=== PATIENT | female | born 1940 | race Caucasian/White ===

== ENCOUNTER 2018-05-05 06:38 | Emergency (ER) | payer OTHER, MEDICARE ==
--- OUTSIDE RECORDS SUMMARY | 2018-05-05 06:40 | XMS REPORT ---
:1940 [facility] [address] [place] [address] Dr. Hernandez [address] [place] [id number] Care Team Providers Name Role Phone Unavailable Unavailable Unavailable Problems This patient has no known problems. Allergies, Adverse Reactions, Alerts This patient has no known allergies or adverse reactions. Medications This patient has no known medications.
[2018-05-05 07:38] LABS: Absolute Lymphocytes (CBC) 1.5 K/uL (0.7-4.9); Absolute Monocytes 0.6 K/uL (0.1-1.3); Absolute Neutrophil 7.8 K/uL (1.8-8.0); Basophils % 1.4 % (0-1.3); Eosinophils % 0.9 % (0-4.4); Hematocrit 41.7 % (36.0-45.0); Lymphocytes % 14.8 % (15.3-44.8); MCH 32.3 pg (27.0-35.0); MCV 96.5 fL (80-100); MPV 9.8 fL (7.6-11.3); Monocytes % 6.3 % (3.3-12.3); RBC Red Blood Cell Count 4.32 M/uL (3.86-4.86)
[2018-05-05 07:58] LABS: Albumin 3.9 g/dL (3.4-5.0); Bilirubin Direct 0.2 mg/dL (0-0.2); Bilirubin Total 0.6 mg/dL (0.2-1.0); Potassium 4.2 mmol/L (3.5-5.1); Protein, Total 7.6 g/dL (6.4-8.2)
--- NOTE | 2018-05-05 08:43 | RAD REPORT ---
EXAM DESCRIPTION: CT - Abdomen Pelvis W Contrast - 05/05/2018 8:28 am CLINICAL HISTORY: Abdominal pain with nausea. COMPARISON: 2013 TECHNIQUE: Computed axial tomography of the abdomen pelvis was obtained. 100 cc Isovue-300 was admin istered intravenously. Oral contrast was not requested which limits evaluation of bowel. All CT scans are performed using dose optimization technique as appropriate and may include automated exposure control or mA/KV adjustment according to patient size. FINDINGS: The liver, spleen, pancreas, adrenal and left kidney appear unremarkable. Mild right renal cortical thinning may be secondary to prior inflammation There is no evidence of diverticulitis. The appendix is normal. A hysterectomy has been performed. A pain pump is in place. Tiny umbilical hernia IMPRESSION: No acute abnormality is displayed.
--- NOTE | 2018-05-05 09:13 | EDPHYS ---
Physician Documentation [facility] Name: Claudia Cha Age: 78 yrs Sex: Female : 1940 Arrival Date: 05/05/2018 Time: 06:42 Bed 14 Private MD: He Moreno C ED Physician Dao Cortez HPI: 05/05 08:13 This 78 yrs old Female presents to ER via Ambulatory with complaints of jr8 Constipation. 08:13 Onset: The symptoms/episode began/occurred gradually, 3 week(s) ago. The symptoms do jr8 not radiate. Associated signs and symptoms: Pertinent positives: nausea and vomiting. The symptoms are described as crampy. Modifying factors: The symptoms are alleviated by nothing, the symptoms are aggravated by nothing. Severity of pain: At its worst the pain was moderate in the emergency department the pain is unchanged. It is unknown whether or not the patient has had similar symptoms in the past. The patient has been recently seen by a physician:. Patient had colonoscopy one week ago. Stated that since then has only had one small bowel movement and feels bloated and now had been vomiting up her medications. Usually has some degree of constipation due to longstanding history of opioid use but never this bad and does not feel bloated or nauseated . Historical: - Allergies: 07:07 Latex, Natural Rubber; bb 07:07 metformin; bb 07:07 Tape; bb - Home Meds: 07:07 Aspirin Oral [Active]; Eliquis 5 mg oral tab 1 tab 2 times per day [Active]; bb atorvastatin 80 mg oral tab 1 tab once daily [Active]; enalapril maleate 10 mg Oral tab 1 tab 2 times per day [Active]; metoprolol tartrate 50 mg Oral tab 1 tab 2 times per day [Active]; amlodipine 5 mg tab 1 tab once daily [Active]; tizanidine 4 mg oral tab 1 tab every 8 hours [Active]; morphine 15 mg Oral TbER 1 tab every 8 hours [Active]; Prialt intrathecal intrathecal [Active]; - PMHx: 07:07 chronic back pain; Hypertension; Myocardial infarction; bb - PSHx: 07:07 back surgery; Hysterectomy; pain pump; neck surgery; bb - Immunization history:: Adult Immunizations up to date. - Social history:: Smoking status: Patient/guardian denies using tobacco, Patient/guardian denies using alcohol, street drugs. - Ebola Screening: : No symptoms or risks identified at this time. ROS: 08:13 Eyes: Negative for injury, pain, redness, and discharge, ENT: Negative for injury, jr8 pain, and discharge, Neck: Negative for injury, pain, and swelling, Cardiovascular: Negative for chest pain, palpitations, and edema, Respiratory: Negative for shortness of breath, cough, wheezing, and pleuritic chest pain, Back: Negative for injury and pain, MS/Extremity: Negative for injury and deformity, Skin: Negative for injury, rash, and discoloration, Neuro: Negative for headache, weakness, numbness, tingling, and seizure. 08:13 Abdomen/GI: Positive for abdominal pain, nausea and vomiting, abdominal cramps, abdominal distension, Negative for hematemesis, black/tarry stool, rectal pain, rectal bleeding, bowel incontinence, flatulence. Exam: 08:13 Eyes: Pupils equal round and reactive to light, extra-ocular motions intact. Lids and jr8 lashes normal. Conjunctiva and sclera are non-icteric and not injected. Cornea within normal limits. Periorbital areas with no swelling, redness, or edema. ENT: Nares patent. No nasal discharge, no septal abnormalities noted. Tympanic membranes are normal and external auditory canals are clear. Oropharynx with no redness, swelling, or masses, exudates, or evidence of obstruction, uvula midline. Mucous membranes moist. Neck: Trachea midline, no thyromegaly or masses palpated, and no cervical lymphadenopathy. Supple, full range of motion without nuchal rigidity, or vertebral point tenderness. No Meningismus. Cardiovascular: Regular rate and rhythm with a normal S1 and S2. No gallops, murmurs, or rubs. Normal PMI, no JVD. No pulse deficits. Respiratory: Lungs have equal breath sounds bilaterally, clear to auscultation and percussion. No rales, rhonchi or wheezes noted. No increased work of breathing, no retractions or nasal flaring. Abdomen/GI: Soft, non-tender, with normal bowel sounds. No distension or tympany. No guarding or rebound. No evidence of tenderness throughout. Back: No spinal tenderness. No costovertebral tenderness. Full range of motion. Skin: Warm, dry with normal turgor. Normal color with no rashes, no lesions, and no evidence of cellulitis. MS/ Extremity: Pulses equal, no cyanosis. Neurovascular intact. Full, normal range of motion. Neuro: Awake and alert, GCS 15, oriented to person, place, time, and situation. Cranial nerves II-XII grossly intact. Motor strength 5/5 in all extremities. Sensory grossly intact. Cerebellar exam normal. Normal gait. Vital Signs: 07:07 BP 128 / 60; Pulse 52; Resp 16 S; Temp 98.1(O); Pulse Ox 95% on R/A; Weight 88.45 kg bb (R); Height 5 ft. 7 in. (170.18 cm) (R); Pain 8/10; 07:10 BP 141 / 84; Pulse 58; Resp 16; Pulse Ox 97% ; bp 08:45 BP 133 / 65; Pulse 52; Resp 14; Pulse Ox 100% ; bp 07:07 Body Mass Index 30.54 (88.45 kg, 170.18 cm) bb MDM: 06:49 Patient medically screened. jr8 09:10 Differential diagnosis: bowel obstruction, diverticulitis, Irritable bowel syndrome, jr8 non-specific abd pain, colitis, constipation, stool impaction. Data reviewed: vital signs, nurses notes, lab test result(s), radiologic studies, CT scan, and as a result, I will discharge patient. Data interpreted: Pulse oximetry: on room air is 100 %. Interpretation: normal. Counseling: I had a detailed discussion with the patient and/or guardian regarding: the historical points, exam findings, and any diagnostic results supporting the discharge/admit diagnosis, lab results, radiology results, the need for outpatient follow up, a family practitioner, a leadership recruiter, to return to the emergency department if symptoms worsen or persist or if there are any questions or concerns that arise at home. Response to treatment: the patient's symptoms have markedly improved after treatment. ED course: Detailed discussion with patient and family about results. Will put on gas-ex and Miralax to see how she will do. Increase water intake and f/u within next couple of days. Patient and family good with this plan . 05/05 07:02 Order name: Basic Metabolic Panel; Complete Time: 08:10 jr8 05/05 07:02 Order name: CBC with Diff; Complete Time: 07:45 jr8 12/12 07:02 Order name: Creatinine for Radiology; Complete Time: 08:10 05/05 07:02 Order name: Hepatic Function; Complete Time: 08:10 05/05 07:02 Order name: Lipase; Complete Time: 08:05/05 07:38 Order name: Urine Dipstick--Ancillary (enter results) 05/05 07:02 Order name: IV Saline Lock; Complete Time: 07:32 05/05 07:02 Order name: Labs collected and sent; Complete Time: 07:05/05 07:02 Order name: Urine Dipstick-Ancillary (obtain specimen); Complete Time: :05/05 08:10 Order name: CT Abd/Pelvis - W/Contrast; Complete Time: 08:57 Administered Medications: No medications were administered Disposition: 10:01 Co-signature as Attending Physician, Dao Cortez MD I agree with the assessment and sami plan of care. Disposition: 05/05/18 09:12 Discharged to Home. Impression: Constipation. - Condition is Stable. - Discharge Instructions: Constipation, Adult. - Prescriptions for Miralax 17 gram/dose Oral - take 1 packet by ORAL route once daily dilute powder in 8 ounces of water or juice; 1 box. - Medication Reconciliation Form, Thank You Letter, Antibiotic Education, Prescription Opioid Use form. - Follow up: He Moreno MD; When: 2 - 3 days; Reason: Recheck today's complaints, Continuance of care, Re-evaluation by your physician. - Problem is new. - Symptoms have improved. Signatures: Dispatcher [employer] Dao Dey MD MD cha Ballard, Brenda, RN RN Joseph Sharma PA PA jr8 Hasrh Heredia, RN RN bp Corrections: (The following items were deleted from the chart) 09:27 09:12 05/05/2018 09:12 Discharged to Home. Impression: Constipation. Condition is bp Stable. Forms are Medication Reconciliation Form, Thank You Letter, Antibiotic Education, Prescription Opioid Use. Follow up: He Moreno; When: 2 - 3 days; Reason: Recheck today's complaints, Continuance of care, Re-evaluation by your physician. Problem is new. Symptoms have improved. jr8
--- NOTE | 2018-05-05 09:13 | ER ---
Nurse's Notes [facility] Name: Claudia Cha Age: 78 yrs Sex: Female : 1940 Arrival Date: 05/05/2018 Time: 06:42 Bed 14 Private MD: He Moreno C Diagnosis: Constipation Presentation: 05/05 07:02 Presenting complaint: Patient states: she is having a lot of abdominal pain and has not bb had a bowel movement in a week after having a colonoscopy pt is unable to swallow her pills states they just come back up, pt is on morphine PO for chronic back pain. Transition of care: patient was not received from another setting of care. Onset of symptoms was April 28, 2018. Risk Assessment: Do you want to hurt yourself or someone else? Patient reports no desire to harm self or others. Initial Sepsis Screen: Does the patient meet any 2 criteria? No. Patient's initial sepsis screen is negative. Does the patient have a suspected source of infection? No. Patient's initial sepsis screen is negative. Care prior to arrival: None. 07:02 Method Of Arrival: Ambulatory bb 07:02 Acuity: [place] 3 bb 07:08 Note pt has tried OTC medications Miralax, Dulcolax, and a stool softener with no bb effect. Triage Assessment: 07:00 General: Appears in no apparent distress. uncomfortable, Behavior is calm, cooperative, bp appropriate for age. Pain: Complains of pain in buttocks and abdomen. GI: Reports constipation. Historical: - Allergies: 07:07 Latex, Natural Rubber; bb 07:07 metformin; bb 07:07 Tape; bb - Home Meds: 07:07 Aspirin Oral [Active]; Eliquis 5 mg oral tab 1 tab 2 times per day [Active]; bb atorvastatin 80 mg oral tab 1 tab once daily [Active]; enalapril maleate 10 mg Oral tab 1 tab 2 times per day [Active]; metoprolol tartrate 50 mg Oral tab 1 tab 2 times per day [Active]; amlodipine 5 mg tab 1 tab once daily [Active]; tizanidine 4 mg oral tab 1 tab every 8 hours [Active]; morphine 15 mg Oral TbER 1 tab every 8 hours [Active]; Prialt intrathecal intrathecal [Active]; - PMHx: 07:07 chronic back pain; Hypertension; Myocardial infarction; bb - PSHx: 07:07 back surgery; Hysterectomy; pain pump; neck surgery; bb - Immunization history:: Adult Immunizations up to date. - Social history:: Smoking status: Patient/guardian denies using tobacco, Patient/guardian denies using alcohol, street drugs. - Ebola Screening: : No symptoms or risks identified at this time. Screenin:19 Abuse screen: Denies threats or abuse. Denies injuries from another. Nutritional bp screening: No deficits noted. Tuberculosis screening: No symptoms or risk factors identified. Fall Risk None identified. Assessment: 07:10 General: Appears in no apparent distress. uncomfortable, Behavior is cooperative, bp appropriate for age, anxious. Pain: Complains of pain in abdomen. Neuro: Level of Consciousness is awake, alert, obeys commands, Oriented to person, place, time, situation, Appropriate for age. Cardiovascular: No deficits noted. Respiratory: Airway is patent Respiratory effort is even, unlabored, Respiratory pattern is regular, symmetrical. GI: Bowel sounds present X 4 quads. Abd is soft X 4 quads. : No signs and/or symptoms were reported regarding the genitourinary system. EENT: No deficits noted. Derm: No deficits noted. Musculoskeletal: Circulation, motion, and sensation intact. Range of motion: intact in all extremities. 08:44 Reassessment: PT RETURNED FROM CT, ALL CURRENT ORDERS COMPLETED. RESULTS PENDING. bp 09:27 Reassessment: PT D/C HOME AMBULATORY WITH FAMILY, DX WITH CONSTIPATION. bp Vital Signs: 07:07 BP 128 / 60; Pulse 52; Resp 16 S; Temp 98.1(O); Pulse Ox 95% on R/A; Weight 88.45 kg bb (R); Height 5 ft. 7 in. (170.18 cm) (R); Pain 8/10; 07:10 BP 141 / 84; Pulse 58; Resp 16; Pulse Ox 97% ; bp 08:45 BP 133 / 65; Pulse 52; Resp 14; Pulse Ox 100% ; bp 07:07 Body Mass Index 30.54 (88.45 kg, 170.18 cm) ED Course: 06:42 Patient arrived in ED. al2 06:42 He Moreno MD is Private Physician. al2 06:49 [facility] jr8 06:49 Dao Cortez MD is Attending Physician. jr8 07:00 Harsh Heredia, RN is Primary Nurse. bp 07:03 Triage completed. bb 07:07 Arm band placed on Patient placed in an exam room, on a stretcher, on pulse oximetry. bb Family accompanied patient. 07:19 Patient has correct armband on for positive identification. Placed in gown. Bed in low bp position. Call light in reach. Side rails up X2. Adult w/ patient. 07:30 Inserted saline lock: 20 gauge in right forearm, using aseptic technique. Blood bp collected. 08:25 CT completed. Patient tolerated procedure well. Patient moved to CT via wheelchair. Patient moved back from CT. 08:30 CT Abd/Pelvis - W/Contrast In Process Unspecified. EDMS 09:12 He Moreno MD is Referral Physician. jr8 09:22 No provider procedures requiring assistance completed. IV discontinued, intact, bp bleeding controlled, No redness/swelling at site. Pressure dressing applied. Administered Medications: No medications were administered Outcome: 09:12 Discharge ordered by . jr8 09:26 Discharged to home ambulatory, with family. bp 09:26 Condition: stable 09:26 Discharge instructions given to patient, Instructed on discharge instructions, follow up and referral plans. medication usage, Demonstrated understanding of instructions, follow-up care, medications, Prescriptions given X 1. 09:27 Patient left the ED. bp Signatures: Dispatcher [employer] EDMI Hodan Jarvis Brenda, RN RN Joseph Sharma PA PA jr8 Harsh Heredia, RN RN Nati Ingram
[2018-05-05 09:42] VITALS: TEMP 98.1
[2018-05-05 09:43] VITALS: BP 133/65; O2SAT 100
[2018-05-05 10:20] LABS: Urine Blood NEGATIVE (NEG); Urine Glucose NEGATIVE (NEG); Urine Protein NEGATIVE (NEG); Urine Specific Gravity >1.030 (1.005-1.030); Urine pH 5.5 (5.0-7.0)
== END 2018-05-05 09:27 | disposition home or self-care (01) ==
LOC: ER 06:38
DX: K59.00 Constipation, unspecified (principal); I10 Essential (primary) hypertension; I25.2 Old myocardial infarction; Z79.01 Long term (current) use of anticoagulants; Z79.82 Long term (current) use of aspirin; Z88.8 Allergy status to other drugs, medicaments and biological substances; Z91.040 Latex allergy status; Z91.048 Other nonmedicinal substance allergy status
CPT/HCPCS: 36415; 74177; 80048; 80076; 81003; 83690; 85025; Q9967

== ENCOUNTER 2019-11-17 10:50 | Observation (INO) | payer OTHER, MEDICARE ==
--- NOTE | 2019-11-17 11:54 | RAD REPORT ---
EXAM DESCRIPTION: RAD - Chest Single View - 11/17/2019 11:47 am CLINICAL HISTORY: CHEST PAIN Chest pain. COMPARISON: Chest Pa And Lat (2 Views) dated 07/13/2017; CHEST SINGLE VIEW dated 03/02/2014; CHEST SIN GLE VIEW dated 02/09/2014; CHEST SINGLE VIEW dated 02/08/2014 FINDINGS: Portable technique limits examination quality. The lungs are grossly clear. The heart is normal in size. No displaced fractures. IMPRESSION: No acute intrathoracic process suspected.
[2019-11-17 12:06] LABS: Absolute Lymphocytes (CBC) 1.3 K/uL (0.7-4.9); Basophils % 0.8 % (0-1.3); Hematocrit 42.1 % (36.0-45.0); Lymphocytes % 15.7 % (15.3-44.8); RBC Red Blood Cell Count 4.44 M/uL (3.86-4.86)
[2019-11-17 12:10] LABS: Protime INR 1.23
--- OUTSIDE RECORDS SUMMARY | 2019-11-17 12:33 | XMS REPORT | Clinical Summary ---
:1940 Author Organization [facility] Address [address] [place] [address] Care Team Providers Name Role Phone Lakeshia Moreno MD Primary Care Provider Allergies Active Allergy Reactions Severity Noted Date Comments Adhesive Tape-Silicones Latex Rash Low 09/29/2016 Metformin Rash Low 09/25/2016 Medications Medication Sig Dispensed Refills Start End Date Status Date enalapril-hydrochl daily. 0 A ctive orothiazide (VASERETIC) 10-25 mg per tablet atorvastatin daily. 0 Active (LIPITOR) 80 MG tablet aspirin (ECOTRIN) Take 81 mg by 0 Active 81 MG enteric mouth. coated tablet ELIQUIS 5 mg TK 1 T PO BID 2 Act lisandro tablet 9 amLODIPine Take 5 mg by 0 Active (NORVASC) 5 mg mouth. tablet tiZANidine tizanidine 4 mg tablet 0 Active (ZANAFLEX) 4 MG 1 PO TID tablet nitroglycerin Place 1 patch 0 Ac tive (NITRODUR) 0.4 on the skin mg/hr daily. acetaminophen Take 500 mg by 0 A ctive (TYLENOL) 500 MG mouth every 6 tablet (six) hours as needed for mild pain. TRULANCE 3 mg TAKE 1 TABLET 30 tablet 0 Ac tive tablet BY MOUTH EVERY 9 DAY. CAN BE TAKEN WITH OR WITHOUT FOOD naldemedine Take 0.2 mg by 30 tablet 3 Act lisandro (SYMPROIC) 0.2 mg mouth daily. 0 tablet linaCLOtide Take 1 capsule 30 capsule 0 11/17/19 Di scontinued (LINZESS) 290 mcg (290 mcg total) 9 19 (Alternate capsule by mouth daily thera py) before breakfast. plecanatide Take 1 tablet 30 tablet 0 02/08/20 Disc ontinued (TRULANCE) 3 mg (3 mg total) by 02 10 (Reorder) tablet mouth daily. Can be taken with or without food. TRULANCE 3 mg TAKE 1 TABLET 30 tablet 0 03/25/20 Di scontinued tablet BY MOUTH EVERY 9 (Reor isiah) DAY. CAN BE TAKEN WITH OR WITHOUT FOOD TRULANCE 3 mg TAKE 1 TABLET 30 tablet 0 05/06/20 Di scontinued tablet BY MOUTH EVERY 9 (Reor isiah) DAY. CAN BE TAKEN WITH OR WITHOUT FOOD sodium,potassium,m Use as directed 354 mL 0 05/30 Discontinued ag sulfates 02 11 (SUPREP BOWEL PREP KIT) 17.5-3.13-1.6 gram recon soln Active Problems Not on file Encounters Date Type Specialty Care Team Description 07/11/2019 Office Visit Gastroenterology Karlos Irvin Drug-ind teto Sommer MD constipation (P rimary Dx) 06/22/2019 Telephone Gastroenterology Beth Arriaza MA 06/15/2019 Telephone GastroenterBeth Walker MA 05/30/2019 Office Visit Gastroenterology Randy Leal Drug-in bhumika Harvey MD constipation (P rimary Dx) 05/06/2019 Telephone GastroenterRandy Collier MD 05/06/2019 Refill Gastroenterology Randy Leal MD 04/08/2019 Telephone Gastroenterology Randy Leal MD 04/08/2019 Telephone Gastroenterology Randy Leal MD 03/25/2019 Refill Gastroenterology Randy Leal MD 03/15/2019 Telephone Gastroenterology Rabia Parker MA 03/08/2019 Telephone Gastroenterology Rabia Parker MA 03/07/2019 Hospital Encounter Radiology Randy Leal MD pain 03/02/2019 Telephone Gastroenterology [place] Genera lized abdominal RN pain (Primary D x) 02/07/2019 Telephone Gastroenterology Randy Leal MD 02/07/2019 Telephone Gastroenterology Randy Leal MD 01/05/2019 Hospital Encounter Radiology Randy Garvey MD 01/05/2019 Hospital Encounter Radiology Randy Garvey er's diseaseBrit MD unspecified ([place]) 12/22/2018 Transcribe Orders Access Randy Garvey r's diseaseBrit MD unspecified ([place]) (Primary Dx) 12/07/2018 Office Visit Ophthalmology Manjit Fuentes, 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 Last Filed Vital Signs Vital Sign Reading Time Taken Comments Blood Pressure 117/80 05/30/2019 2:26 PM [employer] Pulse 62 05/30/2019 2:26 PM [employer] Temperature - - Respiratory Rate - - Oxygen Saturation - - Inhaled Oxygen Concentration - - Weight 85.3 kg (188 lb) 07/11/2019 2:49 PM [employer] Height 170.2 cm (5' 7") 07/11/2019 2:49 PM [employer] Body Mass Index 29.44 07/11/2019 2:49 PM [employer] Plan of Treatment Health Maintenance Due Date Last Done Comments DIABETIC FOOT EXAM 1950 URINE MICROALBUMIN 1950 SHINGLES VACCINES (#1) 1992 65+ PNEUMOCOCCAL VACCINE (2 of 2 - 2007 12/06/2013 PPSV23) INFLUENZA VACCINE 12/24/2019 DIABETIC RETINAL EYE EXAM 12/07/2020 12/07/2018, 12/07/2018 , 12/07/2018, Additional history exists Procedures Procedure Name Priority Date/Time Associated Diagnosis Comme nts CT ABDOMEN PELVIS Routine 03/07/2019 4:11 Generalized abdomin al Results for this WO CONTRAST PM CDT pain procedure are i n the results section. POC CREATININE Routine 03/07/2019 2:58 Results f or this PM CDT procedure are i n the results section. ESTIMATED GFR Routine 03/07/2019 2:58 Results fo r this PM CDT procedure are i n the results section. NM BRAIN SPECT W I Routine 01/05/2019 1:47 Alzheimer's diseas e, Results for this 123 DATSCAN PM CDT unspecified (CODE) procedure are in the results section. OCT, RETINA - OU - Routine 12/07/2018 10:49 Central retinal ve in Results for this BOTH EYES AM CDT occlusion of left procedure are in eye, unspecified the results complication status section. after 11/16/[address] Abdomen Pelvis Wo Contrast (03/07/2019 4:11 PM CDT) Specimen Narrative Performed At EXAMINATION: CT ABDOMEN PELVIS WO CONT RAST HM [facility] CLINICAL HISTORY: R10.84 Generalized abdominal pain, Abd pain unspecified COMPARISON: Abdominal x-ray October 20. TECHNIQUE: CT of the abdomen and pelvis without intr avenous contrast. Absence of intravenous contrast decreases sensitivity for detection of focal lesions and vascular pathology. CT imaging was performed with iterative reconstruction techniques and/or automated exposure control to reduce rad iation dose. FINDINGS: LOWER THORAX: The lung bases are clear. Mild Coronary arterial calcifications ar e present. ABDOMEN: Liver: There is no hepatic mass or intrahepatic biliar y ductal dilatation. Gallbladder and Common Bile Duct: There is some increa sed density within the dependent aspect of the gallbladder, may represent sludge or small stones. Gallbladder otherwise has a norm al CT appearance. Pancreas: The pancreas is unremarkable. There is a duo denal diverticulum adjacent to the head of the pancreas Spleen: The spleen is not enlarged. 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 Adrenal Glands: The adrenal glands are u nremarkable. Kidneys: No renal mass or hydronephrosis . No renal or ureteral calculi. Vasculature: The abdominal aorta is nonaneurysmal. The re is scattered calcific atherosclerosis of the abdomina l aorta. Nodes: No enlarged mesenteric or retrope ritoneal lymphadenopathy. Bowel: No bowel obstruction or inflammatory changes of the large or small bowel. The appendix is normal. Ascites: No ascites or fluid collections . Bones and Soft Tissues : Spinal stimulation hardware i s present. There are degenerative and postsurgical changes within the s pine. Associated postsurgical changes are present in the left iliac bone. PELVIS: Pelvic Organs and Bladder: Status post hysterectomy. N o pelvic mass or lymphadenopathy. IMPRESSION: 1.No acute abnormality in the abdomen or pelvis to exp evon patient's pain is identified. 2.Increased density within the gallbladder consistent with stones or sludge. Gallbladder otherwise has a norm al CT appearance 3.Additional findings as above. [facility]-[id number] Dictated and approved by professor of radiology/fellow: Batool Portillo M.D. I, Julio Hanson MD, personally reviewed the images and resident's/fellow's findings and agree with the final report. Procedure Note [facility], Radiology Results Incoming - 03/07/2019 5:23 PM CDT EXAMINATION: CT ABDOMEN PELVIS WO CONTRAST CLINICAL HISTORY: R10.84 Generalized ab dominal pain, Abd pain unspecified COMPARISON: Abdominal x-ray October 20 9. TECHNIQUE: CT of the abdomen and pelvis without intravenous contrast. Absence of intravenous contrast decreases sensitivity for detection of focal lesions and vascular pathology. CT imaging was performed with iterative reconstruction techniques and/or automated exposure control to reduce radiation dose. FINDINGS: LOWER THORAX: The lung bases are clear. Mild Coronary arterial calcifications ar e present. ABDOMEN: Liver: There is no hepatic mass or intra hepatic biliary ductal dilatation. Gallbladder and Common Bile Duct: There is some increased density within the dependent aspect of the gallbladder, may represent sludge or small stones. Gallbladder otherwise has a normal CT appearance. Pancreas: The pancreas is unremarkable. There is a duodenal diverticulum adjacent to the head of the pancreas Spleen: The spleen is not enlarged. 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 Adrenal Glands: The adrenal glands are u nremarkable. Kidneys: No renal mass or hydronephrosis . No renal or ureteral calculi. Vasculature: The abdominal aorta is winter neurysmal. There is scattered calcific atherosclerosis of the abdominal aorta. Nodes: No enlarged mesenteric or retrope ritoneal lymphadenopathy. Bowel: No bowel obstruction or inflammat ory changes of the large or small bowel. The appendix is normal. Ascites: No ascites or fluid collections . Bones and Soft Tissues : Spinal stimulat ion hardware is present. There are degenerative and postsurgical changes within the spine. Associated postsurgical changes are present in the left iliac bone. PELVIS: Pelvic Organs and Bladder: Status post h ysterectomy. No pelvic mass or lymphadenopathy. IMPRESSION: 1.No acute abnormality in the abdomen or pelvis to explain patient's pain is identified. 2.Increased density within the gallbladd er consistent with stones or sludge. Gallbladder otherwise has a normal CT appearance 3.Additional findings as above. [facility]-[id number] Dictated and approved by radiology resid ent/fellow: Alonzo Portillo M.D. I, Julio Hanson MD, personally reviewed t he images and resident's/fellow's findings and agree with the final report. Performing Organization Address [facility]/Zipcode Phone Number [address] [address] Estimated GFR (03/07/2019 2:58 PM CDT) [facility] Estimated GFR 33 (A) mL/min/1.73 [facility] Comment: HOSPITAL Catergory Units Interpretation G1 >=90 Normal or high G2 60-89 Mildly decreased G3a 45-59 Mildly to moderately decreas ed G3b 30-44 Moderately to severely decre ased G4 15-29 Severely decreased G5 <15 Kidney failure The eGFR was calculated using the Chronic Kidney Disea se Epidemiology Collaboration (CKD-EPI) equation. Interpretation is based on recommendations of the National Kidney Foundation-Kidney Disease Outcomes Dani lity Initiative (NKF-KDOQI) published in 2014. Specimen Blood Performing Organization Address [facility] Phone Number [facility] DEPARTMENT OF PATHOLOGY AND [address] [place] [address] [phone] [address] POC creatinine (03/07/2019 2:58 PM CDT) [facility] POC creatinine 1.5 (H) 0.5 - 0.9 mg/dl [facility] Comment: HOSPITAL Meter ID: [id number] Oracle Engineer: Izabela Cavazos Specimen Blood Performing Organization Address [facility] Phone Number [facility] DEPARTMENT OF PATHOLOGY AND [address] [place], [place] [address] [address] [address] NM Brain Spect W I 123 Datscan (01/05/2019 1:47 PM CDT) Specimen Narrative Performed At This [email or web address]] has an attachment that is no t available. PROCEDURE: NM BRAIN SPECT W I 123 DATSCAN [facility] INDICATION: Alzheimer's disease. TECHNIQUE: The patient was pretreated wi th potassium iodide drops for thyroid protection and then injected with 4 mCi of I-123 DaTscan IV. Brain SPECT imaging was then performed. FINDINGS: Striatal uptake appears relatively normal, bilaterally. IMPRESSION: 1. Negative study. No evidence for a n underlying primary Parkinsonian syndrome. [facility]-[id number] Procedure Note Hm Interface, Radiology Results Incoming - 01/05/2019 3:50 PM CDT PROCEDURE: NM BRAIN SPECT W I 123 DATSCAN INDICATION: Alzheimer's disease. TECHNIQUE: The patient was pretreated wi th potassium iodide drops for thyroid protection and then injected with 4 mCi of I-123 DaTscan IV. Brain SPECT imaging was then performed. FINDINGS: Striatal uptake appears relat ively normal, bilaterally. IMPRESSION: 1. Negative study. No evidence for an underlying primary Parkinsonian syndrome. [facility]-[id number] Performing Organization Address City/State/Zipcode Phone Number [facility] [address] [place] [address] OCT, Retina - OU - Both Eyes (12/07/2018 10:49 AM CDT) Specimen Narrative Performed At This result has an attachment that is no t available. GANGLION CELL after 11/16/2018 Insurance Payer Benefit Plan / Subscriber ID Effective Dates Phone Addre ss Type Group MEDICARE MEDICARE PART A xxxxxxxxxxx 2007-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
--- OUTSIDE RECORDS SUMMARY | 2019-11-17 12:33 | XMS REPORT | Continuity of Care Document ---
:1940 Author Organization [facility] t Address [address] [place] [address] Care Team Providers Name Role Phone Lakeshia Moreno MD Primary Care Physician Nathan GILMAN, K.H. Attending Clinician Doctor Unassigned, Name Attending Clinician Unavailable Brandee GILMAN M. Attending Clinician Arslaan MONTALVO Attending Clinician Unavailable Mel GILMAN L. Attending Clinician Elena MONTALVO Attending Clinician Unavailable Jeana HOLLOWAY Attending Clinician Unavailable Brit Garvey MD Attending Clinician Ricardo Fuentes MD Attending Clinician Payers Payer Name Policy Policy Number Effective Expiration Source Type Date Date MEDICAREMEDICARE PART xxxxxxxxxxx 2007 Norman Cutler AND 00:00:00 [place] Axqrsftinhvb78/1/[place] [facility] [place] xxxxxxxxxxx 2017 [place] SUPPLEMENTxxxxxxxxxxx 00:00:00 Met russ 2017-[facility] [place] rcial Problems This patient has no known problems. Allergies, Adverse Reactions, Alerts Allergy Allergy Status Severity Reaction(s) Onset Inactive Treating Comm ents Source Name Type Date Date Clinician Latex Propensi Active Rash [place] ty to 09-29 Methodi adverse 00:00: st reaction 00 s to drug Metformi Propensi Active Rash [place] ty to 5-04 [facility] adverse 00:00: st reaction 00 s to drug Adhesive Propensi Active [place] T[place] ty to Methodi icones adverse st reaction s to drug Social History Social Habit Start Date Stop Date Quantity Comments Source Sex Assigned At Donna sanchezphoebe Hutton Smoking Status Start Date Stop Date Source Never smoker Ole leong Medications Ordered Filled Start Stop Current Ordering Indication Dosage Frequency Signature Comments Components Source Medication Medication Date Date Medication? Clinician (SIG) Name Name naldemedine Yes .2mg QD Take 0.2 [place] (SYMPROIC) 1-06 mg by Methodi 0.2 mg 00:00: mouth st tablet 00 daily. TRULANCE 3 2018-05 Yes TAKE 1 [place] mg tablet 2-13 TABLET BY Metho di 00:00: MOUTH st 00 EVERY DAY. CAN BE TAKEN WITH OR WITHOUT FOOD sodium,pota 2018-05- No Use as Donna reynolds ssium,mag 1-15 05-30 directed Metho di sulfates 00:00: 00:00 st (SUPREP 00 :00 BOWEL PREP KIT) 17.5-3.13-1 .6 gram recon soln TRULANCE 3 2018-05- No TAKE 1 [place] mg tablet 1- 12-13 TABLET BY Meth sharif 00:00: 00:[address] 00 :00 EVERY DAY. CAN BE TAKEN WITH OR WITHOUT FOOD TRULANCE 3 2018- No TAKE 1 [place] mg tablet 9-17 - TABLET BY Meth sharif 00:00: 00:[address] 00 :00 EVERY DAY. CAN BE TAKEN WITH OR WITHOUT FOOD enalapril-h Yes Q24H daily. [place] ydrochlorot 7-16 [facility] hiazide 08:42: st (VASERETIC) 32 10-25 mg per tablet atorvastati Yes Q24H daily. [place] (LIPITOR) 7-16 Method[facility] 80 MG 08:42: st tablet 32 aspirin Yes 81mg Take 81 mg [place] (ECOTRIN) 716 by mouth. Metho di 81 MG 08:42: st enteric 32 coated tablet amLODIPine Yes 5mg Take 5 mg [place] (NORVASC) 5 16 by mouth. Met hodi mg tablet 08:42: st 32 tiZANidine Yes tizanidine [place] (ZANAFLEX) 7-16 4 mg Methodi 4 MG tablet 08:42: tablet 1 st 32 PO TID nitroglycer Yes 1{patch QD Place 1 [place] in 7-16 } patch on Methodi (NITRODUR) 08:42: the skin st 0.4 mg/hr 32 daily. acetaminoph Yes 500mg Q6H Take 500 [place] en 7-16 mg by Methodi (TYLENOL) 08:42: mouth st 500 MG 32 every 6 tablet (six) hours as needed for mild pain. plecanatide 2019- No 3mg QD Take 1 Donna ston (TRULANCE) 11-16 09-16 tablet (3 Met hodi 3 mg tablet 00:00: 00:00 mg total) st 00 :00 by mouth daily. Can be taken with or without food. linaCLOtide 2019- No 290ug QD Take 1 [place] (LINZESS) 11-03 0625 capsule Method i 290 mcg 00:00: 00:00 ([address] capsule 00 :00 total) by mouth daily before breakfast. ELIQUIS 5 Yes TK 1 T PO Donna ston mg tablet 3-11 BID Methodi 00:00: st 00 Vital Signs Vital Name Observation Time Observation Value Comments Source Body height 2019-07-11 14:49:00 170.2 cm Ole Hutton Body weight 2019-07-11 14:49:00 85.276 kg Ole Hutton BMI 2019-07-11 14:49:00 29.44 kg/m2 Ole Hutton Systolic blood 2019-05-30 14:26:00 117 mm[Hg] [place] Shinto pressure Diastolic blood 2019-05-30 14:26:00 80 mm[Hg] [place] Shinto pressure Heart rate 2019-05-30 14:26:00 62 /min Ole Hutton Procedures Procedure Date / Time Performed Performing Clinician [facility] e [facility] ABDOMEN PELVIS WO 2019-03-07 16:11:55 Randy Leal CONTRAST ESTIMATED GFR 2019-03-07 14:58:00 Randy Leal POC CREATININE 2019-03-07 14:58:00 Randy Leal NM BRAIN SPECT W I 123 2019-01-05 13:47:49 System, Provider Not Ole Hutton DATSCAN In OCT, RETINA - OU - BOTH 2018-12-07 10:49:51 Manjit Fuentes [place] EYES Plan of Care Planned Activity Planned Date Details Comments Source Future Scheduled 2020-12-07 DIABETIC RETINAL EYE Donna ston Shinto Test 00:00:00 EXAM [code = DIABETIC RETINAL EYE EXAM] Future Scheduled 2019-12-24 INFLUENZA VACCINE [place] [facility] Test 00:00:00 [code = INFLUENZA VACCINE] Future Scheduled 2007 65+ PNEUMOCOCCAL [place] [facility]into Test 00:00:00 VACCINE (2 of 2 - PPSV23) [code = 65+ PNEUMOCOCCAL VACCINE (2 of 2 - PPSV23)] Future Scheduled 1992 SHINGLES VACCINES (#1) [place] [facility] Test 00:00:00 [code = SHINGLES VACCINES (#1)] Future Scheduled 1952 DIABETIC FOOT EXAM [place] [facility] Test 00:00:00 [code = DIABETIC FOOT EXAM] Future Scheduled 1950 URINE MICROALBUMIN [place] [facility] Test 00:00:00 [code = URINE MICROALBUMIN] Encounters Start End Encounter Admission Attending Care Care Encounter Source Date/Time Date/Time Type Type Clinicians Facility Department ID 2019-11-07 2019-11-07 Telephone FERNANDO Evans [id number] 00:00:00 00:00:00 [place] [id number] [place] [id number] [place] [id number] critical access hospital9 [facility] 2019-11-07 2019-11-07 Orders Doctor JEAN PAUL [id number] 00:00:00 00:00:00 Only Unassigned, ASHA [id number] [place] [facility] [id number] 2019-10-13 2019-10-13 Telemedici Nathan KSEARLE [id number] 08:07:24 14:22:16 ne Visit Larry [place] [id number] [place] [id number] [place] [id number] critical access hospital9 [facility] 2019-09-30 2019-09-30 Office Nathan [facility] [id number] 12:25:10 12:25:25 Visit Larry [place] [id number] [place] [id number] [place] [id number] critical access hospital9 [facility] 2019-09-30 2019-09-30 Orders Doctor JEAN PAUL [id number] 00:00:00 00:00:00 Only Unassigned, ASHA [id number] [place] [facility] [id number] Results Test Description Test Time Test Comments Results Result [facility] e Comments CT Abdomen 2019-02-22 Hm Interface, [place] Pelvis Wo [address] Contrast 17:20:37 - 03/07/2019 5:23 PM CDTEXAMINATION: CT ABDOMEN PELVIS WO CONTRASTCLINICAL HISTORY: R10.84 Generalized abdominal pain, Abd pain unspecifiedCOMPARISON : Abdominal x-ray October 20, 2018.TECHNIQUE: CT of the abdomen and pelvis without intravenous contrast. Absence of intravenous contrast decreases sensitivity for detection of focal lesions and vascular pathology.CT imaging was performed with iterative reconstruction techniques and/or automated exposure control to reduce radiation dose. FINDINGS:LOWER THORAX:The lung bases are clear.Mild Coronary arterial calcifications are present.ABDOMEN:Liver : There is no hepatic mass or intrahepatic biliary ductal dilatation.Gallbladde r and Common Bile Duct: There is some increased density within the dependent aspect of the gallbladder, may represent sludge or small stones. Gallbladder otherwise has a normal CT appearance.Pancreas: The pancreas is unremarkable. There is a duodenal diverticulum adjacent to the head of the pancreasSpleen: The spleen is not enlarged. 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 No renal or ureteral calculi.Vasculature: The abdominal aorta is nonaneurysmal. There is scattered calcific atherosclerosis of the abdominal aorta.Nodes: No enlarged mesenteric or retroperitoneal lymphadenopathy.Bowel : No bowel obstruction or inflammatory changes of the large or small bowel. The appendix is normal.Ascites: No ascites or fluid collections.Bones and Soft Tissues : Spinal stimulation hardware is present. There are degenerative and postsurgical changes within the spine. Associated postsurgical changes are present in the left iliac bone.PELVIS:Pelvic Organs and Bladder: Status post hysterectomy. No pelvic mass or lymphadenopathy.IMPRE SSION:1.No acute abnormality in the abdomen or pelvis to explain patient's pain is identified.2.Increase d density within the gallbladder consistent with stones or sludge. Gallbladder otherwise has a normal CT appearance3.Additiona l findings as above.[place]-[id number] ictated and approved by assistant professor of radiology/fellow: Alonzo Portillo M.D.I, Julio Hanson MD, personally reviewed the images and resident's/fellow's findings and agree with the final report. POC creatinine 2019-03-07 15:00:28 Test Item Value Reference Range Interpretation Comme nts POC creatinine (test code = 1.5 mg/dl 0.5-0.9 H Meter ID: [id number]: Izabela [id number]) [facility] Interpretation (test code = Abnormal 07825-8) Ole HuttonEstimated [id number] 15:00:28 Test Item Value Reference Range Interpretation Comments Estimated GFR (test 33 mL/min/1.73 m2 A [facility] Units code = 95906-4) Interpretati onG1 >=90 Genoveva l or highG2 60-89 Mildly decrease dG3a 45-59 Mil dly to moderately decr aisllX3w 30-44 Moderately to s everely decreasedG4 15-29 Severe ly decreasedG5 <15 Kidney javier lureThe eGFR was calcul ated using the Chron ic Kidney Disease Epidemiology Collaboration ( CKD-EPI) equation. Interpretation is based on recommendati ons of the National Ki dney Foundation-Kidn ey Disease Outcome s Quality Initiat lisandro (NKF-KDOQI) [facility]. Lab Interpretation Abnormal (test code = 51694-7) Ole Martinez Brain Spect W I 123 [id number] 15:47:34Hm Interface, Radiology Results 01/05/2019 3:50 PM CDTPROCEDURE: NM BRAIN SPECT W I 123DATSCANINDICATION: Alzheimer's disease. TECHNIQUE: The patient was pretreated with potassium iodidedrops for thyroid protection and then injected with 4 mCi of I-123 DaTscan IV. Brain SPECT imaging was then performed. FINDINGS: Striatal uptake appears relatively normal, bilaterally. IMPRESSION:1. Negative study. No evidence for an underlying primary Parkinsonian syndrome.[id number] MethodistOCT, Retina - OU - Both [id number] 02:53:19GANGLION CELLDoctors Hospital Of Springfieldrodolfo Loeraist
--- OUTSIDE RECORDS SUMMARY | 2019-11-17 12:34 | XMS REPORT | Summary of Care ---
:1940 Author Organization [facility] [employer] Address [address] [place] [id number] Care Team Providers Name Role Phone Kai Moreno Lakeshia Primary Care Provider Reason for Visit Reason Comments Notification event monitor Encounter Details Date Type Department Care Team Description 09/30/2019 Telephone [facility] Larry Evans Notification (event Cardiology- Miroslava Holcomb MD monitor) [address] [facility], [address] [address] [address] [address] [place] [id number] Allergies Active Allergy Reactions Severity Noted Date Comments Adhesive Rash Latex Rash 09/29/2016 Metformin Rash 09/25/2016 documented as of this encounter (statuses as of 09/30/2019) Medications Medication Sig Dispensed Refills Start Date End Date Status ZICONOTIDE ACETATE by Intrathecal 0 Active (PRIALT route daily. INTRATHECAL)Indicatio Indications: in ns: in pump pump tiZANidine 4 mg Take 4 mg by mouth 0 Active tabletIndications: every 6 (six) PAF (paroxysmal hours as needed. atrial fibrillation), Dyslipidemia, Essential hypertension, Coronary artery disease involving [place] coronary artery of [place] heart without angina pectoris, Sinus bradycardia aspirin 81 mg EC Take 81 mg by 0 Active tablet mouth daily. RESTASIS MULTIDOSE INSTILL 1 DROP 11 01/07/2018 Active 0.05 % Drop INTO OU BID morpHINE I.R. 15 mg TK 1 T PO TID PRN 0 04/26/2018 Active tablet ELIQUIS 5 mg tablet TAKE 1 TABLET BY 180 tablet 2 02/09/2019 Active MOUTH TWICE DAILY ATORVASTATIN 80 mg TAKE 1 TABLET BY 90 tablet 2 02/09/2019 Active tablet MOUTH AT BEDTIME enalapril 10 mg Take 0.5 tablets 0 09/29/2019 Active tabletIndications: by mouth 2 (two) PAF (paroxysmal times daily. atrial fibrillation), Dyslipidemia, Essential hypertension, Coronary artery disease involving [place] coronary artery of [place] heart without angina pectoris, Sinus bradycardia nitroglycerin 0.[address] 1 tablet 1 Bottle 2 09/29/2019 Active sublingual under the tongue tabletIndications: every 5 (five) Essential minutes as needed hypertension, PAF for Chest pain. (paroxysmal atrial fibrillation), Coronary artery disease involving [place] coronary artery of [place] heart without angina pectoris, Dyslipidemia, Sinus bradycardia documented as of this encounter (statuses as of 09/30/2019) Active Problems Problem Noted Date Change in bowel habits 04/22/2018 Overview: Added automatically from request for radha kinneyy [id number] Bowel habit changes 03/11/2018 Overview: Added automatically from request for radha hallie [id number] PAF (paroxysmal atrial fibrillation) 10/25/2016 Dyslipidemia 10/25/2016 Essential hypertension 10/25/2016 Obesity (BMI 30-39.9) 09/26/2016 NSTEMI (non-ST elevated myocardial infarction) 017 Sinus bradycardia 09/25/2016 documented as of this encounter (statuses as of 09/30/2019) Social History Tobacco Use Types Packs/Day Years Used Date Never Smoker Smokeless Tobacco: Never Used Alcohol Use Drinks/Week oz/Week Comments No Sex Assigned at Date Recorded Not on file Job Start Date Occupation Industry Not on file Not on file Not on file Travel History Travel Start Travel End No recent travel history available. documented as of this encounter Last Filed Vital Signs Not on filedocumented in this encounter Plan of Treatment Health Maintenance Due Date Last Done Comments DTaP,Tdap,and Td Vaccines (1 - Tdap) 1951 Zoster Recombinant Vaccine (SHINGRIX) (1 of 2) 1992 Medicare Wellness Visit 2007 Osteoporosis Screening 2007 PNEUMOCOCCAL VACCINES 65+ (1 of 2 - PCV13) 2007 INFLUENZA VACCINE (Season Ended) 2020 documented as of this encounter Results Not on filedocumented in this encounter Insurance Payer Benefit Plan / Subscriber ID Effective Phone Address T ype Group Dates MEDICARE MEDICARE PART xxxxxxxxxxx 2007-Pr [phone] [place] [employer] esent [phone] [place]YA ALONZO [id number] [facility] [id number] 2014-Pr [place] [place] [place] [facility] esent [id number] Supplement MEDICARE [place] SUPPLEMENT KATYA TAHPA [id number] documented as of this encounter
--- OUTSIDE RECORDS SUMMARY | 2019-11-17 12:34 | XMS REPORT | Summary of Care ---
:1940 Author Organization [facility] [employer] Address [address] [place] [address] Care Team Providers Name Role Phone Kai Moreno Primary Care Provider Reason for Referral (Routine) Status Reason Specialty Diagnoses / Referred By Referred To Procedures Contact Contact New Request Cardiology Diagnoses Essential hypertension PAF (paroxysmal atrial fibrillation) Coronary artery disease involving [place] ind[place] tribe coronary artery of [place] tribe heart without angina pectoris Dyslipidemia Sinus bradycardia Evans, Sendil Procedures ECHO ROUTINE W/DOPPLER COLOR Preferred Location: [facility] MD Aicha [address] [place] [address] (Routine) Status Reason Specialty Diagnoses / Referred By Referred To Procedures Contact Contact New Request Cardiology Diagnoses Essential hypertension PAF (paroxysmal atrial fibrillation) Coronary artery disease involving [place] ind[place] tribe coronary artery of [place] tribe heart without angina pectoris Dyslipidemia Sinus bradycardia Evans, Sendil Procedures CARDIO LOOP MONITOR MD Aicha [address] [place] [address] Reason for Visit Reason Comments Follow-up PAF Coronary Disease Encounter Details Date Type Department Care Team Description 09/29/2019 Telemedicine Visit [facility] Evans, Sendil Coronar y artery disease involving [place] tribe coronary artery of [place] tribe heart without angina pectoris (Primary Dx); Cardiology- MD Aicha Essential hypertension; [place] [address] PAF (paroxysmal atrial fibrillation); [address]; [address] [place], [place] [phone] Allergies Active Allergy Reactions Severity Noted Date Comments Adhesive Rash Latex Rash 09/29/2016 Metformin Rash 09/25/2016 documented as of this encounter (statuses as of 09/29/2019) Medications Medication Sig Dispensed Refills Start End Date Status Date ZICONOTIDE ACETATE by Intrathecal 0 Active (PRIALT route daily. INTRATHECAL)Indica Indications: in tions: in pump pump tiZANidine 4 mg Take 4 mg by 0 A ctive tabletIndications: mouth every 6 PAF (paroxysmal (six) hours as atrial needed. fibrillation), Dyslipidemia, Essential hypertension, Coronary artery disease involving [place] ind[place] tribe coronary artery of [place]ian tribe heart without angina pectoris, Sinus bradycardia aspirin 81 mg EC Take 81 mg by 0 Active tablet mouth daily. RESTASIS MULTIDOSE INSTILL 1 DROP 11 Active 0.05 % Drop INTO OU BID 8 morpHINE I.R. 15 TK 1 T PO TID 0 Active mg tablet PRN 8 ELIQUIS 5 mg TAKE 1 TABLET 180 tablet 2 Ac tive tablet BY MOUTH TWICE 9 DAILY ATORVASTATIN 80 mg TAKE 1 TABLET 90 tablet 2 Active tablet BY MOUTH AT 9 BEDTIME enalapril 10 mg Take 0.5 0 Acti ve tabletIndications: tablets by 0 PAF (paroxysmal mouth 2 (two) atrial times daily. fibrillation), Dyslipidemia, Essential hypertension, Coronary artery disease involving [place] ind[place] tribe coronary artery of [place]ian tribe heart without angina pectoris, Sinus bradycardia nitroglycerin 0.4 Place 1 tablet 1 Bottle 2 Active mg sublingual under the 0 tabletIndications: tongue every 5 Essential (five) minutes hypertension, PAF as needed for (paroxysmal atrial Chest pain. fibrillation), Coronary artery disease involving [place] ind[place] tribe coronary artery of [place] tribe heart without angina pectoris, Dyslipidemia, Sinus bradycardia nitroglycerin 0.4 Place 1 tablet 1 Bottle 2 0 Discontinued mg sublingual under the 7 20 (Reord er) tablet tongue every 5 (five) minutes as needed for Chest pain. metoprolol Take 50 mg by 0 09/29/19 Disco ntinued tartrate 50 mg mouth 2 (two) 20 tabletIndications: times daily. PAF (paroxysmal atrial fibrillation), Dyslipidemia, Essential hypertension, Coronary artery disease involving [place] tribe coronary artery of [place] tribe heart without angina pectoris, Sinus bradycardia enalapril 10 mg Take by mouth 0 09/29/19 Discontinued tabletIndications: 2 (two) times 20 (Dose PAF (paroxysmal daily. adju stment) atrial fibrillation), Dyslipidemia, Essential hypertension, Coronary artery disease involving [place] tribe coronary artery of [place] tribe heart without angina pectoris, Sinus bradycardia amLODIPine 5 mg Take 5 mg by 0 09/29/19 D iscontinued tabletIndications: mouth. 20 PAF (paroxysmal atrial fibrillation), Dyslipidemia, Essential hypertension, Coronary artery disease involving [place] indian tribe coronary artery of [place] indian tribe heart without angina pectoris, Sinus bradycardia enalapril 10 mg Take 1 tablet 0 09/29/19 Discontinued tabletIndications: by mouth every 0 20 (Dose PAF (paroxysmal morning. adju stment) atrial fibrillation), Dyslipidemia, Essential hypertension, Coronary artery disease involving nansem[place] indian tribe coronary artery of nansem[place] indian tribe heart without angina pectoris, Sinus bradycardia documented as of this encounter (statuses as of 09/29/2019) Active Problems Problem Noted Date Change in bowel habits 04/22/2018 Overview: Added automatically from request for radha sterling [id number] Bowel habit changes 03/11/2018 Overview: Added automatically from request for radha sterling [id number] PAF (paroxysmal atrial fibrillation) 10/25/2016 Dyslipidemia 10/25/2016 Essential hypertension 10/25/2016 Obesity (BMI 30-39.9) 09/26/2016 NSTEMI (non-ST elevated myocardial infarction) 017 Sinus bradycardia 09/25/2016 documented as of this encounter (statuses as of 09/29/2019) Social History Tobacco Use Types Packs/Day Years Used Date Never Smoker Smokeless Tobacco: Never Used Alcohol Use Drinks/Week oz/Week Comments No Sex Assigned at Date Recorded Not on file Job Start Date Occupation Industry Not on file Not on file Not on file Travel History Travel Start Travel End No recent travel history available. documented as of this encounter Last Filed Vital Signs Vital Sign Reading Time Taken Comments Blood Pressure 124/72 09/29/2019 9:52 AM CDT Pulse 65 09/29/2019 9:52 AM CDT Temperature - - Respiratory Rate - - Oxygen Saturation - - Inhaled Oxygen Concentration - - Weight - - Height - - Body Mass Index - - documented in this encounter Progress Notes Larry Evans MD - 09/29/2019 10:00 AM CDT [facility] Consult Note Patient: Claudia Cha Date of : 1940 Primary Care Physician: Dr Kai Moreno CHIEF COMPLAINT: Chief Complaint Patient presents with Follow-up PAF Coronary Disease History of Present Illness: Claudia Cha is a 79-year-old female patient for follow-up for underlying obstructive CAD. Patient is here by herself. Verbal consent obtained from Claudia Cha for telehealth services provided below. Communication with patient was conducted via Telephone. Unable to do video call. Location of Patient: Home Location of Provider: Clinic Since last OV, feeling well from cardiac stand point. No new cardiac complaints noted. MILLER exertion NYHA class II noted. No exertional chest pain. Currently on Eliquis and ASA. No bleeding manifestations noted. No PND or orthopnea. No pedal edema.No exertional palpitations or palpitations at rest. No syncopal attacks. No recurrent chest pain noted. IV pain pump: with clonidine/fentanly. September 2017: Visual changes and noted have reduced L sided eye vision changes. Feb 04 2018: Neck surgery decompression. Prior cardiac history Briefly she was admitted in [facility] for opiate withdrawal. She was noted to have elevated troponins and non-STEMI hence she was [facility] and management. Underwent coronary angiogram which showed severe circumflex disease which was stented. No significant family history and surgical history noted from cardiac stand point. Previous Cardiac Studies: Outside records reviewed: Ohthalmology notes were reviewed and patient was noted to have central retinal vein occlusion with a questionable component of arterial disease. Patient was sent for carotid Doppler which was reported to be within acceptable normal limits per reports. IMAGING - I personally reviewed, pertinent results as below: EC09/23/2018 SB with narrow QRS complex. No ST T changes. Echo 08/2017 Interpretation Summary The study was technically adequate. Compared to prior study, there is no significant change. Left ventricular systolic function is normal. Ejection Fraction = 60-65%. Diastolic function is normal for age. The left ventricular wall motion is normal. Insufficient Tricuspid regurgitation jet to estimate RVSP. NM Stress 09/2017 1. The patient's electrocardiogram is nonischemic. 2. The patient's clinical response is asymptomatic for angina. 3. Overall left ventricular systolic function is normal. The left ventricular ejection fraction is calculated to be 64 %. 4. SPECT imaging reveals shows normal uptake of radiopharmaceutical agents in rest of wall segments in both stress and rest images indicating no reversible ischemia. 5. Myocardial perfusion imaging is normal. Echo September 2016 The study was technically adequate. There is no comparison study available. Left ventricular systolic function is normal. Ejection Fraction = 60-65%. Diastolic function is normal for age. The left ventricular wall motion is normal. Insufficient Tricuspid regurgitation jet to estimate RVSP. Cath September 2016 LEFT CORONARY ARTERY: Left Main Artery: short mild LI LAD: large vessel mild LI, D1 medium size mild LI Circumflex: large vessel, proximal focal 80% eccentric hazy close to OM1 bifurcation (PCI done ), mid and distalmild LI, OM1-2 mediym size mild LI RIGHT CORONARY ARTERY: RCA: large dominant vessel, RPDA mild LI, RPLB1-2 small mild LI INTERVENTION IMPRESSION: Severe pLcx stenosis, cause of NSTEMI, PCi done with drug eluting stent. PLANS: Aspirin 81 mg daily for life. Discontinue plavix. 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 Aggressive medical rx for CAD. Discussed with patient in detail, all questions answered. -f/u with Dr Evans. F/u with me MERCADO. PAST MEDICAL HISTORY Past Medical History: Diagnosis Date Borderline diabetes Chronic pain Constipation Hypertension Past Surgical History: Procedure Laterality Date BACK SURGERY COLONOSCOPY N/A 04/21/2018 Surgeon: Jonny Salter MD; Location: [facility] SOCIAL HISTORY Social History Socioeconomic History Marital status: Spouse name: Not on file Number of children: Not on file Years of education: Not on file Highest education level: Not on file Occupational History Not on file Social Needs Financial resource strain: Not on file Food insecurity: Worry: Not on file Inability: Not on file Transportation needs: Medical: Not on file Non-medical: Not on file Tobacco Use Smoking status: Never Smoker Smokeless tobacco: Never Used Substance and Sexual Activity Alcohol use: No Drug use: No Sexual activity: Not on file Lifestyle Physical activity: Days per week: Not on file Minutes per session: Not on file Stress: Not on file Relationships Social connections: Talks on phone: Not on file Gets together: Not on file Attends jew service: Not on file Active member of club or organization: Not on file Attends meetings of clubs or organizations: Not on file Relationship status: Not on file Intimate partner violence: Fear of current or ex partner: Not on file Emotionally abused: Not on file Physically abused: Not on file Forced sexual activity: Not on file Other Topics Concern Not on file Social History Narrative Lives at home by yourself ALLERGIES Allergies Allergen Reactions Adhesive Rash Latex Rash Metformin Rash MEDICATIONS Patient's Medications START taking these medications No medications on file CONTINUE taking these medications which have NOT CHANGED ASPIRIN 81 MG EC TABLET Take 81 mg by mouth daily. ATORVASTATIN 80 MG TABLET TAKE 1 TABLET BY MOUTH AT BEDTIME ELIQUIS 5 MG TABLET TAKE 1 TABLET BY MOUTH TWICE DAILY MORPHINE I.R. 15 MG TABLET TK 1 T PO TID PRN RESTASIS MULTIDOSE 0.05 % DROP INSTILL 1 DROP INTO OU BID TIZANIDINE 4 MG TABLET Take 4 mg by mouth every 6 (six) hours as needed. ZICONOTIDE ACETATE (PRIALT INTRATHECAL) by Intrathecal route daily. Indications: in pump START taking Modified Medications as Prescribed Modified Medication Previous Medication ENALAPRIL 10 MG TABLET enalapril 10 mg tablet Take 0.5 tablets by mouth 2 (two) times daily. Take by mouth 2 (two) times daily. NITROGLYCERIN 0.4 MG SUBLINGUAL TABLET nitroglycerin 0.[address] 1 tablet under the tongue every 5 (five) minutes as needed for Chest pain. Place 1 tablet under the tongue every 5 (five) minutes as needed for Chest pain. STOP taking these medications AMLODIPINE 5 MG TABLET Take 5 mg by mouth. ENALAPRIL 10 MG TABLET Take 1 tablet by mouth every morning. METOPROLOL TARTRATE 50 MG TABLET Take 50 mg by mouth 2 (two) times daily. There are no exam notes on file for this visit. I have reviewed the nursing notes obtained by my nurse and concur as detailed above. REVIEW OF SYSTEMS: Comprehensive 10-system review was conducted and were negative except for what's noted in the HPI. The following systems were reviewed: Constitutional, cardiovascular, respiratory, gastrointestinal, genitourinary, musculoskeletal, neurologic, psychiatric, endocrinological, and hematological. PHYSICAL EXAMINATION: Vitals: 05/07/20 0952 BP: 124/72 Pulse: 65 TELEHEALTH EXAM Full exam couldn't be done since it TELE VISIT. Constitutional: Alert and in no distress Resp: Breathing comfortably Neuro: answers questions appropriately LABS - Reviewed pertinent labs as below: CBC BMP PT/INR WBC (10*3/L) Date Value 09/30/2016 7.73 NA (mmol/L) Date Value 09/30/2016 142 No results found for: PT PLT (10*3/L) Date Value 09/30/2016 175 K (mmol/L) Date Value 09/30/2016 4.7 INR (no units) Date Value 09/28/2016 1.1 HGB (g/dL) Date Value 09/30/2016 12.9 BUN (mg/dL) Date Value 09/30/2016 14 HCT (%) Date Value 09/30/2016 39.5 CREATININE (mg/dL) Date Value 09/30/2016 0.81 LIPID PROFILE GLUCOSE (mg/dL) Date Value 09/30/2016 104 CHOL (mg/dL) Date Value 09/27/2016 118 (L) TSH LDL CHOL (mg/dL) Date Value 09/27/2016 50 TSH (mIU/L) Date Value 09/29/2016 4.06 CARDIAC ENZYMES HDL (mg/dL) Date Value 09/27/2016 42 (L) CK (U/L) Date Value 09/26/2016 191 TRIG (mg/dL) Date Value 09/27/2016 130 LFTs No results found for: CKMB AST(SGOT) (U/L) Date Value 09/26/2016 43 (H) TROPONIN I (ng/mL) Date Value 09/27/2016 1.020 (H) ALT(SGPT) (U/L) Date Value 09/26/2016 29 No results found for: BNP Labs from PCP 09.23.2018 reviewed CBC normal CMP normal LDL 48 A1c 6.1 ASSESSMENT/PLAN 1. Coronary artery disease involving [place]sem[place] tribe coronary artery of [place]sem[place]ian tribe heart without angina pectorisenalapril 10 mg tablet nitroglycerin 0.4 mg sublingual tablet CARDIO LOOP MONITOR ECHO ROUTINE W/DOPPLER COLOR Preferred Location: [facility] DISCONTINUED: enalapril 10 mg tablet 2. Essential hypertension enalapril 10 mg tablet nitroglycerin 0.4 mg sublingual tablet CARDIO LOOP MONITOR ECHO ROUTINE W/DOPPLER COLOR Preferred Location: [facility] DISCONTINUED: enalapril 10 mg tablet 3. PAF (paroxysmal atrial fibrillation) enalapril 10 mg tablet nitroglycerin 0.4 mg sublingual tablet CARDIO LOOP MONITOR ECHO ROUTINE W/DOPPLER COLOR Preferred Location: [facility] DISCONTINUED: enalapril 10 mg tablet 4. Dyslipidemia enalapril 10 mg tablet nitroglycerin 0.4 mg sublingual tablet CARDIO LOOP MONITOR ECHO ROUTINE W/DOPPLER COLOR Preferred Location: [facility] DISCONTINUED: enalapril 10 mg tablet 5. Sinus bradycardia enalapril 10 mg tablet nitroglycerin 0.4 mg sublingual tablet CARDIO LOOP MONITOR ECHO ROUTINE W/DOPPLER COLOR Preferred Location: [facility] DISCONTINUED: enalapril 10 mg tablet In view of symptoms of MILLER NYHA Class II, recommended echo to assess for structural abnormalities interms of regional wall abnormalities, VHD, diastolic dysfunction and RV function. CAD: Stable. No cardia complaints noted. Continue ASA 81 mg daily for life. PAF: On Eliquis 5 mg BiD. Recommend event monitor for atleast 15 days if she cant do for 30 days to assess bradycardia/PAF burden. Sinus bradycardia: Event monitor as above. Reports that she was added Clonidine in the pain pump. Weaned off lopressor. HTN: Weaned off Norvasc 5 mg daily. Recommend Enalapril 5 mg BiD. BP log in 2 weeks. Home BP log recommended. Cross check his BP machine. Appropriate ways to check home BP discussed. Goals BP < 140/90 stressed. Explained if BP > 140/90, adviced to send us the log. Lifestyle modifications stressed. Dyslipidemia: On lipitor 80 mg daily. LDL from PCP 09/2018 at goal 48. Follow up in 6 months. If stable, then will go back to 12 months follow up. Orders Placed This Encounter Procedures ECHO ROUTINE W/DOPPLER COLOR Preferred Location: [facility] Requested Prescriptions Signed Prescriptions Disp Refills nitroglycerin 0.4 mg sublingual tablet 1 Bottle 2 Sig: Place 1 tablet under the tongue every 5 (five) minutes as needed for Chest pain. I spent at least 15 mintues total time with the patient over the phone for history taking, counseling and reviewing the results of the testing and risks and benefits of the treatment, treatment optionsand prevention with the patient. Remaining 10 minutes was spent on documentation, chart review, order entries. Recommended goal BP < 140/90 consistently, LDL << 70, HbA1c < 6.5. Patient's diease process and its evaluation and treatment were discussed. We discussed each of for cardio vascular-related problems and discussed long-term goals and expectations for the each problem.I reviewed each of the cardiac medications in detail. Reviewed the medication with patient in detail recommended to continue taking the current medications without further changes. Recommended, explained and stressed the importance of healthy eating habits and exercises and lifestyle modifications Follow up as planned is predicated on symptoms stability and/or acceptable test results. Patient is urged to call in sooner should problems arise or if there is no improvement in cardiac symptoms. ER warning signs and symptoms explained and patient verbalized understanding. My diagnostic impression and treatment plans were discussed at length with the patient. All side effects as well as drug-drug interactions and risks discussed at length. Ample opportunity was offered and encouraged to ask questions during this visit and patient verbzalised statisfcation in the answersgiven. We reviewed the [place] [employer] recommendations for reduction of overall cardio vascular risk. The importance of monitoring the blood pressure carefully both at home on regular basis along with other physicians appointment was stressed in detail. In addition we discussed target LDL levels for optimal risk reduction. It was advised that to daily physical activity be performed with 30 minutes of sustained exercise for both cardio vascular fitness and improvement for generalized medical health and well-being. Thank you for allowing us to participate in the care of Claudia Cha. If you have any questions or concerns please feel free to call our office at [phone]. I would be happy to be of further assistance for Claudia Cha wellbeing. Prateek Evans MD Business Control Specialist, Division of Cardiology [facility] documented in this encounter Plan of Treatment Name Type Priority Associated Diagnoses Order S chedu CARDIO LOOP HEART STATION Routine Essential hypert ension 1 Occurrences starting MONITOR PAF (paroxysmal atrial 09/28 until fibrillation) 09/29/2020 Coronary artery disease involving [place]sem[place] indian tribe coronary artery of [place]sem[place]ian tribe heart without angina pectoris Dyslipidemia Sinus bradycardia Health Maintenance Due Date Last Done Comments DTaP,Tdap,and Td Vaccines (1 - Tdap) 1953 Zoster Recombinant Vaccine (SHINGRIX) (1 of 2) 1992 Medicare Wellness Visit 2007 Osteoporosis Screening 2007 PNEUMOCOCCAL VACCINES 65+ (1 of 2 - PCV13) 2007 INFLUENZA VACCINE (Season Ended) 2020 documented as of this encounter Results Not on filedocumented in this encounter Visit Diagnoses Diagnosis Coronary artery disease involving [place]sem[place] ind[place] tribe coronary artery of nansem[place] indian tribe heart without angina pectoris - Primary Essential hypertension Unspecified essential hypertension PAF (paroxysmal atrial fibrillation) Atrial fibrillation Dyslipidemia Other and unspecified hyperlipidemia Sinus bradycardia Other specified cardiac dysrhythmias documented in this encounter Insurance Payer Benefit Plan / Subscriber ID Effective Phone Address T ype Group Dates MEDICARE MEDICARE PART xxxxxxxxxxx 2007-Pr [phone] [address] [id number] KATYA ALONZO [id number] [facility] [id number] 2014-Pr [address] [facility] esent [phone] Supplement MEDICARE [place] SUPPLEMENT KATYA THAPA [id number] documented as of this encounter
--- OUTSIDE RECORDS SUMMARY | 2019-11-17 12:35 | XMS REPORT | Summary of Care ---
:1940 Author Organization [facility] Address [address] [place] [address] Care Team Providers Name Role Phone Kai Moreno Primary Care Provider Reason for Visit Reason Comments NURSE VISIT 30 day event monitor home en rollment (Routine) Status Reason Specialty Diagnoses / Referred By Referred To Procedures Contact Contact New Request Cardiology Diagnoses Essential hypertension PAF (paroxysmal atrial fibrillation) Coronary artery disease involving [place] coronary artery of [place] heart without angina pectoris Dyslipidemia Sinus bradycardia Evans, Sendil Procedures CARDIO LOOP MONITOR MD Aicha [address] [place] [address] Encounter Details Date Type Department Care Team Description 09/30/2019 Office Visit [facility] Evans, Sendil PAF (paroxysm al atrial fibrillation) (Primary Dx); Cardiology- Miroslava Holcomb MD Essential hypertension; [facility] E. [facility] [address] Coronary artery disease involving [place] coronary artery of [place] heart without angina pectoris; [address], [address] Dyslipidemia; [place], [place] Sinus bradycard ia [phone] Allergies Active Allergy Reactions Severity [...] Dyslipidemia, Essential hypertension, Coronary artery disease involving [place] coronary artery of [place] heart without angina pectoris, Sinus bradycardia aspirin [...] Dyslipidemia, Essential hypertension, Coronary artery disease involving [place] coronary artery of [place] heart without angina pectoris, Sinus bradycardia nitroglycerin 0.[address] 1 tablet 1 Bottle 2 09/29/2019 Active sublingual under the tongue tabletIndications: every 5 (five) Essential minutes as needed hypertension, PAF for Chest pain. (paroxysmal atrial fibrillation), Coronary artery disease involving [place] coronary artery of [place] heart without angina pectoris, Dyslipidemia, Sinus bradycardia documented as of this encounter (statuses as of 09/30/2019) Active Problems Problem Noted Date Change in bowel habits 04/22/2018 Overview: Added automatically from request for radha hallie [id number] Bowel habit changes 03/11/2018 Overview: Added automatically from request for radha hallie [id number] PAF (paroxysmal atrial fibrillation) 10/25/2016 Dyslipidemia 10/25/2016 [...] Signs Not on filedocumented in this encounter Progress Notes Imelda Brooks RN - 09/30/2019 2:00 PM CDTPatient was enrolled through [employer] for 30 day event monitor to be mailed to home for self hook-up. Monitor to be worn for 30 days. LVM for patient to notify. documented in this encounter Plan of Treatment Health [...] filedocumented in this encounter Visit Diagnoses Diagnosis PAF (paroxysmal atrial fibrillation) - P rimary Atrial fibrillation Essential hypertension Unspecified essential hypertension Coronary artery disease involving [place] coronary artery of [place] heart without angina pectoris Dyslipidemia Other and unspecified hyperlipidemia Sinus bradycardia Other specified cardiac dysrhythmias documented in this encounter Insurance Payer Benefit Plan / Subscriber ID Effective Phone Address T ype Group Dates MEDICARE MEDICARE PART xxxxxxxxxxx 2007-Pr [phone] [address] [employer] esent [phone] KATYA ALONZO [id number] [facility] [id number] 2014-Pr [address] [facility] esent [address] Supplement MEDICARE [place] SUPPLEMENT KATYA THAPA [id number] documented as of this encounter
--- OUTSIDE RECORDS SUMMARY | 2019-11-17 12:35 | XMS REPORT | Summary of Care ---
:1940 Author Organization [facility] Address [address] [place] [address] Care Team Providers Name Role Phone Kai Moreno Primary Care Provider Reason for Visit Reason Comments NURSE VISIT 30 day event monitor home en rollment (Routine) Status Reason Specialty Diagnoses / Referred By Referred To Procedures Contact Contact New Request Cardiology Diagnoses Essential hypertension PAF (paroxysmal atrial fibrillation) Coronary artery disease involving [place] coronary artery of [place] heart without angina pectoris Dyslipidemia Sinus bradycardia Evans, Sendil Procedures CARDIO LOOP MONITOR MD Aicha [address] [place] [address] Encounter Details Date Type Department Care Team Description 09/30/2019 Office Visit [facility] Evans, Sendil PAF (paroxysm al atrial fibrillation) (Primary Dx); Cardiology- Miroslava Holcomb MD Essential hypertension; [facility] E. [facility] [address] Coronary artery disease involving [place] coronary artery of [place] heart without angina pectoris; Drive, [address] Dyslipidemia; [place], [place] Sinus bradycard ia [phone] Allergies [...] Dyslipidemia, Essential hypertension, Coronary artery disease involving [place] coronary artery of [place] heart without angina pectoris, Sinus bradycardia aspirin [...] Dyslipidemia, Essential hypertension, Coronary artery disease involving [place] coronary artery of [place] heart without angina pectoris, Sinus bradycardia nitroglycerin 0.[address] 1 tablet 1 Bottle 2 09/29/2019 Active sublingual under the tongue tabletIndications: every 5 (five) Essential minutes as needed hypertension, PAF for Chest pain. (paroxysmal atrial fibrillation), Coronary artery disease involving [place] coronary artery of [place] heart without angina pectoris, Dyslipidemia, Sinus bradycardia documented as of this encounter (statuses as of 09/30/2019) Active Problems Problem Noted Date Change in bowel habits 04/22/2018 Overview: Added automatically from request for radha hallie [id number] Bowel habit changes 03/11/2018 Overview: Added automatically from request for radha hallie [id number] PAF (paroxysmal atrial fibrillation) 10/25/2016 Dyslipidemia 10/25/2016 [...] 09/30/2019 2:00 PM CDTPatient was enrolled through [employer] for 30 day event monitor to be [...] Unspecified essential hypertension Coronary artery disease involving [place] coronary artery of [place] heart without angina pectoris Dyslipidemia Other and unspecified hyperlipidemia Sinus bradycardia Other specified cardiac dysrhythmias documented in this encounter Insurance Payer Benefit Plan / Subscriber ID Effective Phone Address T ype Group Dates MEDICARE MEDICARE PART xxxxxxxxxxx 2007-Pr [phone] [address] [employer] esent [phone] KATYA ALONZO [id number] [facility] [id number] 2014-Pr [address] [facility] esent [address] Supplement MEDICARE [place] SUPPLEMENT KATYA THAPA [id number] documented as of this encounter
--- OUTSIDE RECORDS SUMMARY | 2019-11-17 12:35 | XMS REPORT | Summary of Care ---
:1940 Author Organization [facility] Address [address] [place] [address] Care Team Providers Name Role Phone Josh Kai Lakeshia Primary Care Provider Encounter Details Date Type Department Care Team Description 09/30/2019 Orders Only [facility] Doctor Unassigned, No [address] [facility] [place] [address] [address] [place] [address] Allergies Active Allergy Reactions Severity Noted Date Comments Adhesive Rash Latex Rash 09/29/2016 Metformin Rash 09/25/2016 documented as of this encounter (statuses as of 10/04/2019) Medications Medication Sig Dispensed Refills Start Date End Date Status ZICONOTIDE ACETATE by Intrathecal 0 Active (PRIALT route daily. INTRATHECAL)Indicatio Indications: in ns: in pump pump tiZANidine 4 mg Take 4 mg by mouth 0 Active tabletIndications: every 6 (six) PAF (paroxysmal hours as needed. atrial fibrillation), Dyslipidemia, Essential hypertension, Coronary artery disease involving [place] coronary artery of [place] heart without angina pectoris, Sinus bradycardia aspirin [...] Dyslipidemia, Essential hypertension, Coronary artery disease involving [place] coronary artery of [place] heart without angina pectoris, Sinus bradycardia nitroglycerin 0.[address] 1 tablet 1 Bottle 2 09/29/2019 Active sublingual under the tongue tabletIndications: every 5 (five) Essential minutes as needed hypertension, PAF for Chest pain. (paroxysmal atrial fibrillation), Coronary artery disease involving [place] coronary artery of [place] heart without angina pectoris, Dyslipidemia, Sinus bradycardia documented as of this encounter (statuses as of 10/04/2019) Active Problems Problem Noted Date Change in bowel habits 04/22/2018 Overview: Added automatically from request for radha sterling [id number] Bowel habit changes 03/11/2018 Overview: Added automatically from request for radha sterling [id number] PAF (paroxysmal atrial fibrillation) 10/25/2016 Dyslipidemia 10/25/2016 Essential hypertension 10/25/2016 Obesity (BMI 30-39.9) 09/26/2016 NSTEMI (non-ST elevated myocardial infarction) 017 Sinus bradycardia 09/25/2016 documented as of this encounter (statuses as of 10/04/2019) Social History Tobacco Use Types Packs/Day Years [...] filedocumented in this encounter Plan of Treatment Date Type Specialty Care Team Description 04/06/2020 Office Visit Cardiology Larry Evans MD [address] [place] [phone] Health Maintenance Due Date Last Done Comments DTaP,Tdap,and Td Vaccines (1 - Tdap) 1951 Zoster Recombinant Vaccine (SHINGRIX) (1 of 2) 1992 Medicare Wellness Visit 2007 Osteoporosis Screening 2007 PNEUMOCOCCAL VACCINES 65+ (1 of 2 - PCV13) 2007 INFLUENZA VACCINE (Season Ended) 2020 documented as of this encounter Procedures Procedure Name Priority Date/Time Associated Diagnosis Comme nts INSURANCE CORRESPONDENCE Routine 09/30/2019 12:01 AM CDT documented in this encounter Results Not on filedocumented in this encounter Insurance Payer Benefit Plan / Subscriber ID Effective Phone Address T ype Group Dates MEDICARE MEDICARE PART xxxxxxxxxxx 2007-Pr [phone] [address] [employer] esent [phone] KATYA ALONZO [id number] [facility] [id number] 2014-Pr [address] [facility] esent [address] Supplement MEDICARE [place] SUPPLEMENT KATYA THAPA [id number] documented as of this encounter
--- OUTSIDE RECORDS SUMMARY | 2019-11-17 12:36 | XMS REPORT | Summary of Care ---
:[address] [facility] Address [address] [place] [address] Care Team Providers Name Role Phone Kai Moreno Primary Care Provider Reason for Visit Reason Comments Talk To Nurse Encounter Details Date Type Department Care Team Description 11/07/2019 Telephone [facility] Cardiology- Larry Evans MD Talk To Nurse [address] [address] [address] [place] [address] [place] [address] [phone] Allergies Active Allergy Reactions Severity Noted Date Comments Adhesive Rash Latex Rash 09/29/2016 Metformin Rash 09/25/2016 documented as of this encounter (statuses as of 11/14/2019) Medications Medication Sig Dispensed Refills Start Date End Date Status ZICONOTIDE ACETATE by Intrathecal 0 Active (PRIALT route daily. INTRATHECAL)Indicatio Indications: in ns: in pump pump tiZANidine 4 mg Take 4 mg by mouth 0 Active tabletIndications: every 6 (six) PAF (paroxysmal hours as needed. atrial fibrillation), Dyslipidemia, Essential hypertension, Coronary artery disease involving [place] coronary artery of [place] heart without angina pectoris, Sinus bradycardia aspirin [...] Dyslipidemia, Essential hypertension, Coronary artery disease involving [place] coronary artery of [place] heart without angina pectoris, Sinus bradycardia nitroglycerin 0.[address] 1 tablet 1 Bottle 2 09/29/2019 Active sublingual under the tongue tabletIndications: every 5 (five) Essential minutes as needed hypertension, PAF for Chest pain. (paroxysmal atrial fibrillation), Coronary artery disease involving [place] coronary artery of [place] heart without angina pectoris, Dyslipidemia, Sinus bradycardia documented as of this encounter (statuses as of 11/14/2019) Active Problems Problem Noted Date Change in bowel habits 04/22/2018 Overview: Added automatically from request for radha sterling [id number] Bowel habit changes 03/11/2018 Overview: Added automatically from request for radha stelring [id number] PAF (paroxysmal atrial fibrillation) 10/25/2016 Dyslipidemia 10/25/2016 Essential hypertension 10/25/2016 Obesity (BMI 30-39.9) 09/26/2016 NSTEMI (non-ST elevated myocardial infarction) 017 Sinus bradycardia 09/25/2016 documented as of this encounter (statuses as of 11/14/2019) Social History Tobacco Use Types Packs/Day Years [...] Treatment Date Type Specialty Care Team Description 12/14/2019 Laboratory Only Cardiology Pc, Adc Echo Room 1 - Health Maintenance Due Date Last Done Comments DTaP,Tdap,and Td Vaccines (1 - Tdap) 1953 Depression Screening 1954 Zoster Recombinant Vaccine (SHINGRIX) (1 of 2) [...] JAROCHO [employer] esent [phone] KATYA ALONZO [phone] [facility] [id number] 2014-Pr [address] JAROCHO [facility] esent [address] Supplement MEDICARE [place] SUPPLEMENT KATYA THAPA [id number] documented as of this encounter
--- OUTSIDE RECORDS SUMMARY | 2019-11-17 12:36 | XMS REPORT | Summary of Care ---
:1940 Author Organization [facility] Address [address] [place] [address] Care Team Providers Name Role Phone Josh Kai Lakeshia Primary Care Provider Encounter Details Date Type Department Care Team Description 11/07/2019 Orders Only [facility] Doctor Unassigned, No [address] [facility] [place] [address] [address] [place] [address] Allergies Active Allergy Reactions Severity Noted Date Comments Adhesive Rash Latex Rash 09/29/2016 Metformin Rash 09/25/2016 documented as of this encounter (statuses as of 11/16/2019) Medications Medication Sig Dispensed Refills Start Date End Date Status ZICONOTIDE ACETATE by Intrathecal 0 Active (PRIALT route daily. INTRATHECAL)Indicatio Indications: in ns: in pump pump tiZANidine 4 mg Take 4 mg by mouth 0 Active tabletIndications: every 6 (six) PAF (paroxysmal hours as needed. atrial fibrillation), Dyslipidemia, Essential hypertension, Coronary artery disease involving [place] coronary artery of [place] heart without angina pectoris, Sinus bradycardia aspirin [...] Dyslipidemia, Essential hypertension, Coronary artery disease involving [place] coronary artery of [place] heart without angina pectoris, Sinus bradycardia nitroglycerin 0.[address] 1 tablet 1 Bottle 2 09/29/2019 Active sublingual under the tongue tabletIndications: every 5 (five) Essential minutes as needed hypertension, PAF for Chest pain. (paroxysmal atrial fibrillation), Coronary artery disease involving [place] coronary artery of [place] heart without angina pectoris, Dyslipidemia, Sinus bradycardia documented as of this encounter (statuses as of 11/16/2019) Active Problems Problem Noted Date Change in bowel habits 04/22/2018 Overview: Added automatically from request for radha sterling [id number] Bowel habit changes 03/11/2018 Overview: Added automatically from request for radha sterling [id number] PAF (paroxysmal atrial fibrillation) 10/25/2016 Dyslipidemia 10/25/2016 Essential hypertension 10/25/2016 Obesity (BMI 30-39.9) 09/26/2016 NSTEMI (non-ST elevated myocardial infarction) 017 Sinus bradycardia 09/25/2016 documented as of this encounter (statuses as of 11/16/2019) Social History Tobacco Use Types Packs/Day Years [...] Name Priority Date/Time Associated Diagnosis Comme nts CARDIOLOGY EVENT MONITOR Routine 11/07/2019 12:01 AM CDT documented in this encounter Results Not on filedocumented in this encounter Insurance Payer Benefit Plan / Subscriber ID Effective Phone Address T ype Group Dates MEDICARE MEDICARE PART xxxxxxxxxxx 2007-Pr [phone] [address] [employer] esent [phone] KATYA ALONZO [id number] [id number] [id number] 2014-Pr [address] JAROCHO [facility] esent [address] Supplement MEDICARE [place] SUPPLEMENT KATYA TAHPA [id number] documented as of this encounter
--- OUTSIDE RECORDS SUMMARY | 2019-11-17 12:36 | XMS REPORT | Summary of Care ---
:1940 Author Organization [facility] Address [address] [place] [id number] Care Team Providers Name Role Phone Kai Moreno [place]ia Primary Care Provider Reason for Referral (Routine) Status Reason Specialty Diagnoses / Referred By Referred To Procedures Contact Contact New Request Cardiology Diagnoses Essential hypertension PAF (paroxysmal atrial fibrillation) Coronary artery disease involving grand ronde tribes coronary artery of grand ronde tribes heart without angina pectoris Dyslipidemia Sinus bradycardia Evans, Sendil Procedures ECHO ROUTINE W/DOPPLER COLOR Preferred Location: [facility] MD Aicha [facility] [address] [facility] [address] [place] [address] Reason for Visit Reason Comments Follow-up PAF, event moniotor concerns Encounter Details Date Type Department Care Team Description 10/13/[address] [facility] Evans, Sendil PAF (pa roxysmal atrial fibrillation) (Primary Dx); Cardiology- MD Aicha Essential hypertension; [facility] [address] Coronary artery disease involving grand ronde tribes coronary artery of grand ronde tribes heart without angina pectoris; [facility] [address] [place], [place] [id number] Allergies Active Allergy Reactions Severity Noted Date Comments Adhesive Rash Latex Rash 09/29/2016 Metformin Rash 09/25/2016 documented as of this encounter (statuses as of 10/14/2019) Medications Medication Sig Dispensed Refills Start Date End Date Status ZICONOTIDE ACETATE by Intrathecal 0 Active (PRIALT route daily. INTRATHECAL)Indicatio Indications: in ns: in pump pump tiZANidine 4 mg Take 4 mg by mouth 0 Active tabletIndications: every 6 (six) PAF (paroxysmal hours as needed. atrial fibrillation), Dyslipidemia, Essential hypertension, Coronary artery disease involving grand ronde tribes coronary artery of grand [place]onde tribes heart without angina pectoris, Sinus bradycardia aspirin [...] Dyslipidemia, Essential hypertension, Coronary artery disease involving grand [place]onde tribes coronary artery of grand [place] tribes heart without angina pectoris, Sinus bradycardia nitroglycerin 0.[address] 1 tablet 1 Bottle 2 09/29/2019 Active sublingual under the tongue tabletIndications: every 5 (five) Essential minutes as needed hypertension, PAF for Chest pain. (paroxysmal atrial fibrillation), Coronary artery disease involving grand ronde tribes coronary artery of grand ronde tribes heart without angina pectoris, Dyslipidemia, Sinus bradycardia documented as of this encounter (statuses as of 10/14/2019) Active Problems Problem Noted Date Change in bowel habits 04/22/2018 Overview: Added automatically from request for radha hallie [id number] Bowel habit changes 03/11/2018 Overview: Added automatically from request for radha hallie [id number] PAF (paroxysmal atrial fibrillation) 10/25/2016 Dyslipidemia 10/25/2016 Essential hypertension 10/25/2016 Obesity (BMI 30-39.9) 09/26/2016 NSTEMI (non-ST elevated myocardial infarction) 017 Sinus bradycardia 09/25/2016 documented as of this encounter (statuses as of 10/14/2019) Social History Tobacco Use Types Packs/Day Years [...] on filedocumented in this encounter Progress Notes Larry Evans MD - 10/13/2019 11:30 AM CDT [facility] Cardiology Consult Note Patient: Claudia Cha Date of : 1940 Primary Care Physician: Dr Kai Moreno CHIEF COMPLAINT: Chief Complaint Patient presents with Follow-up PAF, event moniotor concerns History of Present Illness: Claudia Cha is a 79-year-old female patient for follow-up for underlying obstructive CAD. Patient is here by herself. Verbal consent obtained from Claudia Cha for telehealth services provided below. Communication with patient was conducted via Telephone. Unable to do video call. Location of Patient: Home Location of Provider: Clinic Since last OV, feeling well from cardiac stand point. She was adviced to have event monitor to assessing the PAF burden. She had questions related to that, hence this tele visit was made. No new cardiac complaints noted. MILLER exertion NYHA class II stable. No exertional chest pain. Currently on Eliquis [...] cardiac history Briefly she was [facility] for [facility]iate withdrawal. She was noted to have elevated troponins and non-STEMI hence she was sent to the knee and Is for further evaluation and management. [...] plavix. 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 Aggressive medical rx for CAD. Discussed with patient in detail, all questions answered. -f/u with Dr Evans. F/u with me MERCADO. PAST MEDICAL HISTORY Past Medical History: Diagnosis Date Borderline diabetes Chronic pain Constipation Hypertension Past Surgical History: Procedure Laterality Date BACK SURGERY COLONOSCOPY N/A 04/21/2018 Surgeon: Jonny Salter MD; Location: [facility] SOCIAL HISTORY Social History Socioeconomic History Marital [...] file Gets together: Not on file Attends cheondoism service: Not on file Active member of [...] TAKE 1 TABLET BY MOUTH TWICE DAILY ENALAPRIL 10 MG TABLET Take 0.5 tablets by mouth 2 (two) times daily. MORPHINE I.R. 15 MG TABLET TK 1 T PO TID PRN NITROGLYCERIN 0.[address] 1 tablet under the tongue every 5 (five) minutes as needed for Chest pain. RESTASIS MULTIDOSE 0.05 % DROP INSTILL 1 DROP INTO OU BID TIZANIDINE 4 MG TABLET Take 4 mg by mouth every 6 (six) hours as needed. ZICONOTIDE ACETATE (PRIALT INTRATHECAL) by Intrathecal route daily. Indications: in pump START taking Modified Medications as Prescribed No medications on file STOP taking these medications No medications on file There are no exam notes on file for this visit. I have reviewed the nursing notes obtained by my nurse and concur as detailed above. REVIEW OF SYSTEMS: Comprehensive 10-system review was conducted and were negative except for what's noted in the HPI. The following systems were reviewed: Constitutional, cardiovascular, respiratory, gastrointestinal, genitourinary, musculoskeletal, neurologic, psychiatric, endocrinological, and hematological. PHYSICAL EXAMINATION: There were no vitals filed for this visit. TELEHEALTH EXAM Full exam couldn't be done [...] normal LDL 48 A1c 6.1 ASSESSMENT/PLAN 1. PAF (paroxysmal atrial fibrillation) ECHO ROUTINE W/DOPPLER COLOR Preferred Location: [facility] 2. Essential hypertension ECHO ROUTINE W/DOPPLER COLOR Preferred Location: [facility] 3. Coronary artery disease involving grand ronde tribes coronary artery of grand ronde tribes heart without angina pectorisECHO ROUTINE W/DOPPLER COLOR Preferred Location: [facility] 4. Dyslipidemia ECHO ROUTINE W/DOPPLER COLOR Preferred Location: [facility] 5. Sinus bradycardia ECHO ROUTINE W/DOPPLER COLOR Preferred Location: [facility] MILLER NYHA Class II: Multifactorial: age, deconditioning, diastolic dysfunction. Echo prior to next OV. In view of symptoms of MILLER NYHA Class II, recommended echo to assess for structural abnormalities interms of regional wall abnormalities, VHD, diastolic dysfunction and RV function. CAD: Stable. No cardia complaints noted. Continue ASA 81 mg daily for life. PAF: reviewed event monitor procedure in detail with her. Addressed her concerns with her strips causing redness. ? Latex allergy. She is receiving new strips from the company. Adviced to give a break if lot of redness noted for few days and then continue monitoring. On Eliquis 5 mg BiD. Recommend event monitor for atleast 15 days if she cant do for 30 days to assess bradycardia/PAF burden. Sinus bradycardia: Event monitor as above. Reports that she was added Clonidine in the pain pump. Weaned off lopressor. HTN: Weaned off Norvasc 5 mg daily. Recommend Enalapril 5 mg BiD. Home BP log recommended. Cross check his [...] Procedures ECHO ROUTINE W/DOPPLER COLOR Preferred Location: [facility] Requested Prescriptions No prescriptions requested or ordered in this encounter I spent at least 10 mintues total time with the patient over [...] statisfcation in the answersgiven. We reviewed the [place] [employer] recommendations for reduction of overall [...] feel free to call our office at [phone]. I would be happy to be of further assistance for Claudia Cha wellbeing. Prateek Evans MD Grant Officer, Division of Cardiology [facility] documented in this encounter Plan of Treatment [...] Unspecified essential hypertension Coronary artery disease involving grand ronde tribes coronary artery of grand ronde tribes heart without angina pectoris Dyslipidemia Other and unspecified hyperlipidemia Sinus bradycardia Other specified cardiac dysrhythmias documented in this encounter Insurance Payer Benefit Plan / Subscriber ID Effective Phone Address T ype Group Dates MEDICARE MEDICARE PART xxxxxxxxxxx 2007-Pr [phone] [address] [employer] [phone] KATYA ALONZO [phone] [facility] [id number] 2014-Pr [address] [facility] esent [phone] Supplement MEDICARE [place] SUPPLEMENT KATYA THAPA [id number] documented as of this encounter
[2019-11-17 12:38] LABS: ALT/SGPT 19 U/L (12-78); Albumin 4.1 g/dL (3.4-5.0); Alkaline Phosphatase 73 U/L (45-117); BUN Blood Urea Nitrogen 25 mg/dL (7-18); Bicarbonate 20 mmol/L (21-32); Bilirubin Direct 0.1 mg/dL (0-0.2); Bilirubin Total 0.4 mg/dL (0.2-1.0); Glucose Level 112 mg/dL (74-106); NT PRO-BNP 174 pg/mL (<450); Sodium Level 143 mmol/L (136-145); Troponin (Emerg Dept Use Only) < 0.02 ng/mL (0.0-0.045)
[2019-11-17 12:44] LABS: AST/SGOT 20 U/L (15-37); Potassium 4.6 mmol/L (3.5-5.1)
[2019-11-17] MEDS ORDERED: MORPHINE 2 MG/ML SYR ONE (13:08)
[2019-11-17] MEDS ORDERED: ONDANSETRON 4 MG/2 ML VIAL ONE (13:08)
--- NOTE | 2019-11-17 15:09 | EDPHYS ---
Physician Documentation [facility] Name: Claudia Cha Age: 79 yrs Sex: Female : 1940 Arrival Date: 11/17/2019 Time: 11:06 Bed 14 Private MD: ED Physician Juan Jose James HPI: 11/16 12:10 This 79 yrs old Female presents to ER via EMS with complaints of Chest Pain. mh7 12:10 The patient or guardian reports chest pain that is located primarily in the anterior mh7 chest wall, left. Onset: this morning. The pain radiates to the left shoulder. Associated signs and symptoms: Pertinent negatives: abdominal pain, cough, diaphoresis, dizziness, headache, lower extremity pain, lower extremity swelling, lightheadedness, nausea, near syncope, palpitations, recent travel, shortness of breath, syncope, vomiting. The chest pain is described as sharp. Duration: The patient or guardian reports multiple episodes, that are intermittent, that wax and wane, with no pattern. Modifying factors: The symptoms are alleviated by nothing. the symptoms are aggravated by nothing. Severity of pain: At its worst the pain was moderate this morning, in the emergency department the pain has improved moderately. Historical: - Allergies: 11:10 Latex, Natural Rubber; ph 11:10 metformin; ph 11:10 Tape; ph - PMHx: 11:10 chronic back pain; Hypertension; Myocardial infarction; ph - PSHx: 11:10 back surgery; Hysterectomy; pain pump; neck surgery; ph - Immunization history:: Adult Immunizations unknown. - Social history:: Smoking status: Patient denies any tobacco usage or history of. ROS: 12:10 Constitutional: Negative for fever, chills, and weight loss, Eyes: Negative for injury, mh7 pain, redness, and discharge, ENT: Negative for injury, pain, and discharge, Neck: Negative for injury, pain, and swelling, Respiratory: Negative for shortness of breath, cough, wheezing, and pleuritic chest pain, Abdomen/GI: Negative for abdominal pain, nausea, vomiting, diarrhea, and constipation, Back: Negative for injury and pain, : Negative for injury, bleeding, discharge, and swelling, MS/Extremity: Negative for injury and deformity, Skin: Negative for injury, rash, and discoloration, Neuro: Negative for headache, weakness, numbness, tingling, and seizure, Psych: Negative for depression, anxiety, suicide ideation, homicidal ideation, and hallucinations, Allergy/Immunology: Negative for hives, rash, and allergies, Endocrine: Negative for neck swelling, polydipsia, polyuria, polyphagia, and marked weight changes, Hematologic/Lymphatic: Negative for swollen nodes, abnormal bleeding, and unusual bruising. Exam: 12:10 Constitutional: This is a well developed, well nourished patient who is awake, alert, mh7 and in no acute distress. Head/Face: Normocephalic, atraumatic. Eyes: Pupils equal round and reactive to light, extra-ocular motions intact. Lids and lashes normal. Conjunctiva and sclera are non-icteric and not injected. Cornea within normal limits. Periorbital areas with no swelling, redness, or edema. ENT: Nares patent. No nasal discharge, no septal abnormalities noted. Tympanic membranes are normal and external auditory canals are clear. Oropharynx with no redness, swelling, or masses, exudates, or evidence of obstruction, uvula midline. Mucous membranes moist. Neck: Trachea midline, no thyromegaly or masses palpated, and no cervical lymphadenopathy. Supple, full range of motion without nuchal rigidity, or vertebral point tenderness. No Meningismus. Chest/axilla: Normal chest wall appearance and motion. Nontender with no deformity. No lesions are appreciated. Cardiovascular: Regular rate and rhythm with a normal S1 and S2. No gallops, murmurs, or rubs. Normal PMI, no JVD. No pulse deficits. Respiratory: Lungs have equal breath sounds bilaterally, clear to auscultation and percussion. No rales, rhonchi or wheezes noted. No increased work of breathing, no retractions or nasal flaring. Abdomen/GI: Soft, non-tender, with normal bowel sounds. No distension or tympany. No guarding or rebound. No evidence of tenderness throughout. Back: No spinal tenderness. No costovertebral tenderness. Full range of motion. Skin: Warm, dry with normal turgor. Normal color with no rashes, no lesions, and no evidence of cellulitis. MS/ Extremity: Pulses equal, no cyanosis. Neurovascular intact. Full, normal range of motion. Neuro: Awake and alert, GCS 15, oriented to person, place, time, and situation. Cranial nerves II-XII grossly intact. Motor strength 5/5 in all extremities. Sensory grossly intact. Cerebellar exam normal. Normal gait. Psych: Awake, alert, with orientation to person, place and time. Behavior, mood, and affect are within normal limits. 12:10 ECG was reviewed by the Attending Physician. Vital Signs: 11:06 BP 134 / 68; Pulse 69; Resp 18; Temp 98.7; Pulse Ox 98% on R/A; Weight 81.65 kg; Height ph 5 ft. 7 in. (170.18 cm); Pain 7/10; 13:14 BP 138 / 65; Pulse 59; Resp 18; Pulse Ox 96% on R/A; ph 14:24 BP 120 / 61; Pulse 55; Resp 18; Pulse Ox 98% on R/A; ph 15:30 BP 148 / 87; Pulse 62; Resp 16; Pulse Ox 99% on R/A; ph 16:30 BP 130 / 67; Pulse 62; Resp 18; Pulse Ox 98% on R/A; ph 17:30 BP 122 / 68; Pulse 52; Resp 16; Pulse Ox 97% on R/A; ph 18:30 BP 127 / 68; Pulse 54; Resp 16; Pulse Ox 97% on R/A; ph 19:42 Pulse 58; Resp 18; Pulse Ox 97% on R/A; mg2 11:06 Body Mass Index 28.19 (81.65 kg, 170.18 cm) ph MDM: 11:36 Patient medically screened. [facility] 15:04 Differential diagnosis: abnormal EKG, acute myocardial infarction, coronary artery mh7 disease chest wall pain, congestive heart failure costochondritis, pneumonia, stable angina, unstable angina. HEART Score: History: Moderately Suspicious (1), ECG: Normal (0), Age: > or = 65 years (2), Risk Factors: 1 or 2 risk factors (1), [Hypertension] Troponin: < or = 1 x Normal Limit (0), Total Score = 4. Data reviewed: vital signs, nurses notes, old medical records, lab test result(s), cardiac enzymes, CBC, electrolytes, urinalysis, EKG, radiologic studies, plain films. Data interpreted: netezza architect: rate is 55 beats/min, rhythm is sinus bradycardia, Interpretation: bradycardia, Pulse oximetry: on room air is 98 %. Interpretation: normal. Counseling: I had a detailed discussion with the patient and/or guardian regarding: the historical points, exam findings, and any diagnostic results supporting the discharge/admit diagnosis, lab results, radiology results, the need for further work-up and treatment in the hospital. Response to treatment: the patient's symptoms have markedly improved after treatment. Physician consultation: A Josh GILMAN regarding admission, to the telemetry unit. and will see patient in inpatient room. 11/16 11:13 Order name: Basic Metabolic Panel 11/16 11:13 Order name: CBC with Diff ph 11/16 11:13 Order name: LFT's ph 11/16 11:13 Order name: Magnesium ph 11/16 11:13 Order name: NT PRO-BNP; Complete Time: 13:11 11/16 11:13 Order name: PT-INR; Complete Time: 13:11 11/16 11:13 Order name: Troponin (emerg Dept Use Only); Complete Time: 13: 11/16 11:13 Order name: Basic Metabolic Panel; Complete Time: 13:11 [facility] 11/16 11:13 Order name: CBC with Automated Diff; Complete Time: 12:12 [facility] 11/16 11:13 Order name: Liver (Hepatic) Function; Complete Time: 13:11 [facility] 11/16 11:13 Order name: Magnesium; Complete Time: 13:11 [facility] 11/16 15:16 Order name: Basic Metabolic Panel [facility] 11/16 15:16 Order name: Basic Metabolic Panel [facility] 11/16 15:16 Order name: CBC with Automated Diff [facility] 11/16 11:13 Order name: XRAY Chest (1 view); Complete Time: 12:12 11/16 11:13 Order name: EKG; Complete Time: 11:13 11/16 11:13 Order name: Cardiac monitoring; Complete Time: 11: 11/16 11:13 Order name: EKG - Nurse/Tech; Complete Time: : 11/16 11:13 Order name: IV Saline Lock; Complete Time: 13:09 11/16 11:13 Order name: Labs collected and sent; Complete Time: 12:00 11/16 11:13 Order name: O2 Per Protocol; Complete Time: : 11/16 15:16 Order name: EKG Electrocardiogram [facility] 11/16 15:16 Order name: EKG Electrocardiogram [facility] 11/16 15:16 Order name: EKG Electrocardiogram [facility] 11/16 15:16 Order name: EKG Electrocardiogram [facility] 11/16 15:16 Order name: CBC with Automated Diff [facility] 11/16 15:16 Order name: Troponin I [facility] 11/16 15:16 Order name: Troponin I [facility] 11/16 15:16 Order name: Troponin I [facility] 11/16 11:13 Order name: O2 Sat Monitoring; Complete Time: 11:22 ph EC:10 Rate is 66 beats/min. Rhythm is regular. QRS [place] is Normal. NV interval is normal. QRS mh7 interval is normal. QT interval is normal. No Q waves. T waves are Normal. No ST changes noted. Clinical impression: Normal ECG. Administered Medications: 13:09 Drug: morphine 2 mg Route: IVP; Site: right hand; ph 15:18 Follow up: Response: No adverse reaction ph Disposition: 11/17/19 15:08 Hospitalization ordered by Kai Moreno for Observation. Preliminary diagnosis is Chest pain, unspecified. - Bed requested for Telemetry/MedSurg (observation). - Status is Observation. mg2 - Condition is Stable. - Problem is new. - Symptoms have improved. Signatures: Dispatcher [employer] [facility] Pina Rodarte RN RN Shelly Miller Michele, RN RN mg2 Juan Jose James MD MD 7 Corrections: (The following items were deleted from the chart) 17:35 15:08 Hospitalization Ordered by Kai Moreno MD for Observation. Preliminary diagnosis eb is Chest pain, unspecified. Bed requested for Telemetry/MedSurg (observation). Status is Observation. Condition is Stable. Problem is new. Symptoms have improved. mh7 20:09 17:35 11/17/2019 15:08 Hospitalization Ordered by Kai Moreno MD for Observation. mg2 Preliminary diagnosis is Chest pain, unspecified. Bed requested for Telemetry/MedSurg (observation). Status is Observation. Condition is Stable. Problem is new. Symptoms have improved. eb
--- NOTE | 2019-11-17 15:09 | ER ---
Nurse's Notes [facility] Name: Claudia Cha Age: 79 yrs Sex: Female : 1940 Arrival Date: 11/17/2019 Time: 11:06 Bed 14 Private MD: Diagnosis: Chest pain, unspecified Presentation: 11/16 11:06 Chief complaint: EMS states: L sided chest pain that began this morning, pt has hx of ph LA, pt self administered 324 ASA, and SL nitro x 4, 12 lead NSR, BP 130/84, rates pain 6/10 upon arrival. Coronavirus screen: Patient denies a cough. Patient denies shortness of breath or difficulty breathing. Patient denies measured and/or subjective temperature greater than 100.4F prior to today's visit. Patient denies travel on a cruise ship or to a country the [facility] currently lists as an affected area. Patient denies contact with known and/or suspected case of COVID-19. Ebola Screen: No symptoms or risks identified at this time. Initial Sepsis Screen: Does the patient meet any 2 criteria? No. Patient's initial sepsis screen is negative. Does the patient have a suspected source of infection? No. Patient's initial sepsis screen is negative. Risk Assessment: Do you want to hurt yourself or someone else? Patient reports no desire to harm self or others. Onset of symptoms was November 17, 2019. 11:06 Method Of Arrival: EMS: [facility] ph 11:06 Acuity: [place] 3 ph Historical: - Allergies: 11:10 Latex, Natural Rubber; ph 11:10 metformin; ph 11:10 Tape; ph - PMHx: 11:10 chronic back pain; Hypertension; Myocardial infarction; ph - PSHx: 11:10 back surgery; Hysterectomy; pain pump; neck surgery; ph - Immunization history:: Adult Immunizations unknown. - Social history:: Smoking status: Patient denies any tobacco usage or history of. Screenin:10 Abuse screen: Denies threats or abuse. Denies injuries from another. Nutritional ph screening: No deficits noted. Tuberculosis screening: No symptoms or risk factors identified. Fall Risk None identified. Assessment: 11:10 General: Appears in no apparent distress. uncomfortable, well groomed, Behavior is ph calm, cooperative, appropriate for age, Denies fever, feeling ill. Pain: Complains of pain in left breast Pain radiates to diaphragm and L subscapular area, pain worse w/ movement of L arm Pain began "this morning". Neuro: Level of Consciousness is awake, alert, obeys commands, Oriented to person, place, time, situation. Cardiovascular: Reports chest pain, fatigue, nausea, Capillary refill < 3 seconds in bilateral fingers Patient's skin is warm and dry. Rhythm is sinus rhythm. Respiratory: Airway is patent Respiratory effort is even, unlabored, Respiratory pattern is regular, symmetrical. GI:. Derm: Skin is intact, is healthy with good turgor, Skin is pink, warm \\T\\ dry. Musculoskeletal: Circulation, motion, and sensation intact. Range of motion: intact in all extremities. 12:30 Reassessment: Patient appears in no apparent distress at this time. Patient and/or ph family updated on plan of care and expected duration. Pain level reassessed. Patient is alert, oriented x 3, equal unlabored respirations, skin warm/dry/pink. 13:30 Reassessment: Patient appears in no apparent distress at this time. Patient and/or ph family updated on plan of care and expected duration. Pain level reassessed. Patient is alert, oriented x 3, equal unlabored respirations, skin warm/dry/pink. 14:21 Reassessment: Patient appears in no apparent distress at this time. Patient and/or ph family updated on plan of care and expected duration. Pain level reassessed. Patient is alert, oriented x 3, equal unlabored respirations, skin warm/dry/pink. PT resting comfortably, VSS. 15:30 Reassessment: Patient appears in no apparent distress at this time. Patient and/or ph family updated on plan of care and expected duration. Pain level reassessed. Patient is alert, oriented x 3, equal unlabored respirations, skin warm/dry/pink. 17:12 Reassessment: Patient appears in no apparent distress at this time. Patient and/or ph family updated on plan of care and expected duration. Pain level reassessed. Patient is alert, oriented x 3, equal unlabored respirations, skin warm/dry/pink. Pt resting quietly w/ lights off in room, awaiting room assignment, VSS. 18:03 Reassessment: Patient appears in no apparent distress at this time. Patient and/or ph family updated on plan of care and expected duration. Pain level reassessed. Patient is alert, oriented x 3, equal unlabored respirations, skin warm/dry/pink. Attempted to call report, receiving nurse unavailable. 18:40 Reassessment: Patient appears in no apparent distress at this time. Patient and/or ph family updated on plan of care and expected duration. Pain level reassessed. Patient is alert, oriented x 3, equal unlabored respirations, skin warm/dry/pink. Attempted to call report, was told that no nurse had been assigned to room. 19:43 Reassessment: Patient appears in no apparent distress at this time. repeat troponin mg2 sent to the lab. Vital Signs: 11:06 BP 134 / 68; Pulse 69; Resp 18; Temp 98.7; Pulse Ox 98% on R/A; Weight 81.65 kg; Height ph 5 ft. 7 in. (170.18 cm); Pain 7/10; 13:14 BP 138 / 65; Pulse 59; Resp 18; Pulse Ox 96% on R/A; ph 14:24 BP 120 / 61; Pulse 55; Resp 18; Pulse Ox 98% on R/A; ph 15:30 BP 148 / 87; Pulse 62; Resp 16; Pulse Ox 99% on R/A; ph 16:30 BP 130 / 67; Pulse 62; Resp 18; Pulse Ox 98% on R/A; ph 17:30 BP 122 / 68; Pulse 52; Resp 16; Pulse Ox 97% on R/A; ph 18:30 BP 127 / 68; Pulse 54; Resp 16; Pulse Ox 97% on R/A; ph 19:42 Pulse 58; Resp 18; Pulse Ox 97% on R/A; mg2 11:06 Body Mass Index 28.19 (81.65 kg, 170.18 cm) ph ED Course: 11:06 Patient arrived in ED. ph 11:09 Triage completed. ph 11:10 Arm band placed on Patient placed in an exam room, on a stretcher, on rn cardiac, ph on pulse oximetry. 11:18 Juan Jose James MD is Attending Physician. [facility] 11:22 Pina Rodarte, RN is Primary Nurse. ph 11:48 XRAY Chest (1 view) In Process Unspecified. EDMS 12:00 Basic Metabolic Panel Sent. 12:00 CBC with Diff Sent. 12:00 LFT's Sent. 12:00 Magnesium Sent. 12:00 NT PRO-BNP Sent. 12:00 PT-INR Sent. 12:00 Troponin (emerg Dept Use Only) Sent. 13:[address] Moreno called and message left to please call Dr. James for eb patient consultation. 14:21 Patient has correct armband on for positive identification. Placed in gown. Bed in low ph position. Call light in reach. Side rails up X2. classroom monitor on. Pulse ox on. NIBP on. Door closed. Noise minimized. Warm blanket given. 14:22 Patient maintains SpO2 saturation greater than 95% on room air. ph 15:08 Kai Moreno MD is Hospitalizing Provider. [facility] 17:14 No provider procedures requiring assistance completed. Patient admitted, IV remains in ph place. Administered Medications: 13:09 Drug: morphine 2 mg Route: IVP; Site: right hand; ph 15:18 Follow up: Response: No adverse reaction ph Outcome: 15:08 Decision to Hospitalize by Provider. [facility] 19:41 Admitted to Med/surg accompanied by tech, via stretcher, room 206, with chart, Report mg2 called to AMIE Newby 19:41 Condition: stable 19:41 Instructed on the need for admit, Demonstrated understanding of instructions. 20:09 Patient left the ED. mg2 Signatures: Dispatcher [employer] EDPina Wright RN RN Shelly Miller Michele, RN RN [facility] Irlanda Crisostomo RN RN ah Holmes, Maurice, MD MD [facility]
[2019-11-17] MEDS ORDERED: ACETAMINOPHEN 500 MG TAB PO PRN (15:12)
[2019-11-17] MEDS ORDERED: ONDANSETRON 4 MG/2 ML VIAL IV PRN (15:12)
[2019-11-17] MEDS ORDERED: NITROGLYCERIN 1 GM PKT TD SCH (18:00)
[2019-11-17 20:08] VITALS: BMI 28.2
[2019-11-17] MEDS: MORPHINE 4 MG/ML SYR IV PRN (21:20)
[2019-11-18] MEDS: MORPHINE 4 MG/ML SYR IV PRN (05:02)
[2019-11-18 06:09] LABS: Absolute Lymphocytes (CBC) 2.4 K/uL (0.7-4.9); Basophils % 2.8 % (0-1.3); Hematocrit 37.6 % (36.0-45.0); Lymphocytes % 32.5 % (15.3-44.8); RBC Red Blood Cell Count 3.94 M/uL (3.86-4.86)
[2019-11-18 06:18] LABS: Potassium 4.2 mmol/L (3.5-5.1)
[2019-11-18] MEDS ORDERED: ASPIRIN EC 81 MG TAB PO SCH (09:00)
--- NOTE | 2019-11-18 09:17 | CON ---
Date of Consultation: 11/18/2019 Reason For Consultation: Chest pain. History Of Present Illness: Ms. Cha is a 79-year-old woman who has had a history of CAD, hyperte nsion, status post stent, has a history of dyslipidemia and chronic pain. She has a pain pump. She came in with a rather atypical chest pain. Apparently, she has been using this body suit which helps her as far as her pain is concerned. Her last body suit was apparently much tighter than usual and she began having pain in the back that was severe, radiating to the arms, radiating to the anterior c hest that lasted hours. She denied any nausea, vomiting, diaphoresis, PND, orthopnea, pedal edema, p alpitation, or syncope. Her EKG was nonspecific. Chest x-ray was negative. Troponin was negative x 2. Her creatinine was 1.35. Past Medical History: As stated above. Allergies: METFORMIN. Review of Systems: Negative. Social History: Negative. Family History: Noncontributory. Medications: At home include Eliquis, Lipitor, Brilinta, Vasotec, metoprolol, as well as Flexeril. Physical Examination: General: Ms. Cha, when I saw her was in no acute distress. Vital Signs: Stable. She was afebrile she was in sinus rhythm. HEENT: Negative. Neck: Supple without any bruit, lymphadenopathy, JVD, or thyromegaly. Chest: Clear to auscultation and percussion. Cardiac: Exam revealed a regular rhythm and rate without any murmurs, gallops, or rubs. Abdomen: Benign. Extremities: Revealed no clubbing, cyanosis, or edema. Diagnostic Data: As stated earlier. Impression And Plan: 1.I think Ms. Cha's is pain is very atypical. I think this mostly musculoskeletal, may be relat ed to her body suit and her chronic pain with pain pump. She has already ruled out for an NE. She s ees Dr. Evans in [place] from a cardiology standpoint. Apparently, she is supposed to have a stres s test in November of this coming year. She has an echocardiogram pending and we will see what that show s, but if that is negative as far as I am concerned, she can go home and follow up with Dr. Evans in the near future. 2.Dyslipidemia. 3.Coronary artery disease, status post stent. 4.Hypertension that is well controlled. I will discuss the case further with Dr. Moreno after the ech ocardiogram is done and before her discharge. I am curious on why she is taking Eliquis. She was no t sure and I will check with Dr. Moreno in that regard. ZELDA/JANAK Voice ID: [id number] Report ID: [id number]
[2019-11-18 09:38] VITALS: O2SAT 98
[2019-11-18 11:54] VITALS: BP 127/59; TEMP 98.2
--- NOTE | 2019-11-18 18:16 | EKG ---
Test Date: 2019-11-17 Test Time: 11:18:25 Machine Accountant: FLO MEASUREMENT RESULTS: Intervals: Rate: 66 MS: 176 QRSD: 84 QT: 388 QTc: 406 [place]: P: 79 MS: 176 QRS: 87 T: 72 INTERPRETIVE STATEMENTS: Normal sinus rhythm Normal ECG Compared to ECG 03/02/2014 13:54:35 Sinus tachycardia no longer present Electronically Signed On 11-18-19 18:12:59 CDT by Hadley Flores
--- NOTE | 2019-11-19 19:54 | HP ---
Date of Admission: 11/17/2019 Chief Complaint: Chest pain. History Of Present Illness: This is a 79-year-old very pleasant female patient, who came into emerge ncy room with complaints of chest pain. Patient started to have chest pain around 9 o'clock or 9:30 in the morning soon after she woke up and pain has been continuous all throughout the day. By the ti me I saw her, it was around 8 p.m. in the evening time and she still had this pain that had started t his morning almost 12 hours ago or so. Even though patient says that the severity of the pain has im proved significantly, but the pain has been continuous. She came into emergency room with this nav rns about chest pain; and after she was evaluated in the ER, ER physician contacted me requesting adm ission to the hospital. She denies any rash. No fever. No cough or congestion. No expectoration. No hemoptysis. No fall. No injury. Upon further questioning, patient reports that pain does get w orse when she takes a deep breath or when she moves from side to side or tries to raise her left arm and the pain is in the left anterolateral and posterior chest wall area. No associated shortness of breath or diaphoresis or nausea. Allergies: METFORMIN CAUSING LACTIC ACIDOSIS AND AMBIEN CAUSING SLEEPWALKING TYPE OF PROBLEM. Medications: Eliquis 5 mg 2 times a day, aspirin 81 mg daily, atorvastatin 80 mg daily, chlorzoxazon e, enalapril 10 mg daily, Nitrostat p.r.n. Review of Systems: Cardiovascular: As mentioned above. Musculoskeletal: Chronic back pain. All other systems reviewed and negative. Past Medical History: Significant for type 2 diabetes mellitus, hypertension, mixed hyperlipidemia, coronary artery disease with history of non-STEMI in September 2016, paroxysmal atrial fibrillation, osteoa rthritis, hypomagnesemia, chronic kidney disease stage 3. Past Surgical History: Coronary artery stent placement in September 2016, hysterectomy, back surgery, cerv ical spine surgery, pain pump placement. Family History: Father of lymphoma. Brother had Parkinson disease. Social History: Negative for smoking and alcohol use. Physical Examination: Vital Signs: Blood pressure 134/68, pulse 69, respiratory rate 18, temperature 98.7, pulse ox 98%. Weight 81.65 kg, height 5 feet 7 inches. General: Awake, alert, oriented, not in distress. HEENT: Head atraumatic, normocephalic. Conjunctivae nonerythematous. Sclerae white. Mouth, no thr ush or edema noted. Ears/Nose, no mass, lesion, discharge noted. Neck: Supple. No JVD, lymph nodes, bruit, thyromegaly noted. Lungs: Bilateral good equal air entry. Clear to auscultation. No rhonchi. No rales. Heart: Normal heart sounds, no murmur or gallop. Abdomen: Soft, bowel sounds normal. No guarding, rigidity, tenderness, mass, hepatosplenomegaly, dis tention, or bruit noted. Extremities: No leg edema. No calf tenderness. Skin: No rash, ulcer, cellulitis. Lymphatics: No lymph node enlargement in neck, supraclavicular, infraclavicular region. Neuro: No focal neurological deficit. Chest: Unremarkable. External Genitalia: Deferred. Rectal: Deferred. Laboratory Data: White count 8.5, hemoglobin 14, platelets 252. Sodium 143, potassium 4.6, chloride 115, bicarb 20, BUN 25, creatinine 1.35, glucose 112. Liver function tests unremarkable. Troponin less than 0.02 x3. Chest x-ray, no acute cardiopulmonary changes. EKG, no acute ST-T changes. Impression: 1.Chest pain. 2.Coronary artery disease. 3.Hypertension. 4.Mixed hyperlipidemia. 5.Type 2 diabetes mellitus. 6.Chronic kidney disease, stage 3. 7.Osteoarthritis, multiple sites. 8.Paroxysmal atrial fibrillation. 9.Chronic anticoagulation therapy. Plan: Admit patient to hospital for further evaluation and management of this problem. Patient is a ppropriate for observation. We will keep her on telemetry. Consult historic preservationist. Continue home med ications as she takes at home using her home supply and I will see her tomorrow morning for followup. Details and plan of treatment discussed with her. Patient was made aware that her chest pain appea rs to be atypical in nature, likely musculoskeletal in origin, and she admits bodysuits to help with her back pain and recently started using a new pair of such bodysuits and reports that this was too t ight on her and that is the likely reason for this pain. DAVY/MODL Voice ID: [id number]
--- NOTE | 2019-11-20 09:25 | DS ---
Date of Discharge: 11/18/2019 Disposition: Discharged to go home. Physical Examination: HEENT: Unremarkable. Lungs: Clear to auscultation. Heart: Sounds normal. Abdomen: Soft. Bowel sounds normal. No guarding, rigidity, tenderness, or distention. Extremities: No leg edema. Breasts: In presence of patient's nurse, this morning, I did perform breast exam and breast exam shows bilateral symmetric and no evidence of any mass or tenderness. No nipple discharge. No asymmetry or any abnormality noted on the breast exam. Lymphatic System: No lymph node enlargement in neck, supraclavicular, infraclavicular, or axillary region. Discharge Medications And Instructions: 1. Continue all prior home medications. 2. Follow up at my office per scheduled appointment. Final Diagnoses: 1. Chest pain. 2. Coronary artery disease. 3. Hypertension. 4. Mixed hyperlipidemia. 5. Type 2 diabetes mellitus. 6. Paroxysmal atrial fibrillation. 7. Chronic anticoagulation therapy. 8. Osteoarthritis, multiple sites. 9. Chronic kidney disease, stage III. Hospital Course: This is a 79-year-old pleasant female patient, who was admitted to the hospital with complaints of chest pain. Please see dictated H and P for more information. Patient was admitted to the hospital after she came into emergency room with this chest pain and her chest pain was atypical in nature. Her NV was ruled out. Cardiology consultation was requested from Dr. Flores and no further cardiac intervention was suggested by him in view of atypical nature of this chest pain. Details were discussed with the patient. Her pain started after she started using a new pair of body suit that she normally wears to help with her back pain and I did advise her to try not to use such tight body suit and maybe she can consider to use a little larger size to avoid excessive amount of compression or get it stretched before using it. In any case, she was discharged to go home in stable condition with above-mentioned medications and instructions. DAVY/MODL Voice ID: [id number] Report ID: [id number] CHRISTOPHER
--- NOTE | 2019-11-21 08:39 | ECHO ---
HEIGHT: 5 ft 7 in WEIGHT: 180 lb 1.6 oz DATE OF STUDY: 11/18/[address]: Hadley Flores MD 2-DIMENSIONAL: YES M.MODE: YES DOPPLER: YES COLOR FLOW: YES TDS: NO PORTABLE: NO DEFINITY: NO BUBBLE STUDY: NO DIAGNOSIS: CHEST PAIN CARDIAC HISTORY: CATHERIZATION: NO SURGERY: NO PROSTHETIC VALVE: NO PACEMAKER: NO MEASUREMENTS (cm) DIASTOLIC (NORMALS) SYSTOLIC (NORMALS) IVSd 0.9 (0.6-1.2) LA Diam 3.2 (1.9-4.0) LVEF 54% LVIDd 3.7 (3.5-5.7) LVIDs 2.7 (2.0-3.5) %FS 27% LVPWd 1.0 (0.6-1.2) Ao Diam 2.8 (2.0-3.7) 2 DIMENSIONAL ASSESSMENT: RIGHT ATRIUM: NORMAL LEFT ATRIUM: NORMAL RIGHT VENTRICLE: NORMAL LEFT VENTRICLE: NORMAL TRICUSPID VALVE: NORMAL MITRAL VALVE: NORMAL PULMONIC VALVE: NORMAL AORTIC VALVE: NORMAL PERICARDIAL EFFUSION: NONE AORTIC ROOT: NORMAL LEFT VENTRICULAR WALL MOTION: NORMAL DOPPLER/COLOR FLOW: NORMAL COMMENTS: NORMAL 2D ECHOCARDIOGRAM WITH DOPPLER. NO WALL MOTION ABNORMALITY. NO EFFUSION. TECHNOLOGIST: Krupa BARCLAY
== END 2019-11-18 16:06 | disposition home or self-care (01) ==
LOC: ER 10:50 → ERHOLD 15:10 → 2ND 19:43
PROVIDERS: ADMIT Internal Medicine; ATTEND Internal Medicine
DX: R07.89 Other chest pain (principal); I25.10 Atherosclerotic heart disease of native coronary artery without angina pectoris; E78.2 Mixed hyperlipidemia; E11.22 Type 2 diabetes mellitus with diabetic chronic kidney disease; I12.9 Hypertensive chronic kidney disease with stage 1 through stage 4 chronic kidney disease, or unspecified chronic kidney disease; N18.3 Chronic kidney disease, stage 3 (moderate); M15.9 Polyosteoarthritis, unspecified; I48.0 Paroxysmal atrial fibrillation; Z79.01 Long term (current) use of anticoagulants; Z79.82 Long term (current) use of aspirin; Z79.899 Other long term (current) drug therapy; Z11.59 Encounter for screening for other viral diseases; Z95.5 Presence of coronary angioplasty implant and graft; Z88.8 Allergy status to other drugs, medicaments and biological substances; Z96.89 Presence of other specified functional implants
CPT/HCPCS: 93005; 93306; 85025 ×2; 80048 ×2; 36415 ×2; 83735; 85610; 80076; 84484 ×3; 83880; 71045; 96374; 99285; U0002; J2270; J2405; G0378 ×3

== ENCOUNTER 2020-10-19 03:27 | Emergency (ER) | payer OTHER, MEDICARE ==
--- OUTSIDE RECORDS SUMMARY | 2020-10-19 03:30 | XMS REPORT | Continuity of Care Document ---
:1940 Author Organization [facility] t Address [address] [place] [address] Care Team Providers Name Role Phone Lakeshia Moreno MD Primary Care Physician Nathan GILMAN, K.H. Attending Clinician Bernardo GILMAN, P. Attending Clinician Faisal Guidry DO Attending Clinician Doctor Unassigned, Name Attending Clinician Unavailable Payers Payer Name Policy Type Policy Effective Date Expiration Date Sour ce Number MEDICAREMEDICARE PART [id number] 2007 Norman Cutler AND 00:00:00 [facility] [id number] 2006 [place] [id number] 2017 [place] [id number] 00:00:00 Met [facility] This patient has no known problems. Allergies, Adverse Reactions, Alerts Allergy Allergy Status Severity Reaction(s) Onset Inactive Treating Comm ents Source Name Type Date Date Clinician Latex Propensi Active Rash 2016- [place] ty to 09-29 [facility] adverse 00:00: st reaction 00 s to drug Metformi Propensi Active Rash [place] ty to 09-25 [facility] adverse 00:00: st reaction 00 s to drug Adhesive Propensi Active [place] Tape[place] ty to [facility] icones adverse st reaction s to drug Social History Social Habit Start Date Stop Date Quantity Comments Source Tobacco use and 2019-07-11 2019-07-11 Never used Ole Mulligan ethodist exposure 00:00:00 00:00:00 Sex [birth year] At [birth year] Ole Mulligan ethodist 00:00:00 00:00:00 Smoking Status Start Date Stop Date Source Never smoker [facility] t Medications Ordered Filled Start Stop Current Ordering [...] enalapril-h Yes Q24H daily. [place] ydrochlorot 16 [facility] hiazide 08:42: st (VASERETIC) 32 10-25 mg per tablet atorvastati Yes Q24H daily. [place] n (LIPITOR) 16 [facility] 80 MG 08:42: st tablet 32 aspirin Yes 81mg Take 81 mg [place] (ECOTRIN) 16 by mouth. Metho di 81 MG 08:42: st enteric 32 coated tablet amLODIPine Yes 5mg Take 5 mg [place] (NORVASC) 5 12-07 by mouth. Met hodi mg tablet 08:42: st 32 tiZANidine Yes tizanidine [place] (ZANAFLEX) 716 4 mg [facility] 4 MG tablet 08:42: tablet 1 st 32 PO TID nitroglycer Yes 1{patch QD Place 1 [place] in 12-07 } patch on [facility] (NITRODUR) 08:42: the skin st 0.4 mg/hr 32 daily. acetaminoph Yes 500mg Q6H Take 500 [place] en 7-16 mg by [facility] (TYLENOL) 08:42: mouth st 500 MG 32 every 6 tablet (six) hours as needed for mild pain. ELIQUIS 5 Yes TK 1 T PO Donna ston mg tablet 3-11 BID [facility] 00:00: st 00 Immunizations Ordered Immunization Filled Immunization Date Status Commen ts Source Name Name PFIZER COVID-19 MRNA 2020-07-26 Completed [place] VACCINATION 00:00:00 [facility] PFIZER COVID-19 MRNA 2020-07-05 Completed [place] VACCINATION 00:00:00 [facility] Procedures This patient has no known procedures. Plan of Care Planned Activity Planned Date Details Comments Source Future Scheduled 2020-12-23 INFLUENZA VACCINE [place] [facility] Test 00:00:00 [code = INFLUENZA VACCINE] Future Scheduled 2020-12-07 DIABETES: RETINAL EYE [place] [facility] Test 00:00:00 EXAM [code = DIABETES: RETINAL EYE EXAM] Future Scheduled 1992 SHINGLES VACCINES (#1) [place] [facility] Test 00:00:00 [code = SHINGLES VACCINES (#1)] Future Scheduled 1960 Hepatitis C screening [place] [facility] Test 00:00:00 (procedure) [code = 464004776] Future Scheduled 1952 DIABETIC FOOT EXAM [place] [facility] Test 00:00:00 [code = DIABETIC FOOT EXAM] Future Scheduled 1952 URINE MICROALBUMIN [place] [facility] Test 00:00:00 [code = URINE MICROALBUMIN] Encounters Start End Encounter Admission Attending Care Care Encounter Source Date/Time Date/Time Type Type Clinicians Facility Department ID 2020-10-15 2020-10-15 Telephone Nathan [facility] [id number] 00:00:00 00:00:00 [place] [id number] [place] [id number] Professio [id number] [address] 2020-07-30 2020-07-30 Refill Nathan [facility] [id number] 00:00:00 00:00:00 [place] [id number] [place] [id number] Professio [id number] [address] 2020-07-27 2020-07-27 [facility] [id number] 00:00:00 00:00:00 [place] [id number] [place] [id number] Professio [id number] nal 059 [facility] 2020-07-26 2020-07-26 Outpatient RONRachna, [facility] [id number] [address] [place] 00:00:00 00:00:00 [place] [address] [place] 2020-07-05 2020-07-05 Outpatient [facility] [id number] 355 [place] 00:00:00 00:00:00 985 Method i 2020-06-16 2020-06-16 Patient Chao [facility] [id number] 00:00:00 00:00:00 Outreach [facility] [id number] [facility] [id number] PAVILLION [id number] [facility] 2020-04-18 2020-04-18 Refill Nathan [facility] [id number] 00:00:00 00:00:00 [place] [id number] [place] [id number] Professio [id number] [address] 2020-03-31 2020-03-31 Orders Doctor JEAN PAUL [id number] 00:00:00 00:00:00 Only Unassigned, ASHA [id number] Gwynn [facility] [id number] 2020-01-16 2020-01-16 Refill Nathan ALEARLE [id number] 00:00:00 00:00:00 [place] [id number] [place] [id number] Professio [id number] [address] 2019-10-13 2019-11-21 Telemedici Nathan [facility] [id number] 08:07:24 00:30:53 ne Visit [place] [id number] [place] [id number] Professio [id number] [address] 2019-11-20 2019-11-20 Telephone Nathan ALEARLE [id number] 00:00:00 00:00:00 [place] [id number] [place] [id number] [facility] [id number] [facility] 2019-10-13 2019-10-13 Orders Doctor JEAN PAUL [id number] 00:00:00 00:00:00 Only Unassigned, ASHA [id number] Gwynn [facility] [id number] Results This patient has no known results.
[2020-10-19 04:57] LABS: Absolute Lymphocytes (CBC) 1.6 K/uL (0.7-4.9); Basophils % 0.5 % (0-1.3); Hematocrit 41.1 % (36.0-45.0); Lymphocytes % 15.6 % (15.3-44.8); MPV 9.6 fL (7.6-11.3); RBC Red Blood Cell Count 4.29 M/uL (3.86-4.86)
[2020-10-19 05:04] LABS: Albumin 4.1 g/dL (3.4-5.0); Bilirubin Direct 0.1 mg/dL (0-0.2); Bilirubin Total 0.5 mg/dL (0.2-1.0); Potassium 4.1 mmol/L (3.5-5.1); Protein, Total 8.1 g/dL (6.4-8.2)
[2020-10-19] MEDS ORDERED: MORPHINE 2 MG/ML SYR ONE (06:07)
[2020-10-19] MEDS ORDERED: ONDANSETRON 4 MG/2 ML VIAL ONE (06:08)
[2020-10-19 07:51] LABS: Urine Blood Trace-lysed (Negative); Urine Glucose Negative (Negative); Urine Protein Negative (Negative); Urine Specific Gravity 1.015 (1.005-1.030); Urine pH 5.5 (5.0-7.0)
--- NOTE | 2020-10-19 09:35 | ER ---
Nurse's Notes [facility] Name: Claudia Cha Age: 80 yrs Sex: Female : 1940 Arrival Date: 10/19/2020 Time: 03:28 Bed 8 Private MD: Diagnosis: Abdominal and pelvic pain;Low back pain;Urinary tract infection, site not specified Presentation: 10/19 03:31 Chief complaint: EMS states: She is having pain in her stomach and back. She has a jb4 history of chronic pain but says this is different. Has been having diarrhea and constipation with cramping. Coronavirus screen: Client denies travel out of the [place] in the last 14 days. At this time, the client does not indicate any symptoms associated with coronavirus-19. Ebola Screen: No symptoms or risks identified at this time. Initial Sepsis Screen: Does the patient meet any 2 criteria? No. Patient's initial sepsis screen is negative. Does the patient have a suspected source of infection? No. Patient's initial sepsis screen is negative. Risk Assessment: Do you want to hurt yourself or someone else? Patient reports no desire to harm self or others. Onset of symptoms was October 19, 2020. Transition of care: patient was not received from another setting of care. 03:31 Method Of Arrival: EMS: [facility] jb4 03:31 Acuity: [place] 3 jb4 Historical: - Allergies: 03:34 Latex, Natural Rubber; jb4 03:34 metformin; jb4 03:34 Tape; jb4 - Home Meds: 04:42 chlorzoxazone 500 mg oral tab [Active]; Eliquis 5 mg Oral tab 1 tab 2 times per day jb4 [Active]; trazodone 25 mg Oral [Active]; morphine 15 mg Oral tab [Active]; atorvastatin 80 mg Oral tab 1 tab once daily [Active]; duloxetine 30 mg oral cpDR [Active]; amlodipine 5 mg tab 1 tab once daily [Active]; Aspirin Oral [Active]; - PMHx: 03:34 chronic back pain; Hypertension; Myocardial infarction; jb4 - PSHx: 03:34 back surgery; Hysterectomy; neck surgery; pain pump; jb4 - Immunization history:: Adult Immunizations. - Social history:: Smoking status: unknown. Screenin:45 Abuse screen: Denies threats or abuse. Nutritional screening: No deficits noted. jb4 Tuberculosis screening: No symptoms or risk factors identified. Fall Risk None identified. Assessment: 03:56 General: Appears in no apparent distress. uncomfortable, Behavior is calm, cooperative. jb4 Pain: Complains of pain in back and abdomen Pain does not radiate. Pain currently is 8 out of 10 on a pain scale. Neuro: Level of Consciousness is awake, alert, obeys commands, Oriented to person, place, time, situation. Cardiovascular: Patient's skin is warm and dry. Respiratory: Airway is patent Respiratory effort is even, unlabored, Respiratory pattern is regular, symmetrical. GI: Abdomen is flat, non-distended, Reports lower abdominal pain, upper abdominal pain, constipation, cramping, diarrhea. : No signs and/or symptoms were reported regarding the genitourinary system. EENT: No signs and/or symptoms were reported regarding the EENT system. Derm: Skin is intact, Skin is pink, warm \T\ dry. Musculoskeletal: Circulation, motion, and sensation intact. Range of motion: intact in all extremities. 04:10 Reassessment: Pt given a heating pack to help alleviate lower back pain per request. jb4 04:32 Reassessment: Patient appears in no apparent distress at this time. Patient and/or jb4 family updated on plan of care and expected duration. Pain level reassessed. Patient is alert, oriented x 3, equal unlabored respirations, skin warm/dry/pink. 05:30 Reassessment: Patient appears in no apparent distress at this time. Patient and/or jb4 family updated on plan of care and expected duration. Pain level reassessed. Patient is alert, oriented x 3, equal unlabored respirations, skin warm/dry/pink. 06:45 Reassessment: Patient appears in no apparent distress at this time. Patient and/or jb4 family updated on plan of care and expected duration. Pain level reassessed. Patient is alert, oriented x 3, equal unlabored respirations, skin warm/dry/pink. 07:00 Reassessment: RECD REPORT FROM ALEX HOLLOWAY. 80YO WF P/W CHRONIC PAIN AND BACK AND bp ABDOMINAL PAIN. CT RESULTS PENDING. 09:00 Reassessment: Patient appears in no apparent distress at this time. Patient and/or bp family updated on plan of care and expected duration. Pain level reassessed. RAD CONTACTED FOR CT RESULTS. 10:05 Reassessment: D/C ON HOLD FOR CATH URINE. bp 10:44 Reassessment: PT D/C HOME AMBULATORY, DX WITH UTI AND CONSTIPATION. bp Vital Signs: 03:31 BP 98 / 58; Pulse 59; Resp 18; Temp 97.8(TE); Pulse Ox 95% on R/A; Weight 81.65 kg (R); jb4 Height 5 ft. 7 in. (170.18 cm) (R); Pain 8/10; 04:30 BP 126 / 79; Pulse 66; Resp 16; Pulse Ox 97% on R/A; jb4 06:00 BP 120 / 59; Pulse 51; Resp 18; Pulse Ox 96% on R/A; jb4 06:45 BP 116 / 57; Pulse 54; Resp 18; Pulse Ox 94% on R/A; jb4 07:51 BP 132 / 86; Pulse 55; Resp 16; Temp 97.6(TE); Pulse Ox 95% on R/A; mh5 08:53 BP 117 / 65; Pulse 61; Resp 16; Temp 97.6(TE); Pulse Ox 97% on R/A; mh5 10:44 BP 121 / 60; Pulse 56; Resp 17; Temp 97.8; Pulse Ox 96% ; bp 03:31 Body Mass Index 28.19 (81.65 kg, 170.18 cm) jb4 ED Course: 03:28 Patient arrived in ED. jb4 03:33 Triage completed. jb4 03:34 Arm band placed on right wrist. jb4 03:45 Patient has correct armband on for positive identification. Bed in low position. Call jb4 light in reach. Side rails up X 1. Pulse ox on. NIBP on. 03:56 Lewis Nassar, RN is Primary Nurse. jb4 04:01 Juan Jose James MD is Attending Physician. 7 06:04 CT Abd/Pelvis - Without Contrast In Process Unspecified. EDMS 07:00 Primary Nurse role handed off by Lewis Nassar, RN bp 07:00 Harsh Heredia, AMIE is Primary Nurse. bp 07:50 Initial lab(s) drawn, by ED staff, sent to lab. Urine collected: clean catch specimen, 5 cloudy. 07:58 Basic Metabolic Panel Sent. bp 07:58 CBC with Diff Sent. bp 07:58 Hepatic Function Sent. bp 07:58 Lipase Sent. bp 08:24 Attending Physician role handed off by Juan Jose James MD [facility] 08:24 Kristian Villarreal MD is Attending Physician. kdr 10:12 Urine Microscopic Only Sent. mh5 10:12 Urine Culture Sent. mh5 10:12 Urine collected: straight cath specimen, cloudy. mh5 10:13 Warm blanket given. mh5 10:13 Straight cath inserted, using sterile technique, 16 Fr. mh5 10:44 No provider procedures requiring assistance completed. IV discontinued, intact, bp bleeding controlled, No redness/swelling at site. Pressure dressing applied. Administered Medications: 06:15 Drug: morphine 2 mg Route: IVP; Site: right forearm; jb4 06:47 Follow up: Response: No adverse reaction; Marked relief of symptoms; Pain is decreased; jb4 RASS: Alert and Calm (0) 06:36 Not Given (Patient Refused): Zofran (Ondansetron) 4 mg IVP once; over 2 minutes jb4 09:20 Drug: Rocephin - (cefTRIAXone) 1 grams Route: IVPB; Infused Over: 30 mins; Site: right bp antecubital; 10:04 Follow up: IV Status: Completed infusion; IV Intake: 50ml bp Intake: 10:04 IV: 50ml; Total: 50ml. bp Outcome: 09:34 Discharge ordered by . kdr 10:44 Discharged to home ambulatory. bp 10:44 Condition: stable 10:44 Discharge instructions given to patient, Instructed on discharge instructions, follow up and referral plans. medication usage, Demonstrated understanding of instructions, follow-up care, medications, Prescriptions given X 2. 10:54 Patient left the ED. bp Addendum: 10/22/2020 07:51 Addendum: Culture Results: Positive urine culture. No further action required. Bacteria s v sensitive to prescribed antibiotic. Signatures: Dispatcher [employer] EDMS Sydnee Aleman RN RN Kristian Villarreal MD MD [facility] Lewis Nassar RN RN jb4 Martinez, Maria 5 Harsh Heredia RN RN Juan Jose James MD MD 7
--- NOTE | 2020-10-19 09:35 | EDPHYS ---
Physician Documentation [facility] Name: Claudia Cha Age: 80 yrs Sex: Female : 1940 Arrival Date: 10/19/2020 Time: : Bed 8 Private MD: ED Physician Kristian Villarreal HPI: 10/19 07:00 This 80 yrs old Female presents to ER via EMS with complaints of Abdominal mh7 Pain. Back Pain. 07:01 The patient presents with abdominal pain that is diffuse. Onset: The symptoms/episode mh7 began/occurred 2 week(s) ago. The symptoms radiate to left back. Associated signs and symptoms: Pertinent positives: constipation, Pertinent negatives: nausea, vomiting, and diarrhea, nausea and vomiting, anorexia, blood in stools, chest pain, diarrhea, dysuria, fever, headache, hematuria, nausea, palpitations, shortness of breath, vaginal discharge, vomiting, vomiting blood. The symptoms are described as intermittent, vague, waxing/waning. Modifying factors: The symptoms are alleviated by nothing, the symptoms are aggravated by nothing. Severity of pain: At its worst the pain was moderate 7 day(s) ago, in the emergency department the pain is unchanged. Historical: - Allergies: 03:34 Latex, Natural Rubber; jb4 03:34 metformin; jb4 03:34 Tape; jb4 - Home Meds: 04:42 chlorzoxazone 500 mg oral tab [Active]; Eliquis 5 mg Oral tab 1 tab 2 times per day jb4 [Active]; trazodone 25 mg Oral [Active]; morphine 15 mg Oral tab [Active]; atorvastatin 80 mg Oral tab 1 tab once daily [Active]; duloxetine 30 mg oral cpDR [Active]; amlodipine 5 mg tab 1 tab once daily [Active]; Aspirin Oral [Active]; - PMHx: 03:34 chronic back pain; Hypertension; Myocardial infarction; jb4 - PSHx: 03:34 back surgery; Hysterectomy; neck surgery; pain pump; jb4 - Immunization history:: Adult Immunizations. - Social history:: Smoking status: unknown. ROS: 07:01 Constitutional: Negative for fever, chills, and weight loss, Eyes: Negative for injury, mh7 pain, redness, and discharge, ENT: Negative for injury, pain, and discharge, Neck: Negative for injury, pain, and swelling, Cardiovascular: Negative for chest pain, palpitations, and edema, Respiratory: Negative for shortness of breath, cough, wheezing, and pleuritic chest pain, : Negative for injury, bleeding, discharge, and swelling, MS/Extremity: Negative for injury and deformity, Skin: Negative for injury, rash, and discoloration, Neuro: Negative for headache, weakness, numbness, tingling, and seizure, Psych: Negative for depression, anxiety, suicide ideation, homicidal ideation, and hallucinations, Allergy/Immunology: Negative for hives, rash, and allergies, Endocrine: Negative for neck swelling, polydipsia, polyuria, polyphagia, and marked weight changes, Hematologic/Lymphatic: Negative for swollen nodes, abnormal bleeding, and unusual bruising. Exam: 07:01 Constitutional: This is a well developed, well nourished patient who is awake, alert, mh7 and in no acute distress. Head/Face: Normocephalic, atraumatic. Eyes: Pupils equal round and reactive to light, extra-ocular motions intact. Lids and lashes normal. Conjunctiva and sclera are non-icteric and not injected. Cornea within normal limits. Periorbital areas with no swelling, redness, or edema. Neck: Trachea midline, no thyromegaly or masses palpated, and no cervical lymphadenopathy. Supple, full range of motion without nuchal rigidity, or vertebral point tenderness. No Meningismus. Chest/axilla: Normal chest wall appearance and motion. Nontender with no deformity. No lesions are appreciated. Cardiovascular: Regular rate and rhythm with a normal S1 and S2. No gallops, murmurs, or rubs. Normal PMI, no JVD. No pulse deficits. Respiratory: Lungs have equal breath sounds bilaterally, clear to auscultation and percussion. No rales, rhonchi or wheezes noted. No increased work of breathing, no retractions or nasal flaring. 07:01 Skin: Warm, dry with normal turgor. Normal color with no rashes, no lesions, and no evidence of cellulitis. MS/ Extremity: Pulses equal, no cyanosis. Neurovascular intact. Full, normal range of motion. Neuro: Awake and alert, GCS 15, oriented to person, place, time, and situation. Cranial nerves II-XII grossly intact. Motor strength 5/5 in all extremities. Sensory grossly intact. Cerebellar exam normal. Normal gait. Psych: Awake, alert, with orientation to person, place and time. Behavior, mood, and affect are within normal limits. 07:01 Abdomen/GI: Inspection: abdomen appears normal, Bowel sounds: normal, in all quadrants, Palpation: mild abdominal tenderness, in all quadrants, mass, is not appreciated, rebound tenderness, is not appreciated, voluntary guarding, is not appreciated, involuntary guarding, is not appreciated, no appreciated organomegaly, Rectal exam: the exam is deferred, because of patient request, Indicators: McBurney's point is not tender, Narayan's sign is negative, Rovsing's sign is negative, Obturator sign is negative, Psoas sign is negative, Liver: no appreciated palpable abnormalities, Hernia: not appreciated. 07:01 Back: normal spinal alignment noted, CVA tenderness, that is mild, is noted on the left, vertebral tenderness, is not appreciated, muscle spasm, is not present. Vital Signs: 03:31 BP 98 / 58; Pulse 59; Resp 18; Temp 97.8(TE); Pulse Ox 95% on R/A; Weight 81.65 kg (R); jb4 Height 5 ft. 7 in. (170.18 cm) (R); Pain 8/10; 04:30 BP 126 / 79; Pulse 66; Resp 16; Pulse Ox 97% on R/A; jb4 06:00 BP 120 / 59; Pulse 51; Resp 18; Pulse Ox 96% on R/A; 4 06:45 BP 116 / 57; Pulse 54; Resp 18; Pulse Ox 94% on R/A; jb4 07:51 BP 132 / 86; Pulse 55; Resp 16; Temp 97.6(TE); Pulse Ox 95% on R/A; 5 08:53 BP 117 / 65; Pulse 61; Resp 16; Temp 97.6(TE); Pulse Ox 97% on R/A; 5 10:44 BP 121 / 60; Pulse 56; Resp 17; Temp 97.8; Pulse Ox 96% ; bp 03:31 Body Mass Index 28.19 (81.65 kg, 170.18 cm) [facility] MDM: 09:34 Patient medically screened. kdr 10:10 Data reviewed: vital signs, nurses notes, lab test result(s), radiologic studies. kdr Counseling: I had a detailed discussion with the patient and/or guardian regarding: the historical points, exam findings, and any diagnostic results supporting the discharge/admit diagnosis, lab results, radiology results, the need for outpatient follow up. 10/19 04:25 Order name: Basic Metabolic Panel [facility] 10/19 04:25 Order name: CBC with Diff [facility] 10/19 04:25 Order name: Hepatic Function [facility] 10/19 04:25 Order name: Lipase [facility] 10/19 04:26 Order name: Basic Metabolic Panel; Complete Time: 05:21 [facility] 10/19 04:26 Order name: CBC with Automated Diff; Complete Time: 05:21 [facility] 10/19 04:26 Order name: Liver (Hepatic) Function; Complete Time: 05:21 [facility] 10/19 04:26 Order name: Lipase; Complete Time: 05:21 [facility] 10/19 05:36 Order name: CT Abd/Pelvis - Without Contrast [facility] 10/19 07:51 Order name: Urine Dipstick-Ancillary; Complete Time: 09:09 [facility] 10/19 10:03 Order name: Urine Microscopic Only; Complete Time: 19:18 bp 10/19 10:10 Order name: Urine Dipstick-Ancillary; Complete Time: 10:35 [facility] 10/19 10:11 Order name: Urine Culture [facility] 10/19 04:25 Order name: IV Saline Lock; Complete Time: 04:47 [facility] 10/19 04:25 Order name: Labs collected and sent; Complete Time: 04:47 [facility] 10/19 05:21 Order name: Urine Dipstick-Ancillary (obtain specimen); Complete Time: 07:50 [facility] 10/19 05:36 Order name: EKG - Nurse/Tech; Complete Time: 06:09 [facility] 10/19 10:03 Order name: Urine Dipstick-Ancillary (obtain specimen); Complete Time: 10:12 bp Administered Medications: 06:15 Drug: morphine 2 mg Route: IVP; Site: right forearm; 4 06:47 Follow up: Response: No adverse reaction; Marked relief of symptoms; Pain is decreased; 4 RASS: Alert and Calm (0) 06:36 Not Given (Patient Refused): Zofran (Ondansetron) 4 mg IVP once; over 2 minutes jb4 09:20 Drug: Rocephin - (cefTRIAXone) 1 grams Route: IVPB; Infused Over: 30 mins; Site: right bp antecubital; 10:04 Follow up: IV Status: Completed infusion; IV Intake: 50ml bp Disposition: 10/19/20 09:34 Discharged to Home. Impression: Abdominal and pelvic pain, Low back pain, Urinary tract infection, site not specified. - Condition is Stable. - Discharge Instructions: Musculoskeletal Pain, Constipation, Adult, Mjoc-zf-Clcw, Urinary Tract Infection, Adult, Hoeq-aa-Vnxh, Abdominal Pain, Adult, Jtij-hp-Iebn, Back Pain, Adult, Preg-hj-Lmyh. - Prescriptions for Miralax 17 gram/dose Oral - take 1 packet by ORAL route once daily As needed dilute powder in 8 ounces of water or juice; 1 box. Bactrim DS 800- 160 mg Oral Tablet - take 1 tablet by ORAL route every 12 hours for 7 days; 14 tablet. - Medication Reconciliation Form, Thank You Letter form. - Follow up: Private Physician; When: 2 - 3 days; Reason: If symptoms return, Further diagnostic work-up, Recheck today's complaints, Continuance of care, Re-evaluation by your physician. - Problem is new. - Symptoms have improved. Signatures: Dispatcher [employer] EDMS Kristian Villarrael MD MD kdr Lewis Nassar RN RN jb4 Harsh Heredia RN RN bp Juan Jose James MD MD mh7 Corrections: (The following items were deleted from the chart) 07:02 07:00 The patient presents with abdominal pain [facility] 10:37 09:34 10/19/2020 09:34 Discharged to Home. Impression: Abdominal and pelvic pain; Low kdr back pain. Condition is Stable. Forms are Medication Reconciliation Form, Thank You Letter, Antibiotic Education, Prescription Opioid Use. Follow up: Private Physician; When: 2 - 3 days; Reason: If symptoms return, Further diagnostic work-up, Recheck today's complaints, Continuance of care, Re-evaluation by your physician. Problem is new. Symptoms have improved. kdr 10:54 10:37 10/19/2020 09:34 Discharged to Home. Impression: Abdominal and pelvic pain; Low bp back pain; Urinary tract infection, site not specified. Condition is Stable. Discharge Instructions: Musculoskeletal Pain, Constipation, Adult, Stad-zq-Maby, Abdominal Pain, Adult, Lrsw-ol-Falz, Back Pain, Adult, Qnqx-tr-Gges, Urinary Tract Infection, Adult, Kyop-du-Zfaf. Prescriptions for Miralax 17 gram/dose Oral - take 1 packet by ORAL route once daily As needed dilute powder in 8 ounces of water or juice; 1 box, Bactrim DS 800-160 mg Oral Tablet - take 1 tablet by ORAL route every 12 hours for 7 days; 14 tablet. and Forms are Medication Reconciliation Form, Thank You Letter. Follow up: Private Physician; When: 2 - 3 days; Reason: If symptoms return, Further diagnostic work-up, Recheck today's complaints, Continuance of care, Re-evaluation by your physician. Problem is new. Symptoms have improved. kdr
[2020-10-19] MEDS ORDERED: NA CHLORIDE 0.9% 50 ML ONE (09:45)
[2020-10-19] MEDS ORDERED: CEFTRIAXONE/SWI 1gm 1 GM/10 ML SYR ONE (09:45)
[2020-10-19 10:10] LABS: Urine Blood Trace-intact (Negative); Urine Glucose Negative (Negative); Urine Protein Negative (Negative)
[2020-10-19 10:36] LABS: Urine Bacteria >50 /HPF (<20)
[2020-10-19 11:10] VITALS: BP 121/60; TEMP 97.8; O2SAT 96
--- NOTE | 2020-10-19 19:04 | RAD REPORT ---
EXAM DESCRIPTION: CT ABDOMEN AND PELVIS WITHOUT CONTRAST CLINICAL HISTORY: Abd pain;Flank pain COMPARISON: None Available. TECHNIQUE: CT of the abdomen and pelvis without IV contrast. Evaluation of the solid organs and vasc ulature is suboptimal due to lack of IV contrast. This exam was performed according to our department al dose-optimization program, which includes automated exposure control, adjustment of the mA and/or kV according to patient size and/or use of iterative reconstruction technique. FINDINGS: Lung Bases: The visualized lung bases are clear. Bones: Multilevel degenerative endplate spondylosis and facet arthropathy. Dorsal generator. Postoper ative change at L3-L5. Osteoarthritic change of the hips. Abdomen: Liver: The liver has normal size and density. Gallbladder: Calcified gallstones. Spleen, Pancreas, and Adrenal Glands: Small calcified splenic artery aneurysm measuring 1 cm is sta ble. Pancreas and adrenal glands are unremarkable. Kidneys: The kidneys have normal size without evidence of hydronephrosis. No obstructing ureteral chantal culi. Vasculature: Aortoiliac atherosclerosis. IVC is unremarkable. Stomach: Small hiatal hernia. Other: No free intraperitoneal air. No free fluid or lymphadenopathy. Pelvis: Bladder: Urinary bladder is unremarkable. Bowel: No dilated loops of large or small bowel. Large amount of stool. Appendix: Normal appendix. Pelvis: Prior hysterectomy. IMPRESSION: 1. No acute inflammatory or obstructive process identified. 2. Cholelithiasis without CT evidence of acute cholecystitis. 3. Large amount of stool. Electronically signed by: David Johnson 10/19/2020 6:23 AM CDT Due to temporary technical issues with the PACS/Fluency reporting system, reports are being signed by the in house radiologists without review as a courtesy to insure prompt reporting. The interpreting radiologist is fully responsible for the content of the report.
--- NOTE | 2020-10-24 12:10 | EKG ---
Test Date: 2020-10-19 Test Time: 06:05:41 Helper Maintenance Cleaning: SHILPA MEASUREMENT RESULTS: Intervals: Rate: 51 OK: 174 QRSD: 90 QT: 454 QTc: 418 [place]: P: 43 OK: 174 QRS: 81 T: 58 INTERPRETIVE STATEMENTS: Sinus bradycardia Otherwise normal ECG Compared to ECG 11/17/2019 11:18:25 Sinus rhythm no longer present Electronically Signed On 10-24-20 11:55:47 CDT by Hadley Flores
== END 2020-10-19 10:54 | disposition home or self-care (01) ==
LOC: ER 03:27
DX: N39.0 Urinary tract infection, site not specified (principal); M54.5 Low back pain; I10 Essential (primary) hypertension; I25.2 Old myocardial infarction; Z79.01 Long term (current) use of anticoagulants; Z79.82 Long term (current) use of aspirin
CPT/HCPCS: 96365; 87088; 85025; 87086; 80048; 36415; 80076; 87077; 87186; 83690; 74176; 51702; 96375; 99284; J2270; J0696; 81003; 81015; 93005; J2405

== ENCOUNTER 2020-11-14 13:20 | Inpatient (IN) | payer OTHER, MEDICARE ==
--- OUTSIDE RECORDS SUMMARY | 2020-11-14 13:45 | XMS REPORT | Continuity of Care Document ---
:1940 Author Organization [facility] t Address [address] [place] [address] [address]. [address] [place] [address] Care Team Providers Name Role Phone Lakeshia Moreno MD Primary Care Physician Nathan GILMAN, K.H. Attending Clinician Silvia GILMAN, P. Attending Clinician Payers Payer Name Policy Type Policy Effective Date Expiration Date Sour ce Number MEDICAREMEDICARE PART [id number] 2007 nancy A AND 00:00:00 Bapt[facility] [id number] 2006 [place] [facility] [place] AARPAARP [id number] 2017 [place] [id number] 00:00:00 Met russ 2017-PresentComme rcial Problems This patient has no known problems. Allergies, Adverse Reactions, Alerts Allergy Allergy Status Severity Reaction(s) Onset Inactive Treating Comm ents Source Name Type Date Date Clinician Latex Propensi Active Rash 2016- [place] ty to 09-29 [facility] adverse 00:00: st [...] Tobacco use and 2019-07-11 2019-07-[address] [facility] ethodist exposure 00:00:00 00:00:00 Sex Ass[birth year] At [birth year] Ole Mulligan ethodist 00:00:00 00:00:00 Smoking Status Start Date Stop Date Source Never smoker [place] [facility] t Medications Ordered Filled Start Stop [...] Yes Q24H daily. [place] (LIPITOR) 716 [facility] 80 MG 08:42: st tablet 32 [...] TID nitroglycer Yes 1{patch QD Place 1 [place] in 12-07 } patch on [facility] (NITRODUR) [...] MRNA 2020-07-26 Completed [place] VACCINATION 00:00:00 [facility] PFIZER COVID-19 MRNA 2020-07-05 Completed [place] VACCINATION 00:00:00 [facility] Procedures This patient has no known procedures. Plan of Care Planned Activity Planned Date Details Comments Source Future Scheduled 2020-12-23 INFLUENZA VACCINE [place] [facility] 00:00:00 [code = INFLUENZA VACCINE] Future Scheduled 2020-12-07 DIABETES: RETINAL EYE [place] [facility] 00:00:00 EXAM [code = DIABETES: RETINAL EYE EXAM] Future Scheduled 1992 SHINGLES VACCINES (#1) [place] [facility] 00:00:00 [code = SHINGLES VACCINES (#1)] Future Scheduled 1960 Hepatitis C screening [place] [facility] 00:00:00 (procedure) [code = 795152716] Future Scheduled 1952 DIABETIC FOOT EXAM [place] [facility] 00:00:00 [code = DIABETIC FOOT EXAM] Future Scheduled 1952 URINE MICROALBUMIN [place] [facility] 00:00:00 [code = URINE MICROALBUMIN] Encounters Start End Encounter Admission Attending Care Care Encounter Source Date/Time Date/Time Type Type Clinicians Facility Department ID 2020-11-12 2020-11-12 Office [facility] [id number] 14:36:56 15:39:38 Visit [place] [id number] [place] [id number] [place] [id number] nal 059 [facility] 2020-07-26 2020-07-26 Outpatient [facility] [id number] [place] 00:00:00 00:00:00 [place] [address] 2020-07-05 2020-07-05 Outpatient [facility] [id number] [place] 00:00:00 00:00:[address] Results This patient has no known results.
[2020-11-14 15:23] LABS: Absolute Lymphocytes (CBC) 2.5 K/uL (0.7-4.9); Basophils % 2.1 % (0-1.3); Hematocrit 19.4 % (36.0-45.0); Lymphocytes % 28.1 % (15.3-44.8); MPV 9.1 fL (7.6-11.3); RBC Red Blood Cell Count 2.02 M/uL (3.86-4.86)
--- NOTE | 2020-11-14 15:26 | RAD REPORT ---
EXAM DESCRIPTION: Argelia Neal And Lat (2 Views)11/14/2020 3:16 pm CLINICAL HISTORY: Hypertension COMPARISON: 2019 FINDINGS: The lungs appear clear of acute infiltrate. The heart is normal size. Scoliosis involves the thoracolumbar spine IMPRESSION: No acute abnormalities displayed
--- NOTE | 2020-11-14 15:27 | RAD REPORT ---
EXAM DESCRIPTION: RAD - Foot Right 3 View - 11/14/2020 3:15 pm CLINICAL HISTORY: Right foot pain FINDINGS: No fracture or dislocation is seen. Bones are osteoporotic. Large plantar calcaneal spur Marked narrowing of the first MTP joint with subchondral sclerosis and osteophytes
--- NOTE | 2020-11-14 15:47 | RAD REPORT ---
EXAM DESCRIPTION: USExtrem Venous W Compress Bil11/14/2020 3:34 pm CLINICAL HISTORY: Leg swelling COMPARISON: 2013 FINDINGS: The common femoral, superficial femoral, popliteal and posterior tibial veins bilaterally are compressible and demonstrate augmentation. Doppler demonstrates good flow. IMPRESSION: No evidence of deep venous thrombosis involving either lower extremity.
[2020-11-14 15:48] LABS: Albumin 3.6 g/dL (3.4-5.0); Bilirubin Total 0.4 mg/dL (0.2-1.0); Magnesium 2.1 mg/dL (1.8-2.4); Potassium 4.1 mmol/L (3.5-5.1); Protein, Total 7.4 g/dL (6.4-8.2); Uric Acid 9.1 mg/dL (2.6-6.0)
[2020-11-14 16:27] VITALS: BMI 28.5
[2020-11-14] MEDS: PIPER/TAZO/NS 3.375gm 3.375 GM/100 ML BAG IVPB SCH (17:00)
[2020-11-14] MEDS ORDERED: SODIUM CHLORIDE 0.9% 10ML INJ IV PRN (17:44)
[2020-11-14] MEDS ORDERED: PANTOPRAZOLE 40 MG INJ IVP ONE (18:00)
[2020-11-14] MEDS ORDERED: MORPHINE 15 MG IR TAB PO PRN (21:33)
[2020-11-14] MEDS: NA CHLORIDE 0.9% 250 ML IV SCH (22:00)
[2020-11-15] MEDS: PIPER/TAZO/NS 3.375gm 3.375 GM/100 ML BAG IVPB SCH ×3 (00:53→16:01)
--- NOTE | 2020-11-15 02:27 | HP ---
Date of Admission: 11/14/2020 Chief Complaint: Leg problem. History Of Present Illness: This is a 80-year-old very pleasant female patient who came into office today with some leg problem. The patient reported that about 2 weeks ago as she was trying to get ou t of the bed, she lost her balance. She slowly ended up going down to the floor and during this proc ess, she actually twisted her right foot right ankle and ended up sitting down on the ground on top o f her foot. She was able to get up and she did not seek any attention until today. She decided to c ome to office as she has been having increasing problem with swelling of the right foot, right leg an d redness also involving right foot and right leg. She has some discomfort in the right leg. Denies any fever. No open wound. After she was evaluated, decision was made to admit her to the hospital. Allergies: TO METFORMIN CAUSING LACTIC ACIDOSIS AND AMBIEN CAUSING SLEEPWALKING PROBLEM. Medications: Amlodipine 5 mg daily, Eliquis 5 mg 2 times a day, aspirin 81 mg daily atorvastatin 80 mg daily, duloxetine 30 mg daily, Ferrocite 1 tablet by mouth daily, Olmesartan/hydrochlorothiazide 2 0/12.5 one tablet daily, Symproic 0.2 mg tablet, and trazodone 100 mg at bedtime. Review of Systems: Musculoskeletal: As mentioned above. Dermatology: As mentioned above. All other systems reviewed and negative. Social History: Negative for smoking and alcohol use. Family History: Father , had lymphoma. Brother had Parkinson disease. Past Surgical History: Coronary artery stent placement in 2017, hysterectomy, back surgery, cervical spine surgery, and pain pump placement. Past Medical History: Type 2 diabetes mellitus, hypertension, mixed hyperlipidemia, coronary artery disease, non-STEMI in September 2016, paroxysmal atrial fibrillation, chronic kidney disease, osteoarthriti s, hypomagnesemia. Physical Examination: Vital Signs: Today at office, blood pressure 115/68, pulse 91, respiratory rate 16, temperature 97.7 . Height 67 inches and weight 182 pounds. General: Awake, alert, oriented, not in distress. HEENT: Head atraumatic, normocephalic. Conjunctivae nonerythematous. Sclerae white. Mouth, no thr ush or edema noted. Ears/Nose, no mass, lesion, discharge noted. Neck: Supple. No JVD, lymph nodes, bruit, thyromegaly noted. Lungs: Bilateral good equal air entry. Clear to auscultation. No rhonchi. No rales. Heart: Normal heart sounds, no murmur or gallop. Abdomen: Soft, bowel sounds normal. No guarding, rigidity, tenderness, mass, hepatosplenomegaly, dis tention, or bruit noted. Extremities: Trace edema over left lower 1/4 leg, grade 3+ edema right leg involving all the way up to knee and right lower half of the leg and right foot has pink, warm skin. No open wound. Skin: No rash, ulcer, cellulitis. Lymphatics: No lymph node enlargement in neck, supraclavicular, infraclavicular region. Neuro: No focal neurological deficit. Chest: Unremarkable. External Genitalia: Deferred. Rectal: Deferred. Laboratory Data: White count 8.9, hemoglobin 6.4, platelets 343. Sodium 141, potassium 4.1, chlorid e 109, bicarb 25, BUN 29, creatinine 1.30, glucose 83. Liver function tests unremarkable. Lactic ac id 1.2. Procalcitonin less than 0.06. Right foot and ankle x-ray were negative for any acute fractu re. Venous Doppler of both lower extremity negative for any DVT. Chest x-ray is negative for any ac redding cardiopulmonary changes. Impression: 1.Cellulitis, right leg. 2.Anemia. 3.Type 2 diabetes mellitus. 4.Coronary artery disease. 5.Hypertension. 6.Mixed hyperlipidemia. 7.Hypomagnesemia. 8.Osteoarthritis, multiple sites. Plan: Admit the patient to hospital for further evaluation and management of this problem. Patient is appropriate for inpatient and is expected to spend 2 midnights in hospital. Home medications will be continued per order. We will go ahead and give her 3 units of packed red cell blood transfusion and we will repeat blood work after the blood transfusion is completed. Meanwhile for cellulitis, we will start empiric antibiotics, which will be Zosyn. Home medications will be continued per order. Details and plan of treatment discussed with her. I will see her tomorrow morning for followup. Th e patient had her first COVID injection on July 05, 2020 and second COVID injection was July 26, 2020. Her last colonoscopy was May 09, 2019, showing hemorrhoids. She will need further electi ve GI workup on outpatient basis. DAVY/JANAK Voice ID: [id number]
[2020-11-15] MEDS: NA CHLORIDE 0.9% 250 ML IV SCH ×2 (02:38→10:45)
[2020-11-15 02:50] LABS: Urine Appearance CLEAR (Clear); Urine Bilirubin NEGATIVE (Negative); Urine Blood NEGATIVE (Negative); Urine Color YELLOW (Yellow); Urine Glucose NEGATIVE (Negative); Urine Protein NEGATIVE (Negative); Urine Urobilinogen 0.2 mg/dL (0.2-1.0)
[2020-11-15 02:57] LABS: Urine Microscopic Reflex NO UMIC
[2020-11-15] MEDS: PANTOPRAZOLE 40 MG INJ IVP SCH (09:08)
[2020-11-15] MEDS ORDERED: TRAZODONE 50 MG TABLET PO SCH (21:00)
[2020-11-16] MEDS: PIPER/TAZO/NS 3.375gm 3.375 GM/100 ML BAG IVPB SCH ×2 (00:56→08:21)
[2020-11-16 07:52] LABS: Absolute Lymphocytes (CBC) 1.7 K/uL (0.7-4.9); Basophils % 3.8 % (0-1.3); Hematocrit 41.4 % (36.0-45.0); Lymphocytes % 31.8 % (15.3-44.8); MPV 9.8 fL (7.6-11.3); RBC Red Blood Cell Count 4.36 M/uL (3.86-4.86)
[2020-11-16 08:12] LABS: Potassium 3.8 mmol/L (3.5-5.1); Uric Acid 6.2 mg/dL (2.6-6.0)
[2020-11-16] MEDS: PANTOPRAZOLE 40 MG INJ IVP SCH (08:19)
[2020-11-16 09:20] LABS: Blood Morphology Comment NOT SEEN (NOT SEEN); Platelet Estimate ADEQ; White Blood Cell Scan OK (OK)
[2020-11-16 11:36] VITALS: O2SAT 97
[2020-11-16 14:03] VITALS: BP 130/58; TEMP 97.2
--- NOTE | 2020-11-16 15:31 | PN ---
Date of Progress Note: 11/15/2020 Subjective: The patient was seen for followup this morning. She denies any complaints. No chest pa in. No shortness of breath. No abdominal pain. Objective: Vital signs: Reviewed. HEENT: Unremarkable. Lungs: Clear to auscultation. Heart: Sounds normal. Abdomen: Soft. Bowel sounds normal. No guarding, rigidity, tenderness, or distention. Extremities: Leg edema is better. Redness from right lower extremity including lower leg and foot i s better compared to yesterday. Laboratory Data: Hemoglobin today after 3 units of PRBC blood transfusion 13.5. Impression: 1.Cellulitis, right leg. 2.Anemia. 3.Coronary artery disease. Plan: We will go ahead and continue current medications. I will see her tomorrow for followup. We will repeat blood work tomorrow morning and a possible discharge to go home tomorrow depending on her condition. DAVY/MODL Voice ID: [id number] Report ID: [id number]
--- NOTE | 2020-11-17 02:02 | DS ---
Date of Discharge: 11/16/2020 Disposition: Discharged to go home. Physical Examination: HEENT: Unremarkable. Lungs: Clear to auscultation. Heart: Sounds normal. Abdomen: Soft. Bowel sounds normal. No guarding, rigidity, tenderness, distention. Extremities: Leg edema is significantly better and area of redness from right lower leg and right fo ot is significantly better. It is approximately 90% better compared to how it was at the time of adm ission. Laboratory Data: Upon admission, white count 8.9, hemoglobin 6.4, platelets 343. Today, white count 5.3, hemoglobin 14, platelets 226. Chemistry today, sodium 143, potassium 3.8, chloride 111, bicarb 26, BUN 17, creatinine 0.97, glucose 87, magnesium 2. Stool occult blood negative. Hospital Course: This is a 80-year-old female patient admitted to the hospital with right leg cellul itis. Please see dictated H and P for more information. After the patient was evaluated in the ER, she was admitted to the hospital. Initial admission blood work shows severe anemia with hemoglobin 6 .4. She was started on antibiotic, Zosyn, and 3 units of PRBC blood transfusion was ordered. The meredith bates tolerated blood transfusion very well. Her stool for occult blood came back negative. Venous Doppler of leg was negative for DVT. Chest x-ray was negative for any acute changes. Right foot ank le x-ray was unremarkable. Today when I saw her, all the details were discussed with her regarding l ab results, scan. Her daughter was on the phone when I was visiting and details were discussed with her as well. I have recommended to the patient that she should have EGD and colonoscopy done to look for underlying cause of anemia as I am concerned about GI bleed as underlying reason for anemia prob stevan and she will follow up with Dr. Rivas for this and I will have office assist her with that arin ointment. I did inform her not to take her Eliquis until further instruction by me. This morning, phoebe kirkpatrick called and informed me that the patient decided to take her own medications without any order an d she took her aspirin, Eliquis, and her blood pressure medication. Once again, this was without any physician, although she decided to take her own medication even though nurse had given her instructi on yesterday not to do so. I told her and her daughter, both today that she should not take any Eliq uis at all until further instructions from me. After I left the room, I did communicate with Dr. Micha aguilar. Details were discussed with him and he will see the patient at his clinic and then plan endos copy workup, but he has given me his permission to continue aspirin as he does not recommend disconti nuation of aspirin prior to such procedure, which is EGD and colonoscopy. So, after discussed detail s with Dr. Rivas, I did call the patient and informed her that she should continue her aspirin 81 mg daily upon discharge, but not to take any Eliquis. Discharge Diagnoses: 1.Severe anemia. 2.Cellulitis, right leg. 3.Type 2 diabetes mellitus. 4.Coronary artery disease. 5.Hypertension. 6.Mixed hyperlipidemia. 7.Hypomagnesemia. 8.Osteoarthritis, multiple sites. Discharge Medications And Instructions: 1.Continue prior home medication except stop Eliquis. 2.Omeprazole 40 mg p.o. daily, 30 minutes before breakfast. 3.Augmentin 500 mg 2 times a day for 1 week. 4.Follow up at my office next week on Thursday, which is 11/21/2020 at 10 a.m. DAVY/MODL Voice ID: [id number] Report ID: [id number]
== END 2020-11-16 15:05 | disposition home or self-care (01) | DRG 603 ==
LOC: 4TH 13:20 → 2ND 13:48
PROVIDERS: ADMIT Internal Medicine; ATTEND Internal Medicine
PROC: 30233N1 Transfusion of Nonautologous Red Blood Cells into Peripheral Vein, Percutaneous Approach (ICD-10-PCS; principal; 2020-11-14)
DX: L03.115 Cellulitis of right lower limb (principal); D64.9 Anemia, unspecified; E11.9 Type 2 diabetes mellitus without complications; I25.10 Atherosclerotic heart disease of native coronary artery without angina pectoris; I10 Essential (primary) hypertension; E78.2 Mixed hyperlipidemia; E83.42 Hypomagnesemia; M19.90 Unspecified osteoarthritis, unspecified site; Z95.5 Presence of coronary angioplasty implant and graft
CPT/HCPCS: 36415; 36430; 71046; 80048; 80053; 81003; 82274; 82947; 83605; 83735; 84145; 84550; 85014; 85018; 85025; 86850; 86900; 86901; 87040; 93970; C9113; J2543; J7050; P9016

== ENCOUNTER 2021-02-18 11:30 | Inpatient (IN) | payer OTHER, MEDICARE ==
[2021-02-18 13:04] LABS: Urine Blood Negative (Negative); Urine Glucose Negative (Negative); Urine Protein Negative (Negative); Urine Specific Gravity >=1.030 (1.005-1.030); Urine pH 5.5 (5.0-7.0)
[2021-02-18 13:08] LABS: Protime INR 1.04
[2021-02-18 13:10] LABS: Absolute Lymphocytes (CBC) 1.6 K/uL (0.7-4.9); Basophils % 1.3 % (0-1.3); Hematocrit 44.3 % (36.0-45.0); Lymphocytes % 19.5 % (15.3-44.8); MPV 9.9 fL (7.6-11.3); RBC Red Blood Cell Count 4.61 M/uL (3.86-4.86)
--- NOTE | 2021-02-18 13:22 | RAD REPORT ---
EXAM DESCRIPTION: CT - Head Brain Wo Cont - 02/18/2021 1:12 pm CLINICAL HISTORY: MENTAL STATUS CHANGE Headache, drowsiness COMPARISON: HEAD BRAIN W O CONTRAST dated 03/06/2014; HEAD BRAIN W O CONTRAST dated 03/02/2014 TECHNIQUE: All CT scans are performed using dose optimization technique as appropriate and may inclu de automated exposure control or mA/KV adjustment according to patient size. FINDINGS: No intracranial hemorrhage, hydrocephalus or extra-axial fluid collection.Moderate general ized brain atrophy is present with mild periventricular and deep white matter chronic microvascular i schemic changes.No areas of brain edema or evidence of midline shift. The paranasal sinuses and mastoids are clear. The calvarium is intact. IMPRESSION: No acute intracranial abnormality.
[2021-02-18 13:28] LABS: Urine RBC NONE SEEN /HPF (NONE SEEN)
[2021-02-18 13:29] LABS: ALT/SGPT 24 U/L (12-78); AST/SGOT 15 U/L (15-37); Albumin 4.1 g/dL (3.4-5.0); Alkaline Phosphatase 92 U/L (45-117); BUN Blood Urea Nitrogen 22 mg/dL (7-18); Bicarbonate 28 mmol/L (21-32); Bilirubin Direct 0.2 mg/dL (0-0.2); Bilirubin Total 0.5 mg/dL (0.2-1.0); Glucose Level 123 mg/dL (74-106); Magnesium 2.1 mg/dL (1.8-2.4); NT PRO-BNP 491 pg/mL (<450); Potassium 3.6 mmol/L (3.5-5.1); Sodium Level 145 mmol/L (136-145); Troponin (Emerg Dept Use Only) < 0.02 ng/mL (0.0-0.045)
[2021-02-18 13:29] LABS: Calcium Oxalate Crystals- Ur FEW (NONE SEEN); Urine Bacteria <20 /HPF (<20)
--- NOTE | 2021-02-18 14:09 | RAD REPORT ---
EXAM DESCRIPTION: RAD - Chest Single View - 02/18/2021 1:55 pm CLINICAL HISTORY: AMS Chest pain. COMPARISON: Chest Pa And Lat (2 Views) dated 11/14/2020; Chest Single View dated 11/17/2019; Chest Pa And Lat (2 Views) dated 07/13/2017; CHEST SINGLE VIEW dated 03/02/2014 FINDINGS: Portable technique limits examination quality. The lungs are grossly clear. The heart is normal in size. No displaced fractures. IMPRESSION: No acute intrathoracic process suspected.
[2021-02-18] MEDS ORDERED: NA CHLORIDE 0.9% 500 ML ONE (14:19)
--- NOTE | 2021-02-18 15:07 | EDPHYS ---
Physician Documentation [facility] Name: Claudia Cha Age: 80 yrs Sex: Female : 1940 Arrival Date: 02/18/2021 Time: 11:34 Bed 4 Private MD: ED Physician Dao Cortez HPI: 02/18 12:20 This 80 yrs old Female presents to ER via EMS with complaints of Altered cp Mental Status. 12:20 The patient presents with decreased mental status, hallucinations. cp 12:20 Onset: The symptoms/episode began/occurred 2-3 days ago. Possible causes: unknown. cp 12:20 Associated signs and symptoms: Pertinent positives: dizziness, home health nurse cp reported systolic pressure in the 80's today, Pertinent negatives: abdominal pain, chest pain, weakness. Patient's baseline: Neuro: alert and fully oriented, Motor: no deficits, Ambulation: walks with assist only, uses walker, Speech: normal. Historical: - Allergies: 11:42 Latex, Natural Rubber; tw5 11:42 metformin; tw5 11:42 Tape; tw5 - Home Meds: 11:42 metoprolol succinate 25 mg oral CSpX 1 cap once daily [Active]; morphine 15 mg Oral tab tw5 1 tab for pain [Active]; omeprazole 40 mg Oral cpDR 1 cap once daily [Active]; duloxetine 30 mg oral CDRS 1 cap once daily [Active]; - PMHx: 11:42 chronic back pain; Hypertension; Myocardial infarction; tw5 - PSHx: 11:42 back surgery; pain pump; tw5 - Immunization history:: Client reports receiving the 2nd dose of the Covid vaccine, Flu vaccine is not up to date. - Social history:: Smoking status: Patient denies any tobacco usage or history of. ROS: 12:25 Constitutional: Negative for body aches, chills, fever, poor PO intake. cp 12:25 Cardiovascular: Negative for chest pain, edema. cp 12:25 Eyes: Negative for injury, pain, redness, and discharge. cp 12:25 ENT: Negative for ear pain, sore throat, difficulty swallowing, difficulty handling secretions. 12:25 Respiratory: Negative for cough, shortness of breath, wheezing. 12:25 Abdomen/GI: Negative for abdominal pain, nausea, vomiting, and diarrhea, black/tarry stool, rectal bleeding. 12:25 Back: Positive for pain at rest, pain with movement. 12:25 : Negative for urinary symptoms. 12:25 Skin: Negative for rash. 12:25 Neuro: Positive for altered mental status, dizziness, Negative for syncope, weakness. 12:25 Psych: Positive for visual hallucinations. 12:25 All other systems are negative. Exam: 12:25 ECG was reviewed by the Attending Physician. cp 12:30 Constitutional: The patient appears in no acute distress, alert, awake, cp non-diaphoretic, non-toxic, well developed, well nourished. 12:30 Head/Face: Normocephalic, atraumatic. cp 12:30 Eyes: Periorbital structures: appear normal, Pupils: equal, round, and reactive to light and accomodation, Extraocular movements: intact throughout, Conjunctiva: normal, no exudate, no injection, Sclera: no appreciated abnormality, Lids and lashes: appear normal, bilaterally. 12:30 ENT: External ear(s): are unremarkable, Ear canal(s): are normal, clear, TM's: dullness, bilaterally, Nose: is normal, Mouth: Lips: moist, Oral mucosa: pink and intact, moist, Posterior pharynx: Airway: no evidence of obstruction, patent. 12:30 Neck: ROM/movement: is normal, is supple, without pain, no range of motions limitations, no meningismus, no nuchal rigidity. 12:30 Chest/axilla: Inspection: normal, Palpation: is normal, no crepitus, no tenderness. 12:30 Cardiovascular: Rate: normal, Rhythm: regular, Edema: is not appreciated, JVD: is not appreciated. 12:30 Respiratory: the patient does not display signs of respiratory distress, Respirations: normal, no use of accessory muscles, no retractions, labored breathing, is not present, Breath sounds: are clear throughout, no decreased breath sounds, no stridor, no wheezing. 12:30 Abdomen/GI: Inspection: abdomen appears normal, Bowel sounds: active, all quadrants, Palpation: abdomen is soft and non-tender, in all quadrants. 12:30 Back: pain, that is mild. 12:30 Skin: cellulitis, is not appreciated, no rash present. 12:30 Neuro: Orientation: to person, place, situation, Mentation: able to follow commands, slow to respond, Motor: moves all fours, strength is normal, Sensation: is normal. Vital Signs: 11:35 BP 110 / 52; Pulse 60; Resp 14; Temp 97.6; Pulse Ox 95% on R/A; Weight 79.38 kg; Height tw5 5 ft. 7 in. (170.18 cm); Pain 7/10; 11:42 BP 102 / 51; Pulse 64; Resp 20; Pulse Ox 97% on R/A; Pain 7/10; tw5 14:05 BP 117 / 78; Pulse 50; Resp 18; Pulse Ox 96% on R/A; tw5 15:37 BP 143 / 67; Pulse 51; Resp 18; Pulse Ox 100% ; Pain 7/10; tw5 16:02 BP 143 / 67; Pulse 50; Resp 19 S; Pulse Ox 96% on R/A; jd3 18:27 BP 149 / 71; Pulse 54; Resp 17 S; Pulse Ox 95% on R/A; jd3 11:35 Body Mass Index 27.41 (79.38 kg, 170.18 cm) tw5 11:35 "My back hurts most of the time." tw5 MDM: 12:13 Patient medically screened. 15:00 Physician consultation: A Josh GILMAN was called at 15:00, was contacted at 15:00, regarding admission, to the telemetry unit. patient's condition, would like consultation with Dr. Pappas. 15:00 Data reviewed: vital signs, nurses notes, lab test result(s), radiologic studies, CT cp scan, plain films, and as a result, I will admit patient. 15:00 Test interpretation: by ED physician or midlevel provider: ECG, plain radiologic cp studies. Counseling: I had a detailed discussion with the patient and/or guardian regarding: the historical points, exam findings, and any diagnostic results supporting the discharge/admit diagnosis, lab results, radiology results. 02/18 12:25 Order name: Basic Metabolic Panel cp 02/18 12:25 Order name: CBC with Diff cp 02/18 12:25 Order name: LFT's cp 02/18 12:25 Order name: Magnesium; Complete Time: 13:45 cp 02/18 12:25 Order name: NT PRO-BNP; Complete Time: 13:45 cp 02/18 13:45 Interpretation: Abnormal: NT PRO-BNP 491. 02/18 12:25 Order name: PT-INR; Complete Time: 13:18 02/18 12:25 Order name: Troponin (emerg Dept Use Only); Complete Time: 13:45 02/18 14:25 Interpretation: Reviewed. 02/18 12:25 Order name: Lactate; Complete Time: 13:45 02/18 12:25 Order name: Procalcitonin; Complete Time: 13:45 02/18 12:25 Order name: Blood Culture Adult (2) 02/18 12:25 Order name: Urine Microscopic Only; Complete Time: 13:45 02/18 13:45 Interpretation: Normal except: SQEPI 5-10. 02/18 12:25 Order name: Basic Metabolic Panel; Complete Time: 13:45 EDMS 02/18 13:45 Interpretation: Normal except: CL 110; GLUC 123; BUN 22; GFR 41. 02/18 12:25 Order name: CBC with Automated Diff; Complete Time: 13:18 EDMS 02/18 13:18 Interpretation: Reviewed. 02/18 12:25 Order name: Liver (Hepatic) Function; Complete Time: 13:45 EDMS 02/18 14:24 Interpretation: Normal except: GLOB 3.9. 02/18 12:25 Order name: XRAY Chest (1 view); Complete Time: 14:24 02/18 14:24 Interpretation: Report review. 02/18 12:25 Order name: EKG; Complete Time: 12:26 02/18 12:25 Order name: Cardiac monitoring; Complete Time: 12:33 02/18 12:25 Order name: EKG - Nurse/Tech; Complete Time: 12:33 02/18 12:25 Order name: IV Saline Lock; Complete Time: 13:07 02/18 12:25 Order name: Labs collected and sent; Complete Time: 13:07 02/18 12:27 Order name: CT Head Brain wo Cont; Complete Time: 13:45 02/18 12:52 Order name: Glucose, Ancillary Testing; Complete Time: 13:18 EDMS 02/18 13:05 Order name: Urine Dipstick-Ancillary; Complete Time: 13:18 EDMS 02/18 13:18 Interpretation: Normal except: UKET Trace. cp 02/18 15:08 Order name: COVID-19 : Document "Date of Symptom Onset" if Symptomatic. 02/18 15:23 Order name: CONS Physician Consult EDIL 02/18 15:23 Order name: Regular EDIL 02/18 15:23 Order name: EKG Electrocardiogram EDIL 02/18 17:29 Order name: SARS-COV-2 RT PCR EDIL 02/18 12:25 Order name: O2 Per Protocol; Complete Time: 12:33 cp 02/18 12:25 Order name: O2 Sat Monitoring; Complete Time: 12:33 cp 02/18 12:25 Order name: Cath; Complete Time: 13:06 cp 02/18 12:25 Order name: Urine Dipstick-Ancillary (obtain specimen); Complete Time: 13:06 02/18 12:33 Order name: Accucheck Blood Glucose; Complete Time: 13:06 cp EC:25 Rate is 57 beats/min. Rhythm is regular. AR interval is normal. QRS interval is normal. cp QT interval is normal. T waves are Inverted in lead aVR. Interpreted by me. Reviewed by me. Administered Medications: 14:04 Drug: NS 0.9% 250 ml Route: IV; Rate: 125 ml/hr; Site: left antecubital; tw5 16:00 Follow up: Response: No adverse reaction; IV Status: Completed infusion jd3 14:05 Drug: NS 0.9% 250 ml Route: IV; Rate: bolus; Site: left antecubital; tw5 15:00 Follow up: Response: No adverse reaction; IV Status: Completed infusion jd3 Disposition: 02/19 06:01 Co-signature as Attending Physician, Dao Cortez MD I agree with the assessment and sami plan of care. Disposition Summary: 02/18/21 15:06 Hospitalization Ordered Hospitalization Status: Inpatient Admission cp Provider: He Moreno cp Location: Telemetry/MedSurg (Inpatient) cp Condition: Stable cp Problem: new cp Symptoms: are unchanged cp Bed/Room Type: Standard cp Room Assignment: 203(02/18/21 20:02) simin Diagnosis - Altered mental status, unspecified cp Forms: - Medication Reconciliation Form cp - SBAR form cp Signatures: Dispatcher [facility] Ophelia Lynch RN RN mw Anderson, Corey, MD MD cha Page, Corey, PA PA cp Edouard Monika tw5 Julien Vasquez RN jd3 Corrections: (The following items were deleted from the chart) 02/18 13:19 13:19 This 80 yrs old Female presents to ER via EMS with complaints of cp Altered Mental Status. cp 20:02 15:06 cp mw 02/19 11:32 02/18 12:20 The patient presents with decreased mental status, cp cp
--- NOTE | 2021-02-18 15:07 | ER ---
Nurse's Notes [facility] Name: Claudia Cha Age: 80 yrs Sex: Female : 1940 Arrival Date: 02/18/2021 Time: 11:34 Bed 4 Private MD: Diagnosis: Altered mental status, unspecified Presentation: 02/18 11:35 Chief complaint: Patient states: "Dizzy and been having hallucinations with the little tw5 bit of morphine I have been taking." EMS reported that the facility reported AMS. Coronavirus screen: Vaccine status: Patient reports receiving the 2nd dose of the covid vaccine. Date July 2020 Client denies travel out of the [place] in the last 14 days. At this time, the client does not indicate any symptoms associated with coronavirus-19. Ebola Screen: Patient negative for fever greater than or equal to 101.5 degrees Fahrenheit, and additional compatible Ebola Virus Disease symptoms. Initial Sepsis Screen: Does the patient meet any 2 criteria? No. Patient's initial sepsis screen is negative. Does the patient have a suspected source of infection? No. Patient's initial sepsis screen is negative. Risk Assessment: Do you want to hurt yourself or someone else? Patient reports no desire to harm self or others. Onset of symptoms is unknown. 11:35 Method Of Arrival: EMS: [facility] tw5 11:35 Acuity: EASTON 4 tw5 11:35 Note Daughter, Brenda who is on the phone states that the last episode of tw5 hallucinations started maybe a couple of days ago. 11:42 Acuity: EASTON 3 iw Triage Assessment: 11:42 General: Appears in no apparent distress. Behavior is calm, cooperative. Pain: tw5 Complains of pain in back Pain began years ago. Neuro: Level of Consciousness is awake, alert, obeys commands, Oriented to person, place, situation. Cardiovascular: Reports None. Historical: - Allergies: 11:42 Latex, Natural Rubber; tw 11:42 metformin; tw 11:42 Tape; tw5 - Home Meds: 11:42 metoprolol succinate 25 mg oral CSpX 1 cap once daily [Active]; morphine 15 mg Oral tab tw5 1 tab for pain [Active]; omeprazole 40 mg Oral cpDR 1 cap once daily [Active]; duloxetine 30 mg oral CDRS 1 cap once daily [Active]; - PMHx: 11:42 chronic back pain; Hypertension; Myocardial infarction; tw5 - PSHx: 11:42 back surgery; pain pump; tw5 - Immunization history:: Client reports receiving the 2nd dose of the Covid vaccine, Flu vaccine is not up to date. - Social history:: Smoking status: Patient denies any tobacco usage or history of. Screenin:50 Abuse screen: Denies threats or abuse. Nutritional screening: No deficits noted. tw5 Tuberculosis screening: No symptoms or risk factors identified. Fall Risk Fall in past 12 months (25 points). Mental Status- Overestimates/Forgets Limitations (15 pts.). Assessment: 11:50 General: Appears in no apparent distress. General: Brenda the daughter states " A nurse tw5 come by weekly to check on her stats and she had a low bp, I think it was 80/50, and her blood sugar was high, that paired with the recent confusion her doctor wanted her to come in.". General: [phone]- Brenda's number. Pain: Complains of pain in back. Neuro: Level of Consciousness is awake, alert, obeys commands, Oriented to person, place, time, situation. Cardiovascular:. 14:05 Reassessment: Patient appears in no apparent distress at this time. Neuro: Level of tw5 Consciousness is awake, alert, obeys commands, Oriented to person, place, time, situation. 15:21 General: Appears Behavior is. tw5 15:37 Neuro: Level of Consciousness is awake, alert, obeys commands, confused, Oriented to tw5 person, place. 16:01 Reassessment: Patient appears in no apparent distress at this time. Patient and/or jd3 family updated on plan of care and expected duration. Pain level reassessed. spoke with pt and family on the phone regarding plan of care. pt's family reported understanding and denied questions at this time. awaiting admission. 18:25 Reassessment: Patient appears in no apparent distress at this time. Patient and/or jd3 family updated on plan of care and expected duration. Pain level reassessed. awaiting admission. dinner tray provider to pt and pt assisted with sitting up to eat. Vital Signs: 11:35 BP 110 / 52; Pulse 60; Resp 14; Temp 97.6; Pulse Ox 95% on R/A; Weight 79.38 kg; Height tw5 5 ft. 7 in. (170.18 cm); Pain 7/10; 11:42 BP 102 / 51; Pulse 64; Resp 20; Pulse Ox 97% on R/A; Pain 7/10; tw5 14:05 BP 117 / 78; Pulse 50; Resp 18; Pulse Ox 96% on R/A; tw5 15:37 BP 143 / 67; Pulse 51; Resp 18; Pulse Ox 100% ; Pain 7/10; tw5 16:02 BP 143 / 67; Pulse 50; Resp 19 S; Pulse Ox 96% on R/A; jd3 18:27 BP 149 / 71; Pulse 54; Resp 17 S; Pulse Ox 95% on R/A; jd3 11:35 Body Mass Index 27.41 (79.38 kg, 170.18 cm) tw5 11:35 "My back hurts most of the time." tw5 ED Course: 11:34 Patient arrived in ED. iw 11:35 Monika Nunn is Primary Nurse. tw5 11:41 Triage completed. tw5 11:42 Arm band placed on left wrist. Patient placed in an exam room, on a stretcher, on pulse tw5 oximetry. 11:50 Patient has correct armband on for positive identification. Placed in gown. Bed in low tw5 position. Side rails up X2. Pulse ox on. NIBP on. Door closed. Noise minimized. Close to nurses station. 12:12 Dao Zee PA is PHCP. cp 12:12 Dao Cortez MD is Attending Physician. cp 13:00 Inserted saline lock: 20 gauge in left antecubital area, using aseptic technique. Blood kg collected. 13:06 Liver (Hepatic) Function Sent. kg 13:06 CBC with Automated Diff Sent. kg 13:06 Basic Metabolic Panel Sent. kg 13:06 Urine Microscopic Only Sent. kg 13:06 Blood Culture Adult (2) Sent. kg 13:06 Procalcitonin Sent. kg 13:06 Lactate Sent. kg 13:06 Basic Metabolic Panel Sent. kg 13:07 CBC with Diff Sent. kg 13:07 LFT's Sent. kg 13:07 XRAY Chest (1 view) Sent. kg 13:07 Magnesium Sent. kg 13:07 NT PRO-BNP Sent. kg 13:07 PT-INR Sent. kg 13:07 Troponin (emerg Dept Use Only) Sent. kg 13:12 CT Head Brain wo Cont In Process Unspecified. EDMS 13:55 XRAY Chest (1 view) In Process Unspecified. EDMS 15:06 He Moreno MD is Hospitalizing Provider. cp 15:37 Door closed. Noise minimized. Warm blanket given. arm board on placed on left elbow. tw5 18:27 No provider procedures requiring assistance completed. Patient admitted, IV remains in jd3 place. Administered Medications: 14:04 Drug: NS 0.9% 250 ml Route: IV; Rate: 125 ml/hr; Site: left antecubital; tw5 16:00 Follow up: Response: No adverse reaction; IV Status: Completed infusion jd3 14:05 Drug: NS 0.9% 250 ml Route: IV; Rate: bolus; Site: left antecubital; tw5 15:00 Follow up: Response: No adverse reaction; IV Status: Completed infusion jd3 Outcome: 15:06 Decision to Hospitalize by Provider. cp 20:10 Admitted to Med/surg accompanied by nurse. cw2 20:10 Condition: good 20:49 Patient left the ED. ea Signatures: Dispatcher [employer] EDSaira Blake, RN RN Dao Rivera PA PA cp Antunez, Elena, RN RN Julien Pineda RN RN jDorene Kaplan RN RN kg Williams, Christopher, RN RN Monika Donnelly tw5
[2021-02-19 02:03] VITALS: BMI 27.3
[2021-02-19 05:57] LABS: Absolute Lymphocytes (CBC) 1.7 K/uL (0.7-4.9); Basophils % 0.8 % (0-1.3); Lymphocytes % 21.5 % (15.3-44.8); MPV 9.7 fL (7.6-11.3); RBC Red Blood Cell Count 4.08 M/uL (3.86-4.86)
[2021-02-19 06:12] LABS: Potassium 3.9 mmol/L (3.5-5.1)
--- NOTE | 2021-02-19 06:40 | HP ---
Date of Admission: 02/18/2021 Chief Complaint: Confusion and low blood pressure. History Of Present Illness: This is a 80-year-old female patient, living at [facility], was sent to emergency room after home health nurse saw her, noted that she was havi ng some altered mental status as well as her blood pressure was low with systolic blood pressure repo rted in range of 80 to 90. After the patient arrived in emergency room, she was evaluated. I was co ntacted requesting admission to hospital. When I arrived in emergency room, the patient was lying in bed like her normal usual self and she denies any fever, chills, nausea, vomiting, or any diarrhea p roblem. No bleeding problems. No chest pain. No shortness of breath. Allergies: METFORMIN CAUSED LACTIC ACIDOSIS, ZOLPIDEM CAUSED SLEEP WALKING TYPE OF SIDE EFFECT. Medications: Aspirin 81 mg daily, diclofenac 1% topical gel, Senokot-S 2 tablets by mouth 2 times a day, duloxetine 30 mg daily with breakfast, metoprolol succinate 25 mg daily, morphine 15 mg daily as needed prescribed by her pain management physician, Daniel p.r.n., omeprazole 40 mg p.o. daily, r osuvastatin 10 mg p.o. daily at bedtime, and trazodone 100 mg daily at bedtime. Review of Systems: DOCUMENTATION WRITER: As mentioned above. Cardiovascular: As mentioned above. Musculoskeletal: Chronic back pain. All other systems reviewed and negative. Past Medical History: Significant for type 2 diabetes mellitus which is diet controlled now and not on any medications, hypertension, mixed hyperlipidemia, coronary artery disease, prior history of non -STEMI in September 2016, paroxysmal atrial fibrillation, chronic kidney disease, osteoarthritis, hypomagne semia. Past Surgical History: Significant for coronary artery stent placement in 2017, hysterectomy, back s urgery, cervical spine surgery, and pain pump placement. Family History: Father , had lymphoma. Mother , details unknown. Brother , had Ariana on disease. Social History: Negative for smoking, alcohol use. Physical Examination: Vital Signs: When she first came into emergency room; temperature 98.6, pulse 51, respiratory rate 2 0, blood pressure 110/49. Height 5 feet 7 inches, weight 175 pounds. Oxygen saturation 96%. General: Awake, alert, oriented, not in distress. HEENT: Head atraumatic, normocephalic. Conjunctivae nonerythematous. Sclerae white. Mouth, no thr ush or edema noted. Ears/Nose, no mass, lesion, discharge noted. Neck: Supple. No JVD, lymph nodes, bruit, thyromegaly noted. Lungs: Bilateral good equal air entry. Clear to auscultation. No rhonchi. No rales. Heart: Normal heart sounds, no murmur or gallop. Abdomen: Soft, bowel sounds normal. No guarding, rigidity, tenderness, mass, hepatosplenomegaly, dis tention, or bruit noted. Extremities: No leg edema. No calf tenderness. Skin: No rash, ulcer, cellulitis. Lymphatics: No lymph node enlargement in neck, supraclavicular, infraclavicular region. Neuro: No focal neurological deficit. Chest: Unremarkable. External Genitalia: Deferred. Rectal: Deferred. Laboratory Data: White count 8.2, hemoglobin 14.3, platelets 214. Sodium 145, potassium 3.6, chlori de 110, bicarb 28, BUN 22, creatinine 1.27, glucose 123. Liver function tests unremarkable. Troponi n less than 0.02. Procalcitonin less than 0.05. Lactic acid 1.5. Urinalysis negative. COVID-[address] negative. Chest x-ray, no acute cardiopulmonary changes. CAT scan of the head, no acute intracra nial changes. Impression: 1.Hypotension. 2.Altered mental status. 3.Type 2 diabetes mellitus. 4.Mixed hyperlipidemia. 5.Coronary artery disease. 6.Paroxysmal atrial fibrillation. 7.Osteoarthritis, multiple sites. 8.Chronic kidney disease, stage 3A. 9.Type 2 diabetes mellitus. 10.Hypertension. 11.Insomnia. Plan: Admit the patient to hospital for further evaluation and management of this problem. The brook[place] ent is appropriate for observation and we will go ahead and monitor her overnight. I will see her to bbo morning. At this point, there are no signs of any stroke, no focal neurological deficit, no e vidence of any infection and I have gone over her medications. She has some of her medications with her at bedside and I still see a bottle of olmesartan/hydrochlorothiazide and this medication was dis continued during time of last office visit on 01/23/2021 because her blood pressure at office was low and on that particular day, her blood pressure at office was 88/55. Repeat office blood pressure wa s 98/60. I have instructed her to make sure not to take that medication, which was discontinued. I will visit with her in the morning. Depending on her condition, we will decide about possible discha rge. Neurology consultation was requested from Dr. Pappas. DAVY/JANAK Voice ID: [id number]
[2021-02-19] MEDS ORDERED: MORPHINE 15 MG IR TAB PO PRN (07:02)
[2021-02-19] MEDS ORDERED: Omeprazole [Prilosec] 40 MG Capsule.Dr PO SCH (09:00)
[2021-02-19] MEDS: METOPROLOL XL 25 MG TAB PO SCH (09:00)
[2021-02-19] MEDS: ASPIRIN EC 81 MG TAB PO SCH (10:26)
[2021-02-19] MEDS: PANTOPRAZOLE 40MG TABLET PO SCH (10:26)
[2021-02-19] MEDS: DULOXETINE 30 MG CAP PO SCH (10:27)
[2021-02-19] MEDS: ROSUVASTATIN 10 MG TAB PO SCH (20:55)
[2021-02-19] MEDS: TRAZODONE 50 MG TABLET PO SCH (20:55)
--- NOTE | 2021-02-19 21:37 | PN ---
Date of Progress Note: 02/19/2021 Subjective: The patient was seen this morning for followup. She was lying in bed, not in distress. No new complaints or problems reported by her. Objective: Vital Signs: Reviewed. HEENT: Unremarkable. Lungs: Clear to auscultation. Heart: Sounds normal. Abdomen: Soft. Bowel sounds normal. No guarding, rigidity, tenderness, distention. Extremities: No leg edema. Laboratory Data: Her white count was 8, hemoglobin 12.9, platelets 183. Sodium 142, potassium 3.9, chloride 109, bicarb 28, BUN 19, creatinine 1.03, glucose 108. Impression: 1.Altered mental status. 2.Hallucination. 3.Hypotension. 4.Coronary artery disease. Plan: We will continue current medications. Neurology consultation is pending. Depending on Neurol jonh's recommendation, we will decide further plan of treatment. Meanwhile, we will continue her curr ent medications per order and I will see her tomorrow for followup. DAVY/MODL Voice ID: [id number] Report ID: [id number]
--- NOTE | 2021-02-19 22:52 | CON ---
Reason For Consultation: Consultation called by Dr. Moreno because of altered mental status. History Of Present Illness: Ms. Cha is a 80-year-old patient who has hypertension, reported myoc ardial infarction, and chronic back pain, status post pain pump that was initially implanted and danielito ged by Dr. Dove, now managed by another rail car painter/sandblaster from out of town. I spoke wit h the patient and her daughter who was on the phone. Her problems that led to admission apparently b haim after she had received significant pain medication which has been actually chronic including mor phine and the pain pump, but became more dizzy and hallucinated and had problems being oriented to co nversation and place. She at [facility] had a head CT scan, which showed no acute ischemic hemorrhagic change. The study did show moderate generalized brain atrophy from small vessel ischemic disease. Chest x-ray showed no acute cardiopulmonary processes. Blood work included a normal compl ete blood count with differential, basic metabolic panel consistent with perhaps mild dehydration, el evated glucose, elevated BUN, chloride slightly elevated, but creatinine was normal at 1.27, after hy dration 1.03. Liver function studies were normal. Procalcitonin was negative. Lactic acid was nega tive. Urinalysis negative. At the time of my evaluation, the patient was alert, oriented to month, not to the exact date, to the year. She knows the hospital. She followed all my instructions approp riately and completely and had no evidence of altered mental status and she was fully alert. She was nondrowsy and non-somnolent. Past Medical History: As indicated. Past Surgical History: Pain pump implanted in the lower back. Allergies: LATEX, NATURAL RUBBER, METFORMIN, AND TAPE. Social History: No alcohol, tobacco, or IV drug use. Review of Systems: No recent fevers, chills, nausea, vomiting, myalgias, arthralgias. She did have poor oral intake. Current Medications: Aspirin 81 mg daily, Duloxetine 30 mg daily, Toprol 25 mg daily, morphine 15 mg daily as needed, Protonix 40 mg daily, Crestor 10 mg at bedtime, and trazodone 50 mg at bedtime. Physical Examination: Vital Signs: Blood pressure 140/60, pulse 62, respiratory rate 18, temperature 97.7, oxygen saturati on 96% on room air. Weight 175 pounds, height 5 feet 7 inches, BMI 27. HEENT: Ms. Cha is normocephalic, atraumatic. Sclerae anicteric. Oropharynx is pink and moist. Neck: Supple. Chest: Clear. Heart: Regular. Extremities: Show no significant clubbing, cyanosis, or edema. Although the patient did feel that s he had swelling in the legs, none really appreciated. Neurologic: She has no expressive or receptive aphasias, although somewhat slow in some answers. Cr anial nerves reveal no deficits on 2 through 12. Motor exam intact in upper and lower extremities. No focal weakness found. Sensory exam intact in upper and lower extremities. No focal loss of sensa tion. Coordination intact in the upper and lower extremities. Reflexes symmetric. In terms of her gait, she was seen by the physical therapist and ambulated 300 feet with good tolerance and just requ iring minimum assistance. Recommended patient be discharged to appropriate level of care and that e may improve her gait to modified independence with about 3 to 5 weeks of therapy 2 to 3 times weekl y. Assessment: Ms. Cha is a 80-year-old patient with possible confusion related to medications incl uding morphine. 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 She has no evidence of ARCHEOLOGY PROFESSOR infection or systemic infection or urinary tract infection. No evidence of pneumonia. No evidence of a cellulitis. No evidence of a stroke or seizure. Plan: 1.Continue with an attempt to decrease the use of narcotic medications. Use medications such as sparkle romodulators, perhaps gabapentin, Lyrica, Cymbalta. 2.She may benefit some from aggressive physical, occupational, and speech therapy and she appears to be doing well enough to do this on an outpatient basis. 3.She may follow up with her rail car painter/sandblaster as appropriately and follow up with Dr. Moreno . AMISH/JANAK Voice ID: [id number] Report ID: [id number]
[2021-02-20] MEDS: PANTOPRAZOLE 40MG TABLET PO SCH (05:57)
[2021-02-20] MEDS ORDERED: PANTOPRAZOLE 40MG TABLET PO SCH (06:30)
[2021-02-20] MEDS: ASPIRIN EC 81 MG TAB PO SCH (09:23)
[2021-02-20] MEDS: METOPROLOL XL 25 MG TAB PO SCH (09:23)
[2021-02-20] MEDS: DULOXETINE 30 MG CAP PO SCH (09:23)
--- NOTE | 2021-02-20 19:42 | PN ---
Date of Progress Note: 02/20/2021 Subjective: The patient was seen this morning for followup. She was lying in bed, not in distress. No new complaints reported by her. She slept well overnight. Yesterday, she did walk approximately 300 feet with Physical Therapy. Objective: Vital Signs: Reviewed. HEENT: Unremarkable. Lungs: Clear to auscultation. Heart: Sounds normal. Abdomen: Soft. Bowel sounds normal. No guarding, rigidity, tenderness, or distention. Extremities: No leg edema. Impression: 1.Altered mental status. 2.Sinus bradycardia. 3.Coronary artery disease. 4.Hypertension. Plan: The patient's heart rate dropped down today as low as 42 and she is on metoprolol. We will castro ve to discontinue that and we will consider a different antihypertensive medication for her. Physica l Therapy to help ambulate the patient and we will monitor her overnight. Depending on her condition , we will decide if we can safely discharge her to go back to home tomorrow or not. We have disconti nued her morphine. Neurology consultation is appreciated. DAVY/MODL Voice ID: [id number] Report ID: [id number]
[2021-02-20] MEDS: ROSUVASTATIN 10 MG TAB PO SCH (19:47)
[2021-02-20] MEDS: TRAZODONE 50 MG TABLET PO SCH (19:47)
[2021-02-21] MEDS: PANTOPRAZOLE 40MG TABLET PO SCH (05:50)
[2021-02-21 07:25] LABS: Folic Acid, (Folate) > 20.0 ng/mL (3.1-17.5); HDL Cholesterol 54 mg/dL (40-60); LDL Cholesterol, Calculated 43 (<130)
[2021-02-21] MEDS: ASPIRIN EC 81 MG TAB PO SCH (09:02)
[2021-02-21] MEDS: DULOXETINE 30 MG CAP PO SCH (09:02)
[2021-02-21 09:16] VITALS: O2SAT 93
[2021-02-21 10:28] VITALS: BP 163/72; TEMP 97.8
--- NOTE | 2021-02-22 06:06 | DS ---
Date of Discharge: 02/21/2021 Disposition: Discharged to go home. Physical Examination: HEENT: Unremarkable. Lungs: Clear to auscultation. Heart: Heart sounds normal. Abdomen: Soft. Bowel sounds normal. No guarding, rigidity, tenderness, distention. Extremities: No leg edema. Laboratory Data: Labs done during this hospitalization upon admission, white count 8.2, hemoglobin 14.3, platelets 214. Repeat white count on 02/19, was 8, hemoglobin 12.9, platelets 182. Initial chemistry; sodium 145, potassium 3.6, chloride 110, bicarb 28, BUN 22, creatinine 1.27, glucose 123. Liver function tests unremarkable. Lactic acid 1.5. Troponin less than 0.02. Procalcitonin less than 0.05. Repeat chemistry; sodium 142, potassium 3.9, chloride 109, bicarb 28, BUN 19, creatinine 1.03, glucose 108. Hospital Course: A 80-year-old female patient who lives at [facility] and was brought into the emergency room with low blood pressure and confusion. Please see dictated H and P for more information. The patient was evaluated in the ER she was admitted to the hospital. Her CAT scan of the brain was negative for any acute intracranial changes. Chest x-ray was negative for any acute cardiopulmonary changes. Overall, her condition improved over this hospitalization. Neurology consultation was obtained from Dr. Pappas. She has chronic back pain and has pain pump in place and she also takes morphine 15 mg 1 tablet daily as needed for her chronic back pain as prescribed by her pain management physician Dr. Soria. We believe that the use of morphine could be very well contributing or causing this current problem of confusion and low blood pressure, so we discontinued morphine completely. Physical therapy was consulted. She started ambulating well and overall her confusion and low blood pressure problem has resolved. Today, when I saw her, was probably the most clear that I have seen her in a long time and her son was present with her at bedside. The patient takes care of her own medications and I have advised the patient's son to assist her where medication that has been discontinued gets put away in a separate place where she does not accidentally ends up taking it. The patient was advised to continue to follow up with Dr. Soria on outpatient basis for her chronic back pain management. She was taking metoprolol 25 mg daily and she had significant bradycardia with heart rate around 42 per minute as noted during this hospitalization, so we have decided to discontinue her metoprolol as well. I did communicate with the patient's son this morning that I did try to reach out to her acetylene burner almost about 2 weeks ago, left a message, but I have not heard anything back from him and reason was to discuss with him about what he would like to do for her anticoagulation therapy as in the past she was taking Eliquis for atrial fibrillation. Lately, there has not been any evidence of atrial fibrillation and we have not seen any signs of atrial fibrillation during this hospitalization either and she remains on aspirin. The patient's son or his daughter will try to communicate with acetylene burner office regarding this. Final Diagnoses: 1. Hypotension. 2. Altered mental status, likely due to morphine use. 3. Sinus bradycardia. 4. Type 2 diabetes mellitus. 5. Mixed hyperlipidemia. 6. Coronary artery disease. 7. Paroxysmal atrial fibrillation. 8. Osteoarthritis, multiple sites. 9. Chronic kidney disease, stage IIIA. 10. Insomnia. Discharge Medications And Instructions: 1. Continue all prior home medications that is aspirin, omeprazole, rosuvastatin and duloxetine. 2. Stop morphine, stop metoprolol, and stop olmesartan. 3. Follow up with her pain management physician for the back pain for alternative medication in place of morphine. 4. Follow up at my office next week on Thursday on 02/27/2021 at 11 a.m. 5. Check your blood pressure 3 times a day and bring your blood pressure machine and readings to my office at the time of followup visit. DAVY/JANAK Voice ID: [id number] Report ID: [id number] CHRISTOPHER
== END 2021-02-21 09:31 | disposition home health service (06) | DRG 315 ==
LOC: ER 11:30 → ERHOLD 15:20 → 2ND 20:16
PROVIDERS: ADMIT Internal Medicine; ATTEND Internal Medicine
DX: I95.9 Hypotension, unspecified (principal); R44.3 Hallucinations, unspecified; R41.82 Altered mental status, unspecified; E78.2 Mixed hyperlipidemia; I25.10 Atherosclerotic heart disease of native coronary artery without angina pectoris; T40.2X5A Adverse effect of other opioids, initial encounter; I48.0 Paroxysmal atrial fibrillation; M19.90 Unspecified osteoarthritis, unspecified site; G47.00 Insomnia, unspecified; I12.9 Hypertensive chronic kidney disease with stage 1 through stage 4 chronic kidney disease, or unspecified chronic kidney disease; E11.22 Type 2 diabetes mellitus with diabetic chronic kidney disease; N18.31 Chronic kidney disease, stage 3a; R00.1 Bradycardia, unspecified; M54.9 Dorsalgia, unspecified; Z20.822 Contact with and (suspected) exposure to COVID-19
CPT/HCPCS: 36415; 70450; 71045; 80048; 80061; 80076; 81003; 81015; 82607; 82746; 82947; 83605; 83735; 83880; 84145; 84443; 84484; 85025; 85610; 87040; 96365; 96366; 97116; 97161; 97530; 99285; J7040; U0003

== ENCOUNTER 2021-07-29 22:33 | Emergency (ER) | payer OTHER, MEDICARE ==
--- OUTSIDE RECORDS SUMMARY | 2021-07-29 22:37 | XMS REPORT | Continuity of Care Document ---
:1940 Author Organization [facility] t Address [address] [place] [address] Care Team Providers Name Role Phone Lakeshia Moreno Primary Care Physician Doctor Unassigned, Name Attending Clinician Unavailable Miguel Angel GILMAN, K.H. Attending Clinician MIGUEL ANGEL K.H. Attending Clinician Unavailable SILVIA Attending Clinician Unavailable Payers Payer Name Policy Type Policy Number Effective Date Expiration Date S ource Problems Condition Condition Condition Status Onset Resolution Last Treating Co mments Source Name Details Category Date Date Treatment Clinician Date Change in Change in Disease Active 2017-05 Overview: Univers bowel bowel -29 Formattin ity of habits habits 00:00: g of this [place] note Medical might be Branch different from the original. Added automatic ally from request for surgery [id number] Bowel Bowel Disease Active 2017-05 Overview: Univer s habit habit 0-18 Formattin ity of changes changes 00:00: g of this [place] note Medical might be Branch different from the original. Added automatic ally from request for surgery [id number] PAF PAF Disease Active Univers (paroxysma (paroxysma 10-25 it y of l atrial l atrial 00:00: [place] fibrillati fibrillati 00 Me dical on) on) Branch Dyslipidem Dyslipidem Disease Active U nivers ia ia 6-03 ity of 00:00: [place] 00 Medical Branch Essential Essential Disease Active Uni vers hypertensi hypertensi 6-03 it y of on on 00:00: [place] [facility] Obesity Obesity Disease Active Univers (BMI (BMI 5-05 ity of 30-39.9) 30-39.9) 00:00: [place] 00 Medical Branch NSTEMI NSTEMI Disease Active Univers (non-ST (non-ST 5-05 ity of elevated elevated 00:00: [place] myocardial myocardial 00 Me dical infarction infarction Br anch ) ) Sinus Sinus Disease Active Univers bradycardi bradycardi -04 it y of a a 00:00: 00 Medical Branch Allergies, Adverse Reactions, Alerts Allergy Allergy Status Severity Reaction(s) Onset Inactive Treating Comm ents Source Name Type Date Date Clinician Latex Propensi Active Rash Univers ty to 508 ity of adverse 00:00: [place] reaction 00 Medical s Branch LATEX DRUG Active Rash Univers INGREDI 508 ity of 00:00: [place] 00 Medical Branch Metformi Propensi Active Rash Univer s n ty to 504 ity of adverse 00:00: [place] reaction 00 Medical s Branch METFORMI DRUG Active Rash Univers N INGREDI 04 ity of 00:00: [place] 00 Medical Branch Adhesive Propensi Active Rash Univer s ty to ity of adverse [place] reaction Medical s Branch ADHESIVE Drug Active Rash Univers Class ity of [place] [facility] [place] Social History Social Habit Start Date Stop Date Quantity Comments Source Exposure to Not sure [facility] SARS-CoV-2 [place] [facility] (event) [place] Alcohol intake 2020-11-12 2020-11-12 Current University of 00:00:00 00:00:00 non-drinker of [facility] alcohol [place] (finding) Tobacco use and 2016-09-25 2016-09-25 Never used Universit y of exposure 00:00:00 00:00:00 [facility] Sex Assigned At [birth year] Universit y of 00:00:00 00:00:00 [facility] Smoking Status Start Date Stop Date Source Never smoker [facility] Medications Ordered Filled Start Stop Current Ordering Indication Dosage Frequency Signature Comments Components Source Medication Medication Date Date Medication? Clinician (SIG) Name Name apixaban Yes 1358 5mg Take 1 Univers (ELIQUIS) 5 8-05 tablet by ity of mg tablet 00:00: mouth 2 00 (two) Medical times Branch daily. Indication s: atrial fibrillati on apixaban 2021-0 Yes 1358 5mg Take 1 Univers (ELIQUIS) 5 8-05 tablet by ity of mg tablet 00:00: mouth 2 [place] 00 (two) Medical times Branch daily. Indication s: atrial fibrillati on apixaban 2020-0 Yes 1358 5mg Take 1 Univers (ELIQUIS) 5 8-05 tablet by ity of mg tablet 00:00: mouth 2 [place] 00 (two) Medical times Branch daily. Indication s: atrial fibrillati on apixaban 2020-0 Yes 1358 5mg Take 1 Univers (ELIQUIS) 5 8-05 tablet by ity of mg tablet 00:00: mouth 2 [place] 00 (two) Medical times Branch daily. Indication s: atrial fibrillati on amLODIPine 2020-0 Yes 5mg Take 5 mg Un alfredo 5 mg tablet 6-21 by mouth ity of 15:46: daily. [address] amLODIPine 2020-0 Yes 5mg Take 5 mg Un alfredo 5 mg tablet 6-21 by mouth ity of 15:46: daily. [address] amLODIPine 2020-0 Yes 5mg Take 5 mg Un alfredo 5 mg tablet 6-21 by mouth ity of 15:46: daily. [address] amLODIPine 2020-0 Yes 5mg Take 5 mg Un alfredo 5 mg tablet 6-21 by mouth ity of 15:46: daily. [address] Branch ZICONOTIDE 2020-0 Yes by Univers ACETATE 6-21 Intratheca ity of (PRIALT 15:18: l route [place] INTRATHECAL 12 daily. Medica l ) Indication Branch s: in pump tiZANidine 2020-0 Yes [id number] 4mg Take 4 mg Univers 4 mg tablet 6-21 by mouth ity of 15:18: every 6 [place] 12 (six) Medical hours as Branch needed. ZICONOTIDE 2020-0 Yes by Univers ACETATE 6-21 Intratheca ity of (PRIALT 15:18: l route [place] INTRATHECAL 12 daily. Medica l ) Indication Branch s: in pump tiZANidine 2020-0 Yes [id number] 4mg Take 4 mg Univers 4 mg tablet 6-21 by mouth ity of 15:18: every 6 [place] 12 (six) Medical hours as Branch needed. ZICONOTIDE 2020-0 Yes by Univers ACETATE 6-21 Intratheca ity of (PRIALT 15:18: l route [place] INTRATHECAL 12 daily. Medica l ) Indication Branch s: in pump tiZANidine Yes [id number] 4mg Take 4 mg Univers 4 mg tablet 6-21 by mouth ity of 15:18: every 6 [place] 12 (six) Medical hours as Branch needed. ZICONOTIDE 0 Yes by Univers ACETATE 6-21 Intratheca ity of (PRIALT 15:18: l route [place] INTRATHECAL 12 daily. Medica l ) Indication Branch s: in pump tiZANidine Yes [id number] 4mg Take 4 mg Univers 4 mg tablet 6-21 by mouth ity of 15:18: every 6 [place] 12 (six) Medical hours as Branch needed. aspirin 81 Yes 81mg Take 81 mg U nivers mg EC 6-21 by mouth ity of tablet 14:55: daily. [address] Branch aspirin 81 Yes 81mg Take 81 mg U nivers mg EC 6-21 by mouth ity of tablet 14:55: daily. [address] Branch aspirin 81 0 Yes 81mg Take 81 mg U nivers mg EC 6-21 by mouth ity of tablet 14:55: daily. [address] Branch aspirin 81 0 Yes 81mg Take 81 mg U nivers mg EC 6-21 by mouth ity of tablet 14:55: daily. [place] [address] Medical Branch olmesartan- Yes 1{tbl} Take 1 Un alfredo hydrochloro 6-19 tablet by ity of thiazide 00:00: mouth [place] 20-12.5 mg 00 daily. Medical per tablet Branch olmesartan- Yes 1{tbl} Take 1 Un alfredo hydrochloro 6-19 tablet by ity of thiazide 00:00: mouth [place] 20-12.5 mg 00 daily. Medical per tablet Branch olmesartan- 0 Yes 1{tbl} Take 1 Un alfredo hydrochloro 6-19 tablet by ity of thiazide 00:00: mouth [place] 20-12.5 mg 00 daily. Medical per tablet Branch olmesartan- Yes 1{tbl} Take 1 Un alfredo hydrochloro 6-19 tablet by ity of thiazide 00:00: mouth [place] 20-12.5 mg 00 daily. Medical per tablet Branch atorvastati 2020-0 Yes 80mg Take 1 Univ ers n 80 mg 3-05 tablet by ity of tablet 00:00: mouth at [place] [address] bedtime. Medical Branch atorvastati 2020-0 Yes 80mg Take 1 Univ ers n 80 mg 3-05 tablet by ity of tablet 00:00: mouth at [place] [address] bedtime. Medical Branch atorvastati 2020-0 Yes 80mg Take 1 Univ ers n 80 mg 3-05 tablet by ity of tablet 00:00: mouth at [place] [address] bedtime. Medical Branch atorvastati 2020-0 Yes 80mg Take 1 Univ ers n 80 mg 3-05 tablet by ity of tablet 00:00: mouth at [place] [address] bedtime. Medical Branch nitroglycer 2020-[id number] 1 Univers in 0.4 mg 5-07 tablet ity of sublingual 00:00: under the [place] tablet 00 tongue Medical every 5 Branch (five) minutes as needed for Chest pain. nitroglycer 2020-[id number] 1 Univers in 0.4 mg 5-07 tablet ity of sublingual 00:00: under the [place] tablet 00 tongue Medical every 5 Branch (five) minutes as needed for Chest pain. nitroglycer 2020-[id number] 1 Univers in 0.4 mg 5-07 tablet ity of sublingual 00:00: under the [place] tablet 00 tongue Medical every 5 Branch (five) minutes as needed for Chest pain. nitroglycer 2020-[id number] 1 Univers in 0.4 mg 5-07 tablet ity of sublingual 00:00: [place] the [place] tablet 00 tongue Medical every 5 Branch (five) minutes as needed for Chest pain. morpHINE 2018- Yes TK 1 T PO Univ ers I.R. 15 mg 2-03 TID PRN ity of tablet 00:00: [place] 00 Medical Branch morpHINE 2018- Yes TK 1 T PO Univ ers I.R. 15 mg 2-03 TID PRN ity of tablet 00:00: [place] 00 Medical Branch morpHINE 2018- Yes TK 1 T PO Univ ers I.R. 15 mg 2-03 TID PRN ity of tablet 00:00: [place] 00 Medical Branch morpHINE 2018- Yes TK 1 T PO Univ ers I.R. 15 mg 2-03 TID PRN ity of tablet 00:00: [place] 00 Medical Branch RESTASIS Yes INSTILL 1 Univ ers MULTIDOSE 8-16 DROP INTO ity o f 0.05 % Drop 00:00: O[place] BID [place] RESTASIS Yes INSTILL 1 Univ ers MULTIDOSE 8-16 DROP INTO ity o f 0.05 % Drop 00:00: [place] BID [place] RESTASIS Yes INSTILL 1 Univ ers MULTIDOSE 8-16 DROP INTO ity o f 0.05 % Drop 00:00: [place] BID [place] RESTASIS Yes INSTILL 1 Univ ers MULTIDOSE 8-16 DROP INTO ity o f 0.05 % Drop 00:00: [place] BID [place] Procedures Procedure Date / Time Performed Performing Clinician [facility] e EXTERNAL PROVIDER - 2021-04-03 06:01:00 Doctor Unassigned, No Un [facility] CARDIOLOGY Name Medical Branch Encounters Start End Encounter Admission Attending Care Care Encounter Source Date/Time Date/Time Type Type Clinicians Facility Department ID 2021-04-03 2021-04-03 Orders Doctor JEAN PAUL [id number] Univers 00:00:00 00:00:00 Only Unassigned, ASHA [id number] ity of [place] [facility] [id number] Neil as [id number] [address] 2021-03-08 2021-03-08 [facility] [id number] Univers 10:01:31 23:59:00 Encounter Sendil [place] [id number] ity of [place] [id number] [place] Profess[place] [phone] [facility] [facility] 2021-03-08 2021-03-08 Outpatient R MIGUEL ANGEL [facility] [id number] Univers 16:30:00 16:30:00 SENDIL [id number] ity of [facility] 2021-03-08 2021-03-08 [id number] Univers 16:30:00 16:30:00 SENDIL ity [facility] 2021-03-07 2021-03-[address] [facility] [id number] Univers 08:00:00 23:59:00 Encounter Sendil [place] [id number] ity of [place] [id number] [phone] Wy dical nal 846 [facility] 2021-03-07 2021-03-07 [facility] [id number] Univers 08:00:00 08:00:00 SENDIL [id number] ity [facility] 2021-03-07 2021-03-07 [facility] [id number] Univers 08:00:00 08:00:[facility] 2021-03-07 2021-03-[address] [facility] [id number] Univers 00:00:00 00:00:00 Sendil A[place] [id number] ity of [place] [id number] [phone] Wy dical nal 059 [facility] 2020-11-23 2020-11-23 [facility] [id number] Univers 10:00:00 10:00:00 [facility]ENDIL [id number] [facility] 2020-11-21 2020-11-21 [facility] [id number] Univers 16:00:00 16:00:00 SENDIL ity [facility] 2020-11-21 2020-11-21 [facility] [id number] Univers 14:00:00 14:00:00 [facility]ENDIL [id number] [facility] 2020-11-12 2020-11-[address] [facility] [id number] 14:36:56 15:39:38 Visit Sendil Aicha [place] [id number] [place] [id number] Professio [phone] nal 059 [facility] 2020-11-12 2020-11-12 Outpatient MICHELLE, [facility] [id number] Univers 14:30:00 14:30:00 [facility]ENDIL [id number] [facility] 2020-11-12 2020-11-12 Outpatient R MIGUEL ANGEL [facility] [id number] Univers 14:30:00 14:30:00 SENDIL [facility] 2020-07-26 2020-07-26 Outpatient SILVIA, [facility] [id number] [place] 00:00:00 00:00:00 CHRISTOPHER [address] 2020-07-05 2020-07-05 Outpatient [facility] [id number] [place] 00:00:00 00:00:[address] 2020-04-06 2020-04-06 Outpatient R MIGUEL ANGEL [facility] [id number] Univers 09:00:00 09:00:00 SENDIL [id number] [facility] 2019-12-14 2019-12-14 Outpatient R [facility] [id number] Univers 08:00:00 08:00:00 [id number] [facility] 2019-10-13 2019-10-13 Outpatient R MIGUEL ANGEL [facility] [id number] Univers 11:30:00 11:30:00 SENDIL [id number] [facility] 2019-10-13 2019-10-13 Outpatient R MIGUEL ANGEL [facility] [id number] Univers 11:30:00 11:30:00 SENDIL [facility] 2019-09-30 2019-09-30 Outpatient R MIGUEL ANGEL [facility] [id number] Univers 14:00:00 14:00:00 SENDIL [facility] 2019-09-30 2019-09-30 [facility] [id number] Univers 14:00:00 14:00:00 SENDIL [facility] 2019-09-29 2019-09-29 Outpatient R MIGUEL ANGEL [facility] [id number] Univers 10:00:00 10:00:00 SENDIL [facility] Results This patient has no known results.
[2021-07-29] MEDS ORDERED: ONDANSETRON 4 MG/2 ML VIAL ONE (22:57)
[2021-07-29] MEDS ORDERED: FENTANYL CITR 100 MCG/2 ML ONE (23:07)
[2021-07-29] MEDS ORDERED: NA CHLORIDE 0.9% 1,000 ML ONE (23:11)
[2021-07-30] MEDS ORDERED: METOCLOPRAMIDE 10 MG/2mL INJ ONE (00:10)
[2021-07-30] MEDS ORDERED: ONDANSETRON 4 MG/2 ML VIAL ONE (00:11)
[2021-07-30] MEDS ORDERED: NA CHLORIDE 0.9% 50 ML ONE (00:12)
[2021-07-30 00:13] LABS: Hematocrit 43.2 % (36.0-45.0); Lymphocytes % 5.5 % (15.3-44.8); MPV 9.3 fL (7.6-11.3)
[2021-07-30 00:29] LABS: Protime INR 1.06
[2021-07-30 00:35] LABS: Potassium 3.3 mmol/L (3.5-5.1)
[2021-07-30 01:17] LABS: Blood Morphology Comment NOT SEEN (NOT SEEN); Platelet Estimate ADEQ
[2021-07-30] MEDS ORDERED: FENTANYL CITR 100 MCG/2 ML ONE (01:59)
--- NOTE | 2021-07-30 06:29 | ER ---
Nurse's Notes [facility] Name: Claudia Cha Age: 81 yrs Sex: Female : 1940 Arrival Date: 07/29/2021 Time: 22:40 Bed 4 Private MD: Diagnosis: Flank pain: Status post thecal pump replacement Presentation: 07/29 22:40 Chief complaint: EMS states: pt had surgery to receive a pain pump yesterday. pt unable 5 to say why she has a pain pump. now complaining of pain in her R shoulder. vomiting for ems. 12.5mg of promethazine and 0.8mg of nitro given for chest pain pt had earlier. Coronavirus screen: Vaccine status: Patient reports receiving the 2nd dose of the covid vaccine. Ebola Screen: No symptoms or risks identified at this time. Initial Sepsis Screen: Does the patient meet any 2 criteria? No. Patient's initial sepsis screen is negative. Does the patient have a suspected source of infection? No. Patient's initial sepsis screen is negative. Risk Assessment: Do you want to hurt yourself or someone else? Patient reports no desire to harm self or others. Onset of symptoms was July 29, 2021. 22:40 Method Of Arrival: EMS: [facility] 22:40 Acuity: EASTON 3 sm5 Historical: - Allergies: 22:41 Latex, Natural Rubber; sm5 22:41 metformin; sm5 22:41 Tape; sm5 - Home Meds: 22:41 duloxetine 30 mg Oral CDRS 1 cap once daily [Active]; sm5 - PMHx: 22:41 chronic back pain; Hypertension; Myocardial infarction; sm5 - PSHx: 22:41 back surgery; pain pump; sm5 - Immunization history:: Client reports receiving the 2nd dose of the Covid vaccine, Flu vaccine is up to date. - Social history:: Smoking status: Patient denies any tobacco usage or history of. Screenin:07 Abuse screen: Denies threats or abuse. Nutritional screening: No deficits noted. sf1 Tuberculosis screening: No symptoms or risk factors identified. Fall Risk None identified. Assessment: 23:04 General: Appears uncomfortable, Behavior is crying. General: Patient has an abdominal sf1 incision that is intact. No s/s of infection. Incision is approximated well. . Pain: Complains of pain in left lower quadrant. GI: Reports nausea, vomiting. 07/30 06:39 Reassessment: ERP said to give patient crackers per patients request. al4 06:40 Reassessment: transfer initiated to [facility] [place] [facility] [place] spoke to jordan Sinclair in the ED. 06:45 Reassessment: administrative approval received for Dr Jennifer Moralez in the ED. Report bb given to Vianney Sinclair in the ED. 07:56 Reassessment: Pt in bed while in supine position and resting. Appears to be very drowsy ic1 and unable to maintain eye opening. Remains on cont card monitoring. VSS. Airway maintained, breathing unlabored, chest rise/fall symmetrical. Pt denies needs at this time. Vital Signs: 07/29 22:40 BP 193 / 80; Pulse 72; Resp 17; Temp 98.8(O); Pulse Ox 93% on R/A; Pain 10/10; sm5 07/30 02:02 BP 193 / 70; Pulse 85; Resp 24; Pulse Ox 89% on 3 lpm NC; sf1 02:44 BP 181 / 79; Pulse 72; Resp 24; Pulse Ox 93% ; sf1 04:35 BP 183 / 72; Pulse 79; Resp 17; Pulse Ox 97% on 4 lpm NC; sf1 06:40 BP 191 / 91; Pulse 93; Resp 20; Pulse Ox 97% on 4 lpm NC; sf1 07:38 BP 178 / 93; Pulse 88; Resp 16; Pulse Ox 96% ; ic1 08:36 BP 158 / 86; Pulse 84; Resp 16; Pulse Ox 96% on 2 lpm NC; ic1 ED Course: 07/29 22:40 Patient arrived in ED. al4 22:41 Triage completed. sm5 22:42 Arm band placed on left wrist. sm5 22:46 Kristian Villarreal MD is Attending Physician. kdr 23:04 Maintain EMS IV. Dressing intact. Site clean \T\ dry. sf1 23:07 Comfort Narvaez RN is Primary Nurse. sf1 07/30 01:59 Inserted saline lock: 20 gauge in right antecubital area, using aseptic technique. bb 02:48 Abdomen In Process Unspecified. EDMS Administered Medications: 07/29 23:40 Drug: Zofran (Ondansetron) 4 mg Route: IVP; Site: right hand; sf1 23:41 Drug: NS 0.9% 1000 ml Route: IV; Rate: 1 bolus; Site: right hand; sf1 23:41 Drug: fentaNYL (PF) 50 mcg Route: IVP; Site: right hand; sf1 07/30 00:17 Drug: Reglan (metoCLOPramide) 20 mg Route: IVP; Site: right hand; sf1 00:18 Drug: Zofran (Ondansetron) 4 mg Route: IVP; Site: right hand; sf1 02:01 Drug: fentaNYL (PF) 50 mcg Route: IVP; Site: right hand; sf1 08:11 Not Given (pt unable to stay awake. ): fentaNYL (PF) 50 mcg IVP once; RASS on ADMIN: ic1 Combtv4, Very Agttd3, Agttd2, Rstlss1, AlertClm0, Drwsy-1, Lt Sdtn-2, Mod Sdtn-3, Dp Sdtn-4, UnArsble-5 Outcome: 06:28 ER care complete, transfer ordered by . kdr 08:35 Transferred by ground EMS Transfer form completed. X-rays sent w/ patient. Note: 1 [facility] 08:35 Condition: stable 08:35 Instructed on the need for transfer. 08:47 [facility] Signatures: Dispatcher [employer] EDMS Kristian Villarreal MD MD kdr Ballard, Brenda, RN RN bb Ledbetter, Alexis al4 Mazur, Sarah, RN RN 5 Tsering Beramn RN RN ic1 Comfort Narvaez RN RN sf1
--- NOTE | 2021-07-30 06:29 | EDPHYS ---
Physician Documentation [facility] Name: Claudia Cha Age: 81 yrs Sex: Female : 1940 Arrival Date: 07/29/2021 Time: 22:40 Bed 4 Private MD: ED Physician Kristian Villarreal HPI: 07/29 23:56 This 81 yrs old Female presents to ER via EMS with complaints of Nausea vomiting and kdr back pain. 23:56 Patient had a thecal pain pump replaced earlier today. Her daughter who is here with kdr her states that she had been doing fine after discharge until a few hours prior to arrival here. Patient started to have some nausea and became restless. Her pain increased. She then started to have nausea and vomiting.. Historical: - Allergies: 22:41 Latex, Natural Rubber; sm5 22:41 metformin; sm5 22:41 Tape; sm5 - Home Meds: 22:41 duloxetine 30 mg Oral CDRS 1 cap once daily [Active]; sm5 - PMHx: 22:41 chronic back pain; Hypertension; Myocardial infarction; sm5 - PSHx: 22:41 back surgery; pain pump; sm5 - Immunization history:: Client reports receiving the 2nd dose of the Covid vaccine, Flu vaccine is up to date. - Social history:: Smoking status: Patient denies any tobacco usage or history of. ROS: 07/30 00:32 Constitutional: Negative for fever, chills, and weight loss, Eyes: Negative for injury, kdr pain, redness, and discharge, Neck: Negative for injury, pain, and swelling. Abdomen/GI: Positive for abdominal pain, nausea and vomiting. Back: Positive for pain at rest, pain with movement, radiated pain, Pain to her low back that radiates around to her lower thorax. She told her daughter she felt like all of her ribs were broken in her lower chest. Exam: 00:32 Constitutional: This is a well developed, well nourished patient who is awake, alert, kdr and in moderate to severe distress. Head/Face: Normocephalic, atraumatic. Eyes: Pupils equal round and reactive to light, extra-ocular motions intact. Lids and lashes normal. Conjunctiva and sclera are non-icteric and not injected. Cornea within normal limits. Periorbital areas with no swelling, redness, or edema. Neck: Trachea midline, no thyromegaly or masses palpated, and no cervical lymphadenopathy. Supple, full range of motion without nuchal rigidity, or vertebral point tenderness. No Meningismus. 00:32 Abdomen/GI: Inspection: obese scar(s), There is an incision to the left lateral lower abdomen. Is vertical in nature was a small amount of dried blood. It otherwise appears to be intact without any dehiscence or purulent drainage, Bowel sounds: active, all quadrants, diminished, in all quadrants, Palpation: moderate abdominal tenderness, in all quadrants. Vital Signs: 07/29 22:40 BP 193 / 80; Pulse 72; Resp 17; Temp 98.8(O); Pulse Ox 93% on R/A; Pain 10/10; sm5 07/30 02:02 BP 193 / 70; Pulse 85; Resp 24; Pulse Ox 89% on 3 lpm NC; sf1 02:44 BP 181 / 79; Pulse 72; Resp 24; Pulse Ox 93% ; sf1 04:35 BP 183 / 72; Pulse 79; Resp 17; Pulse Ox 97% on 4 lpm NC; sf1 06:40 BP 191 / 91; Pulse 93; Resp 20; Pulse Ox 97% on 4 lpm NC; sf1 07:38 BP 178 / 93; Pulse 88; Resp 16; Pulse Ox 96% ; ic1 08:36 BP 158 / 86; Pulse 84; Resp 16; Pulse Ox 96% on 2 lpm NC; ic1 MDM: 04:10 Data reviewed: vital signs, nurses notes, lab test result(s), radiologic studies. kdr Counseling: I had a detailed discussion with the patient and/or guardian regarding: the historical points, exam findings, and any diagnostic results supporting the discharge/admit diagnosis, lab results, radiology results. ED course: Despite interventions, the patient continues to have significant left flank pain and nausea. Awaiting return call from Dr. Soria. 06:28 Patient medically screened. kdr 07/29 23:05 Order name: CBC with Diff; Complete Time: 02:01 kdr 07/29 23:05 Order name: Chem 7; Complete Time: 02:01 kdr 07/29 23:05 Order name: PT-INR; Complete Time: 02: kdr 07/30 00:14 Order name: Manual Differential; Complete Time: 02:01 EDMS 07/30 02:28 Order name: Abdomen ; Complete Time: 21:24 EDMS 07/30 07:16 Order name: COVID-19 SARS RT PCR (Document "Date of Onset" if Symptomatic); Complete al4 Time: 21:24 Administered Medications: 07/29 23:40 Drug: Zofran (Ondansetron) 4 mg Route: IVP; Site: right hand; sf1 23:41 Drug: NS 0.9% 1000 ml Route: IV; Rate: 1 bolus; Site: right hand; sf1 23:41 Drug: fentaNYL (PF) 50 mcg Route: IVP; Site: right hand; sf1 07/30 00:17 Drug: Reglan (metoCLOPramide) 20 mg Route: IVP; Site: right hand; sf1 00:18 Drug: Zofran (Ondansetron) 4 mg Route: IVP; Site: right hand; sf1 02:01 Drug: fentaNYL (PF) 50 mcg Route: IVP; Site: right hand; sf1 08:11 Not Given (pt unable to stay awake. ): fentaNYL (PF) 50 mcg IVP once; RASS on ADMIN: ic1 Combtv4, Very Agttd3, Agttd2, Rstlss1, AlertClm0, Drwsy-1, Lt Sdtn-2, Mod Sdtn-3, Dp Sdtn-4, UnArsble-5 Disposition Summary: 07/30/21 06:28 Transfer Ordered Transfer Location: Other Acute Care Facility kdr Reason: Higher level of care kdr Condition: Fair kdr Problem: new kdr Symptoms: have improved kdr Accepting Physician: Dr. Soria/[facility](07/30/21 08:47) ic1 Diagnosis - Flank pain: Status post thecal pump replacement kdr Discharge Instructions: - Discharge Summary Sheet bb Forms: - Medication Reconciliation Form bb - SBAR form bb Signatures: Dispatcher [employer] Kristian Wilson MD MD kdr Mazur, Sarah RN RN sm5 Tsering Berman RN RN ic1 Comfort Narvaez RN RN sf1 Corrections: (The following items were deleted from the chart) 02:28 07/29 23:06 Abdomen Pelvis W Con+CT.RAD.BRZ ordered. EDNM EDMS 07/30 08:47 06:28 Dr. Soria/[facility] ic1
[2021-07-30 09:01] VITALS: TEMP 98.8
[2021-07-30 09:05] VITALS: O2SAT 96
[2021-07-30 09:07] VITALS: BP 158/86
--- NOTE | 2021-07-30 11:09 | RAD REPORT ---
CLINICAL HISTORY: ABD PAIN COMPARISON: 05/16/2020. TECHNIQUE: CT ABDOMEN PELVIS WITHOUT IV CONTRAST on 07/29/2021 11:05 PM [employer] This exam was performed according to our departmental dose-optimization program, which includes autom ated exposure control, adjustment of the mA and/or kV according to patient size and/or use of iterati ve reconstruction technique. FINDINGS: Lower lungs are clear. Abdomen: The liver is normal in appearance. There is no biliary dilatation. There is a small hiatal h ernia. There are tiny layering gallstones in the gallbladder. The pancreas and spleen are normal in a ppearance. The adrenal glands and kidneys are unremarkable. Abdominal aorta is normal in course and caliber without aneurysm. There is no free air. There is no r etroperitoneal adenopathy. Pelvis: There is large amount of stool throughout the colon. Urinary bladder is unremarkable. There i s no free fluid. Hysterectomy was performed. Appendix is normal. Skeleton: There are no acute osseous findings. No suspicious bony lesions. There are postoperative ch anges of the lower lumbar spine. IMPRESSION: Constipation. Electronically signed by: Nino Beckham MD 07/30/2021 3:20 AM [employer] Due to temporary technical issues with the PACS/Fluency reporting system, reports are being signed by the in house radiologists without review as a courtesy to insure prompt reporting. The interpreting radiologist is fully responsible for the content of the report.
== END 2021-07-30 08:47 ==
LOC: ER 22:33
DX: R10.9 Unspecified abdominal pain (principal); Z98.890 Other specified postprocedural states; R11.2 Nausea with vomiting, unspecified; Z97.8 Presence of other specified devices; I10 Essential (primary) hypertension; Z88.8 Allergy status to other drugs, medicaments and biological substances; Z91.040 Latex allergy status; Z91.048 Other nonmedicinal substance allergy status; Z20.822 Contact with and (suspected) exposure to COVID-19
CPT/HCPCS: 85025; 80048; 36415; 85610; 74176; U0003; J2765; J3010 ×2; J7030; J2405 ×2; 96374; 96375; 99285

== ENCOUNTER 2022-10-08 03:13 | Emergency (ER) | payer OTHER, MEDICARE ==
--- OUTSIDE RECORDS SUMMARY | 2022-10-08 03:17 | XMS REPORT | Continuity of Care Document ---
:1940 Author Organization [facility] t Address [address] [facility] [address] [place] [address] Care Team Providers Name Role Phone Josh GILMAN, Kai Asher Primary Care Physician Serjio Foreman Attending Clinician Miguel Angel GILMAN, Sendil K.H. Attending Clinician Doctor Unassigned, Nelagoney Attending Clinician Unavailable Smitha Buckner Attending Clinician Unavailable LARRY MICHELLE K.HNash Attending Clinician Unavailable Diego GILMAN, Bronwyn Attending Clinician ALLYSON VEGA Attending Clinician Unavailable Bk Guidry DO Attending Clinician Smitha Buckner Admitting Clinician Unavailable Payers Payer Name Policy Type Policy Number Effective Date Expiration Date S ource Problems Condition Condition Condition Status Onset Resolution Last Treating Co mments Source Name Details Category Date Date Treatment Clinician Date Change in Change in Disease Active 2017-05 Overview: Univers bowel bowel 1-29 Formattin ity of habits habits 00:00: g of this [place] 00 note Medical might be Branch different from the original. Added automatic ally from request for surgery [id number] Bowel Bowel Disease Active 2017-05 Overview: [facility] s habit habit 0-18 Formattin ity of changes changes 00:00: g of this 00 note Medical might be Branch different from the original. Added automatic ally from request for surgery [id number] PAF PAF Disease Active Univers (paroxysma (paroxysma 10-25 it y of l atrial l atrial 00:00: [place] fibrillati fibrillati 00 Me dical on) on) Branch Dyslipidem Dyslipidem Disease Active U nivers ia ia 6- ity of 00:00: [place] 00 Medical Branch Essential Essential Disease Active Uni vers hypertensi hypertensi 10-25 it y of on on 00:00: [place] [facility] Obesity Obesity Disease Active Univers (BMI (BMI 5-05 ity of 30-39.9) 30-39.9) 00:00: [place] [facility] Sinus Sinus Disease Active Univers bradycardi bradycardi 5-04 it y of a a 00:00: [place] [facility] No known No known Disease Metho di active active st problems problems Hospit a l Amnesia Amnesia Problem Active 2022-09-20 Me moria (finding) (finding) 13:24:45 l Active Garcia Problem 09/20/2022 [facility] [place] 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 13:24:45 l (finding) (finding) Herm rosana Active Problem 09/20/2022 [facility] [place] Dizziness Dizziness Problem Active 2022-09-20 Memoria (finding) (finding) 13:24:45 l Active [place] Problem 09/20/2022 [facility] [place] Hyperlipid Hyperlipi Problem Active 2022-09-20 Memoria emia demia 13:24:45 l (disorder) (disorder) He rmann Active Problem 09/20/2022 [facility] [place] 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 l 13:24:45 l (disorder) infarction He rmann (disorder) Active Problem 09/20/2022 [facility] [place] Impaired Impaired Problem Active 2022-09-20 Memoria cognition cognition 13:24:45 l (finding) (finding) Herm rosana Active Problem 09/20/2022 [facility] Neurology [place] Allergies, Adverse Reactions, Alerts Allergy Allergy Status Severity Reaction(s) Onset Inactive Treating Comm ents Source Name Type Date Date Clinician No Known DA Active U [facility] Allergie 3-08 [place] 00:00: [address] Latex Propensi Active Rash Univers ty to 09-29 ity of adverse 00:00: [place] reaction 00 Medical s Branch LATEX DRUG Active Rash Univers INGREDI 09-29 ity of 00:00: [place] [facility] Latex Propensi Active Rash Methodi ty to 09-29 st adverse 00:00: Hospita reaction 00 l s to drug Metformi Propensi Active Rash Univer s n ty to 09-25 ity of adverse 00:00: [place] reaction Medical s Branch METFORMI DRUG Active Rash Univers N INGREDI 09-25 ity of 00:00: [place] 00 Medical Branch Metformi Propensi Active Rash Method i n ty to 09-25 st adverse 00:00: Hospita reaction 00 l s to drug Adhesive Propensi Active Rash Univer s ty to ity of adverse [place] reaction Medical s Branch ADHESIVE Drug Active Rash Univers Class ity of [facility] Tape Tape Active Memoria l Garcia metFORMI metFORMI Active Memori a N N l [place] Adhesive Propensi Active Method i [place] ty to st icones adverse Hospita reaction l s to drug Social History Social Habit Start Date Stop Date Quantity Comments Source Exposure to Not sure Central of SARS-CoV-2 (event) [facility] Sexual orientation Method ist [facility] Gender identity [facility] Alcohol intake 2020-11-12 2020-11-12 Current University of 00:00:00 00:00:00 non-drinker of [facility] alcohol Musella (finding) History of Social 2019-01-11 2019-01-[address] function 00:00:00 00:00:00 Hospital Tobacco use and 2016-09-25 2016-09-25 Never used Universit y of exposure 00:00:00 00:00:00 [facility] Sex Ass[birth year] [facility] 00:00:00 00:00:00 Hospital Smoking Status Start Date Stop Date Source Tobacco smoking status [facility] Medications Ordered Filled Start Stop Current Ordering Indication Dosage Frequency Signature Comments Components Source Medication Medication Date Date Medication? Clinician (SIG) Name Name celecoxib Yes TAKE 1 Memori a 200 mg oral 2-15 CAPSULE BY l capsule 14:58: MOUTH [place] 00 DAILY WITH FOOD DULoxetine Yes TAKE 1 Memor ia 30 mg oral 2-15 CAPSULE BY l delayed 14:58: MOUTH [place] release 00 DAILY WITH capsule BREAKFAST trazodone Yes TAKE 1 Memori a 100 mg oral 2-15 TABLET BY l tablet 14:58: MOUTH [place] 00 DAILY AT BEDTIME rosuvastati Yes TAKE 1 Fabian marcela n 10 mg 2-15 TABLET BY l oral tablet 14:58: MOUTH Caryn nn 00 DAILY AT BEDTIME aspirin 81 Yes 81 mg = 1 Me moria mg oral 2-15 cap, PO, l capsule 14:58: Daily, 0 Lloyd n 00 Refill(s) apixaban Yes 1358 5mg Take 1 Univers (ELIQUIS) 5 8-05 tablet by ity of mg tablet 00:00: mouth 2 (two) Medical times Branch daily. Indication s: atrial fibrillati on apixaban Yes 1358 5mg Take 1 Univers (ELIQUIS) 5 8-05 tablet by ity of mg tablet 00:00: mouth 2 (two) Medical times Branch daily. Indication s: atrial fibrillati on apixaban Yes 1358 5mg Take 1 Univers (ELIQUIS) 5 8-05 tablet by ity of mg tablet 00:00: mouth 2 (two) Medical times Branch daily. Indication s: atrial fibrillati on apixaban Yes 1358 5mg Take 1 Univers (ELIQUIS) 5 8-05 tablet by ity of mg tablet 00:00: mouth 2 (two) Medical times Branch daily. Indication s: atrial fibrillati on apixaban Yes 1358 5mg Take 1 Univers (ELIQUIS) 5 8-05 tablet by ity of mg tablet 00:00: mouth 2 00 (two) Medical times Branch daily. Indication s: atrial fibrillati on apixaban Yes 1358 5mg Take 1 Univers (ELIQUIS) 5 8-05 tablet by ity of mg tablet 00:00: mouth 2 (two) Medical times Branch daily. Indication s: atrial fibrillati on apixaban 2020-0 Yes 1358 5mg Take 1 Univers (ELIQUIS) 5 8-05 tablet by ity of mg tablet 00:00: mouth 2 [place] 00 (two) Medical times Branch daily. Indication s: atrial fibrillati on apixaban 2020-0 Yes 1358 5mg Take 1 Univers (ELIQUIS) 5 8-05 tablet by ity of mg tablet 00:00: mouth 2 [place] 00 (two) Medical times Branch daily. Indication s: atrial fibrillati on amLODIPine 2020-0 Yes 5mg Take 5 mg Un alfredo 5 mg tablet 6-21 by mouth ity of 15:46: daily. [address] amLODIPine 2020-0 Yes 5mg Take 5 mg Un alfredo 5 mg tablet 6-21 by mouth ity of 15:46: daily. [address] amLODIPine 2020-0 Yes 5mg Take 5 mg Un alfredo 5 mg tablet 6-21 by mouth ity of 15:46: daily. [address] amLODIPine 2020-0 Yes 5mg Take 5 mg Un alfredo 5 mg tablet 6-21 by mouth ity of 15:46: daily. [address] amLODIPine 2020-0 Yes 5mg Take 5 mg Un alfredo 5 mg tablet 6-21 by mouth ity of 15:46: daily. [address] amLODIPine 2020-0 Yes 5mg Take 5 mg Un alfredo 5 mg tablet 6-21 by mouth ity of 15:46: daily. [address] amLODIPine 2020-0 Yes 5mg Take 5 mg Un alfredo 5 mg tablet 6-21 by mouth ity of 15:46: daily. [address] amLODIPine 2020-0 Yes 5mg Take 5 mg Un alfredo 5 mg tablet 6-21 by mouth ity of 15:46: daily. [address] ZICONOTIDE 2020-0 Yes by Univers ACETATE 6-21 Intratheca ity of (PRIALT 15:18: l route [place] INTRATHECAL 12 daily. Medica l ) Indication Branch s: in pump tiZANidine 2020-0 Yes [id number] 4mg Take 4 mg Univers 4 mg tablet 6-21 by mouth ity of 15:18: every 6 [place] 12 (six) Medical hours as Branch needed. ZICONOTIDE 2020-0 Yes by Univers ACETATE 6-21 Intratheca ity of (PRIALT 15:18: l route [place] INTRATHECAL 12 daily. Medica l ) Indication Branch s: in pump tiZANidine 2020-0 Yes [id number] 4mg Take 4 mg Univers 4 mg tablet 6-21 by mouth ity of 15:18: every 6 [place] 12 (six) Medical hours as Branch needed. ZICONOTIDE 2020-0 Yes by Univers ACETATE 6-21 Intratheca ity of (PRIALT 15:18: l route [place] INTRATHECAL 12 daily. Medica l ) Indication Branch s: in pump tiZANidine 2020-0 Yes [id number] 4mg Take 4 mg Univers 4 mg tablet 6-21 by mouth ity of 15:18: every 6 [place] 12 (six) Medical hours as Branch needed. ZICONOTIDE 2020-0 Yes by Univers ACETATE 6-21 Intratheca ity of (PRIALT 15:18: l route [place] INTRATHECAL 12 daily. Medica l ) Indication Branch s: in pump tiZANidine 2020-0 Yes [id number] 4mg Take 4 mg Univers 4 mg tablet 6-21 by mouth ity of 15:18: every 6 [place] 12 (six) Medical hours as Branch needed. ZICONOTIDE 2020-0 Yes by Univers ACETATE 6-21 Intratheca ity of (PRIALT 15:18: l route [place] INTRATHECAL 12 daily. Medica l ) Indication Branch s: in pump tiZANidine 2020-0 Yes [id number] 4mg Take 4 mg Univers 4 mg tablet 6-21 by mouth ity of 15:18: every 6 [place] 12 (six) Medical hours as Branch needed. ZICONOTIDE 2020-0 Yes by Univers ACETATE 6-21 Intratheca ity of (PRIALT 15:18: l route [place] INTRATHECAL 12 daily. Medica l ) Indication Branch s: in pump tiZANidine 1-0 Yes [id number] 4mg Take 4 mg Univers 4 mg tablet 6-21 by mouth ity of 15:18: every 6 [place] 12 (six) Medical hours as Branch needed. ZICONOTIDE 1-0 Yes by Univers ACETATE 6-21 Intratheca ity of (PRIALT 15:18: l route [place] INTRATHECAL 12 daily. Medica l ) Indication Branch s: in pump tiZANidine 1-0 Yes [id number] 4mg Take 4 mg Univers 4 mg tablet 6-21 by mouth ity of 15:18: every 6 [place] 12 (six) Medical hours as Branch needed. ZICONOTIDE 2020-0 Yes by Univers ACETATE 6-21 Intratheca ity of (PRIALT 15:18: l route [place] INTRATHECAL 12 daily. Medica l ) Indication Branch s: in pump tiZANidine 2020-0 Yes [id number] 4mg Take 4 mg Univers 4 mg tablet 6-21 by mouth ity of 15:18: every 6 [place] 12 (six) Medical hours as Branch needed. ZICONOTIDE 2020-0 Yes by Univers ACETATE 6-21 Intratheca ity of (PRIALT 15:18: l route [place] INTRATHECAL 12 daily. Medica l ) Indication Branch s: in pump tiZANidine 2020-0 Yes [id number] 4mg Take 4 mg Univers 4 mg tablet 6-21 by mouth ity of 15:18: every 6 [place] 12 (six) Medical hours as Branch needed. aspirin 81 2020-0 Yes 81mg Take 81 mg U nivers mg EC 6-21 by mouth ity of tablet 14:55: daily. [address] aspirin 81 2020-0 Yes 81mg Take 81 mg U nivers mg EC 6-21 by mouth ity of tablet 14:55: daily. [address] Branch aspirin 81 2020-0 Yes 81mg Take 81 mg U nivers mg EC 6-21 by mouth ity of tablet 14:55: daily. [address] aspirin 81 2020-0 Yes 81mg Take 81 mg U nivers mg EC 6-21 by mouth ity of tablet 14:55: daily. [address] aspirin 81 2020-0 Yes 81mg Take 81 mg U nivers mg EC 6-21 by mouth ity of tablet 14:55: daily. [address] Branch aspirin 81 202-0 Yes 81mg Take 81 mg U nivers mg EC 6-21 by mouth ity of tablet 14:55: daily. [address] Branch aspirin 81 2020-0 Yes 81mg Take 81 mg U nivers mg EC 6-21 by mouth ity of tablet 14:55: daily. [address] aspirin 81 2020-0 Yes 81mg Take 81 mg U nivers mg EC 6-21 by mouth ity of tablet 14:55: daily. [place] 39 Medical Branch aspirin 81 0 Yes 81mg Take 81 mg U nivers mg EC 6-21 by mouth ity of tablet 14:55: daily. [place] [address] Medical Branch olmesartan- Yes 1{tbl} Take 1 [...] 00 daily. Medical per tablet Branch atorvastati 0 Yes 80mg Take 1 Univ ers n 80 mg 3-05 tablet by ity of tablet 00:00: mouth at [place] 00 bedtime. Medical Branch atorvastati 0 Yes 80mg Take 1 Univ ers n 80 mg 3-05 tablet by ity of tablet 00:00: mouth at [place] [address] bedtime. Medical Branch atorvastati 2020-0 Yes 80mg Take 1 Univ ers n 80 mg 3-05 tablet by ity of tablet 00:00: mouth at [place] [address] bedtime. Medical Branch atorvastati 2020-0 Yes 80mg Take 1 Univ ers n 80 mg 3-05 tablet by ity of tablet 00:00: mouth at [place] [address] bedtime. Medical Branch atorvastati 2020-0 Yes 80mg Take 1 Univ ers n 80 mg 3-05 tablet by ity of tablet 00:00: mouth at [place] [address] bedtime. Medical Branch atorvastati 2020-0 Yes 80mg Take 1 Univ ers n 80 mg 3-05 tablet by ity of tablet 00:00: mouth at [place] [address] bedtime. Medical Branch atorvastati 2020-0 Yes 80mg Take 1 Univ ers n 80 mg 3-05 tablet by ity of tablet 00:00: mouth at [place] [address] bedtime. Medical Branch atorvastati 2020-0 Yes 80mg Take 1 Univ ers n 80 mg 3-05 tablet by ity of tablet 00:00: mouth at [place] [address] bedtime. Medical Branch enalapril 2019-0 2020- No [id number] Take by Univers 10 mg 09-28 mouth 2 ity of tablet 09:47: 00:00 (two) [place] 55 :00 times Medical daily. Branch amLODIPine 2019-0 2020- No [id number] 5mg Take 5 mg Univers 5 mg tablet 09-28 by mouth. it y of 09:47: 00:00 [place] 14 :00 Medical Branch metoprolol 2020-0 2020- No [id number] 50mg Take 50 mg Univers tartrate 50 09-28- by mouth 2 i ty of mg tablet 09:46: 00:00 (two) [place] 59 :00 times Medical daily. Branch nitroglycer 2020-[id number] 1 Univers in 0.4 mg 5-07 tablet ity of sublingual 00:00: under the [place] tablet 00 tongue Medical every 5 Branch (five) minutes as needed for Chest pain. nitroglycer 2020-[id number] 1 Univers in 0.4 mg 5-07 tablet ity of sublingual 00:00: under the [place] tablet 00 tongue Medical every 5 Branch (five) minutes as needed for Chest pain. nitroglycer 2020-[id number] 1 Univers in 0.4 mg 5-07 tablet ity of sublingual 00:00: under the [place] tablet 00 tongue Medical every 5 Branch (five) minutes as needed for Chest pain. nitroglycer 2020-[id number] 1 Univers in 0.4 mg 5-07 tablet ity of sublingual 00:00: under the [place] tablet 00 tongue Medical every 5 Branch (five) minutes as needed for Chest pain. nitroglycer 2020-[id number] 1 Univers in 0.4 mg 5-07 tablet ity of sublingual 00:00: under the [place] tablet 00 tongue Medical every 5 Branch (five) minutes as needed for Chest pain. nitroglycer 2020-[id number] 1 Univers in 0.4 mg 5-07 tablet ity of sublingual 00:00: under the [place] tablet 00 tongue Medical every 5 Branch (five) minutes as needed for Chest pain. nitroglycer 2020-[id number] 1 Univers in 0.4 mg 5-07 tablet ity of sublingual 00:00: under the [place] tablet 00 tongue Medical every 5 Branch (five) minutes as needed for Chest pain. nitroglycer 2020-[id number] 1 Univers in 0.4 mg 5-07 tablet ity of sublingual 00:00: under the [place] tablet 00 tongue Medical every 5 Branch (five) minutes as needed for Chest pain. naldemedine 2020-0 Yes .2mg QD Take 0.2 Me thodi (SYMPROIC) 1-[address] 0.2 mg 00:00: mouth Hospita tablet 00 daily. l naldemedine 2020-0 Yes .2mg QD Take 0.2 Me thodi (SYMPROIC) 1-[address] 0.2 mg 00:00: mouth [facility]osp[facility] tablet 00 daily. l TRULANCE 2018-05 Yes TAKE 1 Metho di mg tablet 2-[address] 00:00: MOUTH Hospita 00 EVERY DAY. l CAN BE TAKEN WITH OR WITHOUT FOOD TRULANCE 2018-05 Yes TAKE 1 Metho di mg tablet 2-[address] 00:00: MOUTH [facility]ospita 00 EVERY DAY. l CAN BE TAKEN WITH OR WITHOUT FOOD enalapril-h 2019-0 Yes Q24H daily. Meth sharif ydrochlorot 7-16 st hiazide 08:42: Hospita (VASERETIC) 32 l 10-25 mg per tablet atorvastati 2019-0 Yes Q24H daily. Meth sharif n (LIPITOR) 7-16 st 80 MG 08:42: Hospita tablet 32 l aspirin 2019-0 Yes 81mg Take 81 mg Meth sharif (ECOTRIN) 7-[address] 81 MG 08:42: Hospita enteric 32 l coated tablet amLODIPine 2019-0 Yes 5mg Take 5 mg Me thodi (NORVASC) [address] mg tablet 08:42: Hospita 32 l tiZANidine 2019-0 Yes tizanidine M ethodi (ZANAFLEX) 7-[address] 4 MG tablet 08:42: tablet 1 Ho spita 32 PO TID l nitroglycer 2019-0 Yes 1{patch QD Place 1 Methodi in 12-07 } patch on st (NITRODUR) 08:42: the skin Hos sara 0.4 mg/hr 32 daily. l acetaminoph 2019-0 Yes 500mg Q6H Take 500 M ethodi en 7-[address] (TYLENOL) 08:42: mouth Hospita 500 MG 32 every 6 l tablet (six) hours as needed for mild pain. enalapril-h 2019-0 Yes Q24H daily. Meth sharif ydrochlorot - st hiazide 08:42: Hospita (VASERETIC) 32 l 10-25 mg per tablet atorvastati 2019-0 Yes Q24H daily. Meth sharif n (LIPITOR) 7-16 st 80 MG 08:42: Hospita tablet 32 l aspirin 2019-0 Yes 81mg Take 81 mg Meth sharif (ECOTRIN) 7-[address] 81 MG 08:42: Hospita enteric 32 l coated tablet amLODIPine 2019-0 Yes 5mg Take 5 mg Me thodi (NORVASC) 5 7-[address] mg tablet 08:42: Hospita 32 l tiZANidine 2019-0 Yes tizanidine M ethodi (ZANAFLEX) 7-[address] 4 MG tablet 08:42: tablet 1 Ho spita 32 PO TID l nitroglycer Yes 1{patch QD Place 1 Methodi in 7-16 } patch on st (NITRODUR) 08:42: the skin Hos sara 0.4 mg/hr 32 daily. l acetaminoph Yes 500mg Q6H Take 500 M ethodi en 7-[address] (TYLENOL) 08:42: mouth Hospita 500 MG 32 every 6 l tablet (six) hours as needed for mild pain. ELIQUIS 5 Yes TK 1 T PO Met hodi mg tablet 3-[address] 00:00: Hospita 00 l ELIQUIS 5 Yes TK 1 T PO Met hodi mg tablet 3-[address] 00:00: Hospita 00 l morpHINE 2017-05 Yes TK 1 T PO Univ ers I.R. 15 mg 2-03 TID PRN ity of tablet 00:00: [place] [facility] morpHINE 2017-05 Yes TK 1 T PO Univ ers I.R. 15 mg 2-03 TID PRN ity of tablet 00:00: [place] [facility] morpHINE 2017-05 Yes TK 1 T PO Univ ers I.R. 15 mg 2-03 TID PRN ity of tablet 00:00: [place] [facility] morpHINE 2017-05 Yes TK 1 T PO Univ ers I.R. 15 mg 2-03 TID PRN ity of tablet 00:00: [place] [facility] morpHINE 2017-05 Yes TK 1 T PO Univ ers I.R. 15 mg 2-03 TID PRN ity of tablet 00:00: [place] [facility] morpHINE 2017-05 Yes TK 1 T PO Univ ers I.R. 15 mg 2-03 TID PRN ity of tablet 00:00: [place] [facility] morpHINE 2017-05 Yes TK 1 T PO Univ ers I.R. 15 mg 2-03 TID PRN ity of tablet 00:00: [place] [facility] morpHINE 2017-05 Yes TK 1 T PO Univ ers I.R. 15 mg 2-03 TID PRN ity of tablet 00:00: [place] [address] Medical Branch RESTASIS Yes INSTILL 1 Univ ers MULTIDOSE 8-16 DROP INTO ity o f 0.05 % Drop 00:00: [place] RESTASIS 2018-0 Yes INSTILL 1 Univ ers MULTIDOSE 8-16 DROP INTO ity o f 0.05 % Drop 00:00: [place] RESTASIS 2018-0 Yes INSTILL 1 Univ ers MULTIDOSE 8-16 DROP INTO ity o f 0.05 % Drop 00:00: [place] B[place] RESTASIS 2018-0 Yes INSTILL 1 Univ ers MULTIDOSE 8-16 DROP INTO ity o f 0.05 % Drop 00:00: [place] B[place] RESTASIS 2018-0 Yes INSTILL 1 Univ ers MULTIDOSE 8-16 DROP INTO ity o f 0.05 % Drop 00:00: [place] B[place] RESTASIS 2018-0 Yes INSTILL 1 Univ ers MULTIDOSE 8-16 DROP INTO ity o f 0.05 % Drop 00:00: [place] RESTASIS 2018-0 Yes INSTILL 1 Univ ers MULTIDOSE 8-16 DROP INTO ity o f 0.05 % Drop 00:00: [place] RESTASIS 2018-0 Yes INSTILL 1 Univ ers MULTIDOSE 8-16 DROP INTO ity o f 0.05 % Drop 00:00: [place] atorvastati 2019- No 80mg Take 1 Uni vers n (LIPITOR) 10-0215 tablet by it y of 80 mg 00:00: 00:00 mouth at [place] tablet 00 :00 bedtime Medical for 90 Branch days. apixaban 5 2017- No 5mg Take 1 Univ ers mg tablet 10-02- tablet by ity of 00:00: 00:00 mouth 2 [place] 00 :00 (two) Medical times Branch daily. ticagrelor 2018- No 90mg Take 1 Univ ers 90 mg 09-17 05-11 tablet by ity of tablet 00:00: 00:00 mouth 2 [place] 00 :00 (two) Medical times Branch daily. apixaban 5 2018- No 5mg Take 1 Univ ers mg tablet 09-17 05-11 tablet by ity of 00:00: 00:00 mouth 2 [place] 00 :00 (two) Medical times Branch daily. nitroglycer 2020- No .4mg Place 1 Un alfredo in 0.4 mg 10-24 tablet ity of sublingual 00:00: 00:00 under the [place] tablet 00 :00 tongue Medical every 5 Branch (five) minutes as needed for Chest pain. Immunizations Ordered Immunization Filled Immunization Date Status Commen ts Source Name Name IOANA COVID-19 MRNA 2020-07-26 Completed Meth odist VACCINATION 00:00:00 [facility] PFIZER COVID-19 MRNA 2020-07-26 Completed Meth odist VACCINATION 00:00:00 [facility] PFIZER COVID-19 MRNA 2020-07-05 Completed Meth odist VACCINATION 00:00:00 [facility] PFIZER COVID-19 MRNA 2020-07-05 Completed Meth odist VACCINATION 00:00:00 Hospital Vital Signs Vital Name Observation Time Observation Value Comments Source Systolic blood 2017-10-02 19:30:00 126 mm[Hg] Univer sity of pressure [facility] Diastolic blood 2017-10-02 19:30:00 66 mm[Hg] Unive rsity [facility] Heart rate 2017-10-02 19:30:00 62 /min [facility] Respiratory rate 2017-10-02 19:30:00 16 /min [facility] Body height 2017-10-02 19:30:00 170.2 cm [facility] Body weight 2017-10-02 19:30:00 94.121 kg [facility] BMI 2017-10-02 19:30:00 32.50 kg/m2 [facility] Oxygen saturation in 2017-10-02 19:30:00 93 /min [facility] Arterial blood by [facility] Pulse oximetry Branch Systolic (mm Hg) 2022-09-17 16:51:00 Fabian kennedy Garcia Diastolic (mm Hg) 2022-09-17 16:51:00 [facility] oriroslyn Zelaya Heart Rate 2022-09-17 16:51:00 [facility] Height 2022-09-17 16:51:00 5 [ft_i] [facility] Weight 2022-09-17 16:51:00 [facility] BMI Calculated 2022-09-17 16:51:00 Owen Espinoza Systolic (mm Hg) 2022-07-09 14:55:00 Fabian rial [place] Diastolic (mm Hg) 2022-07-09 14:55:00 Mem joni Zelaya Heart Rate 2022-07-09 14:55:00 [facility] Garcia Height 2022-07-09 14:55:00 5 [ft_i] [facility] [place] Weight 2022-07-09 14:55:00 [facility] Calculated 2022-07-09 14:55:00 Owen Espinoza Procedures Procedure Date / Time Performed Performing Clinician Sourc e EXTERNAL PROVIDER - 2021-08-13 05:01:00 Doctor Unassigned, No Un iversity [facility] REFERRAL Name Medical Branch [id number] 2021-07-31 00:00:00 TYRAM [facility] [id number] 2021-07-31 00:00:00 TYRAM [facility] [id number] 2021-07-30 00:00:00 [email or web address] [facility] EXTERNAL PROVIDER - 2021-04-03 06:01:00 Doctor Unassigned, No Un iversity of [facility] [place] CARDIOLOGY Name Medical Branch Stent placement [facility] Cholecystectomy<sup>1< [facility] /sup> Plan of Care Planned Activity Planned Date Details Comments Source Future Scheduled 2022-08-27 SHINGLES VACCINES (1 [facility] Test 03:18:50 of 2) [code = SHINGLES VACCINES (1 of 2)] Future Scheduled 2022-08-27 65+ [facility] VACCINE (2 - PCV) [code = 65+ PNEUMOCOCCAL VACCINE (2 - PCV)] Future Scheduled 2022-08-27 COVID-19 VACCINE (3 - [facility] Test 03:18:50 Booster for Pfizer series) [code = COVID-19 VACCINE (3 - Booster for Pfizer series)] Future Scheduled 2022-08-27 INFLUENZA VACCINE Method [facility] Test 03:18:50 [code = INFLUENZA VACCINE] Future Scheduled 2022-05-07 SHINGLES VACCINES (1 [facility] Test 03:11:57 of 2) [code = SHINGLES VACCINES (1 of 2)] Future Scheduled 2022-05-07 65+ [facility] 03:11:57 VACCINE (2 - PCV) [code = 65+ PNEUMOCOCCAL VACCINE (2 - PCV)] Future Scheduled 2022-05-07 COVID-19 VACCINE (3 - [facility] 03:11:57 Booster for Pfizer series) [code = COVID-19 VACCINE (3 - Booster for Pfizer series)] Future Scheduled 2022-05-07 INFLUENZA VACCINE Method ist Hospital Test 03:11:57 [code = INFLUENZA VACCINE] Encounters Start End Encounter Admission Attending Care Care Encounter Source Date/Time Date/Time Type Type Clinicians Facility Department ID 2022-12-30 2022-12-30 Outpatient MHIE MHIE [id number] [facility]oria 11:45:00 11:45:00 03 [place] 2022-09-17 2022-09-18 Outpatient MHIE MNA [id number] [facility]oria 16:45:00 04:59:59 Neurology 02 korey Guymon Garcia 2022-09-17 2022-09-17 Outpatient ALLEN ForemanMASCHBRUCE MISCHER [id number] 11:45:00 23:59:59 Serjio 02 Randy 2022-09-17 2022-09-17 Outpatient MHIE MHIE [id number] [facility]oria 11:45:00 11:45:00 02 korey Garcia 2022-07-09 2022-07-10 Outpatient MHIE MNA [id number] [facility]oria 15:30:00 05:59:59 Neurology 01 korey Roldan Zelaya 2022-07-09 2022-07-09 Outpatient SKYLER Foreman MISCHER [id number] 09:30:00 23:59:59 Serjio 01 Randy 2022-07-09 2022-07-09 Outpatient MHIE MHIE [id number] Memoria 09:30:00 09:30:00 01 korey Zelaya 2021-08-13 2021-08-13 [facility] [id number] Univers 00:00:00 00:00:00 Larry FINLEY 350.1.13.10 [facility] 4.2.7.2.686 Truong RAMOS [phone] Ca dic[address] 2021-08-13 2021-08-13 [facility] [id number] [id number] Univers 00:00:00 00:00:00 Larry FINLEY 350.1.13.10 ity of [facility] [place] [phone] Ca dical NAL 9 [facility] 2021-08-13 2021-08-13 Orders Doctor JEAN PAUL 1.2.840.114 [id number] Univers 00:00:00 00:00:00 Only Unassigned, ASHA 350.1.13.10 ity of [facility] 4.2.7.2.686 Neil as [phone] [address] 2021-07-30 2021-08-02 Inpatient EM Dudley, [facility] [id number] [facility] 16:04:00 15:38:[address] [address] [place] [address] 2021-07-30 2021-07-30 [facility] [id number] Univers 00:00:00 00:00:00 Sendambar FINLEY 350.1.13.10 ity of [place] [phone] [facility] NAL 9 [facility] 2021-04-03 2021-04-03 Orders Doctor JEAN PAUL 1.2.840.114 [id number] Univers 00:00:00 00:00:00 Only Unassigned, ASHA 350.1.13.10 ity of [facility] 4.2.7.2.686 Neil as [phone] [address] 2021-03-08 2021-03-08 [facility] 1.2.840.114 [id number] Univers 10:01:31 23:59:00 Encounter Larry Finley 350.1.13.10 [place]y of [place] [phone] [place] [id number] [facility] 2021-03-08 2021-03-08 Outpatient R [facility] [id number] Univers 16:30:00 16:30:00 SENDIL ity of [facility] 2021-03-07 2021-03-07 [facility] 1.2.840.114 [id number] Univers 08:00:00 23:59:00 Encounter Sendambar Finley 350.1.13.10 [place] [phone] Ca dical nal 846 [facility] 2021-03-07 2021-03-07 [facility] [id number] Univers 08:00:00 08:00:00 SENDIL ity of [facility] 2021-03-07 2021-03-07 [facility] [id number] Univers 00:00:00 00:00:00 Sendil Aicha Finley 350.1.13.10 [place] [phone] [facility] 059 [facility] 2021-02-26 2021-02-26 Swink [facility] [id number] Univers 00:00:00 00:00:00 Sendambar Finley 350.1.13.10 [place] [phone] [address] 2020-12-31 2020-12-31 [facility] [id number] Univers 00:00:00 00:00:00 Sendambar Finley 350.1.13.10 [place] [phone] [address] 2020-12-27 2020-12-27 [facility] 1.2.840.114 [id number] Univers 00:00:00 00:00:00 Sendil Aicha Finley 350.1.13.10 [place] [phone] [address] 2020-11-21 2020-11-21 Outpatient [facility] [id number] Univers 16:00:00 16:00:00 SENDIL ity [facility] 2020-11-12 2020-11-12 Office [facility] 1.2.840.114 [id number] Univers 14:36:56 15:39:38 Visit Sendil Aicha Finley 350.1.13.10 [place] of [place] [phone] [address] 2020-11-12 2020-11-12 [facility] 1.2.840.114 [id number] 14:36:56 15:39:38 Visit Sendil Aicha Finley 350.1.13.10 [place] 4.2.7.2.686 Professio [phone] [address] 2020-11-12 2020-11-12 Outpatient R MIGUEL ANGEL [facility] [id number] [facility] 14:30:00 14:30:00 SENDIL ity [facility] 2020-11-12 2020-11-12 Orders Doctor JEAN PAUL 1.2.840.114 [id number] Univers 00:00:00 00:00:00 Only Unassigned, ASHA 350.1.13.10 ity of [facility] 4.2.7.2.686 Neil as [phone] [address] 2020-11-02 2020-11-[address] [facility] 1.2.840.114 [id number] Univers 00:00:00 00:00:00 Bronwyn Finley 350.1.13.10 [place] [phone] Ca dic[address] 2020-10-19 2020-10-19 Orders Doctor JEAN PAUL 1.2.840.114 [id number] Univers 00:00:00 00:00:00 Only Unassigned, ASHA 350.1.13.10 ity of [facility] 4.2.7.2.686 Neil as [phone] [address] 2020-10-15 2020-10-15 Telephone [facility] 1.2.584.906 [id number] [facility] 00:00:00 00:00:00 Sendil Aicha Finley 350.1.13.10 [place] of [place] [phone] Ca dical nal 059 [facility] 2020-07-30 2020-07-30 Refill Miguel Angel [facility] 1.2.840.114 [id number] Univers 00:00:00 00:00:00 Sendil Aicha Finley 350.1.13.10 [place] of [place] [phone] Ca dical nal 059 [facility] 2020-07-27 2020-07-27 Refill [facility] 1.2.840.114 [id number] Univers 00:00:00 00:00:00 Sendil Aicha Finley 350.1.13.10 [place] of [place] [phone] Ca dicms nal 059 [facility] 2020-07-26 2020-07-26 Outpatient SILVIA, [facility] [id number] [place] 00:00:00 00:00:00 ALLYSON 134 Me thodi 2020-07-05 2020-07-05 Outpatient [facility] [id number] [place] 00:00:00 00:00:[address] 2020-06-16 2020-06-16 [facility] 1.2.840.114 [id number] Univers 00:00:00 00:00:00 Outreach Bk PRIMARY 350.1.13.10 i ty of [facility] [place] [phone] Ca dical [address] [place] 2020-04-18 2020-04-18 Refill [facility] 1.2.840.114 [id number] Univers 00:00:00 00:00:00 Larry Finley 350.1.13.10 [place] of [place] [phone] Ca dical [address] 2020-03-31 2020-03-31 Orders Doctor JEAN PAUL 1.2.840.114 [id number] Univers 00:00:00 00:00:00 Only Unassigned, ASHA 350.1.13.[address] [place] [facility] 4.2.7.2.686 Neil as [phone] [facility] 009 [place] 2020-01-16 2020-01-16 Refill [facility] 1.2.840.114 [id number] Univers 00:00:00 00:00:00 Larry Finley 350.1.13.10 [place] [phone] [address] 2019-10-13 2019-11-21 [facility] 1.2.840.114 [id number] [facility] 08:07:24 00:30:53 ne Visit Larry Finley 350.1.13.10 it[place] [phone] [address] 2019-09-30 2019-11-20 Office [facility] 1.2.840.114 [id number] [facility] 12:25:10 19:23:11 Visit Larry Finley 350.1.13.10 it[place] [phone] [address] 2019-11-20 2019-11-20 [facility] [id number] [facility] 00:00:00 00:00:00 Larry Finley 350.1.13.10 [place] [phone] [address] 2019-11-07 2019-11-07 [facility] [id number] [facility] 00:00:00 00:00:00 Larry Finley 350.1.13.10 [place] [phone] Ca dicms nal [address] [place] [address] 2019-11-07 2019-11-07 Orders Doctor JEA NPAUL 1.2.840.114 [id number] Univers 00:00:00 00:00:00 Only Unassigned, ASHA 350.1.13.10 ity of [facility] 4.2.7.2.686 Neil as [phone] [address] 2019-10-13 2019-10-13 Out[facility] [id number] Univers 11:30:00 11:30:00 SENDIL ity of [facility] 2019-10-13 2019-10-13 Orders Doctor JEAN PAUL 1.2.840.114 [id number] Univers 00:00:00 00:00:00 Only Unassigned, ASHA 350.1.13.10 ity of [facility] 4.2.7.2.686 Neil as [phone] [address] 2019-09-30 2019-09-30 Outpatient [facility] [id number] Univers 14:00:00 14:00:00 SENDIL ity of [facility] 2019-09-30 2019-09-30 Orders Doctor JEAN PAUL 1.2.840.114 [id number] Univers 00:00:00 00:00:00 Only Unassigned, ASHA 350.1.13.10 ity of [facility] 4.2.7.2.686 Neil as [phone] [address] 2019-09-30 2019-09-30 Telephone [facility] 1.2.913.879 [id number] Univers 00:00:00 00:00:00 Sendambar Finley 350.1.13.10 [place] [phone] [address] 2019-09-29 2019-09-29 Telemedici [facility] 1.2.840.114 [id number] Univers 07:50:34 15:46:34 ne Visit Larry Finley 350.1.13.10 it[place] of [place] [phone] [place] 228799 [facility] 2019-09-29 2019-09-29 Outpatient [facility] [id number] Univers 10:00:00 10:00:00 SENDIL pablo [facility] 2019-02-06 2019-02-06 Refill Michelle, [facility] 1.2.840.114 [id number] Univers 00:00:00 00:00:00 Sendambar Finley 350.1.13.10 [place] [phone] [address] 2019-02-04 2019-02-04 Orders Doctor JEAN PAUL 1.2.840.114 [id number] Univers 00:00:00 00:00:00 Only Unassigned, ASHA 350.1.13.[address] [place] [facility] 4.2.7.2.686 Neil as [phone] [address] 2017-10-02 2017-10-02 Outpatient R MIGUEL ANGEL [facility] [id number] Univers 14:30:00 [facility]:05:57 [facility] 2017-10-02 2017-10-02 [facility] 1.2.840.114 [id number] Univers 14:30:00 15:05:57 Visit Larry FINLEY 350.1.13.10 ity of [place] [phone] [address] Results Test Description Test Time Test Comments Results Result Comments Source GLUCOSE BEDSIDE TESTING 2021-08-02 11:57:00 Test Item Value Reference Range Interpretation Comme nts GLUCOSE BEDSIDE TESTING (test code = GLUBED) 116 MG/DL 60-99 H BASIC METABOLIC [id number] 08:08:00 Test Item Value Reference Range Interpretation Comments SODIUM (test code = 141 MMOL/L 137-145 N NA) POTASSIUM (test code = 3.4 MMOL/L 3.5-5.1 L K) CHLORIDE (test code = 110 MMOL/L 98-107 H CL) CARBON DIOXIDE (test 27 MMOL/L 22-30 N code = CO2) ANION GAP (test code = 7 MMOL/L 14-24 L GAP) GLUCOSE (test code = 96 MG/DL 74-106 N GLU) BLOOD UREA NITROGEN 21 MG/DL 7-17 H (test code = BUN) GLOMERULAR FILTRATION 60 Report ing units: RATE (test code = GFR) ml/mi n/1.73 m2 (Modified MDRD Formula)Referen ce Range: > or = 6 0 ml/min/1.73 m2 CREATININE (test code 0.90 MG/DL 0.52-1.04 N = CREAT) CALCIUM (test code = 8.6 MG/DL 8.4-10.2 N CA) GLUCOSE BEDSIDE [id number] 21:25:00 Test Item Value Reference Range Interpretation Comments GLUCOSE BEDSIDE TESTING (test code = 93 MG/DL 60-99 N GLUBED) GLUCOSE BEDSIDE [id number] 15:59:00 Test Item Value Reference Range Interpretation Comments GLUCOSE BEDSIDE TESTING (test code 103 MG/DL 60-99 H = GLUBED) - CT HEAD/BRAIN W/O [id number] 13:53:00 [facility] 1940 Sex: F Patient Name: CLAUDIA CHA Unit No: [id number] EXAMS: CPT CODE: [id number] CT HEAD/BRAIN W/O CONT 15156 CLINICAL HISTORY: Dizziness, sepsis. CT brain, unenhanced. Reformatted sagittal and coronal images. COMPARISON: None. Automated exposure control, iterative reconstruction technique, and/or adjustment of mA and/or kV according to patient's size was utilized for optimum radiation dose reduction. An unenhanced study of the brain was performed. Symmetric cortical pattern found with moderate atrophy. Some hypodensity in the white matter suggests chronic microvascular ischemia changes.. No hemorrhage, mass effect, or findings of CVA can be seen. No evidence of ventricular shift. The posterior fossa structures a ppear to be intact. Mild cerebellar atrophy. A small hyperdensity is seen at the edge of the temporal bone 11 mm in length by 5.6 mm thick. This is seen on only one image likely artifact. Difficult to confirm on the reformatted coronal images is a focal lesion. Follow-up CT or MRI may be helpful in several months for reassessment. Bone window settings do not show any evidence of skull fracture. Visualized sinuses appear to be clear. IMPRESSION: No acute appearing intracranial abnormality. Senescent changes. Questionable significance to a hyperdense structure at the left temporal bone near the CP angle. Location: U19 at 1353 Reported and signed by: TREMAYNE MAK MD CC: Rocye Ordonez MD; Smitha Buckner MD Technologist: Lidia Goodson (RT) CTDI: DLP: Trnscrpt: 08/01/2021 (1353) [id number] [facility] NAME: CLAUDIA CHA PHYS: [place] [address] : 1940 AGE: 81 SEX: F LOC: Z.425 A PHONE #: [phone] EXAM DATE: 08/01/2021 STATUS: ADM IN FAX #: [phone] RAD #: D/C DT PAGE 1 Signed Report Patient Name: CLAUDIA CHA Unit No: [id number] EXAMS: CPT CODE: [id number] CT HEAD/BRAIN W/O CONT 54870 (Continued) Orig Print D/T: S: 08/01/2021 (1357) [facility] NAME: CLAUDIA CHA PHYS: RACHNA - Royce Ordonez [place], [place] [address]PNQ: 1940 AGE: 81 SEX: F LOC: Z.425 A PHONE #: [phone] EXAM DATE: 08/01/2021 STATUS: ADM IN FAX #: [phone] RAD #: D/C DT PAGE 2 Signed ReportGLUCOSE BEDSIDE [id number] 10:17:00 Test Item Value Reference Range Interpretation Comments GLUCOSE BEDSIDE TESTING (test code = 94 MG/DL 60-99 N GLUBED) GLUCOSE BEDSIDE [id number] 07:18:00 Test Item Value Reference Range Interpretation Comments GLUCOSE BEDSIDE TESTING (test code = 92 MG/DL 60-99 N GLUBED) BASIC METABOLIC [id number] 07:00:00 Test Item Value Reference Range Interpretation Comments SODIUM (test code = 140 MMOL/L 137-145 N NA) POTASSIUM (test code = 3.5 MMOL/L 3.5-5.1 N K) CHLORIDE (test code = 109 MMOL/L 98-107 H CL) CARBON DIOXIDE (test 27 MMOL/L 22-30 N code = CO2) ANION GAP (test code = 8 MMOL/L 14-24 L GAP) GLUCOSE (test code = 111 MG/DL 74-106 H GLU) BLOOD UREA NITROGEN 27 MG/DL 7-17 H (test code = BUN) GLOMERULAR FILTRATION 48 Report ing units: RATE (test code = GFR) ml/mi n/1.73 m2 (Modified MDRD Formula)Referen ce Range: > or = 6 0 ml/min/1.73 m2 CREATININE (test code 1.10 MG/DL 0.52-1.04 H = CREAT) CALCIUM (test code = 8.8 MG/DL 8.4-10.2 N CA) VANCOMYCIN [id number] 06:46:00 Test Item Value Reference Range Interpretation Comments VANCOMYCIN TROUGH (test code = 13.6 UG/ML 10.0-20.0 N VANCT) CBC W/AUTO [id number] 06:09:00 Test Item Value Reference Range Interpretation Comments WHITE BLOOD CELL (test code = 12.2 K/MM3 3.8-9.8 H WBC) RED BLOOD CELL (test code = 3.69 M/MM3 3.58-4.97 RBC) HEMOGLOBIN (test code = HGB) 11.4 G/DL 11.2-14.9 N HEMATOCRIT (test code = HCT) 36.2 % 33.2-43.5 MEAN CELL VOLUME (test code = 98 fL 80.7-99.1 N MCV) MEAN CELL HGB (test code = MCH) 30.9 pg 27.0-34.1 N MEAN CELL HGB CONCETRATION 31.5 % 32.2-35.7 L (test code = MCHC) RED CELL DISTRIBUTION WIDTH 13.8 % 12.1-15.2 N (test code = RDW) PLATELET COUNT (test code = 115 K/MM3 129-368 L PLT) MEAN PLATELET VOLUME (test code 11.4 fl 7.4-10.4 H = MPV) NEUTROPHIL % (test code = NT%) 68.2 % 43-75 N IMMATURE GRANULOCYTE % (test 0.3 % 0.0-2.0 N code = IG%) LYMPHOCYTE % (test code = LY%) 19.3 % 14-44 N MONOCYTE % (test code = MO%) 10.7 % 4-13 N EOSINOPHIL % (test code = EO%) 0.8 % 0-6 N BASOPHIL % (test code = BA%) 0.7 % 0-2 N NUCLEATED RBC % (test code = 0.0 % 0-1.0 N NRBC%) NEUTROPHIL # (test code = NT#) 8.27 K/mm3 2.0-7.6 H IMMATURE GRANULOCYTE # (test 0.04 x10 3/uL 0-0.03 H code = IG#) LYMPHOCYTE # (test code = LY#) 2.35 K/mm3 1.0-3.8 N MONOCYTE # (test code = MO#) 1.30 K/mm3 0.1-0.8 H EOSINOPHIL # (test code = EO#) 0.10 K/mm3 0.0-0.2 N BASOPHIL # (test code = BA#) 0.09 K/mm3 0.0-0.2 N NUCLEATED RBC # (test code = 0.00 K/mm3 0.0-0.1 N NRBC#) GLUCOSE BEDSIDE [id number] 18:49:00 Test Item Value Reference Range Interpretation Comments GLUCOSE BEDSIDE TESTING 161 MG/DL 60-99 H Noti fied Nurse~ (test code = GLUBED) GLUCOSE BEDSIDE [id number] 16:06:00 Test Item Value Reference Range Interpretation Comments GLUCOSE BEDSIDE TESTING (test code 129 MG/DL 60-99 H = GLUBED) POC VENOUS BLOOD [id number] 14:23:00 Test Item Value Reference Range Interpretation Comments POC VENOUS BLOOD GAS PH (test 7.412 7.35-7.45 N code = POCPHV) POC VENOUS BLOOD GAS PCO2 40.2 mmHg 35.0-45.0 N (test code = KXKDGG4E) POC VENOUS BLOOD GAS PO2 36.2 mmHG 0-40 N (test code = SOQKN1E) POC HCO3 VENOUS (test code = 25.6 MMOL/L 20-26 N FRCKJR6P) POC BASE EXCESS VENOUS (test 0.9 MMOL/L -3.0-3.0 N code = POCBEV) POC O2 SATURATION VENOUS 70.0 % 72-77 L (test code = KAEV7NT) POC SAMPLE SOURCE (test code Venous Descript Specimen = POCSAMPLE) POC VENOUS BLOOD [id number] 14:20:00 Test Item Value Reference Range Interpretation Comments POC VENOUS BLOOD GAS PH (test 7.410 7.35-7.45 N code = POCPHV) POC VENOUS BLOOD GAS PCO2 39.4 mmHg 35.0-45.0 N (test code = TOPSGK4P) POC VENOUS BLOOD GAS PO2 37.1 mmHG 0-40 N (test code = NTNBL5R) POC HCO3 VENOUS (test code = 25.0 MMOL/L 20-26 N IJYKYK6P) POC BASE EXCESS VENOUS (test 0.3 MMOL/L -3.0-3.0 N code = POCBEV) POC O2 SATURATION VENOUS 71.4 % 72-77 L (test code = VLKV7EZ) POC SAMPLE SOURCE (test code Venous Descript Specimen = POCSAMPLE) POC VENOUS BLOOD [id number] 14:16:00 Test Item Value Reference Range Interpretation Comments POC VENOUS BLOOD GAS PH (test 7.414 7.35-7.45 N code = POCPHV) POC VENOUS BLOOD GAS PCO2 39.1 mmHg 35.0-45.0 N (test code = TKCZVA6O) POC VENOUS BLOOD GAS PO2 34.2 mmHG 0-40 N (test code = NVFPS2W) POC HCO3 VENOUS (test code = 25.1 MMOL/L 20-26 N SVEVDW1S) POC BASE EXCESS VENOUS (test 0.5 MMOL/L -3.0-3.0 N code = POCBEV) POC O2 SATURATION VENOUS 66.8 % 72-77 L (test code = OQJS1NR) POC SAMPLE SOURCE (test code Venous Descript Specimen = POCSAMPLE) POC VENOUS BLOOD [id number] 14:09:00 Test Item Value Reference Range Interpretation Comments POC VENOUS BLOOD GAS PH (test 7.407 7.35-7.45 N code = POCPHV) POC VENOUS BLOOD GAS PCO2 41.3 mmHg 35.0-45.0 N (test code = YQAHSF6Q) POC VENOUS BLOOD GAS PO2 38.0 mmHG 0-40 N (test code = KVFEC9I) POC HCO3 VENOUS (test code = 26.0 MMOL/L 20-26 N YSTBUD4Z) POC BASE EXCESS VENOUS (test 1.1 MMOL/L -3.0-3.0 N code = POCBEV) POC O2 SATURATION VENOUS 72.4 % 72-77 N (test code = DWCE3PL) POC SAMPLE SOURCE (test code Venous Descript Specimen = POCSAMPLE) POC ARTERIAL BLOOD [id number] 14:03:00 Test Item Value Reference Range Interpretation Comments POC ARTERIAL BLOOD GAS PH 7.422 7.35-7.45 N (test code = POCPHA) POC ARTERIAL BLOOD GAS PCO2 35.9 mmHg 35.0-45.0 N (test code = CFWOQN9H) POC ARTERIAL BLOOD GAS PO2 76.5 75.0-100.0 N (test code = PGIGF1J) POC HCO3 ARTERIAL (test 23.4 MMOL/L 20.0-26.0 N code = LQTPOZ5W) POC BASE EXCESS (test code -0.7 MMOL/L -3.0-3.0 N = POCBEA) POC O2 SATURATION (test 95.5 % 92.0-98.5 N code = POCO2S) POC SAMPLE SOURCE (test Arterial Descript Specimen code = POCSAMPLE) COVID 19 Asymptomatic IH [id number] 13:05:00 Test Item Value Reference Range Interpretation Comments COVID 19 NEGATIVE Negative "Negative resul ts from Asymptomatic IH AG patients with symptom (test code = onset beyondfiv e days, COVNONPUIAG) should be treat ed as presumptive, andconfirmation with a molecular assay , if necessary forpa tient management may be performed. Nega tive results do notr ule out COVID-19 and sh ould not be used as the sole basisfor treatm ent or patient managem ent decisions, includinginfect ion control decisio ns. Negative result s should beconsidered in the context of a meredith zimmerman recent exposure s,history, and the presenc e of clinical signs and symptomsconsist ent with COVID-19.This t est detects both vi able andnon-viable S ARS-CoV and SARS CoV-2. Test performance dep endson the amount of virus (antigen) in the sample." Comments to Phleb: PLS RUN TEST STAT. THANKSGLUCOSE BEDSIDE [id number] 11:28:00 Test Item Value Reference Range Interpretation Comments GLUCOSE BEDSIDE TESTING (test code 131 MG/DL 60-99 H = GLUBED) GLYCOSYLATED HEMOGLOBIN [id number] 11:17:00 Test Item Value Reference Range Interpretation Comments GLYCOSYLATED 6.3 % 4.8-5.9 H Any condition t hat HEMOGLOBIN (HA1C) shortens e rythocyte (test code = survival or dec reasesmean GLYHGB) erythrocyte age (e.g., recovery from a cute blood loss,hemolytic anemia) will falsely lo wer HGBA1c resultsregardle ss of the method used. HG BA1c results from meredith lara HbSS, HbCC, and HbSc must be interpreted with cautiongiven th e pathological pr ocesses, including anemia,increase d red cell turnover, trans fusion requirements, thatadversely i mpact HGBA1c as a mar ker of long-term glycemiccontrol . Alternative for ms of testing such as fructosaminesho uld be considered for these patients. MEAN BLOOD GLUCOSE 134 MG/DL 70-110 H (test code = MBG) BASIC METABOLIC [id number] 09:52:00 Test Item Value Reference Range Interpretation Comments SODIUM (test code = 144 MMOL/L 137-145 N NA) POTASSIUM (test code = 3.8 MMOL/L 3.5-5.1 N K) CHLORIDE (test code = 113 MMOL/L 98-107 H CL) CARBON DIOXIDE (test 23 MMOL/L 22-30 N code = CO2) ANION GAP (test code = 12 MMOL/L 14-24 L GAP) GLUCOSE (test code = 131 MG/DL 74-106 H GLU) BLOOD UREA NITROGEN 21 MG/DL 7-17 H (test code = BUN) GLOMERULAR FILTRATION 60 Report ing units: RATE (test code = GFR) ml/mi n/1.73 m2 (Modified MDRD Formula)Referen ce Range: > or = 6 0 ml/min/1.73 m2 CREATININE (test code 0.90 MG/DL 0.52-1.04 N = CREAT) CALCIUM (test code = 9.2 MG/DL 8.4-10.2 N CA) LIPID PROFILE (CORONARY RISK)2021-07-31 09:52:00 Test Item Value Reference Range Interpretation Comments TRIGLYCERIDES (test 126 MG/DL 150-199 L TRIGLYCE RIDES code = TRIG) REFERENCE RANGE:Normal: < 150 mg/dLBorderline High: 150-199 mg/dLHi gh: 200-499 mg/dLVe ry High: >=500 mg/ dL CHOLESTEROL (test code 130 MG/DL <200 = CHOL) HDL CHOLESTEROL (test 62 MG/DL 40-59 H code = HDL) LIPOPROTEIN LDL (test 38 MG/DL 0-99 N OPTIM AL.........<100 code = LDL) mg/dLNEAR OPTIMAL/ABOVE OPTIMAL........ .100-12 9 mg/dL BORDERL INE HIGH.........13 0-159 mg/dL HIGH.........16 0-189 mg/dL VERY HIGH.........>/ = 190 mg/dL CBC W/AUTO [id number] 09:39:00 Test Item Value Reference Range Interpretation Comments WHITE BLOOD CELL (test code = 23.7 K/MM3 3.8-9.8 H WBC) RED BLOOD CELL (test code = 4.45 M/MM3 3.58-4.97 N RBC) HEMOGLOBIN (test code = HGB) 14.0 G/DL 11.2-14.9 N HEMATOCRIT (test code = HCT) 42.7 % 33.2-43.5 N MEAN CELL VOLUME (test code = 96 fL 80.7-99.1 N MCV) MEAN CELL HGB (test code = MCH) 31.5 pg 27.0-34.1 N MEAN CELL HGB CONCETRATION 32.8 % 32.2-35.7 N (test code = MCHC) RED CELL DISTRIBUTION WIDTH 13.9 % 12.1-15.2 N (test code = RDW) PLATELET COUNT (test code = 161 K/MM3 129-368 N PLT) MEAN PLATELET VOLUME (test code 11.6 fl 7.4-10.4 H = MPV) NEUTROPHIL % (test code = NT%) 83.0 % 43-75 H IMMATURE GRANULOCYTE % (test 0.7 % 0.0-2.0 N code = IG%) LYMPHOCYTE % (test code = LY%) 6.2 % 14-44 L MONOCYTE % (test code = MO%) 9.7 % 4-13 N EOSINOPHIL % (test code = EO%) 0.0 % 0-6 N BASOPHIL % (test code = BA%) 0.4 % 0-2 N NUCLEATED RBC % (test code = 0.0 % 0-1.0 N NRBC%) NEUTROPHIL # (test code = NT#) 19.68 K/mm3 2.0-7.6 H IMMATURE GRANULOCYTE # (test 0.17 x10 3/uL 0-0.03 H code = IG#) LYMPHOCYTE # (test code = LY#) 1.46 K/mm3 1.0-3.8 N MONOCYTE # (test code = MO#) 2.29 K/mm3 0.1-0.8 H EOSINOPHIL # (test code = EO#) 0.00 K/mm3 0.0-0.2 N BASOPHIL # (test code = BA#) 0.09 K/mm3 0.0-0.2 N NUCLEATED RBC # (test code = 0.00 K/mm3 0.0-0.1 N NRBC#) - [facility] [id number] 09:30:00 [facility] 1940 Sex: F Patient Name: CLAUDIA CHA Unit No: [id number] EXAMS: CPT CODE: [id number] XR CHEST 1V 12500 EXAMINATION: - XRCHEST 1V. LOCATION: B2. HISTORY: hypoxia. COMPARISON: Radiograph dated 07/30/2021. TECHNIQUE: Single AP view of the chest was obtained. FINDINGS: Left PICC is unchanged in position. The heart is normal in size. There is mild coarsening of interstitial markings. There is no focal consolidation or pleural effusion. No acute osseous abnormality is identified. IMPRESSION: Mild nonspecific coarsening of interstitial markings. at 0930 Reported and signed by: Mile Stevens MD CC: Smitha Buckner MD; Brian Jean MD Technologist: Tennille Maria (RT)(R) Transcrpt Date/Tm/Trnsp: 07/31/2021 (929) t.SDR.PR7 Orig Print D/T: S: 07/31/2021 (0933) [facility] NAME: CLAUDIA CHA [address] [place] PHYS: [id number] - [place] [address] : 1940 AGE: 81 SEX: F LOC: Z.425 A PHONE #: [phone] EXAM DATE: 07/31/2021 STATUS: ADM IN FAX #: [phone] RADIOLOGY NO: PAGE 1 Signed ReportGLUCOSE BEDSIDE [id number] 07:47:00 Test Item Value Reference Range Interpretation Comments GLUCOSE BEDSIDE TESTING 132 MG/DL 60-99 H Noti fied Nurse~ (test code = GLUBED) GLUCOSE BEDSIDE [id number] 07:22:00 Test Item Value Reference Range Interpretation Comments GLUCOSE BEDSIDE TESTING (test code 125 MG/DL 60-99 H = GLUBED) GLUCOSE BEDSIDE [id number] 00:20:00 Test Item Value Reference Range Interpretation Comments GLUCOSE BEDSIDE TESTING (test code 128 MG/DL 60-99 H = GLUBED) [id number] 23:43:00 Test Item Value Reference Range Interpretation Comments TROPONIN-I (test 18.400 NG/ML 0.012-0.033 HH CALLED TO Adi Chi& code = TROPI) READBACK ON AT 2343 BY Hugo Carrillo [id number] 19:26:00 Test Item Value Reference Range Interpretation Comments TROPONIN-I (test 18.600 NG/ML 0.012-0.033 HH CALLED TO Raven Segura& code = TROPI) READBACK ON AT 1926 BY Hugo Carrillo UA RFLX MICR CULT IF [id number] 18:10:00 Test Item Value Reference Range Interpretation Comments UA COLOR (test code = YELLOW YELLOW COLU) UA APPEARANCE (test code CLEAR CLEAR = APPU) UA GLUCOSE DIPSTICK (test 50 MG/DL NORMAL A code = DGLUU) UA BILIRUBIN DIPSTICK NEGATIVE MG/DL NEGATIVE (test code = BILU) UA KETONE DIPSTICK (test 5 MG/DL NEGATIVE code = KETU) UA SPECIFIC GRAVITY (test 1.020 1.003-1.030 N code = SGU) UA BLOOD DIPSTICK (test 25 Ryder/mm3 NEGATIVE A code = SHAKIRA) UA PH DIPSTICK (test code 5.0 5.0-9.0 N = JOSELITO) UA PROTEIN DIPSTICK (test 30 MG/DL NEGATIVE A code = PROU) UA UROBILINIOGEN DIPSTICK NORMAL MG/DL NORMAL (test code = URO) UA NITRITE DIPSTICK (test NEGATIVE NEGATIVE code = MARANDA) UA LEUKOCYTE ESTERASE NEGATIVE /mm3 NEGATIVE DIPSTICK (test code = LEUU) UA CULTURE NEEDED? (test NO, WBC>10 & EPI>25 Culture Chk code = UACULT) Criteria Indication for culture: RiskForSepsis-no oth srcUA [id number] 18:10:00 Test Item Value Reference Range Interpretation Comments UA RBC (test code = RBCU) 3-5 RBC/HPF 0-3 A UA WBC (test code = XWBCU) 0-3 WBC/HPF 0-5 UA EPITHELIAL CELLS (test code = FEW EPI/HPF FEW EPIU) UA BACTERIA (test code = XBACU) FEW NONE Indication for culture: RiskForSepsis-no oth [id number] 16:28:00 Test Item Value Reference Range Interpretation Comments TROPONIN-I (test 15.400 NG/ML 0.012-0.033 HH CALLED TO A Reyna WATTS & code = TROPI) READBACK ON AT 1600 BY Jane Crews LIPOPROTEIN LDL [id number] 16:28:00 Test Item Value Reference Range Interpretation Comments LIPOPROTEIN LDL DIRECT 40 mg/dL 100-129 L ===== (test code = LDLDIR) ======= ==Refe rence Interval: mg/dL mmol/L--------- ------ ------ ------ --Optimal <100 <2.6Near/above optimal 100-129 2.6-3.3Borderli ne High 130-159 3.4-4.1High 160 -189 4.1-4.9Very Hig h >=190 >=4.9==== ===== This LDL result is a direct measurement.=== ====== BASIC METABOLIC [id number] 16:28:00 Test Item Value Reference Range Interpretation Comments SODIUM (test code = 142 MMOL/L 137-145 N NA) POTASSIUM (test code = 4.0 MMOL/L 3.5-5.1 N K) CHLORIDE (test code = 109 MMOL/L 98-107 H CL) CARBON DIOXIDE (test 22 MMOL/L 22-30 N code = CO2) GLUCOSE (test code = 205 MG/DL 74-106 H GLU) BLOOD UREA NITROGEN 19 MG/DL 7-17 H (test code = BUN) GLOMERULAR FILTRATION 48 Report ing units: RATE (test code = GFR) ml/mi n/1.73 m2 (Modified MDRD Formula)Referen ce Range: > or = 6 0 ml/min/1.73 m2 CREATININE (test code 1.10 MG/DL 0.52-1.04 H = CREAT) CALCIUM (test code = 9.8 MG/DL 8.4-10.2 N CA) HEPATIC FUNCTION [id number] 16:28:00 Test Item Value Reference Range Interpretation Comments TOTAL PROTEIN 8.1 G/DL 6.3-8.2 N [facility] Clinical Diagnostic (test code = has made us david re of PROT) newinformation regarding the potential i nterference ofEltrombopag ( a bone marrow stimulan t used to treatthrombocyt onmenia and aplastic anemia ) with specific assays on the [employer] [place] 5600 of which Total Protein is one of thoseassays per formed in our lab.Interfe rence testing perform ed at Ortho determined that Eltrombopag does interfere with Vitros Total Protein asfollowsEltrom bopag Interference fo r Vitros Product Total Protein:======= Eltrombopag Max Observed A vg. BiasConcentrati on Concentration Concentration== ==== 2.5 mg/dl 6.0 g/dl +0.41 +0.34 3.5 mg/dl 6.0 g /dl +0.50 +0.45 5 mg/dl 6 .0 g/dl +0.73 +0.65 2.5 mg/dl 8.0 g/dl +0.44 +0.4 1 3.5 mg/dl 8.0 g/dl +0.55 +0.52 5 mg/dl 8.0 g/dl +0.86 +0.77 ALBUMIN (test 4.6 G/DL 3.5-5.0 N code = ALB) BILIRUBIN TOTAL 0.7 MG/DL 0.2-1.3 N Eltrombopag Interference (test code = for Vitros Prod uct TBil, BILT) BuBc: Assa y Eltrombopag Cecilia lyte/ Max Observed Avg. B ias Concentration C oncentration Concentration== ====TBil 7mg/dl TBil/ 1. 2mg/dl +0.23mg.dl +0.2 0mg/dlBuBc 3.5mg/dl Bu/0.8 mg/dl +0.25mg/dl +0.2 4mg/dlBuBc 7 mg/dl Bu/14.2mg /dl +0.38mg/dl +0.2 5mg/dlBuBc 5mg/dl Bc/0mg/d l +0.25mg/dl +0.15mg/dlBuBc 3.5mg/dl Bc/2.8mg/dl +0. 25mg/dl +0.23mg/dl BILIRUBIN DIRECT 0.0 MG/DL 0.0-0.3 N Eltrombopag Interference (test code = for Vitros Prod uct TBil, BILD) BuBc: Assa y Eltrombopag Cecilia lyte/ Max Observed Avg. B ias Concentration C oncentration Concentration== ====TBil 7mg/dl TBil/ 1. 2mg/dl +0.23mg.dl +0.2 0mg/dlBuBc 3.5mg/dl Bu/0.8 mg/dl +0.25mg/dl +0.2 4mg/dlBuBc 7 mg/dl Bu/14.2mg /dl +0.38mg/dl +0.2 5mg/dlBuBc 5mg/dl Bc/0mg/d l +0.25mg/dl +0.15mg/dlBuBc 3.5mg/dl Bc/2.8mg/dl +0. 25mg/dl +0.23mg/dl SGOT/AST (test 87 UNITS/L 14-36 H code = AST) SGPT/ALT (test 17 UNITS/L 0-34 N code = ALT) ALKALINE 66 UNITS/L 38-126 N PHOSPHATASE (test code = ALKP) [id number] 16:28:00 Test Item Value Reference Range Interpretation Comments LIPASE (test code = LIP) 88 UNITS/L 23-300 N CBC W/AUTO [id number] 16:26:00 Test Item Value Reference Range Interpretation Comments WHITE BLOOD CELL (test code = 25.7 K/MM3 3.8-9.8 H WBC) RED BLOOD CELL (test code = 4.67 M/MM3 3.58-4.97 N RBC) HEMOGLOBIN (test code = HGB) 14.7 G/DL 11.2-14.9 N HEMATOCRIT (test code = HCT) 44.8 % 33.2-43.5 H MEAN CELL VOLUME (test code = 96 fL 80.7-99.1 N MCV) MEAN CELL HGB (test code = MCH) 31.5 pg 27.0-34.1 N MEAN CELL HGB CONCETRATION 32.8 % 32.2-35.7 N (test code = MCHC) RED CELL DISTRIBUTION WIDTH 13.6 % 12.1-15.2 N (test code = RDW) PLATELET COUNT (test code = 179 K/MM3 129-368 N PLT) MEAN PLATELET VOLUME (test code 10.8 fl 7.4-10.4 H = MPV) NEUTROPHIL % (test code = NT%) 89.6 % 43-75 H IMMATURE GRANULOCYTE % (test 0.7 % 0.0-2.0 N code = IG%) LYMPHOCYTE % (test code = LY%) 3.3 % 14-44 L MONOCYTE % (test code = MO%) 6.2 % 4-13 N EOSINOPHIL % (test code = EO%) 0.0 % 0-6 N BASOPHIL % (test code = BA%) 0.2 % 0-2 N NUCLEATED RBC % (test code = 0.0 % 0-1.0 N NRBC%) NEUTROPHIL # (test code = NT#) 23.01 K/mm3 2.0-7.6 H IMMATURE GRANULOCYTE # (test 0.18 x10 3/uL 0-0.03 H code = IG#) LYMPHOCYTE # (test code = LY#) 0.85 K/mm3 1.0-3.8 L MONOCYTE # (test code = MO#) 1.58 K/mm3 0.1-0.8 H EOSINOPHIL # (test code = EO#) 0.00 K/mm3 0.0-0.2 N BASOPHIL # (test code = BA#) 0.05 K/mm3 0.0-0.2 N NUCLEATED RBC # (test code = 0.00 K/mm3 0.0-0.1 N NRBC#) RECOLLECTION NEEDED ON 07/30/21 AT 1533 BY KENISHATTREASON: CLOTTEDNOTIFIED PATIENT CARE STAFF: KATHIE.RLACTIC [id number] 15:49:00 Test Item Value Reference Range Interpretation Comments LACTIC ACID (test code = LACT) 2.0 MMOL/L 0.7-2.1 N - XR CHEST [id number] 15:40:00 [facility] 1940 Sex: F Patient Name: CLAUDIA CHA Unit No: [id number] EXAMS: CPT CODE: [id number] XR CHEST 1V 11145 Location: H59 EXAM: XR CHEST 1 VIEW INDICATION: CODE SEPSIS COMPARISON: None FINDINGS: Single view of the chest. Left PICC tip overlies the expected location of the superior SVC. No appreciable pneumothorax. There are low lung volumes. There are mild bilateral perihilar opacities. Otherwise, no focal consolidation. Thebilateral costophrenic sulci are sharp. Heart size is within normal limits for technique. Atherosclerotic calcifications overlie the aortic knob. No acute osseous findings are present. IMPRESSION: 1. Suboptimal positioning and low lung volumes limits evaluation. 2. Mild bilateral perihilar opacities,favored to represent a combination of vascular crowding and atelectatic change, given low lung volumes. at 1540 Reported and signedby: Phil Faulkner MD CC: Jeffry Zamarripa MD Technologist: RT Raudel(R) Transcrpt Date/Tm/Trnsp: 07/30/2021 (1540) t.[id number].GS29 Orig Print D/T: S: 07/30/2021 (2103) [facility] NAME: CLAUDIA CHA [address] [place] [address] PHYS: [place] [address] : 1940 AGE: 81 SEX: F LOC: [facility] PHONE #: [phone] EXAM DATE: 07/30/2021 STATUS: REG ER FAX #: [phone] RADIOLOGY NO: PAGE 1 Signed Report Notes Date/Time Note Provider Source 2021-08-02 15:52:00-00:00 [id number] [place] [address] PATIENT NAME: CLAUDIA CHA ADMIT DATE: 07/30/21 ACCOUNT NO: [id number] ROOM NO: Z.425 AGE: 81 REPORT TYPE: PROGRESS NOTE SEX: F ADMITTING PHYSICIAN:Smitha Buckner MD ATTENDING PHYSICIAN:Smitha Buckner MD DATE: SUBJECTIVE: The patient admitted with dizziness, chest pain, and elevated enzymes. Cardiac catheterization shows that the coronaries were patent. She continued to improve, had a lot of dizziness and vertigo, but this is a chronic problem that has been exacerbated in this admiss ion a little bit. Doing very well. No headache or dizziness: No seizure. Jomar rointestinal is negative for nausea, vomiting, or diarrhea. ASSESSMENT: Elevated enzymes, non-ST elevation m yocardial infarction, patent coronaries, dizziness chronic, recurrent possibl y labyrinthine disorder. PLAN AND MANAGEMENT: Continue medical therapy fo r the time being of risk factors. Antivert as needed. The patient has bee n advised to follow up with her cardiology on discharge. Dictated By: Cesar Alexander Jr, MD WT: PN:KY/LEANN/RAFFY Conf#: [id number]/DID#: [id number] Authenticated by Cesar Alexander MD On 08/05/2021 01 :31:15 PM Electronically Signed by Cesar Alexander Jr, MD o n 08/05/21 at 0131 PATIENT NAME: CLAUDIA CHA 577 2021-08-02 13:59:00-00:00 [facility] ([facility]) Hospitalist Discharge Summary REPORT#:[id number] REPORT STATUS: Signed DATE:08/02/21 TIME: 135 PATIENT: CLAUDIA CHA UNIT #: [id number] ROOM/BED: [address] : [birth year] AGE: 81 SEX: F ATTEND: Al Buckner MD ADM AUTHOR: Royce Ordonez MD R1 * ALL edits or amendments must be made on the [employer]/computer document * Royce Ordonez 08/02/21 1359: General Information Discharge date: 08/02/21 Admission diagnosis: Leukocytosis Discharge diagnosis: Leukocytosis Hospital course: 81 y/o F with hx of MA s/p P CI (8 years ago), borderline T2DM, chronic back pain with hx of multiple back surgeries on intratheca l pump presents as a transfer from an outside facility for sepsis and elevated troponins. Patient had the intrathecal pump changed 1 day prior to admissio n at an outside surgical facility. Patient was discharged home on the lauryn e day but later that night developed abdominal pain, n/v, and confusion. e was taken to the ER and was found to have elevated WBC count and lactic acid . Patient also have elevated Troponin with T-wave inversions in the anterolat eral leads. Pt's troponins increased to 15. Cardiology was consulted for po ssible NSTEMI and workup included cath. Broad spectru m abx were started, ID was consulted, and later abx discontinued due to leukocytosis not being thoug ht to be due to infection. Pt was medically clear for discharge by cardiology and infectious disease with outpatient cardiology follow up. Consultants: cardiology, infectious disease Pt. condition on discharge: fair, improved, stab le Med Rec Med Rec Discharge meds: Continue taking these medications: OMEPRAZOLE ER (PriLOSEC) 40 MG CAP.DR [address] MILLIGRAM ORAL DAILY. DULoxetine [address] (CYMBALTA) 30 MG CAP.DR 30 MILLIGRAM ORAL DAILY. CELECOXIB (CeleBREX) 200 MG CAP 200 MILLIGRAM ORAL DAILY. traZODone (DESYREL) 50 MG TAB 50 MILLIGRAM ORAL BEDTIME. ROSUVASTATIN (CRESTOR) 10 MG TAB 10 MILLIGRAM ORAL BEDTIME. MELATONIN (MELATONIN) 3 MG TAB 3 MILLIGRAM ORAL BEDTIME. Objective VS/I O Last Documented: Result Date Time Pulse Ox 95 08/02 1118 B/P 124/74 08/02 1118 B/P Mean 90.8 08/02 1118 O2 Delivery Room air 08/02 1118 Temp 98.8 08/02 1118 Pulse 63 08/02 1118 Resp 18 08/02 1118 O2 Flow Rate 2 08/01 0756 24 hour I O ending at 0700: 08/02 0700 08/01 1900 Intake Total Output Total 650 Balance -650 Number Voids 2 Output, Urine 650 Head/Eyes: atraumatic, normocephalic Neck: no JVD, no masses or swelling Cardiovascular: normal heart sounds, regular rat e rhythm Respiratory: clear to auscultation, symmetric ex pansion, no distress Abdomen: tenderness, Left mid abdomen in cision with TTP at site of intrathecal pump . No drainage or erythema noted. Dressing d ry and intact. Extremities: moves all, no edema Neuro/MACHINE SHOP HELPER: alert, oriented X 3, normal speech Skin: dry, intact, normal color Psychiatry: unable to evaluate Results Findings/Data: Laboratory Tests: 08/02 08/02 08/01 08/01 1155 0703 2124 1557 Chemistry Sodium (137 - 145 MMOL/L) 141 Potassium (3.5 - 5.1 MMOL/L) 3.4 L Chloride (98 - 107 MMOL/L) 110 H Carbon Dioxide (22 - 30 MMOL/L) 27 Anion Gap (14 - 24 MMOL/L) 7 L BUN (7 - 17 MG/DL) 21 H Creatinine (0.52 - 1.04 MG/DL) 0.90 Glomerular Filtr Rate 60 Glucose (74 - 106 MG/DL) 96 POC Glucose (60 - 99 MG/DL) 116 H 93 103 H Calcium (8.4 - 10.2 MG/DL) 8.6 Discharge Instructions PCP PCP follow-up: PCP: No Primary or Family Physician Discharge to: Home/Self Care Additional Discharge Routines: PCP Follow-Up, Co nsultant Follow-Up Diet: Diabetic, Cardiac Discharge management: greater than 30 mins, face to face encounter Time spent: Time spent with patient (minutes): 35 Follow-up Appointments PCP follow-up: PCP: No Primary or Family Physician PCP follow up timeframe: In 1-2 weeks Consulting provider 1: Provider 1: Cesar Alexander Jr, MD Specialty: Internal Medicine Consult follow up timeframe: In 3-4 weeks Quality: Discharge Current Medications Current medication review: I attest that the foregoing medication list in t he medical record is true, accurate, and complete to the best of my knowled ge. Attestations Attestation needed: teaching physician Ayaan Gonzalez 08/07/21 1644: Attestations Teaching Physician Attestation F/U visit w/ resident: I saw the patient with the r esident and team. Agree with the resident's findings and plan. adviced pt to follow up with pcp in one week at 1414 Electronically Signed by Ayaan Gonzalez MD on at 1645 RPT #:[id number] END OF REPORT 2021-08-01 20:40:00-00:00 [facility] ([facility]) Cardiology Progress Note REPORT#:[id number] REPORT STATUS: Signed DATE:08/01/21 TIME: 2039 PATIENT: CLAUDIA CHA UNIT #: [id number] ROOM/BED: [address] : 42 AGE: 81 SEX: F ATTEND: Al Buckner MD ADM AUTHOR: Cesar Alexander Jr, MD * ALL edits or amendments must be made on the [employer] document * Subjective Chief complaint: chest pain sovb Comments: DISCUSSED AT LENT H IS OF VERTIGO had been wor ked up in past extensively over years acc to son Objective General VS/I O: 24 hour I O ending at 0700: 08/01 0700 07/31 1900 Intake Total 900.00 Output Total Balance 900.00 Intake, IV 750.00 Intake, Oral 150 Vital Signs: Date Time Temp Pulse Resp B/P B/P Pulse O2 O2 F low FiO2 Mean Ox Delivery Rate 08/01 1953 98.1 58 18 94/57 69.1 94 08/01 1548 97.9 58 21 112/72 85.1 100 Room air 08/01 1022 97.9 73 20 122/68 85.8 95 Room air 08/01 0756 Nasal 2 cannula 08/01 0652 97.9 73 21 104/67 79.4 96 Room air 08/01 0316 97.2 93 18 106/68 80.4 97 07/31 2323 98.2 84 18 103/64 77.2 94 PATIENT WEIGHT: Weight (lb): Weight (oz): Weight (kg): 81.818 Physical Exam General appearance: no acute distress Head/Eyes: normocephalic ENT: normal nose Neck: normal thyroid Cardiovascular: CV assessment: regular rate and rhythm Respiratory: no distress Abdomen: no distention Genitourinary: no flank pain Upper extremity: UE assessment: no clubbing Results Findings/Data: Laboratory Tests 08/01 08/01 08/01 08/01 1557 1014 0648 0502 Chemistry Sodium (137 - 145 MMOL/L) 140 Potassium (3.5 - 5.1 MMOL/L) 3.5 Chloride (98 - 107 MMOL/L) 109 H Carbon Dioxide (22 - 30 MMOL/L) 27 Anion Gap (14 - 24 MMOL/L) 8 L BUN (7 - 17 MG/DL) 27 H Creatinine (0.52 - 1.04 MG/DL) 1.10 H Glomerular Filtr Rate 48 Glucose (74 - 106 MG/DL) 111 H POC Glucose (60 - 99 MG/DL) 103 H 94 92 Calcium (8.4 - 10.2 MG/DL) 8.8 Laboratory Tests 08/01 0538 Hematology WBC (3.8 - 9.8 K/MM3) 12.2 H RBC (3.58 - 4.97 M/MM3) 3.69 Hgb (11.2 - 14.9 G/DL) 11.4 Hct (33.2 - 43.5 %) 36.2 MCV (80.7 - 99.1 fL) 98 MCH (27.0 - 34.1 pg) 30.9 MCHC (32.2 - 35.7 %) 31.5 L RDW (12.1 - 15.2 %) 13.8 Plt Count (129 - 368 K/MM3) 115 L MPV (7.4 - 10.4 fl) 11.4 H Neut % (Auto) (43 - 75 %) 68.2 Lymph % (Auto) (14 - 44 %) 19.3 [place] % (Auto) (4 - 13 %) 10.7 Eos % (Auto) (0 - 6 %) 0.8 Baso % (Auto) (0 - 2 %) 0.7 Neut # (Auto) (2.0 - 7.6 K/mm3) 8.27 H Lymph # (Auto) (1.0 - 3.8 K/mm3) 2.35 [place] # (Auto) (0.1 - 0.8 K/mm3) 1.30 H Eos # (Auto) (0.0 - 0.2 K/mm3) 0.10 Baso # (Auto) (0.0 - 0.2 K/mm3) 0.09 Immature Gran % (0.0 - 2.0 %) 0.3 Nucleated RBC % (0 - 1.0 %) 0.0 Nucleated RBCs # (Man) (0.0 - 0.1 K/mm3) 0.00 Laboratory Tests 08/01 0538 Toxicology Vancomycin Trough (10.0 - 20.0 UG/ML) 13.6 Diagnosis, Assessment Plan Free Text DxA P Notes Free Text DxA P Notes: echo ?? shunt right and left heart cath left main short/ lad open / cx has stent open/ rca open high lateral infarct on LV angio ef 55% PA pressure 51 some pulmonary hypertension no shunt hx of recurrent dizziness vertigo work up plan no angioseal bed rest 6 hours ok to dc in am from cardiac standpoint resume dap. at 2041 RPT #:[id number] END OF REPORT 2021-08-01 12:07:00-00:00 [id number] [place] [address] PATIENT NAME: CLAUDIA CHA ADMIT DATE: 07/30/21 ACCOUNT NO: [id number] ROOM NO: [facility] AGE: 81 REPORT TYPE: CONSULTATION REPORT SEX: F ADMITTING PHYSICIAN:Smitha Buckner MD ATTENDING PHYSICIAN:Smitha Buckner MD CONSULTATION DATE: 08/01/2021 CONSULTING PHYSICIAN: Susana Thacker MD INPATIENT INFECTIOUS DISEASE CONSULTATION CHIEF COMPLAINT: This is a 81-year-old woman wit h leukocytosis. HISTORY OF PRESENT ILLNESS: A 81-year-old woman with a past medical history significant for diabetes ángel litus type 2 and back pain, who recently had a pain pump exchange. She was seen at an [facility] for generalized feelings of unwellness, found to have constipation on CT sca nning and leukocytosis. She presented to the hospital and underwent cardiac catheterization. White blood cell count has almost normalized overnight. CURRENT MEDICATIONS: 1. Cefepime, day #3. 2. Vancomycin, day #3. OBJECTIVE: VITAL SIGNS: Temperature 36.6, T-max 36.8, respi rations 21, heart rate 73, blood pressure 104/67. ALLERGIES: NO KNOWN DRUG ALLERGIES. PAST MEDICAL HISTORY: 1. Hyperlipidemia. 2. Coronary artery disease. 3. Back pain. 4. Diabetes mellitus type 2. PAST SURGICAL HISTORY: Back surgery. SOCIAL HISTORY: Lifelong nonsmoker. FAMILY HISTORY: Reviewed and noncontributory. REVIEW OF SYSTEMS: CONSTITUTIONAL: No recent fevers or chills. EYES: No blurry or double vision. HEENT: No sore throat, dysphagia, or odynophagia . No ear discharge, earache, or URI. PATIENT NAME: CLAUDIA CHA 577 CARDIOVASCULAR: No chest pain, pressure, or palp itations. RESPIRATORY: No cough or sputum production. GASTROINTESTINAL: No nausea, vomiting, or diarrh ea. GENITOURINARY: No dysuria, polyuria, or burning urination. MUSCULOSKELETAL: Back pain. INTEGUMENTARY: No rashes or itching. NEUROLOGIC: No numbness or tingling. PSYCHIATRIC: No sleeplessness or symptoms of dep ression. ENDOCRINE: Hyperlipidemia and diabetes mellitus. HEMATOLOGIC AND LYMPHATIC: No history of underly ing malignancy. ALLERGIC AND IMMUNOLOGIC: No history of seasonal allergies. PHYSICAL EXAMINATION: GENERAL: This is a well-nourished woman sitting up in bed, in no acute distress. HEAD: Normocephalic and atraumatic with no signi ficant alopecia noted. EYES: Sclerae are anicteric. MOUTH, NOSE, AND THROAT: Mucous membranes are pi nk and moist. NECK: Supple. Trachea midline. CHEST: Atraumatic. ABDOMEN: Nontender. GENITOURINARY: There is no Anderson catheter in chata ce. EXTREMITIES: Peripheral IVs. LABORATORY STUDIES: White blood cell count 12.2, hemoglobin 11, and platelets 115. BUN 27, creatinine 1.1, glucose 111. Blood cultures are negative. IMPRESSION: 1. Leukocytosis. 2. Diabetes mellitus type 2. PLAN: I suspect the leukocytosis was a leukemoid reaction from a variety of different sources including the recent surgery, anesthesia, and the cardiac event. No evidence of an underlying infection. W e will discontinue antibiotics. Dictated By: Susana Thacker MD WT: CON:KY/RK/RAFFY Conf#: [id number]/DID#: [id number] Authenticated by Susana Thacker MD On 08/09/2021 0 9:32:58 AM Electronically Signed by Susana Thacker MD on at 0932 PATIENT NAME: CLAUDIA CHA 577 2021-08-01 09:29:00-00:00 [facility] Hospitalist Progress Note REPORT#:[id number] REPORT STATUS: Signed DATE:08/01/21 TIME: 928 PATIENT: CLAUDIA CHA UNIT #: [id number] ROOM/BED: [address] : 42 AGE: 81 SEX: F ATTEND: Al Buckner MD ADM AUTHOR: Royce Ordonez MD R1 * ALL edits or amendments must be made on the [employer]/computer document * Royce Ordonez 08/01/21 0929: Subjective Chief complaint: NSTEMI, sepsis - from OSH Comments: Overnight, no acute events. She reports having s imilar chronic back pain,. dizziness, and chronic blurry eye vision . This morning, denies any headache or chest pain. Review of Systems Constitutional: Denies: chills, fever. Respiratory: Denies: non productive cough, productive cough ( sputum), SOB. Cardiovascular: Denies: chest pain, edema. Neuro: Reports: dizziness. All systems rev neg: except as marked Objective General VS/I O: Vital Signs: Date Time Temp Pulse Resp B/P B/P Pulse O2 O2 F low FiO2 Mean Ox Delivery Rate 08/01 0756 Nasal 2 cannula 08/01 0652 97.9 73 21 104/67 79.4 96 Room air 08/01 0316 97.2 93 18 106/68 80.4 97 07/31 2323 98.2 84 18 103/64 77.2 94 07/31 1848 97.7 85 18 123/77 92.1 91 07/31 1607 98.4 83 19 129/82 97.9 94 Room air 07/31 1117 99.0 86 19 114/75 88.4 87 Room air 24 hour I O ending at 0700: 08/01 0700 07/31 1900 Intake Total 900.00 Output Total Balance 900.00 Intake, IV 750.00 Intake, Oral 150 PATIENT WEIGHT: Weight (lb): Weight (oz): Weight (kg): 81.818 Physical Exam General appearance: alert, awake Head/Eyes: atraumatic, normocephalic Neck: no JVD, no masses or swelling Cardiovascular: normal heart sounds, regular rat e rhythm Respiratory: clear to auscultation, symmetric ex pansion, no distress Abdomen: tenderness, Left mid abdomen in cision with TTP at site of intrathecal pump . No drainage or erythema noted. Dressing d ry and intact. 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 3, normal speech Skin: dry, intact, normal color Psychiatry: unable to evaluate Results Findings/Data: Laboratory Tests 07/31 07/31 07/31 07/31 07/31 1421 1415 1413 1403 1400 Blood Gas O2 Saturation (92.0 - 98.5 %) 95.5 ABG pH (7.35 - 7.45) 7.422 ABG pCO2 (35.0 - 45.0 mmHg) 35.9 ABG pO2 (75.0 - 100.0) 76.5 ABG HCO3 (20.0 - 26.0 MMOL/L) 23.4 ABG Base Excess (-3.0 - 3.0 -0.7 MMOL/L) VBG pH (7.35 - 7.45) 7.412 7.410 7.414 7.407 VBG pCO2 (35.0 - 45.0 mmHg) 40.2 39.4 39.1 41.3 VBG pO2 (0 - 40 mmHG) 36.2 37.1 34.2 38.0 VBG HCO3 (20 - 26 MMOL/L) 25.6 25.0 25.1 26.0 VBG O2 Saturation (72 - 77 %) 70.0 L 71.4 L 66. 8 L 72.4 VBG Base Excess (-3.0 - 3.0 0.9 0.3 0.5 1.1 MMOL/L) Instrument (Specimen Descript) Venous Venous Ve nous Venous Arterial Laboratory Tests 08/01 08/01 07/31 07/31 07/31 0648 0538 1846 1605 1126 Chemistry Sodium (137 - 145 MMOL/L) 140 Potassium (3.5 - 5.1 MMOL/L) 3.5 Chloride (98 - 107 MMOL/L) 109 H Carbon Dioxide (22 - 30 MMOL/L) 27 Anion Gap (14 - 24 MMOL/L) 8 L BUN (7 - 17 MG/DL) 27 H Creatinine (0.52 - 1.04 MG/DL) 1.10 H Glomerular Filtr Rate 48 Glucose (74 - 106 MG/DL) 111 H POC Glucose (60 - 99 MG/DL) 92 161 H 129 H 131 H Calcium (8.4 - 10.2 MG/DL) 8.8 Laboratory Tests 08/01 0538 Hematology WBC (3.8 - 9.8 K/MM3) 12.2 H RBC (3.58 - 4.97 M/MM3) 3.69 Hgb (11.2 - 14.9 G/DL) 11.4 Hct (33.2 - 43.5 %) 36.2 MCV (80.7 - 99.1 fL) 98 MCH (27.0 - 34.1 pg) 30.9 MCHC (32.2 - 35.7 %) 31.5 L RDW (12.1 - 15.2 %) 13.8 Plt Count (129 - 368 K/MM3) 115 L MPV (7.4 - 10.4 fl) 11.4 H Neut % (Auto) (43 - 75 %) 68.2 Lymph % (Auto) (14 - 44 %) 19.3 [place] % (Auto) (4 - 13 %) 10.7 Eos % (Auto) (0 - 6 %) 0.8 Baso % (Auto) (0 - 2 %) 0.7 Neut # (Auto) (2.0 - 7.6 K/mm3) 8.27 H Lymph # (Auto) (1.0 - 3.8 K/mm3) 2.35 [place] # (Auto) (0.1 - 0.8 K/mm3) 1.30 H Eos # (Auto) (0.0 - 0.2 K/mm3) 0.10 Baso # (Auto) (0.0 - 0.2 K/mm3) 0.09 Immature Gran % (0.0 - 2.0 %) 0.3 Nucleated RBC % (0 - 1.0 %) 0.0 Nucleated RBCs # (Man) (0.0 - 0.1 K/mm3) 0.00 Laboratory Tests 07/31 1225 Serology SARS-CoV-2 Ag (Rapid) (Negative) NEGATIVE Laboratory Tests 08/01 0538 Toxicology Vancomycin Trough (10.0 - 20.0 UG/ML) 13.6 Diagnosis, Assessment Plan Free Text DxA P Notes Free text DxA P notes: 81 y/o F with HTN, DM, CAD s/p PCI (8 years ago) , chronic back pain w/hx of multiple spinal surgeries on intrathecal pump (s/p intrathecal pump replacement on 07/29/2021) who presents to the ER wi th sepsis and NSTEMI cardiology workup #Sepsis: severe - w/ organ dysfunction, ALISSA, lyssa vated trops, lactic acidosis, change in MS. Suspected source- unknown at the moment, likely intrathecal pump site infection. -Admit to telemetry for aggressive IV hydration -continue empiric IV abx -ID consulted and following -BC: NGTD #ACS, NSTEMI: Elevated troponins, ECG with T-wav e inversions in the inferiolateral leads, no STEMI. Could partly be due to underlying sepsis, however, given hx of CAD and trending troponins, NSTEMI is likely. -cont aspirin and coreg -cont home rosuvastatin -Admit to telemetry. -d/c therapeutic Lovenox -start plavix 75mg daily -carotid U/S: 1-19% stenosis R internal carotid and L internal carotid -cards consulted and cleared for discharge #ALISSA, likely 2/2 underlying sepsis. No Baseline sCr unknown. -Trend sCr -Avoid nephrotoxic agents. -Strict I/Os. #Elevated BP, no known hx of HTN. Not on any ant ihypertensives at the moment. -change Coreg to 3.125 mg BID -PRN antihypertensives. -Consider starting ACEIs/ARBs once kidney functi on is stable. #Hx of T2DM/Prediabetes: Diet controlled. Last A 1C unknown. -Check A1C. -SSI and regular accuchecks #Insomnia -cont home meds trazadone 50mg qPM -melatonin 3mg qPM Diet: cardiac DVT PPX: Lovenox Quality: Gen Med Crit Care VTE Prophylaxis VTE prophylaxis initiated: yes (mechanical comp device) Current Medications Current medication review: I attest that the foregoing medication list in t he medical record is true, accurate, and complete to the best of my knowled ge. Advanced Care Plan 65 or Older Discussion included: code status Smitha Buckner 08/01/21 1403: Attestations Teaching Physician Attestation F/U visit w/ resident: I saw the patient with the resident and . . . agree with the resident's findings and plan. agree with the resident's findings and plan EXCE PT: ==c/o dizziness. will check for orthostatic VS. CTH ==ALISSA- continue to monitor at 0948 Electronically Signed by Smitha Buckner MD on at 1937 RPT #:[id number] END OF REPORT 2021-07-31 16:00:00-00:00 [id number] [place] [address] PATIENT NAME: CLAUDIA CHA ADMIT DATE: 07/30/21 ACCOUNT NO: [id number] ROOM NO: [facility] AGE: 81 REPORT TYPE: eCAROTID ULTRASOUND SEX: F ADMITTING PHYSICIAN:Smitha Buckner MD ATTENDING PHYSICIAN:Smitha Buckner MD *[facility]* [address] [place], [place] [id number] Carotid Duplex Study Patient: Claudia Cha Study Date: 07/31/2021 BP: 129 / 87 Location: [facility] URN: [id number] : 1940 Age: 81 Height: 67 in / 170.2 cm Gender: F Weight: 179 .6 lb / 81.6 kg BMI/BSA: 28.2 kg/m 2 / 1.98 m 2 *Ordering Physician: * Cesar Alexander MD *Interpreting Physician: * Cesar Alexander MD *Rda: * Tia Kimbrough RDCS, T Indications: Carotid bruit. Study data: Carotid duplex study. Bilateral eval uation with grayscale 2D imaging, color Doppler imaging, and spectral Doppler analysis. Location: Bedside. Patient status: Inpatient. Meredith bates room number: 425. Procedure: A vascular evaluation was perfor med. Images were obtained using a [employer] vascular ultrasound machine. Image quality was adequate. Study status: Routine. Findings Carotid/vertebral arteries: Right common carotid: The vessel has minimal chata que. Right internal carotid: The vessel has minimal p laque. Proximal vessel lesion: There is a 1-19%stenosis. Right external carotid: The vessel has plaque. L esion: There is a 20-39%stenosis. PATIENT NAME: CLAUDIA CHA 577 Right vertebral: The arterial flow direction is antegrade. Left vertebral: The arterial flow direction is a ntegrade. Left common carotid: The vessel has minimal plaq ue. Left internal carotid: The vessel has minimal pl aque. Proximal vessel lesion: There is a 1-19%stenosis. Left external carotid: The vessel has minimal pl aque. Arterial flow: Location PSV* EDV* PSV Stenosis Location PSV* ED V* PSV Stenosis ratio ratio R CCA, prox 54 15 ----- -------- L CCA, 50 14 -- --- -------- prox R CCA, 45 14 ----- -------- L CCA, 49 16 ----- - ------- distal distal R ICA, prox 50 19 0.91 1-19% L ICA, 34 11 0.68 1 -19% prox R ICA, 54 21 0.99 -------- L ICA, 69 30 1.38 --- ----- distal distal R ECA 50 5 ----- 20-39% L ECA 69 8 ----- ------- - R vertebral 33 11 ----- -------- L 32 10 ----- - ------- vertebra l *Velocities are expressed in cm/sec, Diameters are expressed in cm Conclusions 1. Study suggests 1-19% stenosis involving the r ight internal carotid artery and left internal carotid artery. 2. Antegrade flow noted in the right vertebral a rtery and left vertebral artery. Prepared and electronically signed by Cesar Alexander MD 07/31/2021 16:00 Electronically Signed by Cesar Alexander Jr, MD o n 07/31/21 at 1600 PATIENT NAME: CLAUDIA CHA 577 2021-07-31 15:59:00-00:00 [id number] [place] [address] PATIENT NAME: CLAUDIA CHA ADMIT DATE: 07/30/21 ACCOUNT NO: [id number] ROOM NO: [facility] AGE: 81 REPORT TYPE: ECHOCARDIOGRAM SEX: F ADMITTING PHYSICIAN:Smitha Buckner MD ATTENDING PHYSICIAN:Smitha Buckner MD *[facility]* [address] [place] [address] Transthoracic Echocardiogram Patient: Claudia Cha Study Date: 07/31/2021 BP: 129 / 87 Location: [facility] URN: [id number] : 1940 Age: 81 Height: 67 in / 170.2 cm Gender: F Weight: 179 .6 lb / 81.6 kg BMI/BSA: 28.2 kg/m 2 / 1.98 m 2 *Ordering Physician: * Brian Jean R3 *Interpreting Physician: * Cesar Alexander MD *Rda: * Tia Kimbrough RD, Sarkis Indications: Nstemi. Study data: Transthoracic echocardiogram. Proced ure: Transthoracic echocardiography was performed. Images were obta ined using a [employer] cardiac ultrasound machine. Image quality was suboptimal . M-mode, complete 2D, complete spectral Doppler, and color Doppler. Lo cation: Bedside. Patient status: Inpatient. Patient room number: 425. Study status: Routine. Findings Left ventricle: The cavity size is normal. Wall thickness is mildly increased. The estimated ejection fraction is 45 % Regional wall motion abnormalities: moderate hypokinesis of anterosep jarad myocardium Pulmonary venous flow is not recorded. Doppler p arameters are consistent with restrictive physiology, indicative of decre ased left ventricular PATIENT NAME: CLAUDIA CHA 577 diastolic compliance and/or increased left atria l pressure. Right ventricle: The cavity size is normal. Syst olic function is normal. Systolic pressure is moderately increase d. The estimated peak pressure is 57 mm Hg (moderate pulmonary hyperte nsion). Left atrium: The atrium is mildly dilated. Right atrium: The atrium is normal in size. Atrial septum: There is a possible interatrial s joseph. Doppler shows a enud-yc-ayguz shunt. Aortic valve: The valve is trileaflet. The leafl ets are mildly thickened and mildly calcified. There is no sign ificant regurgitation. Mitral valve: The leaflets are mildly thickened. There is mild to moderate regurgitation. Tricuspid valve: The leaflets are normal thickne ss. There is mild-moderate regurgitation. Pulmonic valve: The leaflets are normal thicknes s. There is mild regurgitation. Pericardium: There is no pericardial effusion. N o evidence of pleural fluid accumulation. Measurements Left ventricle Value Ref ZULY, LAX 4.8 cm 3.8 - 5.2 ESD, LAX 4.2 cm 2.2 - 3.5 ESD/bsa, LAX 2.1 cm/m 2 1.3 - 2.1 FS, LAX 12 % 27 - 45 ESD/bsa major ax, 2.7 cm/m 2 -------- A4C ZULY/bsa minor ax, 2.7 cm/m 2 -------- A4C ZULY major ax, A2C 6.1 cm -------- ESD major ax, A2C 5.6 cm -------- ZULY/bsa major ax, 3.1 cm/m 2 -------- A2C ESD/bsa major ax, 2.8 cm/m 2 -------- A2C PW, ED 1.2 cm 0.6 - 0.9 PW, ES 1.6 cm -------- IVS/PW, ED 1.06 -------- EF 27 % 54 - 74 LVOT Value Ref Diam, S 1.83 cm -------- Area 2.6 cm 2 -------- Peak tabitha, S 0.78 m/sec -------- Mean tabitha, S 0.62 m/sec -------- VTI, S 17.2 cm -------- Peak grad, S 2 mm Hg -------- Mean grad, S 2 mm Hg -------- PATIENT NAME: CLAUDIA CHA 577 SV 45 ml -------- Qs 4.06 L/min -------- Qs/bsa 2 L/(min-m 2) -------- SV/bsa 23 ml/m 2 -------- Ventricular septum Value Ref IVS, ED 1.3 cm 0.6 - 0.9 IVS, ES 1.4 cm -------- Right ventricle Value Ref ZULY, LAX 2.2 cm -------- Pressure, S 52 mm Hg -------- Aortic valve Value Ref Leaflet sep, MM 1.62 cm -------- Peak v, S 1.11 m/sec -------- Mean v, S 0.81 m/sec -------- VTI, S 25.1 cm -------- Mean grad, S 2.8 mm Hg -------- Peak grad, S 4.9 mm Hg -------- LVOT/AV, VTI ratio 0.69 -------- BARBARA, VTI 2.37 cm 2 -------- LVOT/AV, Vpeak 0.71 -------- ratio BARBARA, Vmax 1.90 cm 2 -------- Mitral valve Value Ref Peak E 0.73 m/sec -------- Peak A 0.38 m/sec -------- Mean v, D 0.67 m/sec -------- VTI leaflet coapt 20.0 cm -------- Decel time 141 ms -------- PHT 62 ms -------- Mean grad, D 2.0 mm Hg -------- Peak grad, D 4.5 mm Hg -------- Peak E/A ratio 1.91 -------- MVA, PHT 3.6 cm 2 -------- MR peak v 4.77 m/sec -------- Pulmonic valve Value Ref WI peak v 2.04 m/sec -------- WI peak grad 17 mm Hg -------- WI v, ED 0.9 m/sec -------- WI decel time 1415 ms -------- WI PHT 410 ms -------- Tricuspid valve Value Ref TR peak v 3.31 m/sec <=2.8 Peak RV-RA grad, S 44 mm Hg -------- Aortic root Value Ref Root diam, ED MM 2.89 cm -------- PATIENT NAME: CLAUDIA CHA 577 Pulmonary artery Value Ref Pressure, S 48.9 mm Hg -------- Systemic veins Value Ref Estimated CVP 8 mm Hg -------- Conclusions Summary: 1. Left ventricle: The cavity size is normal. Wa ll thickness is mildly increased. The estimated ejection fraction is 4 5% Doppler parameters are consistent with restrictive physiology, ind icative of decreased left ventricular diastolic compliance and/or in creased left atrial pressure. 2. Regional wall motion abnormality: moderate hy pokinesis of anteroseptal myocardium 3. Right ventricle: Systolic pressure is moderat agusto increased. The estimated peak pressure is 57 mm Hg (moderate p ulmonary hypertension). 4. Left atrium: The atrium is mildly dilated. 5. Atrial septum: There is a possible interatria l shunt. Doppler shows a xacn-xl-hzrda shunt. 6. Mitral valve: There is mild to moderate regur gitation. 7. Tricuspid valve: There is mild-moderate regur gitation. Prepared and electronically signed by Cesar Alexander MD 07/31/2021 15:59 Electronically Signed by Cesar Alexander Jr, MD o n 07/31/21 at 1559 PATIENT NAME: CLAUDIA CHA 577 2021-07-31 14:28:00-00:00 [facility] Cardiology Progress Note REPORT#:[id number] REPORT STATUS: Signed DATE:07/31/21 TIME: 1428 PATIENT: CLAUDIA CHA UNIT #: [id number] ROOM/BED: [address] : 42 AGE: 81 SEX: F ATTEND: Al Buckner MD ADM AUTHOR: Cesar Alexander Jr, MD * ALL edits or amendments must be made on the [employer]/computer document * Subjective Chief complaint: chest pain sovb Objective General VS/I O: 24 hour I O ending at 0700: 07/31 0700 07/30 1900 Intake Total Output Total Balance Patient 81.818 kg Weight Weight Stated/Reported Measurement Method Vital Signs: Date Time Temp Pulse Resp B/P B/P Pulse O2 O2 F low FiO2 Mean Ox Delivery Rate 07/31 1117 99.0 86 19 114/75 88.4 87 Room air 07/31 0724 98.8 86 17 145/89 107.6 88 Room air 07/31 0310 98.6 97 18 129/87 101.1 93 07/30 2314 98.1 96 20 171/108 129.1 91 07/30 1439 98.6 107 18 182/117 138 99 Room air PATIENT WEIGHT: Weight (lb): Weight (oz): Weight (kg): 81.818 Physical Exam General appearance: alert, no acute distress Head/Eyes: normocephalic ENT: normal nose Neck: normal thyroid Cardiovascular: CV assessment: regular rate and rhythm Respiratory: no distress Abdomen: no distention Results Findings/Data: Laboratory Tests 07/31 07/31 07/31 07/31 07/31 1421 1415 1413 1403 1400 Blood Gas O2 Saturation (92.0 - 98.5 %) 95.5 ABG pH (7.35 - 7.45) 7.422 ABG pCO2 (35.0 - 45.0 mmHg) 35.9 ABG pO2 (75.0 - 100.0) 76.5 ABG HCO3 (20.0 - 26.0 MMOL/L) 23.4 ABG Base Excess (-3.0 - 3.0 MMOL/L) -0.7 VBG pH (7.35 - 7.45) 7.412 7.410 7.414 7.407 VBG pCO2 (35.0 - 45.0 mmHg) 40.2 39.4 39.1 41. 3 VBG pO2 (0 - 40 mmHG) 36.2 37.1 34.2 38.0 VBG HCO3 (20 - 26 MMOL/L) 25.6 25.0 25.1 26.0 VBG O2 Saturation (72 - 77 %) 70.0 L 71.4 L 66. 8 L 72.4 VBG Base Excess (-3.0 - 3.0 MMOL/L) 0.9 0.3 0.5 1.1 Instrument (Specimen Descript) Venous Venous Ve nous Venous Arterial Laboratory Tests 07/31 07/31 07/31 07/31 07/31 1126 0827 0827 0747 0720 Chemistry Sodium (137 - 145 MMOL/L) 144 Potassium (3.5 - 5.1 MMOL/L) 3.8 Chloride (98 - 107 MMOL/L) 113 H Carbon Dioxide (22 - 30 MMOL/L) 23 Anion Gap (14 - 24 MMOL/L) 12 L BUN (7 - 17 MG/DL) 21 H Creatinine (0.52 - 1.04 MG/DL) 0.90 Glomerular Filtr Rate 60 Glucose (74 - 106 MG/DL) 131 H POC Glucose (60 - 99 MG/DL) 131 H 132 H 125 H Mean Blood Glucose (70 - 110 MG/DL) 134 H Hemoglobin A1c (4.8 - 5.9 %) 6.3 H Calcium (8.4 - 10.2 MG/DL) 9.2 Triglycerides (150 - 199 MG/DL) 126 L Cholesterol (<200 MG/DL) 130 LDL Cholesterol Measurd (0 - 99 MG/DL) 38 HDL Cholesterol (40 - 59 MG/DL) 62 H 07/31 07/30 07/30 07/30 0018 2157 1741 1520 Chemistry POC Glucose (60 - 99 MG/DL) 128 H Lactic Acid (0.7 - 2.1 MMOL/L) 2.0 Troponin I (0.012 - 0.033 NG/ML) 18.400 *H 18.6 00 *H 07/30 1520 Chemistry Sodium (137 - 145 MMOL/L) 142 Potassium (3.5 - 5.1 MMOL/L) 4.0 Chloride (98 - 107 MMOL/L) 109 H Carbon Dioxide (22 - 30 MMOL/L) 22 BUN (7 - 17 MG/DL) 19 H Creatinine (0.52 - 1.04 MG/DL) 1.10 H Glomerular Filtr Rate 48 Glucose (74 - 106 MG/DL) 205 H Calcium (8.4 - 10.2 MG/DL) 9.8 Total Bilirubin (0.2 - 1.3 MG/DL) 0.7 Direct Bilirubin (0.0 - 0.3 MG/DL) 0.0 AST (14 - 36 UNITS/L) 87 H ALT (0 - 34 UNITS/L) 17 Total Alk Phosphatase (38 - 126 UNITS/L) 66 Troponin I (0.012 - 0.033 NG/ML) 15.400 *H Total Protein (6.3 - 8.2 G/DL) 8.1 Albumin (3.5 - 5.0 G/DL) 4.6 LDL Cholesterol (100 - 129 mg/dL) 40 L Lipase (23 - 300 UNITS/L) 88 Laboratory Tests 07/31 07/30 0827 1620 Hematology WBC (3.8 - 9.8 K/MM3) 23.7 H 25.7 H RBC (3.58 - 4.97 M/MM3) 4.45 4.67 Hgb (11.2 - 14.9 G/DL) 14.0 14.7 Hct (33.2 - 43.5 %) 42.7 44.8 H MCV (80.7 - 99.1 fL) 96 96 MCH (27.0 - 34.1 pg) 31.5 31.5 MCHC (32.2 - 35.7 %) 32.8 32.8 RDW (12.1 - 15.2 %) 13.9 13.6 Plt Count (129 - 368 K/MM3) 161 179 MPV (7.4 - 10.4 fl) 11.6 H 10.8 H Neut % (Auto) (43 - 75 %) 83.0 H 89.6 H Lymph % (Auto) (14 - 44 %) 6.2 L 3.3 L [place] % (Auto) (4 - 13 %) 9.7 6.2 Eos % (Auto) (0 - 6 %) 0.0 0.0 Baso % (Auto) (0 - 2 %) 0.4 0.2 Neut # (Auto) (2.0 - 7.6 K/mm3) 19.68 H 23.01 H Lymph # (Auto) (1.0 - 3.8 K/mm3) 1.46 0.85 L [place] # (Auto) (0.1 - 0.8 K/mm3) 2.29 H 1.58 H Eos # (Auto) (0.0 - 0.2 K/mm3) 0.00 0.00 Baso # (Auto) (0.0 - 0.2 K/mm3) 0.09 0.05 Immature Gran % (0.0 - 2.0 %) 0.7 0.7 Nucleated RBC % (0 - 1.0 %) 0.0 0.0 Nucleated RBCs # (Man) (0.0 - 0.1 K/mm3) 0.00 0 .00 Laboratory Tests 07/31 1225 Serology SARS-CoV-2 Ag (Rapid) (Negative) NEGATIVE Laboratory Tests 07/30 1735 Urines Urine Color (YELLOW) YELLOW Urine Appearance (CLEAR) CLEAR Urine pH (5.0 - 9.0) 5.0 Ur Specific Kirvin (1.003 - 1.030) 1.020 Urine Protein (NEGATIVE MG/DL) 30 H Urine Glucose (UA) (NORMAL MG/DL) 50 H Urine Ketones (NEGATIVE MG/DL) 5 Urine Blood (NEGATIVE Ryder/mm3) 25 H Urine Nitrite (NEGATIVE) NEGATIVE Urine Bilirubin (NEGATIVE MG/DL) NEGATIVE Urine Urobilinogen (NORMAL MG/DL) NORMAL Ur Leukocyte Esterase (NEGATIVE /mm3) NEGATIVE Urine RBC (0 - 3 RBC/HPF) 3-5 H Urine WBC (0 - 5 WBC/HPF) 0-3 Ur Epithelial Cells (FEW EPI/HPF) FEW Urine Bacteria (NONE) FEW Urine Culture Screen (Culture Chk Criteria) NO, WBC>10 EPI>25 Laboratory Tests 07/30 07/30 07/30 2157 1741 1520 Chemistry Troponin I (0.012 - 0.033 NG/ML) 18.400 *H 18.6 00 *H 15.400 *H Diagnosis, Assessment Plan Free Text DxA P Notes Free Text DxA P Notes: echo ?? shunt right and left heart cath left main short/ lad open / cx has stent open/ rca open high lateral infarct on LV angio ef 55% PA pressure 51 some pulmonary hypertension no shunt plan no angioseal bed rest 6 hours ok to dc in am from cardiac standpoint resume dap. at 1431 [facility] #:[id number] END OF REPORT 2021-07-31 14:25:00-00:00 [id number] [place] [address] PATIENT NAME: CLAUDIA CHA ADMIT DATE: 07/30/21 ACCOUNT NO: [id number] ROOM NO: [facility] AGE: 81 REPORT TYPE: OPERATIVE REPORT SEX: F ADMITTING PHYSICIAN:Smitha Buckner MD ATTENDING PHYSICIAN:Smitha Buckner MD OPERATION DATE: CLINICAL SUMMARY: The patien t admitted with a non-Q-wave myocardial infarction. PREOPERATIVE DIAGNOSIS: POSTOPERATIVE DIAGNOSIS: PROCEDURE: SURGEON: Cesar Alexander Jr., MD RECEPTION CLERK: ANESTHESIA: Consists of Versed 1 mg total in 2 s eparate boluses and local anesthesia. ESTIMATED BLOOD LOSS: 5 mL. CLOSURE DEVICE ATTEMPTED: Angio-Seal. DESCRIPTION OF PROCEDURE: Under aseptic conditio ns with the help of fluoroscopy, we inserted a 6 -[place] sheath in the right femoral artery and then a 7-[place] venous sheath in the right femoral ve in. We cannulated the left coronary system. Multiple views of this artery a re obtained with hand injection. The right coronary catheter w as used to cannulate the RCA. Multiple views of this artery were obtained with hand inj ection. LV angiogram was done with pigtail catheter using power injector in RA O and SANDRA projections. Later on, a Hinckley-Vicky catheter was used for cardiac output after we positioned in the PA position. We got wedge pressures and pullback pressures accordingly and saturations. FINDINGS: Include the following. 1. The cardiac output ranged from 4.1 to 5.0 ran ge. The preliminary saturations showed a PA saturation of 66 against an RA pressure saturation of 72. The average cardiac output was 4.47. 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 2. LV angiogram shows a high lateral infarct. CORONARY ANATOMY: Shows the following. The left main was very short. The left anterior descending artery, no significa nt disease. In circumflex, the site of a previous stent, we could see a hint of the jaleesa nt was patent. The right PATIENT NAME: CLAUDIA CHA 577 coronary artery as a dominant vessel was also pa tent without any significant disease. PA pressure was about 50 mm. CONCLUSION: 1. No significant coronary obstruction, patent c oronary stent, most likely in the circumflex position, high lateral infarct by LV angio, ejection fraction about 55% on average, looking much better in SANDRA , looking lower in the HARKINS position. 2. Pulmonary hypertension with a PA pressure of about 50 to 51. No clear cut shunt was detected on her saturations. Dictated By: Cesar Alexander Jr, MD WT: OP:KY/LEANN/RAFFY Conf#: [id number]/DID#: [id number] Authenticated by Cesar Alexander MD On 08/05/2021 01 :31:13 PM Electronically Signed by Cesar Alexander Jr, MD o n 08/05/21 at 0131 PATIENT NAME: CLAUDIA CHA 577 2021-07-31 14:21:00-00:00 [id number] [place] [address] PATIENT NAME: CLAUDIA CHA ADMIT DATE: 07/30/21 ACCOUNT NO: [id number] ROOM NO: [facility] AGE: 81 REPORT TYPE: PROGRESS NOTE SEX: F ADMITTING PHYSICIAN:Smitha Buckner MD ATTENDING PHYSICIAN:Smitha Buckner MD DATE: 07/31/2021 SUBJECTIVE: I attempted to see Ms. Cha today in consultation. 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 I will try again later. Dictated By: Susana Thacker MD WT: PN:KY/RK/RAFFY Conf#: [id number]/DID#: [id number] Authenticated by Susana Thacker MD On 08/09/2021 0 9:32:56 AM Electronically Signed by Susana Thacker MD on at 0932 PATIENT NAME: CLAUDIA CHA 577 2021-07-31 10:18:00-00:00 [facility] ([facility]) Hospitalist Progress Note REPORT#:[id number] REPORT STATUS: Signed DATE:07/31/21 TIME: 1018 PATIENT: CLAUDIA CHA UNIT #: [id number] ROOM/BED: [address] : 42 AGE: 81 SEX: F ATTEND: Al Buckner MD ADM AUTHOR: Royce Ordonez MD R1 * ALL edits or amendments must be made on the [employer]/computer document * Royce Ordonez 07/31/21 1018: Subjective Chief complaint: sepsis Comments: Overnight, no acute events. This morning, she reports feeling dizzy and a little SOB. Denies any fevers, chil ls, cough, back pain, and nausea/vomiting. Otherwise , no new complaints. Review of Systems Constitutional: Denies: chills, fever. Respiratory: Denies: non productive cough, productive cough ( sputum), SOB. Cardiovascular: Denies: chest pain, edema. GI: Denies: abdominal pain, nausea, vomiting. Musculoskeletal: Other musculoskeletal: Reports: lumbar pain. Neuro: Reports: dizziness. All systems rev neg: except as marked Objective General VS/I O: Vital Signs: Date Time Temp Pulse Resp B/P B/P Pulse O2 O2 F low FiO2 Mean Ox Delivery Rate 08/01 723 98.8 86 17 145/89 107.6 88 Room air 07/31 0310 98.6 97 18 129/87 101.1 93 07/30 2314 98.1 96 20 171/108 129.1 91 07/30 1439 98.6 107 18 182/117 138 99 Room air 24 hour I O ending at 0700: 07/31 0707/30 1900 Intake Total Output Total Balance Patient 81.818 kg Weight Weight Stated/Reported Measurement Method PATIENT WEIGHT: Weight (lb): Weight (oz): Weight (kg): 81.818 Physical Exam General appearance: alert, awake Head/Eyes: atraumatic, normocephalic Neck: no JVD, no masses or swelling Cardiovascular: tachycardic, normal heart sounds Respiratory: clear to auscultation, symmetric ex pansion, no distress Abdomen: tenderness, Left mid abdomen in cision with TTP at site of intrathecal pump . No drainage or erythema noted. Dressing d ry and intact. 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 3, normal speech Skin: dry, intact, normal color Results Findings/Data: Laboratory Tests 07/31 07/31 07/31 07/31 07/30 0827 0747 0720 0014 2823 Chemistry Sodium (137 - 145 MMOL/L) 144 Potassium (3.5 - 5.1 MMOL/L) 3.8 Chloride (98 - 107 MMOL/L) 113 H Carbon Dioxide (22 - 30 MMOL/L) 23 Anion Gap (14 - 24 MMOL/L) 12 L BUN (7 - 17 MG/DL) 21 H Creatinine (0.52 - 1.04 MG/DL) 0.90 Glomerular Filtr Rate 60 Glucose (74 - 106 MG/DL) 131 H POC Glucose (60 - 99 MG/DL) 132 H 125 H 128 H Calcium (8.4 - 10.2 MG/DL) 9.2 Troponin I (0.012 - 0.033 NG/ML) 18.400 *H Triglycerides (150 - 199 MG/DL) 126 L Cholesterol (<200 MG/DL) 130 LDL Cholesterol Measurd (0 - 99 MG/DL) 38 HDL Cholesterol (40 - 59 MG/DL) 62 H 08 07/30 07/30 1741 1520 1520 Chemistry Sodium (137 - 145 MMOL/L) 142 Potassium (3.5 - 5.1 MMOL/L) 4.0 Chloride (98 - 107 MMOL/L) 109 H Carbon Dioxide (22 - 30 MMOL/L) 22 BUN (7 - 17 MG/DL) 19 H Creatinine (0.52 - 1.04 MG/DL) 1.10 H Glomerular Filtr Rate 48 Glucose (74 - 106 MG/DL) 205 H Lactic Acid (0.7 - 2.1 MMOL/L) 2.0 Calcium (8.4 - 10.2 MG/DL) 9.8 Total Bilirubin (0.2 - 1.3 MG/DL) 0.7 Direct Bilirubin (0.0 - 0.3 MG/DL) 0.0 AST (14 - 36 UNITS/L) 87 H ALT (0 - 34 UNITS/L) 17 Total Alk Phosphatase (38 - 126 UNITS/L) 66 Troponin I (0.012 - 0.033 NG/ML) 18.600 *H 15. 400 *H Total Protein (6.3 - 8.2 G/DL) 8.1 Albumin (3.5 - 5.0 G/DL) 4.6 LDL Cholesterol (100 - 129 mg/dL) 40 L Lipase (23 - 300 UNITS/L) 88 Laboratory Tests 07/31 07/30 0827 1620 Hematology WBC (3.8 - 9.8 K/MM3) 23.7 H 25.7 H RBC (3.58 - 4.97 M/MM3) 4.45 4.67 Hgb (11.2 - 14.9 G/DL) 14.0 14.7 Hct (33.2 - 43.5 %) 42.7 44.8 H MCV (80.7 - 99.1 fL) 96 96 MCH (27.0 - 34.1 pg) 31.5 31.5 MCHC (32.2 - 35.7 %) 32.8 32.8 RDW (12.1 - 15.2 %) 13.9 13.6 Plt Count (129 - 368 K/MM3) 161 179 MPV (7.4 - 10.4 fl) 11.6 H 10.8 H Neut % (Auto) (43 - 75 %) 83.0 H 89.6 H Lymph % (Auto) (14 - 44 %) 6.2 L 3.3 L [place] % (Auto) (4 - 13 %) 9.7 6.2 Eos % (Auto) (0 - 6 %) 0.0 0.0 Baso % (Auto) (0 - 2 %) 0.4 0.2 Neut # (Auto) (2.0 - 7.6 K/mm3) 19.68 H 23.01 H Lymph # (Auto) (1.0 - 3.8 K/mm3) 1.46 0.85 L [place] # (Auto) (0.1 - 0.8 K/mm3) 2.29 H 1.58 H Eos # (Auto) (0.0 - 0.2 K/mm3) 0.00 0.00 Baso # (Auto) (0.0 - 0.2 K/mm3) 0.09 0.05 Immature Gran % (0.0 - 2.0 %) 0.7 0.7 Nucleated RBC % (0 - 1.0 %) 0.0 0.0 Nucleated RBCs # (Man) (0.0 - 0.1 K/mm3) 0.00 0 .00 Laboratory Tests 07/30 1735 Urines Urine Color (YELLOW) YELLOW Urine Appearance (CLEAR) CLEAR Urine pH (5.0 - 9.0) 5.0 Ur Specific Kirvin (1.003 - 1.030) 1.020 Urine Protein (NEGATIVE MG/DL) 30 H Urine Glucose (UA) (NORMAL MG/DL) 50 H Urine Ketones (NEGATIVE MG/DL) 5 Urine Blood (NEGATIVE Ryder/mm3) 25 H Urine Nitrite (NEGATIVE) NEGATIVE Urine Bilirubin (NEGATIVE MG/DL) NEGATIVE Urine Urobilinogen (NORMAL MG/DL) NORMAL Ur Leukocyte Esterase (NEGATIVE /mm3) NEGATIVE Urine RBC (0 - 3 RBC/HPF) 3-5 H Urine WBC (0 - 5 WBC/HPF) 0-3 Ur Epithelial Cells (FEW EPI/HPF) FEW Urine Bacteria (NONE) FEW Urine Culture Screen (Culture Chk Criteria) NO, WBC>10 EPI>25 Radiology data: Recent Impressions: RADIOLOGY - XR CHEST 1V 07/30 1520 Report Impression - Status: SIGNED Entered: 07/30/2021 1543 IMPRESSION: 1. Suboptimal positioning and low lung volumes l imits evaluation. 2. Mild bilateral perihilar opacities, favored t o represent a combination of vascular crowding and atelectatic change, given low lung volumes. Impression By: [email or web address] - Phil Faulkner MD RADIOLOGY - XR CHEST 1V 07/31 0910 Report Impression - Status: SIGNED Entered: 07/31/2021 0933 IMPRESSION: Mild nonspecific coarsening of interstitial florin ings. Impression By: [email or web address] - Mile Stevens MD Diagnosis, Assessment Plan Free Text DxA P Notes Free text DxA P notes: 81 y/o F with HTN, DM, CAD s/p PCI (8 years ago) , chronic back pain w/hx of multiple spinal surgeries on intrathecal pump (s/p intrathecal pump replacement on 07/29/2021) who presents to the ER with sepsi s and NSTEMI undergoing cardiology workup #Sepsis: severe - w/ organ dysfunction, ALISSA, lyssa vated trops, lactic acidosis, change in MS. Suspected source- unknown at the moment, likely intrathecal pump site infection. -Admit to telemetry for aggressive IV hydration -continue empiric IV abx -ID consulted -BC pending #ACS, NSTEMI: Elevated troponins, ECG with T-wav e inversions in the inferiolateral leads, no STEMI. Could partly be due to underlying sepsis, however, given hx of CAD and trending troponins, NSTEMI is likely. -cont aspirin and coreg -cont home rosuvastatin -Admit to telemetry. -Started on therapeutic Lovenox -Cardiology consulted -pending Cath results #ALISSA, likely 2/2 underlying sepsis. No Baseline sCr unknown. -Trend sCr -Avoid nephrotoxic agents. -Strict I/Os. #Elevated BP, no known hx of HTN. Not on any ant ihypertensives at the moment. -Start Coreg 12.5 mg BID. -PRN antihypertensives. -Consider starting ACEIs/ARBs once kidney functi on is stable. #Hx of T2DM/Prediabetes: Diet controlled. Last A 1C unknown. -Check A1C. -SSI and regular accuchecks #Insomnia -cont home meds trazadone 50mg qPM -melatonin 3mg qPM Diet: cardiac DVT PPX: Lovenox Quality: Gen Med Crit Care VTE Prophylaxis VTE prophylaxis initiated: yes (mechanical comp device) Current Medications Current medication review: I attest that the foregoing medication list in t he medical record is true, accurate, and complete to the best of my knowled ge. Smitha Buckner 07/31/212020: Attestations Teaching Physician Attestation F/U visit w/ resident: I saw the patient with the resident and . . . agree with the resident's findings and plan. agree with the resident's findings and plan EXCE PT: at 1430 Electronically Signed by Smitha Buckner MD on 03/15 at 0517 RPT #:[id number] END OF REPORT 2021-07-30 21:05:00-00:00 [facility] ([facility]) Clinical Note REPORT#:[id number] REPORT STATUS: Signed DATE:07/30/21 TIME: 2104 PATIENT: CLAUDIA CHA UNIT #: [id number] ROOM/BED: [place] [address] : 42 AGE: 81 SEX: F ATTEND: Chelsi Buckner MD ADM AUTHOR: Cesar Alexander Jr, MD * ALL edits or amendments must be made on the el [employer]/computer document * Clinical Note Note: [id number] at 2106 RPT #:[id number] END OF REPORT 2021-07-30 21:05:00-00:00 [id number] [place] [id number] PATIENT NAME: CLAUDIA CHA ADMIT DATE: 07/30/21 ACCOUNT NO: [id number] ROOM NO: [facility] AGE: 81 REPORT TYPE: CONSULTATION REPORT SEX: F ADMITTING PHYSICIAN:Smitha Buckner MD ATTENDING PHYSICIAN:Smitha Buckner MD CONSULTATION DATE: CONSULTING PHYSICIAN: Cesar Alexander Jr, MD CARDIOLOGY NOTE HISTORY OF PRESENT ILLNESS: A 81-year-old female admitted for some dizziness and weakness and was admitted and seen in [facility] in the setting of a non-STEMI. On review of systems, she was transferre d from 2 other hospitals including [facility]. Apparently, they were not sure what to d o with her according to the daughter, she has had worsening fatigue, loose s tool recently. REVIEW OF SYSTEMS: NEUROLOGIC: No overt seizure or paralysis. CARDIAC: Some chest pains are noted. Some mild s hortness of breath. GASTROINTESTINAL: Negative for active nausea, vo miting, or diarrhea. GENITOURINARY: Negative for hematuria or dysuria . RESPIRATORY: Remarkable for mild shortness of br eath and fatigue. Troponin has gone up to 18. Some protein uria is noted. Some blood in the urine maybe. LABORATORY DATA: White cell count is 25,000, hem oglobin is 14, platelet count is 179. Creatinine is 1.1. LDL is 40, lipase is 80. A chest x-ray was done and it shows bilateral perihilar opacities. Whet her it is atelectasis or not, it is hard to say. PLAN AND MANAGEMENT: Different options w ere discussed with the family in light of previous stenting, chest pain and some elevated enzymes. Question is whether we go back with an angiography and possible repe at PCI. This was explained. The risks and benefits were discussed with the capri herrmann and the patient, they are inclined to proceed. We will set up for shawn ography the next day or so depending clinical setting tomorrow. Stat make available as soon as possible. In the meantime, using beta-blockers, aspirin, statins would be in order. Continue ant ibiotics in case there is an infection. Serial chest x-ray may be in order as well. Stat make available as soon as possible. PATIENT NAME: CLAUDIA CHA 577 Dictated By: Cesar Alexander Jr, MD WT: CON:KY/LEANN/RAFFY Conf#: [id number]#: [id number] Authenticated by Cesar Alexander MD On 08/05/2021 01 :31:12 PM Electronically Signed by Cesar Alexander Jr, MD o n 08/05/21 at 0131 PATIENT NAME: CLAUDIA CHA 89 2021-07-30 16:59:00-00:00 [facility] ([facility]) Hospitalist History Physical REPORT#:[id number] REPORT STATUS: Signed DATE:07/30/21 TIME: 1658 PATIENT: CLAUDIA CHA UNIT #: [id number] ROOM/BED: [address] : 42 AGE: 81 SEX: F ATTEND: Al Buckner MD ADM AUTHOR: Brian Jean MD R3 * ALL edits or amendments must be made on the [employer]/computer document * Brian Jean 07/30/21 165: History of Present Illness HPI HPI: 81 y/o F with hx of MA s/p P CI (8 years ago), borderline T2DM, chronic back pain with hx of multiple back surgeries on intratheca l pump presents as a transfer from an outside facility for sepsis and elevated troponins. Majority of the history was obtained from meredith bates's daughter at bedside given patient's status. Patient had the intrathecal pump changed yesterd ay at an outside surgical facility. Patient was discharged home on the day but later that night developed abdominal pain, n/v, and confusion. e was taken to the ER and was found to have elevated WBC count and lactic acid . Patient also have elevated Troponin with T-wave inversi ons in the anterolateral leads. Here, patient's SBP was found to be in the high 180s. WBCs remain el evated but slightly improved. Her troponins increased to 15. Cardiology was co nsulted for possible NSTEMI. Broad spectrum abx were resumed and patient was started on IVFs. History Social History Smoking status: Smoking status for patients 13 years old or old er: Never Smoker Medication/Allergy-Vaccine Hx Allergies: Coded Allergies: No Known Allergies (07/30/21) Review of Systems Constitutional: Reports: chills, fatigue, fever. Respiratory: Denies: productive cough (sputum), SOB. Cardiovascular: Denies: edema, palpitations. GI: Reports: abdominal pain. Denies: constipation, d iarrhea. : Denies: dysuria, hematuria. Neuro: Reports: confusion. All systems rev neg: except as noted Physical Exam VS/I O: Vital Signs Date Temp Pulse Resp B/P B/P Mean Pulse Ox FiO 2 07/30 98.6 107 18 182/117 138 99 Last Documented: Result Date Time Pulse Ox 99 07/30 1439 B/P 182/117 07/30 1439 B/P Mean 138 / 1439 O2 Delivery Room air 07/30 143 Temp 98.6 07/30 1439 Pulse 107 07/30 1439 Resp 18 07/30 1439 Patient Weight and BMI Weight (kg): 81.818 BMI: 28.3 General appearance: altered mental status, awake , no acute distress Head/Eyes: atraumatic, normocephalic Neck: no JVD, no masses or swelling Cardiovascular: tachycardic, normal heart sounds Respiratory: clear to auscultation, symmetric ex pansion, no distress Abdomen: tenderness, Left mid abdomen in cision with TTP at site of intrathecal pump . No drainage or erythema noted. Dressing d ry and intact. 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 3, normal speech Skin: dry, intact, normal color Results Findings/Data: Laboratory Tests: 07/30 07/30 07/30 1620 1520 1520 Chemistry Sodium (137 - 145 MMOL/L) 142 Potassium (3.5 - 5.1 MMOL/L) 4.0 Chloride (98 - 107 MMOL/L) 109 H Carbon Dioxide (22 - 30 MMOL/L) 22 BUN (7 - 17 MG/DL) 19 H Creatinine (0.52 - 1.04 MG/DL) 1.10 H Glomerular Filtr Rate 48 Glucose (74 - 106 MG/DL) 205 H Lactic Acid (0.7 - 2.1 MMOL/L) 2.0 Calcium (8.4 - 10.2 MG/DL) 9.8 Total Bilirubin (0.2 - 1.3 MG/DL) 0.7 Direct Bilirubin (0.0 - 0.3 MG/DL) 0.0 AST (14 - 36 UNITS/L) 87 H ALT (0 - 34 UNITS/L) 17 Total Alk Phosphatase (38 - 126 UNITS/L) 66 Troponin I (0.012 - 0.033 NG/ML) 15.400 *H Total Protein (6.3 - 8.2 G/DL) 8.1 Albumin (3.5 - 5.0 G/DL) 4.6 LDL Cholesterol (100 - 129 mg/dL) 40 L Lipase (23 - 300 UNITS/L) 88 Hematology WBC (3.8 - 9.8 K/MM3) 25.7 H RBC (3.58 - 4.97 M/MM3) 4.67 Hgb (11.2 - 14.9 G/DL) 14.7 Hct (33.2 - 43.5 %) 44.8 H MCV (80.7 - 99.1 fL) 96 MCH (27.0 - 34.1 pg) 31.5 MCHC (32.2 - 35.7 %) 32.8 RDW (12.1 - 15.2 %) 13.6 Plt Count (129 - 368 K/MM3) 179 MPV (7.4 - 10.4 fl) 10.8 H Neut % (Auto) (43 - 75 %) 89.6 H Lymph % (Auto) (14 - 44 %) 3.3 L [place] % (Auto) (4 - 13 %) 6.2 Eos % (Auto) (0 - 6 %) 0.0 Baso % (Auto) (0 - 2 %) 0.2 Neut # (Auto) (2.0 - 7.6 K/mm3) 23.01 H Lymph # (Auto) (1.0 - 3.8 K/mm3) 0.85 L [place] # (Auto) (0.1 - 0.8 K/mm3) 1.58 H Eos # (Auto) (0.0 - 0.2 K/mm3) 0.00 Baso # (Auto) (0.0 - 0.2 K/mm3) 0.05 Immature Gran % (0.0 - 2.0 %) 0.7 Nucleated RBC % (0 - 1.0 %) 0.0 Nucleated RBCs # (Man) (0.0 - 0.1 K/mm3) 0.00 Laboratory Tests 07/30/21 1620: [Embedded Image Not Available] 07/30/21 1520: [Embedded Image Not Available] Radiology data: Recent Impressions: RADIOLOGY - XR CHEST 1V 07/30 1520 Report Impression - Status: SIGNED Entered: 07/30/2021 1543 IMPRESSION: 1. Suboptimal positioning and low lung volumes l imits evaluation. 2. Mild bilateral perihilar opacities, favored t o represent a combination of vascular crowding and atelectatic change, given low lung volumes. Impression By: [email or web address] - Phil Faulkner MD Diagnosis, Assessment Plan Problem List/A P: 1. Sepsis 2. NSTEMI (non-ST elevated myocardial infarctio n) Free Text A P: 81 y/o F with HTN, DM, CAD s/p PCI (8 years ago) , chronic back pain w/hx of multiple spinal surgeries on intrathecal pump (s/p intrathecal pump replacement on 07/29/2021) who presents to the ER with sepsi s and NSTEMI. #Sepsis: severe - w/ organ dysfunction, ALISSA, lyssa vated trops, lactic acidosis, change in MS. Suspected source- unknown at the moment, likely intrathecal pump site infection. * Admit to telemetry for aggressive IV hydration . * Continue empiric IV abx. * ID consult. * f/u cultures. #ACS, NSTEMI: Elevated troponins, ECG with T-wav e inversions in the inferiolateral leads, no STEMI. Could partly be due to underlying sepsis, however, given hx of CAD and trending troponins, NSTEMI is likely. * Start ASA, Coreg, and Atorvastatin. * Admit to telemetry. * Started on therapeutic Lovenox * Cardiology consulted. Possible Cath in the am. #ALISSA, likely 2/2 underlying sepsis. No Baseline sCr unknown. * Trend sCr * Avoid nephrotoxic agents. * Strict I/Os. #Elevated BP, no known hx of HTN. Not on any ant ihypertensives at the moment. * Start Coreg 12.5 mg BID. * PRN antihypertensives. * Consider starting ACEIs/ARBs once kidney funct ion is stable. #Hx of T2DM/Prediabetes: Diet controlled. Last A 1C unknown. * Check A1C. * SSI and regular accuchecks. Diet: cardiac. NPO after midnight. DVT PPX: Lovenox. Quality: Gen Med Crit Care VTE Prophylaxis VTE prophylaxis initiated: yes (mechanical comp device) Current Medications Current medication review: I attest that the foregoing medication list in t he medical record is true, accurate, and complete to the best of my knowled ge. Attestations Attestation needed: teaching physician Smitha Buckner 07/31/212020: History of Present Illness HPI Chief complaint: NSTEMI, sepsis - from OSH PCP: PCP: No Primary or Family Physician Informant/historian: patient , family/other at bedside, prior records, referring physician History Past Medical Surgical Hx Additional medical history: Hx of MA s/p PCI (8 years ago), chronic back gómez n with hx of multiple back surgeries on intrathecal pump Family History Family history: Reports: Heart disease. Physical Exam VS/I O: Vital Signs Date Temp Pulse Resp B/P B/P Mean Pulse Ox FiO2 07/31-08/01 97.2-99.0 83-93 17-19 103-145/64-89 77.2-107.6 87-97 Last Documented: Result Date Time Pulse Ox 97 08/01 0316 B/P 106/68 08/01 0316 B/P Mean 80.4 08/01 0316 Temp 97.2 08/01 0316 Pulse 93 / 0316 Resp 18 08/01 0316 O2 Delivery Room air 07/31 1607 O2 Flow Rate 2 07/31 0755 24 hour I O ending at 0700: 08/01 0700 07/31 1900 Intake Total 900.00 Output Total Balance 900.00 Intake, IV 750.00 Intake, Oral 150 Patient Weight and BMI Weight (kg): 81.818 BMI: 28.3 Quality: Gen Med Crit Care Advanced Care Plan 65 or Older Discussion included: code status Attestations Teaching Physician Attestation 1st visit w/ resident: I was present with the resident during the histo ry and exam. I discussed the case with the resident and . . . agree with the findings and plan as documented i n the resident's note. at 2012 Electronically Signed by Smitha Buckner MD on 03/15 at 0515 RPT #:[id number] END OF REPORT 2021-07-30 15:00:00-00:00 [facility] ([facility]) EMERGENCY PROVIDER REPORT REPORT#:[id number] REPORT STATUS: Signed DATE:07/30/21 TIME: 1500 PATIENT: CLAUDIA CHA UNIT #: [id number] [facility] AGE[facility] 81 SEX: F PCP PHYS: No Primary or Family Ph ysician SERVICE AUTHOR: Jeffry Zamarripa MD LOCATION: [facility] * ALL edits or amendments must be made on the [employer] document * HPI-Dizziness/Weakness General Confirmed Patient Yes Initial Greet Date/Time 07/30/21 1437 Presentation Chief Complaint abdo pain weakness abnormal labs [facility] Free Text HPI Notes Free Text HPI Notes Claudia Cha is a 81-year-old woman wit h history of hypertension and possible stroke who presents the ER a s a transfer from outside facility for "NSTEMI" and for "rule out sepsis". Outside labs show troponi n of 10 and leukocytosis of about 18. A CT scan of her abdomen pelvis were o btained which shows constipation. Patient notes some chronic back pa in but denies fevers at home falls or trauma or dysuria hematuria. She has castro d worsening fatigue and loose stool recently. Outside hospital Covid t est negative. She denies chest pain at this time denies having chest pain today . She is RAC fluids and IV antibiotics from outside facility. Risk-Dizziness/Weakness Risk Stratification NIH Stroke Scale NIH Stroke Scale Response Value NIHSS Applicable? No 0 Total 0 Review of Systems ROS Statements All systems rev neg except as marked. Focused Review of Systems Constitutional Reports: Chills, Fatigue, Malaise. Denies: Fever . Cardiovascular Reports: Dyspnea on exertion. Denies: Chest pain . GI Reports: Abdominal pain, Diarrhea, Nausea. Past Medical History - Adult Stated Complaint TRANSFER NSTEMI Allergies Coded Allergies: No Known Allergies (07/30/21) Review of Nursing Notes Triage notes reviewed Pt reports no significant: Family history, Socia l history Smoking status: Smoking status for patients 13 years old or old er: Never Smoker Physical Exam Vital Signs Vital Signs First Documented: Result Date Time Pulse Ox 99 07/30 1439 B/P 182/117 07/30 1439 B/P Mean 138 07/30 1439 O2 Delivery Room air 07/30 1438 Temp 98.6 07/30 1439 Pulse 107 07/30 1439 Resp 18 07/30 1439 Last Documented: Result Date Time Pulse Ox 99 07/30 1439 B/P 182/117 07/30 1439 B/P Mean 138 07/30 1439 O2 Delivery Room air 07/30 1439 Temp 98.6 07/30 143 Pulse 107 07/30 143 Resp 18 07/30 1439 Review of Vital Signs Reviewed Focused PE General/Const General/Const Awake, Alert MS Head Head Atraumatic, Normocephalic Eyes Eyes PERRL, EOMI, No nystagmus Ears/Nose/Throat Ears/Nose/Throat Airway patent, Mucous membrane s moist, Pharynx NL MS Neck Neck No meningismus, Full range of motion, No s welling Resp/Chest Respiratory/Chest Breath sounds NL, Breath soun ds = bilat, No respiratory distress Cardiovascular Cardiovascular Regular rhythm, Heart sounds NL, Cap refill not delayed Heart Rate/Rhythm Tachycardia. Abdomen/GI Abdomen/GI Soft, Non-tender, No guarding, No re bound MS Back Back Atraumatic Text/Dict Notes vague discomfort L region no lesions MS Lower Extrem Lower Ext/Pelvis/MS Atraumatic, Non-tender Lower Ext Brief Normals Hip R exam normal (BL t race edema) Skin Skin No rash, Warm, Dry Neurologic Neurologic Speech NL, No motor deficits, No sen teresita deficits Interpretation Diagnostics Lab Results Interpretation Results Laboratory Tests 07/30/21 1520: [Embedded Image Not Available] Laboratory Tests: 07/30 07/30 1520 1520 Chemistry Sodium (137 - 145 MMOL/L) 142 Potassium (3.5 - 5.1 MMOL/L) 4.0 Chloride (98 - 107 MMOL/L) 109 H Carbon Dioxide (22 - 30 MMOL/L) 22 BUN (7 - 17 MG/DL) 19 H Creatinine (0.52 - 1.04 MG/DL) 1.10 H Glomerular Filtr Rate 48 Glucose (74 - 106 MG/DL) 205 H Lactic Acid (0.7 - 2.1 MMOL/L) 2.0 Calcium (8.4 - 10.2 MG/DL) 9.8 Total Bilirubin (0.2 - 1.3 MG/DL) 0.7 Direct Bilirubin (0.0 - 0.3 MG/DL) 0.0 AST (14 - 36 UNITS/L) 87 H ALT (0 - 34 UNITS/L) 17 Total Alk Phosphatase (38 - 126 UNITS/L) 66 Troponin I (0.012 - 0.033 NG/ML) 15.400 *H Total Protein (6.3 - 8.2 G/DL) 8.1 Albumin (3.5 - 5.0 G/DL) 4.6 Lipase (23 - 300 UNITS/L) 88 Microbiology: Date/Time Procedure - Status Source Growth 07/30 1514 Blood Culture - RECD BLOOD 07/30 151 Blood Culture - RECD BLOOD 07/30 151 Blood Culture - RECD BLOOD 07/30 151 Blood Culture - RECD BLOOD Recent Impressions: RADIOLOGY - XR CHEST 1V 07/30 1520 Report Impression - Status: SIGNED Entered: 07/30/2021 1543 IMPRESSION: 1. Suboptimal positioning and low lung volumes l imits evaluation. 2. Mild bilateral perihilar opacities, favored t o represent a combination of vascular crowding and atelectatic change, given low lung volumes. Impression By: [email or web address] - Phil Faulkner MD Point of Care Testing Pulse Oximetry Pulse Ox % 99 On: Room air Interpretation Interpreted by me, Pulse oximetr y normal ECG #1 Interpretation ECG Documented in MUSE Yes Date 07/30/21 Time 1606 Interpreted by and reviewed by me, ED physician NL ECG Interpretation Normal rate, Normal sinus rhythm, No STEMI, Normal T waves , Normal intervals, st depressions inf laterally Rate 94 Re-Evaluation MDM Free Text MDM Notes Free Text MDM Notes outSide facility EKG and EMS EKG reviewed, no st aria. ST depressions here. Case discussed admitting team and with yasmin ardiology. Patient does not have chest pain on initial assessment in ER. Patient's daughter later arr ived to the ER and states that patient actually had a intrathecal pump changed out for her chronic b ack pain yesterday outpatient surgical center. Appears her no complications fr om this. Re-Evaluation/Progress #1 Time of Re-Eval 1559 Re-Eval Status Improved Re-Evaluation/Progress #2 Text/Dict Note Troponin 15, outside troponin was 10. This was d iscussed with Dr. Alexander at this time. States start lovenox, will see pt Time of Eval 1607 ED Course Medication(s) Ordered Medication(s) Ordered: Anti-Infective Agents Sig/Lise Start time Last Medication Dose Route Stop Time Status Admin Cefepime HCl 2 GM X1ED STA 07/30 1450 DC 03/08 IV 07/30 1451 1510 Central Nervous System Agents Sig/Lise Start time Last Medication Dose Route Stop Time Status Admin Aspirin 325 MG ONCE ONE 07/30 1605 DC PO 07/30 1606 Fentanyl Citrate 50 MCG X1ED STA 07/30 1452 DC 03/08 IV 03 1453 1510 Acetaminophen 1,000 MG X1ED STA 07/30 1450 DC 0 /08 PO 08 1451 1511 Electrolytic, Caloric, And Haider Sig/Lise Start time Last Medication Dose Route Stop Time Status Admin Sodium Chloride 1,000 ML X1ED STA 07/30 1450 DC 03/08 IV 03/ 1549 1511 Patient Discharge Departure Vital Signs/Condition Vital Signs First Documented: Result Date Time Pulse Ox 99 03/08 1439 B/P 182/117 03/08 1439 B/P Mean 138 03/08 1439 O2 Delivery Room air 03/08 1439 Temp 98.6 03/08 1439 Pulse 107 03/08 1439 Resp 18 03/08 1439 Last Documented: Result Date Time Pulse Ox 99 03/08 1439 B/P 182/117 03/08 1439 B/P Mean 138 03/08 1439 O2 Delivery Room air 03/08 1439 Temp 98.6 03/08 1439 Pulse 107 03/08 1439 Resp 18 03/08 1439 All vital signs available at the time of this en try have been reviewed. Condition Guarded Clinical Impression Clinical Impression Primary Impression: Sepsis Secondary Impressions: NSTEMI (non-ST elevated m yocardial infarction), PNA ( pneumonia) Disposition Decision Admit Admit Physician Name Smitha Buckner MD Admit Physician Hospitalist Request Time 1559 Request Date 07/30/21 )( Admission Accepts Yes )( Accepted Time 1600 )( Accepted Date 07/30/21 Call Information will see patient Discharge/Care Plan Counseled Regarding Diagnosis, Lab results, Imag ing studies Critical Care Time Spent (minutes): 32 Services Performed Patient management by Irvin johnson spent at bedside, Reviewing test results, Reviewing imaging, Discussing brooklynn ent care, Documentation in record, Time with fam/surrogate Separately billable procedures excluded from rivin mccall. Quality Measures Smoking Cessation Screened, non user Electronically Signed by Jeffry Zamarripa MD on 0 07/30/21 at 1626 [facility] #:[id number] END OF REPORT
[2022-10-08] MEDS ORDERED: TETANUS & DIPHTHERIA TOX,ADULT 0.5 ML VIAL ONE (04:37)
[2022-10-08] MEDS ORDERED: FENTANYL CITR 100 MCG/2 ML ONE (05:03)
--- NOTE | 2022-10-08 05:15 | EDPHYS ---
Physician Documentation [facility] Name: Claudia Cha Age: 82 yrs Sex: Female : 1940 Arrival Date: 10/08/2022 Time: 03:13 Bed 4 Private MD: ED Physician Burton Miller HPI: 10/08 03:34 This 82 yrs old Female presents to ER via EMS with complaints of Fall Injury. sp4 04:18 82-year-old female with history of chronic back pain, implanted pain pump, sp4 hypertension, prior MN, prediabetes presents with acute fall at the assisted living facility. Patient sustained some injuries to her right face with 2 contusions to the right face and the chin abrasion. Because of patient's pain pump she has episodic hallucinatory experiences. I spoke with the patient's son over the phone and I was informed the patient has periodic hallucinations secondary to her pain medication. At this time patient complains of right-sided facial pain but denied any other injury. Denied loss of consciousness. GCS 15 on arrival. Historical: - Allergies: 03:21 Latex, Natural Rubber; aa9 03:21 metformin; aa9 03:21 Tape; aa9 - Home Meds: 03:21 duloxetine 30 mg Oral CDRS 1 cap once daily [Active]; aa9 - PMHx: 03:21 chronic back pain; Hypertension; Myocardial infarction; Pre Diabetes; aa9 - PSHx: 03:21 back surgery; heart stent; pain pump; aa9 - Social history:: Smoking status: Patient denies any tobacco usage or history of. - Immunization history: Last tetanus immunization: unknown. - Family history:: not pertinent. ROS: 04:18 Constitutional: Negative for fever, chills, and weight loss, Eyes: Negative for injury, sp4 pain, redness, and discharge, ENT: Negative for injury, pain, and discharge, positive for facial contusions and chin abrasion Neck: Negative for injury, pain, and swelling, Cardiovascular: Negative for chest pain, palpitations, and edema, Respiratory: Negative for shortness of breath, cough, wheezing, and pleuritic chest pain, Abdomen/GI: Negative for abdominal pain, nausea, vomiting, diarrhea, and constipation, Back: Negative for injury and pain, : Negative for injury, bleeding, discharge, and swelling, MS/Extremity: Negative for injury and deformity, Skin: Negative for injury, rash, and discoloration, Neuro: Negative for headache, weakness, numbness, tingling, and seizure, Psych: Negative for depression, anxiety, Allergy/Immunology: Negative for hives, rash, and allergies Endocrine: Negative for neck swelling, polydipsia, polyuria, polyphagia, and weight changes Hematologic/Lymphatic: Negative for swollen nodes, abnormal bleeding, and unusual bruising Exam: 04:18 Constitutional: This is a well developed, well nourished patient who is awake, alert, sp4 and in no acute distress. Head/Face: Normocephalic, 2 small contusions to the right cheek just inferior to the right eye, small abrasion to the chin, no lacerations, no deformity. Eyes: Pupils equal round and reactive to light, extra-ocular motions intact. Lids and lashes normal. Conjunctiva and sclera are not injected. Cornea within normal limits. Periorbital areas with no swelling, redness, or edema. ENT: Nares patent. No nasal discharge, no septal abnormalities noted. Tympanic membranes are normal and external auditory canals are clear. Oropharynx with no redness, swelling, or masses, exudates, or evidence of obstruction, uvula midline. Mucous membranes moist. Neck: Trachea midline, no thyromegaly or masses palpated, and no cervical lymphadenopathy. Supple, full range of motion without nuchal rigidity, or vertebral point tenderness. No Meningismus. Chest/axilla: Normal chest wall appearance and motion. Nontender with no deformity. No lesions are appreciated. Cardiovascular: Regular rate and rhythm with a normal S1 and S2. No gallops, murmurs, or rubs. Normal PMI, no JVD. No pulse deficits. Respiratory: Lungs have equal breath sounds bilaterally, clear to auscultation and percussion. No rales, rhonchi or wheezes noted. No increased work of breathing, no retractions or nasal flaring. Abdomen/GI: Soft, non-tender, with normal bowel sounds. No distension or tympany. No guarding or rebound. No evidence of tenderness throughout. Back: No spinal tenderness. No costovertebral tenderness. Skin: Warm, dry with normal turgor. Normal color with no rashes, no lesions, and no evidence of cellulitis. MS/ Extremity: Pulses equal, no cyanosis. Neurovascular intact. Full, normal range of motion. Neuro: Awake and alert, GCS 15, oriented to person, place, time, and situation. Cranial nerves II-XII grossly intact. Motor strength 5/5 in all extremities. Sensory grossly intact. Psych: Awake, alert, with orientation to person, place and time. Behavior, mood, and affect are within normal limits Vital Signs: 03:19 BP 116 / 70; Pulse 67; Resp 19; Temp 97.7; Pulse Ox 97% on R/A; Weight 81.65 kg; Height aa9 5 ft. 7 in. ; 06:05 BP 152 / 85; Pulse 62; Resp 16; Temp 98; Pulse Ox 97% on R/A; Pain 4/10; pf1 03:19 Body Mass Index 28.19 (81.65 kg, 170.18 cm) aa9 06:05 Pain Scale: Adult pf1 MDM: 03:47 Patient medically screened. sp4 04:18 Differential diagnosis: abrasion, closed head injury, contusion, fracture, laceration, sp4 multiple trauma, sprain, strain. Data reviewed: vital signs, nurses notes, EMS record, old medical records, radiologic studies, CT scan. ED course: We will follow-up CT face, CT head and C-spine.. 05:12 Consideration of Admission/Observation Escalation of care including sp4 admission/observation considered. ED course: CT facial bones, CT head, CT C-spine are unremarkable today, no fractures or any acute findings. Patient is stable for discharge back to the assisted care living. . 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 Exp: ll3 11/02/2023. Lot #: [id number]. } Route: IM; Site: left deltoid; 05:30 Follow up: Response: No adverse reaction; Marked relief of symptoms pf1 Disposition Summary: 10/08/22 05:14 Discharge Ordered Location: Home sp4 Problem: new sp4 Symptoms: have improved sp4 Condition: Stable sp4 Diagnosis - Acute fall from standing, acute facial injury, closed head injury, facial sp4 contusion, facial hematoma, abrasion to chin initial encounter Followup: sp4 - With: Private Physician - When: As needed - Reason: Recheck today's complaints Discharge Instructions: - Discharge Summary Sheet sp4 - Fall Prevention in the Home, Adult, [id number] sp4 - Head Injury, Adult, [id number] sp4 Forms: - SBAR form wm Signatures: Dispatcher [employer] Katherine Bishop RN RN ll3 Jenny Jo RN RN aa9 Burton Miller MD MD sp4 Thania Carcamo RN pf1
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
[2022-10-08 07:50] VITALS: O2SAT 97
[2022-10-08 07:51] VITALS: BP 152/85; TEMP 98
--- NOTE | 2022-10-08 10:15 | RAD REPORT ---
EXAM DESCRIPTION: CT Head and Cervical Spine Without Intravenous Contrast CLINICAL HISTORY: The patient is 82 years old and is Female; fall, head injury TECHNIQUE: Axial computed tomography images of the head/brain and cervical spine without intravenous contrast. Sagittal and coronal reformatted images were created and reviewed. This CT exam was pe rformed using one or more of the following dose reduction techniques: automated exposure control, a djustment of the mA and/or kV according to patient size, and/or use of iterative reconstruction techn ique. COMPARISON: No relevant prior studies available. FINDINGS: Brain: Mild cerebral atrophy. Mild nonspecific white matter changes likely related to chronic microvascular ischemic diseas e. No hemorrhage. Ventricles: Unremarkable. No ventriculomegaly. Skull: No acute fracture. Sinuses: Unremarkable as visualized. No acute sinusitis. Mastoid air cells: Unremarkable as visualized. No mastoid effusion. Vertebrae: Anterior plate and screw fixation from C5 to C7. Discs/spinal canal/neural foramina: Moderate right neural foraminal narrowing at C2-3. Severe right neural foraminal narrowing at C3-4. Moderate left neural foraminal narrowing at C4-5. Severe bilateral neural foraminal narrowing at C5-6. Severe bilateral neural foraminal narrowing at C6-7. Moderate spinal canal narrowing at C6-7. Moderate left neural foraminal narrowing at C7-T1. Soft tissues: Unremarkable. * A single impression for all exams can be found at the end of this report EXAM DESCRIPTION: CT Maxillofacial Without Intravenous Contrast CLINICAL HISTORY: The patient is 82 years old and is Female; fall, head injury TECHNIQUE: Axial computed tomography images of the face without intravenous contrast. Sagittal and coronal reformatted images were created and reviewed. This CT exam was performed using one or more of the following dose reduction techniques: automated exposure control, adjustment of the mA and/o r kV according to patient size, and/or use of iterative reconstruction technique. COMPARISON: No relevant prior studies available. FINDINGS: Bones/joints: No acute fracture. Soft tissues: Unremarkable. Orbits: Unremarkable. Sinuses: Unremarkable. No air-fluid levels. * A single impression for all exams can be found at the end of this report IMPRESSION: CT Head and Cervical Spine Without Intravenous Contrast: No acute intracranial abnormality. No acute findings in the cervical spine. CT Maxillofacial Without Intravenous Contrast: No acute fracture. Electronically signed by: Ramesh Gomez MD 10/08/2022 4:53 AM CDT Due to temporary technical issues with the PACS/Fluency reporting system, reports are being signed by the in house radiologist without review as a courtesy to ensure prompt reporting. The interpreting r adiologist is fully responsible for the content of the report.
== END 2022-10-08 07:45 | disposition home or self-care (01) ==
LOC: ER 03:13
DX: S00.81XA Abrasion of other part of head, initial encounter (principal); S00.83XA Contusion of other part of head, initial encounter; W19.XXXA Unspecified fall, initial encounter; I10 Essential (primary) hypertension; I25.2 Old myocardial infarction; Z23 Encounter for immunization; Z88.8 Allergy status to other drugs, medicaments and biological substances; Z91.040 Latex allergy status; Z91.048 Other nonmedicinal substance allergy status; Z95.818 Presence of other cardiac implants and grafts; Z97.8 Presence of other specified devices
CPT/HCPCS: 70450; 72125; 70486; 76377; 90714; J3010

== ENCOUNTER 2022-12-18 20:37 | Observation (INO) | payer OTHER, MEDICARE ==
--- OUTSIDE RECORDS SUMMARY | 2022-12-18 20:43 | XMS REPORT | Continuity of Care Document ---
:1940 Author Organization [facility] t Address [address] [facility] [address] [place] [address] Care Team Providers Name Role Phone Kai Moreno MD Primary Care Physician Serjio Foreman Attending Clinician Miguel Angel GILMAN, Sendil K.H. Attending Clinician Doctor Unassigned, Candelaria Arenas Attending Clinician Unavailable Smitha Buckner Attending Clinician [...] Added automatic ally from request for surgery [id number] Bowel Bowel Disease Active 2017-05 Overview: [facility] s habit habit 0-18 Formattin ity of changes changes 00:00: g of this 00 note Medical might be Branch different from the original. Added automatic ally from request for surgery [id number] PAF PAF Disease Active Univers (paroxysma (paroxysma 10-25 it y of l atrial l atrial 00:00: [place] fibrillati fibrillati 00 Me dical on) on) Branch Dyslipidem Dyslipidem Disease Active U nivers ia ia - ity of 00:00: [place] 00 Medical Branch Essential Essential Disease Active Uni vers hypertensi hypertensi 10-25 it y of on on 00:00: [place] [facility] Obesity Obesity Disease Active Univers (BMI (BMI 5-05 ity of 30-39.9) 30-39.9) 00:00: [place] [facility] Sinus Sinus Disease Active Univers bradycardi bradycardi 5-04 it y of a a 00:00: [place] 00 Medical Branch Hyperlipid Problem Active 2022-09-20 M emoria emia Hyperlipid 13:24:45 l (disorder) emia Lloyd n (disorder) Active Problem 09/20/2022 [facility] [place] 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 l 13:24:45 l (disorder) infarction He rmann (disorder) Active Problem 09/20/2022 [facility] [place] Impaired Impaired Problem Active 2022-09-20 Memoria cognition cognition 13:24:45 l (finding) (finding) Herm rosana Active Problem 09/20/2022 [facility] [place] Amnesia Amnesia Problem Active 2022-09-20 Me moria (finding) (finding) 13:24:45 l Active Garcia Problem 09/20/2022 [facility] [place] 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 13:24:45 l (finding) (finding) Herm rosana Active Problem 09/20/2022 [facility] [place] Dizziness Dizziness Problem Active 2022-09-20 Memoria (finding) (finding) 13:24:45 l Active Garcia Problem 09/20/2022 [facility] [place] No known No known Disease Metho di active active st problems problems Hospit a l Allergies, Adverse Reactions, Alerts Allergy Allergy Status Severity Reaction(s) Onset Inactive Treating Comm ents Source Name Type Date Date Clinician No Known DA Active U [facility] Allergie 3-08 [place] 00:00: [address] Latex Propensi Active Rash Univers ty to 09-29 ity of adverse 00:00: [place] reaction 00 Medical s Branch LATEX DRUG Active Rash Univers INGREDI 09-29 ity of 00:00: [place] [facility] Latex Propensi Active Rash Methodi ty to 09-29 st adverse 00:00: Hospita reaction 00 l s to drug Metformi Propensi Active Rash Univer s n ty to 09-25 ity of adverse 00:00: [place] reaction Medical s Branch METFORMI DRUG Active Rash Univers N INGREDI 09-25 ity of 00:00: [place] 00 Medical [place] Metformi Propensi Active Rash Method i n ty to 09-25 st adverse 00:00: Hospita reaction 00 l s to drug Adhesive Propensi Active Rash Univer s ty to ity of adverse [place] reaction [facility] ADHESIVE Drug Active Rash Univers Class ity of [facility] Adhesive Propensi Active Method i [place] ty to st icones adverse Hospita reaction l s to drug Tape Tape Active Memoria l [place] metFORMI metFORMI Active Memori a N N l [place] Social History Social Habit Start Date Stop Date Quantity Comments Source Exposure to Not sure [facility] SARS-CoV-2 (event) [facility] Sexual orientation Method ist [facility] Gender identity [facility] Alcohol intake 2020-11-12 2020-11-12 Current University of 00:00:00 00:00:00 non-drinker of [facility] alcohol Branch (finding) History of Social 2019-01-11 2019-01-[address] function 00:00:00 00:00:00 Hospital Tobacco use and 2016-09-25 2016-09-25 Never used Universit y of exposure 00:00:00 00:00:00 [facility] Sex Ass[birth year] At [birth year] [facility] 00:00:00 00:00:00 Hospital Smoking Status Start Date Stop Date Source Tobacco smoking status [facility] Medications Ordered Filled Start Stop Current Ordering Indication Dosage Frequency Signature Comments Components Source Medication Medication Date Date Medication? Clinician (SIG) Name Name DULoxetine Yes TAKE 1 Memor ia 30 mg oral 2-15 CAPSULE BY l delayed 14:58: MOUTH [place] release 00 DAILY WITH capsule BREAKFAST trazodone Yes TAKE 1 Memori a 100 mg oral 2-15 TABLET BY l tablet 14:58: MOUTH Garcia 00 DAILY AT BEDTIME rosuvastati Yes TAKE 1 Fabian marcela n 10 mg 2-15 TABLET BY l oral tablet 14:58: MOUTH Caryn nn 00 DAILY AT BEDTIME aspirin 81 Yes 81 mg = 1 Me moria mg oral 2-15 cap, PO, l capsule 14:58: Daily, 0 Lloyd n 00 Refill(s) celecoxib Yes TAKE 1 Memori a 200 mg oral 2-15 CAPSULE BY l capsule 14:58: MOUTH Garcia 00 DAILY WITH FOOD DULoxetine Yes TAKE 1 Memor ia 30 mg oral 2-15 CAPSULE BY l delayed 14:58: MOUTH [place] release 00 DAILY WITH capsule BREAKFAST trazodone Yes TAKE 1 Memori a 100 mg oral 2-15 TABLET BY l tablet 14:58: MOUTH Garcia 00 DAILY AT BEDTIME rosuvastati Yes TAKE 1 Fabian marcela n 10 mg 2-15 TABLET BY l oral tablet 14:58: MOUTH Caryn nn 00 DAILY AT BEDTIME aspirin 81 Yes 81 mg = 1 Me moria mg oral 2-15 cap, PO, l capsule 14:58: Daily, 0 Lloyd n 00 Refill(s) celecoxib Yes TAKE 1 Memori a 200 mg oral 2-15 CAPSULE BY l capsule 14:58: MOUTH Garcia 00 DAILY WITH FOOD apixaban Yes 1358 5mg Take 1 Univers [...] daily. Indication s: atrial fibrillati on apixaban 1-0 Yes 1358 5mg Take 1 Univers (ELIQUIS) 5 8-05 tablet by ity of mg tablet 00:00: mouth 2 (two) Medical times Branch daily. Indication s: atrial fibrillati on apixaban 1-0 Yes 1358 5mg Take 1 Univers (ELIQUIS) 5 8-05 tablet by ity of mg tablet 00:00: mouth 2 [place] (two) Medical times Branch daily. Indication s: atrial fibrillati on apixaban 1-0 Yes 1358 5mg Take 1 Univers (ELIQUIS) 5 8-05 tablet by ity of mg tablet 00:00: mouth 2 [place] (two) Medical times Branch daily. Indication s: atrial fibrillati on amLODIPine 1-0 Yes 5mg Take 5 mg Un alfredo 5 mg tablet 6-21 by mouth ity of 15:46: daily. [address] amLODIPine 1-0 Yes 5mg Take 5 mg Un alfredo 5 mg tablet 6-21 by mouth ity of 15:46: daily. [address] amLODIPine 1-0 Yes 5mg Take 5 mg Un alfredo 5 mg tablet 6-21 by mouth ity of 15:46: daily. [address] amLODIPine 1-0 Yes 5mg Take 5 mg Un alfredo 5 mg tablet 6-21 by mouth ity of 15:46: daily. [address] amLODIPine 2021-0 Yes 5mg Take 5 mg Un alfredo 5 mg tablet 6-21 by mouth ity of 15:46: daily. [address] amLODIPine 1-0 Yes 5mg Take 5 mg Un alfredo 5 mg tablet 6-21 by mouth ity of 15:46: daily. [address] Branch amLODIPine 2020-0 Yes 5mg Take 5 mg Un alfredo 5 mg tablet 6-21 by mouth ity of 15:46: daily. [address] Branch amLODIPine 2020-0 Yes 5mg Take 5 mg Un alfredo 5 mg tablet 6-21 by mouth ity of 15:46: daily. [address] Branch ZICONOTIDE 2020-0 Yes by Univers ACETATE 6-21 Intratheca ity of (PRIALT 15:18: l route [place] INTRATHECAL 12 daily. Medica l ) Indication Branch s: in pump tiZANidine 2020-0 Yes [id number] 4mg Take 4 mg Univers 4 mg tablet 6-21 by mouth ity of 15:18: every 6 [place] 12 (six) Medical hours as Branch needed. ZICONOTIDE 2020-0 Yes by Univers ACETATE 6-21 Intratheca ity of (PRIALT 15:18: l route [place] INTRATHECAL 12 daily. Medica l ) Indication Branch s: in pump tiZANidine 2020-0 Yes [id number] 4mg Take 4 mg Univers 4 mg tablet 6-21 by mouth ity of 15:18: every 6 [place] 12 (six) Medical hours as Branch needed. ZICONOTIDE 2020-0 Yes by Univers ACETATE 6-21 Intratheca ity of (PRIALT 15:18: l route [place] INTRATHECAL 12 daily. Medica l ) Indication Branch s: in pump tiZANidine 2020-0 Yes [id number] 4mg Take 4 mg Univers 4 mg tablet 6-21 by mouth ity of 15:18: every 6 [place] 12 (six) Medical hours as Branch needed. ZICONOTIDE 2020-0 Yes by Univers ACETATE 6-21 Intratheca ity of (PRIALT 15:18: l route [place] INTRATHECAL 12 daily. Medica l ) Indication Branch s: in pump tiZANidine 2021-0 Yes [id number] 4mg Take 4 mg Univers 4 mg tablet 6-21 by mouth ity of 15:18: every 6 [place] 12 (six) Medical hours as Branch needed. ZICONOTIDE 2021-0 Yes by Univers ACETATE 6-21 Intratheca ity of (PRIALT 15:18: l route [place] INTRATHECAL 12 daily. Medica l ) Indication Branch s: in pump tiZANidine 1-0 Yes [id number] 4mg Take 4 mg Univers 4 mg tablet 6-21 by mouth ity of 15:18: every 6 [place] 12 (six) Medical hours as Branch needed. ZICONOTIDE 2020-0 Yes by Univers ACETATE 6-21 Intratheca ity of (PRIALT 15:18: l route [place] INTRATHECAL 12 daily. Medica l ) Indication Branch s: in pump tiZANidine 2020-0 Yes [id number] 4mg Take 4 mg Univers 4 mg tablet 6-21 by mouth ity of 15:18: every 6 [place] 12 (six) Medical hours as Branch needed. ZICONOTIDE 2020-0 Yes by Univers ACETATE 6-21 Intratheca ity of (PRIALT 15:18: l route [place] INTRATHECAL 12 daily. Medica l ) Indication Branch s: in pump tiZANidine 2020-0 Yes [id number] 4mg Take 4 mg Univers 4 mg tablet 6-21 by mouth ity of 15:18: every 6 [place] 12 (six) Medical hours as Branch needed. ZICONOTIDE 2020-0 Yes by Univers ACETATE 6-21 Intratheca ity of (PRIALT 15:18: l route [place] INTRATHECAL 12 daily. Medica l ) Indication Branch s: in pump tiZANidine 2020-0 Yes [id number] 4mg Take 4 mg Univers 4 mg tablet 6-21 by mouth ity of 15:18: every 6 [place] 12 (six) Medical hours as Branch needed. ZICONOTIDE 2020-0 Yes by Univers ACETATE 6-21 Intratheca ity of (PRIALT 15:18: l route [place] INTRATHECAL 12 daily. Medica l ) Indication Branch s: in pump tiZANidine 2020-0 Yes [id number] 4mg Take 4 mg Univers 4 mg tablet 6-21 by mouth ity of 15:18: every 6 [place] 12 (six) Medical hours as Branch needed. aspirin 81 2020-0 Yes 81mg Take 81 mg U nivers mg EC 6-21 by mouth ity of tablet 14:55: daily. [address] aspirin 81 1-0 Yes 81mg Take 81 mg U nivers mg EC 6-21 by mouth ity of tablet 14:55: daily. [address] aspirin 81 2020-0 Yes 81mg Take 81 mg U nivers mg EC 6-21 by mouth ity of tablet 14:55: daily. [address] aspirin 81 2020-0 Yes 81mg Take 81 mg U nivers mg EC 6-21 by mouth ity of tablet 14:55: daily. [address] Branch aspirin 81 2020-0 Yes 81mg Take 81 mg U nivers mg EC 6-21 by mouth ity of tablet 14:55: daily. [address] aspirin 81 2020-0 Yes 81mg Take 81 mg U nivers mg EC 6-21 by mouth ity of tablet 14:55: daily. [address] aspirin 81 2020-0 Yes 81mg Take 81 mg U nivers mg EC 6-21 by mouth ity of tablet 14:55: daily. [address] aspirin 81 2020-0 Yes 81mg Take 81 mg U nivers mg EC 6-21 by mouth ity of tablet 14:55: daily. [address] aspirin 81 2020-0 Yes 81mg Take 81 mg U nivers mg EC 6-21 by mouth ity of tablet 14:55: daily. [place] [id number] Medical Branch olmesartan- 0 Yes 1{tbl} Take 1 [...] by ity of tablet 00:00: mouth at [place] 00 bedtime. Medical Branch atorvastati Yes 80mg Take 1 Univ ers n 80 mg 3-05 tablet by ity of tablet 00:00: mouth at [place] 00 bedtime. Medical Branch atorvastati Yes 80mg Take 1 Univ ers n 80 mg 3-05 tablet by ity of tablet 00:00: mouth at [place] 00 bedtime. Medical Branch atorvastati Yes 80mg Take 1 Univ ers n 80 mg 3-05 tablet by ity of tablet 00:00: mouth at [place] 00 bedtime. Medical Branch atorvastati Yes 80mg Take 1 Univ ers n 80 mg 3-05 tablet by ity of tablet 00:00: mouth at [place] 00 bedtime. Medical Branch atorvastati Yes 80mg Take 1 Univ ers n 80 mg 3-05 tablet by ity of tablet 00:00: mouth at [place] 00 bedtime. Medical Branch atorvastati 0 Yes 80mg Take 1 Univ ers n 80 mg 3-05 tablet by ity of tablet 00:00: mouth at [place] 00 bedtime. Medical Branch atorvastati 0 Yes 80mg Take 1 Univ ers n 80 mg 3-05 tablet by ity of tablet 00:00: mouth at [place] 00 bedtime. Medical Branch enalapril 2020- No [id number] Take by Univers 10 mg 5-07 05-07 mouth 2 ity of tablet 09:47: 00:00 (two) [place] 55 :00 times Medical daily. Branch amLODIPine 2019- No [id number] 5mg Take 5 mg Univers 5 mg tablet 09-28 by mouth. it y of 09:47: 00:00 [place] 14 :00 Medical Branch metoprolol 2020-0 2020- No [id number] 50mg Take 50 mg Univers tartrate 50 09-28- by mouth 2 i ty of mg tablet 09:46: 00:00 (two) [place] 59 :00 times Medical daily. Branch nitroglycer 2020-[id number] 1 Univers in 0.4 mg 5-07 tablet ity of sublingual 00:00: under the [place] tablet 00 tongue Medical every 5 Branch (five) minutes as needed for Chest pain. nitroglycer 2020-[id number] 1 Univers in 0.4 mg 5-07 tablet ity of sublingual 00:00: under the [place] tablet 00 tongue Medical every 5 Branch (five) minutes as needed for Chest pain. nitroglycer 2020-[id number] 1 Univers in 0.4 mg 5-07 tablet ity of sublingual 00:00: under the [place] tablet 00 tongue Medical every 5 Branch (five) minutes as needed for Chest pain. nitroglycer 2020-[id number] 1 Univers in 0.4 mg 5-07 tablet ity of sublingual 00:00: under the [place] tablet 00 tongue Medical every 5 Branch (five) minutes as needed for Chest pain. nitroglycer 2020-[id number] 1 Univers in 0.4 mg 5-07 tablet ity of sublingual 00:00: under the [place] tablet 00 tongue Medical every 5 Branch (five) minutes as needed for Chest pain. nitroglycer 2020-[id number] 1 Univers in 0.4 mg 5-07 tablet ity of sublingual 00:00: under the [place] tablet 00 tongue Medical every 5 Branch (five) minutes as needed for Chest pain. nitroglycer 2020-[id number] 1 Univers in 0.4 mg 5-07 tablet ity of sublingual 00:00: under the [place] tablet 00 tongue Medical every 5 Branch (five) minutes as needed for Chest pain. nitroglycer 2020-[id number] 1 Univers in 0.4 mg [...] BE TAKEN WITH OR WITHOUT FOOD enalapril-h 2018-0 Yes Q24H daily. Meth sharif ydrochlorot 12-07 st hiazide 08:42: Hospita (VASERETIC) 32 l 10-25 mg per tablet atorvastati 2018-0 Yes Q24H daily. Meth sharif n (LIPITOR) 12-07 st 80 MG 08:42: Hospita tablet 32 l aspirin 2019-0 Yes 81mg Take 81 mg Meth sharif (ECOTRIN) [address] 81 MG 08:42: Hospita enteric 32 l coated tablet amLODIPine Yes 5mg Take 5 mg Me thodi (NORVASC) [address] mg tablet 08:42: Hospita 32 l tiZANidine 2018-0 Yes tizanidine M ethodi (ZANAFLEX) [address] 4 MG tablet 08:42: tablet 1 Ho spita 32 PO TID l nitroglycer Yes 1{patch QD Place 1 Methodi in 716 } patch on st (NITRODUR) 08:42: the [...] Yes Q24H daily. Meth sharif n (LIPITOR) -16 st 80 MG 08:42: Hospita tablet 32 l aspirin 2019-0 Yes 81mg Take 81 mg Meth sharif (ECOTRIN) [address] 81 MG 08:42: Hospita enteric 32 l coated tablet amLODIPine 2019-0 Yes 5mg Take 5 mg Me thodi (NORVASC) 5 12-[address] mg tablet 08:42: Hospita 32 l tiZANidine 2019-0 Yes tizanidine M ethodi (ZANAFLEX) -[address] 4 MG tablet 08:42: [...] 81mg Take 81 mg Meth sharif (ECOTRIN) [address] 81 MG 08:42: Hospita enteric 32 l coated tablet amLODIPine Yes 5mg Take 5 mg Me thodi (NORVASC) 5 7-[address] mg tablet 08:42: Hospita 32 l tiZANidine Yes tizanidine M ethodi (ZANAFLEX) 7-[address] 4 MG tablet 08:42: tablet 1 Ho spita 32 PO TID l nitroglycer Yes 1{patch QD Place 1 Methodi in 16 } patch on st (NITRODUR) 08:42: the [...] TID PRN ity of tablet 00:00: [place] [facility] morpHINE 2017-05 Yes TK 1 T PO Univ ers I.R. 15 mg 2-03 TID PRN ity of tablet 00:00: [place] [facility] morpHINE 2017-05 Yes TK 1 T PO Univ ers I.R. 15 mg 2-03 TID PRN ity of tablet 00:00: [place] [facility] morpHINE 2017-05 Yes TK 1 T PO Univ ers I.R. 15 mg 2-03 TID PRN ity of tablet 00:00: [place] [facility] morpHINE 2017-05 Yes TK 1 T PO Univ ers I.R. 15 mg 2-03 TID PRN ity of tablet 00:00: [place] [facility] morpHINE 2017-05 Yes TK 1 T PO Univ ers I.R. 15 mg 2-03 TID PRN ity of tablet 00:00: [place] [facility] morpHINE 2017-05 Yes TK 1 T PO Univ ers I.R. 15 mg 2-03 TID PRN ity of tablet 00:00: [place] 00 Medical Branch morpHINE 2018-1 Yes TK 1 T PO Univ ers I.R. 15 mg 2-03 TID PRN ity of tablet 00:00: [place] 00 Medical Branch RESTASIS 2018-0 Yes INSTILL [...] Medical for 90 Branch days. apixaban 5 2018- No 5mg Take 1 Univ ers mg tablet 10-02 tablet by ity of 00:00: 00:00 mouth 2 [place] 00 :00 (two) Medical times Branch daily. ticagrelor 2018- No 90mg Take 1 Univ ers 90 mg 4-26 05-11 tablet by ity of tablet 00:00: 00:00 mouth 2 [place] 00 :00 (two) Medical times Branch daily. apixaban 5 2018- No 5mg Take 1 Univ ers mg tablet 09-17 tablet by ity of 00:00: 00:00 mouth 2 [place] 00 :00 (two) Medical times Branch daily. nitroglycer 2019- No .4mg Place 1 Un alfredo in 0.4 mg 10-24 tablet ity of sublingual 00:00: 00:00 under the [place] tablet 00 :00 tongue Medical every 5 Branch (five) minutes as needed for Chest pain. Immunizations Ordered Immunization Filled Immunization Date Status Commen ts Source Name Name PFIZER COVID-19 MRNA 2020-07-26 Completed Meth odist VACCINATION 00:00:00 [facility] PFIZER COVID-19 MRNA 2020-07-26 Completed Meth odist VACCINATION 00:00:00 [facility] PFIZER COVID-19 MRNA 2020-07-26 Completed Meth odist VACCINATION 00:00:00 [facility] PFIZER COVID-19 MRNA 2020-07-05 Completed Meth odist VACCINATION 00:00:00 [facility] PFIZER COVID-19 MRNA 2020-07-05 Completed Meth odist VACCINATION 00:00:00 [facility] PFIZER COVID-19 MRNA 2020-07-05 Completed Meth odist VACCINATION 00:00:00 Hospital Vital Signs Vital Name Observation Time Observation Value Comments Source Systolic blood 2017-10-02 19:30:00 126 mm[Hg] Univer sity of pressure [facility] Diastolic blood 2017-10-02 19:30:00 66 mm[Hg] Unive rsity of [facility] Heart rate 2017-10-02 19:30:00 62 /min [facility] Respiratory rate 2017-10-02 19:30:00 16 /[facility] Body height 2017-10-02 19:30:00 170.2 cm [facility] Body weight 2017-10-02 19:30:00 94.121 kg [facility] BMI 2017-10-02 19:30:00 32.50 kg/m2 [facility] Oxygen saturation in 2017-10-02 19:30:00 93 /min [facility] Arterial blood by [facility] Pulse oximetry Branch Systolic (mm Hg) 2022-09-17 16:51:00 Fabian rial Garcia Diastolic (mm Hg) 2022-09-17 16:51:00 Mem orial Garcia Heart Rate 2022-09-17 16:51:00 [facility] [place] Height 2022-09-17 16:51:00 5 [ft_i] [facility] Weight 2022-09-17 16:51:00 [facility] [place] BMI Calculated 2022-09-17 16:51:00 Memori al [place] Systolic (mm Hg) 2022-07-09 14:55:00 Fabian rial [place] Diastolic (mm Hg) 2022-07-09 14:55:00 Mem orial [place] Heart Rate 2022-07-09 14:55:00 [facility] Height 2022-07-09 14:55:00 5 [ft_i] [facility] Weight 2022-07-09 14:55:00 [facility] [place] BMI Calculated 2022-07-09 14:55:00 Memori al [place] Procedures Procedure Date / Time Performed Performing Clinician Raven e EXTERNAL PROVIDER - 2021-08-13 05:01:00 Doctor Unassigned, No Un iversity [facility] REFERRAL Name Medical Branch [id number] 2021-07-31 00:00:00 TYRAM [facility] [id number] 2021-07-31 00:00:00 TYRAM [facility] [id number] 2021-07-30 00:00:00 KATINASA.06 [facility] EXTERNAL PROVIDER - 2021-04-03 06:01:00 Doctor Unassigned, No Un iversity [facility] CARDIOLOGY Name Medical Branch Stent placement [facility] [place] Cholecystectomy<sup>1< [facility] [place] /sup> Plan of Care Planned Activity Planned Date Details Comments Source Future Scheduled 2022-11-12 SHINGLES VACCINES (1 Met [facility] Test 03:14:15 of 2) [code = SHINGLES VACCINES (1 of 2)] Future Scheduled 2022-11-12 65+ PNEUMOCOCCAL Methodi [facility] Test 03:14:15 VACCINE (2 - PCV) [code = 65+ PNEUMOCOCCAL VACCINE (2 - PCV)] Future Scheduled 2022-11-12 COVID-19 VACCINE (3 - [facility] Hospital Test 03:14:15 Pfizer series) [code = COVID-19 VACCINE (3 - Pfizer series)] Future Scheduled 2022-11-12 INFLUENZA VACCINE Method is Hospital Test 03:14:15 [code = INFLUENZA VACCINE] Future Scheduled 2022-08-27 SHINGLES VACCINES (1 Met [facility] Test 03:18:50 of 2) [code = SHINGLES VACCINES (1 of 2)] Future Scheduled 2022-08-27 65+ PNEUMOCOCCAL Methodi Hospital Test 03:18:50 VACCINE (2 - PCV) [code = 65+ PNEUMOCOCCAL VACCINE (2 - PCV)] Future Scheduled 2022-08-27 COVID-19 VACCINE (3 - Me [facility] Hospital Test 03:18:50 Booster for Pfizer series) [code = COVID-19 VACCINE (3 - Booster for Pfizer series)] Future Scheduled 2022-08-27 INFLUENZA VACCINE Method is Hospital Test 03:18:50 [code = INFLUENZA VACCINE] Future Scheduled 2022-05-07 SHINGLES VACCINES (1 Met [facility] Test 03:11:57 of 2) [code = SHINGLES VACCINES (1 of 2)] Future Scheduled 2022-05-07 65+ PNEUMOCOCCAL Methodi Hospital Test 03:11:57 VACCINE (2 - PCV) [code = 65+ PNEUMOCOCCAL VACCINE (2 - PCV)] Future Scheduled 2022-05-07 COVID-19 VACCINE (3 - Me [facility] Hospital Test 03:11:57 Booster for Pfizer series) [code = COVID-19 VACCINE (3 - Booster for Pfizer series)] Future Scheduled 2022-05-07 INFLUENZA VACCINE Method [facility] Hospital Test 03:11:57 [code = INFLUENZA VACCINE] Encounters Start End Encounter Admission Attending Care Care Encounter Source Date/Time Date/Time Type Type Clinicians Facility Department ID 2022-12-30 2022-12-30 Outpatient CHARLEY WHITEHEAD [id number] Memoria 11:45:00 11:45:00 03 korey Zelaya 2022-12-30 2022-12-30 Outpatient CHARLEY WHITEHEAD [id number] Memoria 11:45:00 11:45:00 03 korey Zelaya 2022-09-17 2022-09-18 Outpatient CHARLEY CORDOVA [id number] Memoria 16:45:00 04:59:59 Neurology 02 korey Zelaya 2022-09-17 2022-09-18 Outpatient MHIE MNA [id number] Memoria 16:45:00 04:59:59 Neurology 02 korey Zelaya 2022-09-17 2022-09-17 Outpatient Ahsan, MHMISCHER MHMISCHER [id number] 11:45:00 23:59:59 Serjio 02 Randy 2022-09-17 2022-09-17 Outpatient MHIE MHIE [id number] Memoria 11:45:00 11:45:00 02 korey Zelaya 2022-07-09 2022-07-10 Outpatient MHIE MNA [id number] Memoria 15:30:00 05:59:59 Neurology 01 korey Zelaya 2022-07-09 2022-07-10 Outpatient MHIE MNA [id number] Memoria 15:30:00 05:59:59 Neurology 01 l Roldan Zelaya 2022-07-09 2022-07-09 Outpatient Ahsan, MHMISCHER MHMISCHER [id number] 09:30:00 23:59:59 Serjio 01 Randy 2022-07-09 2022-07-09 Outpatient MHIE MHIE [id number] Memoria 09:30:00 09:30:00 01 korey [place] 2021-08-13 2021-08-13 Telephone [facility] [id number] Univers 00:00:00 00:00:00 Larry FINLEY [id number] ity of [id number] [id number] [place]ical NAL 9 [facility] 2021-08-13 2021-08-13 [facility] [id number] Univers 00:00:00 00:00:00 Larry FINLEY [id number] [place]y [id number] [id number] [place]ical NAL 9 [facility] 2021-08-13 2021-08-13 Orders Doctor JEAN PAUL [id number] Univers 00:00:00 00:00:00 Only Unassigned, ASHA [id number] ity of [facility] [id number] Neil as [id number] [address] 2021-07-30 2021-08-02 Inpatient EM Dudley [facility] [id number] [facility] 16:04:00 15:38:00 [place] 77 [facility] 2021-07-30 2021-07-30 [facility] [id number] Univers 00:00:00 00:00:00 Sendambar FINLEY [id number] ity of [facility] [id number] [id number] [place]ical NAL 059 Branch [facility] 2021-04-03 2021-04-03 Orders Doctor JEAN PAUL 1.2.840.114 [id number] Univers 00:00:00 00:00:00 Only Unassigned, ASHA 350.1.13.10 ity of [facility] 4.2.7.2.686 Neil as [phone] [address] 2021-03-08 2021-03-08 [facility] 1.2.840.114 [id number] Univers 10:01:31 23:59:00 Encounter Larry Finley 350.1.13.10 it[place] [phone] [place] 846 [facility] 2021-03-08 2021-03-08 Outpatient [facility] [id number] Univers 16:30:00 16:30:00 SENDIL ity of [facility] 2021-03-07 2021-03-07 [facility] 1.2.840.114 [id number] Univers 08:00:00 23:59:00 Encounter Larry Finley 350.1.13.10 [place] [phone] [place] 846 [facility] 2021-03-07 2021-03-07 Out[facility] [id number] Univers 08:00:00 08:00:00 SENDIL ity [facility] 2021-03-07 2021-03-07 Telephone [facility] 1.2.303.209 [id number] Univers 00:00:00 00:00:00 Sendambar Finley 350.1.13.10 [place] [phone] [address] 2021-02-26 2021-02-26 [place] [facility] 1.2.705.017 [id number] Univers 00:00:00 00:00:00 Sendambar Finley 350.1.13.10 [place] [phone] [address] 2020-12-31 2020-12-31 [place] [facility] 1.2.756.335 [id number] Univers 00:00:00 00:00:00 Sendambar Finley 350.1.13.10 it[place] of [place] [phone] [address] 2020-12-27 2020-12-27 Refill [facility] 1.2.840.114 [id number] Univers 00:00:00 00:00:00 Larry Finley 350.1.13.10 [place] of [place] [phone] [address] 2020-11-21 2020-11-21 Outpatient [facility] [id number] Univers 16:00:00 16:00:00 SENDIL evay [facility] 2020-11-12 2020-11-12 Office [facility] 1.2.840.114 [id number] Univers 14:36:56 15:39:38 Visit Larry Finley 350.1.13.10 it[place] [phone] [address] 2020-11-12 2020-11-12 Office Miguel Angel [facility] 1.2.840.114 [id number] 75 14:36:56 15:39:38 Visit Larry Finley 350.1.13.10 [place] 4.2.7.2.686 Professio [phone] [address] 2020-11-12 2020-11-12 Outpatient R MIGUEL ANGEL [facility] [id number] Univers 14:30:00 14:30:00 SENDIL ity of [facility] 2020-11-12 2020-11-12 Orders Doctor JEAN PAUL 1.2.840.114 [id number] Univers 00:00:00 00:00:00 Only Unassigned, ASHA 350.1.13.10 ity of [facility] 4.2.7.2.686 Neil as [phone] [address] 2020-11-02 2020-11-02 Refill [place] [facility] 1.2.840.114 [id number] Univers 00:00:00 00:00:00 Bronwyn Finley 350.1.13.10 it[place] of [place] [phone] [address] 2020-10-19 2020-10-19 Orders Doctor JEAN PAUL 1.2.840.114 [id number] Univers 00:00:00 00:00:00 Only Unassigned, ASHA 350.1.13.10 ity of [facility] 4.2.7.2.686 Neil as [phone] [address] 2020-10-15 2020-10-15 Telephone Miguel Angel [facility] 1.2.697.354 [id number] Univers 00:00:00 00:00:00 Larry Finley 350.1.13.10 ity of [place] [phone] [address] 2020-07-30 2020-07-30 Refill Miguel Angel [facility] 1.2.840.114 [id number] Univers 00:00:00 00:00:00 Larry Finley 350.1.13.10 ity of [place] [phone] [place] 059 [facility] 2020-07-27 2020-07-27 Refill [facility] 1.2.840.114 [id number] Univers 00:00:00 00:00:00 Larry Finley 350.1.13.10 ity of [place] [phone] [place] dic[place]al [address] [place] [address] 2020-07-26 2020-07-26 Outpatient SILVIA [facility] [id number] [place] 00:00:00 00:00:00 [facility] [address] 2020-07-05 2020-07-05 Outpatient [facility] [id number] [place] 00:00:00 00:00:00 985 [facility] i 2020-06-16 2020-06-16 [facility] 1.2.840.114 [id number] Univers 00:00:00 00:00:00 Outreach Bk [facility] 350.1.13.10 i ty of [facility] [place]2.7.2.[place] [phone] [place] dical [address] 2020-04-18 2020-04-18 Refill [facility] 1.2.840.114 [id number] Univers 00:00:00 00:00:00 Larry Finley 350.1.13.10 [place]y of [place] [phone] [place] 059 [facility] 2020-03-31 2020-03-31 Orders Doctor JEAN PAUL 1.2.840.114 [id number] Univers 00:00:00 00:00:00 Only Unassigned, ASHA 350.1.13.10 ity of [place] [facility] 4.2.7.2.686 Neil as [phone] [address] 2020-01-16 2020-01-16 Refill [facility] 1.2.840.114 [id number] Univers 00:00:00 00:00:00 Larry Finley 350.1.13.10 it[place] of [place] [phone] [place] dic[place]al 9 [facility] 2019-10-13 2019-11-21 Telemedici [facility] 1.2.840.[id number] [facility] 08:07:24 00:30:53 ne Visit Larry Finley 350.1.13.10 it[place] of [place] [phone] [address] 2019-09-30 2019-11-20 Office [facility] 1.2.840.114 [id number] 85 Univers 12:25:10 19:23:11 Visit Larry Finley 350.1.13.10 ity of [place] [phone] [address] 2019-11-20 2019-11-20 Telephone [facility] 1.2.498.105 [id number] Univers 00:00:00 00:00:00 Larry Finley 350.1.13.10 ity of [place] [phone] [address] 2019-11-07 2019-11-07 Telephone [facility] 1.2.819.935 [id number] Univers 00:00:00 00:00:00 Larry Finley 350.1.13.10 it[place] of [place] [phone] [address] 2019-11-07 2019-11-07 Orders Doctor JEAN PAUL 1.2.840.114 [id number] Univers 00:00:00 00:00:00 Only Unassigned, ASHA 350.1.13.10 ity of [place] [facility] 4.2.7.2.686 Neil as [phone] [address] 2019-10-13 2019-10-13 Out[facility] [id number] Univers 11:30:00 11:30:00 SENDIL ity [facility] 2019-10-13 2019-10-13 Orders Doctor JEAN PAUL 1.2.840.114 [id number] Univers 00:00:00 00:00:00 Only Unassigned, ASHA 350.1.13.10 [facility] 4.2.7.2.686 Neil as [phone] [address] 2019-09-30 2019-09-30 Outpatient [facility] [id number] Univers 14:00:00 14:00:00 SENDIL ity [facility] 2019-09-30 2019-09-30 Orders Doctor JEAN PAUL 1.2.840.114 [id number] Univers 00:00:00 00:00:00 Only Unassigned, ASHA 350.1.13.[address] [facility] 4.2.7.2.686 Neil as [phone] [address] 2019-09-30 2019-09-30 Telephone [facility] 1.2.283.286 [id number] Univers 00:00:00 00:00:00 Sendil Aicha Finley 350.1.13.10 ity of [place] [phone] [place]al [address] [place] [address] 2019-09-29 2019-09-29 Telemedici [facility] 1.2.840.114 [id number] Univers 07:50:34 15:46:34 ne Visit Sendambar Finley 350.1.13.10 it[place] of [place] [phone] [place] dic[address] 2019-09-29 2019-09-29 Outpatient R MIGUEL ANGEL [facility] [id number] Univers 10:00:00 10:00:00 SENDIL ity [facility] 2019-02-06 2019-02-06 Refill [facility] 1.2.840.114 [id number] Univers 00:00:00 00:00:00 Sendambar Finley 350.1.13.10 it[place] of [place] [phone] [place] 604419 [facility] 2019-02-04 2019-02-04 Orders Doctor JEAN PAUL 1.2.840.114 [id number] Univers 00:00:00 00:00:00 Only Unassigned, ASHA 350.1.13.[address] [facility] 4.2.7.2.686 Neil as [phone] [address] 2017-10-02 2017-10-02 Outpatient R MIGUEL ANGEL [facility] [id number] Univers 14:30:00 15:05:57 SENDAMBAR itperla [facility] 2017-10-02 2017-10-02 Office Miguel Angel [facility] 1.2.840.114 [id number] Univers 14:30:00 15:05:57 Visit Larry FINLEY 350.1.13.10 ity [facility] 4.2.7.2.[place] [phone] [place] 049209 [facility] Results Test Description Test Time Test Comments Results Result Comments Source GLUCOSE BEDSIDE TESTING 2021-08-02 11:57:00 Test Item Value Reference Range Interpretation Comme nts GLUCOSE BEDSIDE TESTING (test code = GLUBED) 116 MG/DL 60-99 H BASIC METABOLIC [id number] 08:08:00 Test Item Value Reference Range Interpretation [...] 8.6 MG/DL 8.4-10.2 N CA) GLUCOSE BEDSIDE [id number] 21:25:00 Test Item Value Reference Range Interpretation Comments GLUCOSE BEDSIDE TESTING (test code = 93 MG/DL 60-99 N GLUBED) GLUCOSE BEDSIDE [id number] 15:59:00 Test Item Value Reference Range Interpretation Comments GLUCOSE BEDSIDE TESTING (test code 103 MG/DL 60-99 H = GLUBED) - CT HEAD/BRAIN W/O [id number] 13:53:00 [facility] 1940 Sex: F Patient Name: CLAUDIA CHA Unit No: [id number] EXAMS: CPT CODE: [id number] CT HEAD/BRAIN W/O CONT 44984 CLINICAL HISTORY: Dizziness, sepsis. CT brain, unenhanced. [...] of ventricular shift. The posterior fossa structures ap pear to be intact. Mild cerebellar atrophy. A small hyperdensity is seen at the edge of the temporalbone 11 mm in length by 5.6 mm [...] and signed by: TREMAYNE MAK MD CC: Royce Ordonez MD; Smitha Buckner MD Technologist: Lidia Goodson (RT) CTDI: DLP: Trnscrpt: 08/01/2021 (3953) [email or web address] EDSON Abernathy NAME: CLAUDIA CHA PHYS: [id number] - José Luis,[place] [address] : 1940 AGE: 81 SEX:F LOC: Z.425 A PHONE #: [phone] EXAM DATE: 08/01/2021 STATUS: ADM IN FAX#: [phone] RAD #: D/C DT PAGE 1 Signed Report Patient Name: CLAUDIA CHA Unit No: [id number] EXAMS: CPT CODE: [id number] CT HEAD/BRAIN W/O CONT 40427 (Continued) Orig Print D/T: S: 08/01/2021 (4847) [facility] Josemanuel NAME: CLAUDIA CHA PHYS: [id number] - José Luis,[place] [address] : 1940 AGE: 81 SEX: F LOC: Z.425 A PHONE #: [phone] EXAM DATE: 08/01/2021 STATUS: ADM IN FAX #: [phone] RAD #: D/C DT PAGE 2 Signed ReportGLUCOSE BEDSIDE [id number] 10:17:00 Test Item Value Reference Range Interpretation Comments GLUCOSE BEDSIDE TESTING (test code = 94 MG/DL 60-99 N GLUBED) GLUCOSE BEDSIDE [id number] 07:18:00 Test Item Value Reference Range Interpretation Comments GLUCOSE BEDSIDE TESTING (test code = 92 MG/DL 60-99 N GLUBED) BASIC METABOLIC [id number] 07:00:00 Test Item Value Reference Range Interpretation [...] = 8.8 MG/DL 8.4-10.2 N CA) VANCOMYCIN [id number] 06:46:00 Test Item Value Reference Range Interpretation Comments VANCOMYCIN TROUGH (test code = 13.6 UG/ML 10.0-20.0 N VANCT) CBC W/AUTO [id number] 06:09:00 Test Item Value Reference Range Interpretation [...] 0.00 K/mm3 0.0-0.1 N NRBC#) GLUCOSE BEDSIDE [id number] 18:49:00 Test Item Value Reference Range Interpretation Comments GLUCOSE BEDSIDE TESTING 161 MG/DL 60-99 H Noti fied Nurse~ (test code = GLUBED) GLUCOSE BEDSIDE [id number] 16:06:00 Test Item Value Reference Range Interpretation Comments GLUCOSE BEDSIDE TESTING (test code 129 MG/DL 60-99 H = GLUBED) POC VENOUS BLOOD [id number] 14:23:00 Test Item Value Reference Range Interpretation Comments POC VENOUS BLOOD GAS PH (test 7.412 7.35-7.45 N code = POCPHV) POC VENOUS BLOOD GAS PCO2 40.2 mmHg 35.0-45.0 N (test code = UQKTGE8R) POC VENOUS BLOOD GAS PO2 36.2 mmHG 0-40 N (test code = UJAVV4Z) POC HCO3 VENOUS (test code = 25.6 MMOL/L 20-26 N PETXLM1Z) POC BASE EXCESS VENOUS (test 0.9 MMOL/L -3.0-3.0 N code = POCBEV) POC O2 SATURATION VENOUS 70.0 % 72-77 L (test code = WCCG0DI) POC SAMPLE SOURCE (test code Venous Descript Specimen = POCSAMPLE) POC VENOUS BLOOD [id number] 14:20:00 Test Item Value Reference Range Interpretation Comments POC VENOUS BLOOD GAS PH (test 7.410 7.35-7.45 N code = POCPHV) POC VENOUS BLOOD GAS PCO2 39.4 mmHg 35.0-45.0 N (test code = CCSSRH7U) POC VENOUS BLOOD GAS PO2 37.1 mmHG 0-40 N (test code = WXPPU5G) POC HCO3 VENOUS (test code = 25.0 MMOL/L 20-26 N XTBZWS7W) POC BASE EXCESS VENOUS (test 0.3 MMOL/L -3.0-3.0 N code = POCBEV) POC O2 SATURATION VENOUS 71.4 % 72-77 L (test code = HLKM8PJ) POC SAMPLE SOURCE (test code Venous Descript Specimen = POCSAMPLE) POC VENOUS BLOOD [id number] 14:16:00 Test Item Value Reference Range Interpretation Comments POC VENOUS BLOOD GAS PH (test 7.414 7.35-7.45 N code = POCPHV) POC VENOUS BLOOD GAS PCO2 39.1 mmHg 35.0-45.0 N (test code = QMZBHM8D) POC VENOUS BLOOD GAS PO2 34.2 mmHG 0-40 N (test code = ELISI2O) POC HCO3 VENOUS (test code = 25.1 MMOL/L 20-26 N MOPXNV4G) POC BASE EXCESS VENOUS (test 0.5 MMOL/L -3.0-3.0 N code = POCBEV) POC O2 SATURATION VENOUS 66.8 % 72-77 L (test code = EIKM9NE) POC SAMPLE SOURCE (test code Venous Descript Specimen = POCSAMPLE) POC VENOUS BLOOD [id number] 14:09:00 Test Item Value Reference Range Interpretation Comments POC VENOUS BLOOD GAS PH (test 7.407 7.35-7.45 N code = POCPHV) POC VENOUS BLOOD GAS PCO2 41.3 mmHg 35.0-45.0 N (test code = MXEKON7X) POC VENOUS BLOOD GAS PO2 38.0 mmHG 0-40 N (test code = VVCWM1I) POC HCO3 VENOUS (test code = 26.0 MMOL/L 20-26 N XELPAQ2C) POC BASE EXCESS VENOUS (test 1.1 MMOL/L -3.0-3.0 N code = POCBEV) POC O2 SATURATION VENOUS 72.4 % 72-77 N (test code = RHYG6BR) POC SAMPLE SOURCE (test code Venous Descript Specimen = POCSAMPLE) POC ARTERIAL BLOOD [id number] 14:03:00 Test Item Value Reference Range Interpretation Comments POC ARTERIAL BLOOD GAS PH 7.422 7.35-7.45 N (test code = POCPHA) POC ARTERIAL BLOOD GAS PCO2 35.9 mmHg 35.0-45.0 N (test code = ZAAHXM8J) POC ARTERIAL BLOOD GAS PO2 76.5 75.0-100.0 N (test code = XJEBP5W) POC HCO3 ARTERIAL (test 23.4 MMOL/L 20.0-26.0 N code = IHZDBP1N) POC BASE EXCESS (test code -0.7 MMOL/L -3.0-3.0 N = POCBEA) POC O2 SATURATION (test 95.5 % 92.0-98.5 N code = POCO2S) POC SAMPLE SOURCE (test Arterial Descript Specimen code = POCSAMPLE) COVID 19 Asymptomatic IH [id number] 13:05:00 Test Item Value Reference Range Interpretation [...] should beconsidered in the context of a pa tients recent exposure s,history, and the presenc e of clinical signs and symptomsconsist ent with COVID-19.This t est detects both vi able andnon-viable S ARS-CoV and SARS CoV-2. Test performance dep endson the amount of virus (antigen) in the sample." Comments to Phleb: PLS RUN TEST STAT. THANKSGLUCOSE BEDSIDE [id number] 11:28:00 Test Item Value Reference Range Interpretation Comments GLUCOSE BEDSIDE TESTING (test code 131 MG/DL 60-99 H = GLUBED) GLYCOSYLATED HEMOGLOBIN [id number] 11:17:00 Test Item Value Reference Range Interpretation [...] H (test code = MBG) BASIC METABOLIC [id number] 09:52:00 Test Item Value Reference Range Interpretation [...] VERY HIGH.........>/ = 190 mg/dL CBC W/AUTO [id number] 09:39:00 Test Item Value Reference Range Interpretation [...] = 0.00 K/mm3 0.0-0.1 N NRBC#) - XR CHEST [id number] 09:30:00 [facility] 1940 Sex: F Patient Name: CLAUDIA CHA Unit No: [id number] EXAMS: CPT CODE: [id number] XR CHEST 1V 53713 EXAMINATION: - XRCHEST 1V. LOCATION: B2. HISTORY: [...] Technologist: Tennille Maria (RT)(R) Transcrpt Date/Tm/Trnsp: 07/31/2021 (0930) t.SDR.PR7 Orig Print D/T: S: 07/31/2021 (932) [facility] NAME: CLAUDIA CHA [address] PHYS: [id number] [place] [address] : 1940 AGE: 81 SEX: F LOC: ZNash425 A PHONE #: [phone] EXAM DATE: 07/31/2021 STATUS: ADM IN FAX #: [phone] RADIOLOGY NO: PAGE 1 Signed ReportGLUCOSE BEDSIDE [id number] 07:47:00 Test Item Value Reference Range Interpretation Comments GLUCOSE BEDSIDE TESTING 132 MG/DL 60-99 H Noti fied Nurse~ (test code = GLUBED) GLUCOSE BEDSIDE [id number] 07:22:00 Test Item Value Reference Range Interpretation Comments GLUCOSE BEDSIDE TESTING (test code 125 MG/DL 60-99 H = GLUBED) GLUCOSE BEDSIDE [id number] 00:20:00 Test Item Value Reference Range Interpretation Comments GLUCOSE BEDSIDE TESTING (test code 128 MG/DL 60-99 H = GLUBED) [id number] 23:43:00 Test Item Value Reference Range Interpretation Comments TROPONIN-I (test 18.400 NG/ML 0.012-0.033 HH CALLED TO Adi Chi& code = TROPI) READBACK ON AT 2343 BY Hugo Carrillo [id number] 19:26:00 Test Item Value Reference Range Interpretation Comments TROPONIN-I (test 18.600 NG/ML 0.012-0.033 CALLED TO Raven Segura& code = TROPI) READBACK ON AT 1926 BY Hugo Carrillo UA RFLX MICR CULT IF [id number] 18:10:00 Test Item Value Reference Range Interpretation [...] Criteria Indication for culture: RiskForSepsis-no oth srcUA [id number] 18:10:00 Test Item Value Reference Range Interpretation Comments UA RBC (test code = RBCU) 3-5 RBC/HPF 0-3 A UA WBC (test code = XWBCU) 0-3 WBC/HPF 0-5 UA EPITHELIAL CELLS (test code = FEW EPI/HPF FEW EPIU) UA BACTERIA (test code = XBACU) FEW NONE Indication for culture: RiskForSepsis-no oth srcLIPOPROTEIN LDL [id number] 16:28:00 Test Item Value Reference Range Interpretation Comments LIPOPROTEIN LDL DIRECT 40 mg/dL 100-129 L ===== (test code = LDLDIR) ======= ==Refe rence Interval: mg/dL mmol/L--------- ------ ------ ------ --Optimal <100 <2.6Near/above optimal 100-129 2.6-3.3Borderli ne High 130-159 3.4-4.1High 160 -189 4.1-4.9Very Hig h >=190 >=4.9==== ===== This LDL result is a direct measurement.=== ====== BASIC METABOLIC [id number] 16:28:00 Test Item Value Reference Range Interpretation [...] 9.8 MG/DL 8.4-10.2 N CA) HEPATIC FUNCTION [id number] 16:28:00 Test Item Value Reference Range Interpretation Comments TOTAL PROTEIN 8.1 G/DL 6.3-8.2 N [facility] Clinical Diagnostic (test code = has made us david re of PROT) newinformation regarding the potential i nterference ofEltrombopag ( a bone marrow stimulan t used to treatthrombocyt onmenia and aplastic anemia ) with specific assays on the [employer] 5600 of which Total Protein is one of thoseassays per formed in our lab.Interfe rence testing perform ed at Ortho determined that Eltrombopag does interfere with Vitros Total Protein asfollowsEltrom bopag Interference fo r Vitros Product Total Protein:======= Eltrombopag Max Observed Av g. BiasConcentrati on Concentration Concentration== ==== 2.5 mg/dl [...] 38-126 N PHOSPHATASE (test code = ALKP) [id number] 16:28:00 Test Item Value Reference Range Interpretation Comments LIPASE (test code = LIP) 88 UNITS/L 23-300 N [id number] 16:28:00 Test Item Value Reference Range Interpretation Comments TROPONIN-I (test 15.400 NG/ML 0.012-0.033 HH CALLED TO A Reyna WATTS & code = TROPI) READBACK ON AT 1600 BY Jane Crews CBC W/AUTO [id number] 16:26:00 Test Item Value Reference Range Interpretation [...] BY KENISHATTREASON: CLOTTEDNOTIFIED PATIENT CARE STAFF: KATHIE.RLACTIC [id number] 15:49:00 Test Item Value Reference Range Interpretation Comments LACTIC ACID (test code = LACT) 2.0 MMOL/L 0.7-2.1 N - XR CHEST [id number] 15:40:00 [facility] 1940 Sex: F Patient Name: CLAUDIA CHA Unit No: [id number] EXAMS: CPT CODE: [id number] XR CHEST 1V 01799 Location: H59 EXAM: XR CHEST 1 VIEW [...] low lung volumes. at 1540 Reported and signed by: Phil Faulkner MD CC: Jeffry Zamarripa MD Technologist: Vidhya Pak RT(R) Transcrpt Date/Tm/Trnsp: 07/30/2021 (1540) t.SDR.GS29 Orig Print D/T: S: 07/30/2021 (3730) [facility] NAME: CLAUDIA CHA [address] [place] [address] PHYS: [place] [address] : 1940 AGE: 81 SEX: F LOC: [facility] PHONE #: [phone] EXAM DATE: 07/30/2021 STATUS: REG ER FAX #: [phone] RADIOLOGY NO: PAGE 1 Signed Report Notes Date/Time Note Provider Source 2021-08-02 15:52:00-00:00 [id number] [place] [address] PATIENT NAME: CLAUDIA CHA ADMIT DATE: 07/30/21 ACCOUNT NO: [id number] ROOM NO: Z425 AGE: 81 REPORT TYPE: PROGRESS NOTE SEX: [...] Dictated By: Cesar Alexander Jr, MD WT: PN:Z.HIM/TYRAM/NTS Conf#: [id number]/DID#: [id number] Authenticated by Cesar Alexander MD On 08/05/2021 01 :31:15 PM Electronically Signed by Cesar Alexander Jr, MD o n 08/05/21 at 0131 PATIENT NAME: CLAUDIA CHA 2577 2021-08-02 13:59:00-00:00 [facility] ([facility]) Hospitalist Discharge Summary REPORT#:[id number] REPORT STATUS: Signed DATE:08/02/21 TIME: 1359 PATIENT: CLAUDIA CHA UNIT #: [id number] ROOM/BED: [address] : 42 AGE: 81 SEX: F ATTEND: Al Buckner MD ADM AUTHOR: Royce Ordonez MD R1 * ALL edits or amendments must be made on the [employer]/computer document * Royce Ordonez 08/02/21 1359: General Information Discharge date: 08/02/21 Admission diagnosis: Leukocytosis Discharge diagnosis: Leukocytosis Hospital course: 81 y/o F with hx of [place] s/p P CI (8 years ago), borderline T2DM, chronic back pain with hx of multiple back surgeries on intratheca l pump presents as a transfer from an outside facility for sepsis and elevated troponins. Patient had the intrathecal pump changed 1 day prior to admiss n at an outside surgical facility. Patient was discharged home on the lauryn day but later that night developed abdominal [...] and intact. 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 X 3, normal speech Skin: [...] Signed by Ayaan Gonzalez MD on at 1646 RPT #:[id number] END OF REPORT 2021-08-01 20:40:00-00:00 [facility] ([facility]) Cardiology Progress Note REPORT#:[id number] REPORT STATUS: Signed DATE:08/01/21 TIME: 2039 PATIENT: CLAUDIA CHA UNIT #: [id number] ROOM/BED: [address] : 42 AGE: 81 SEX: F ATTEND: Al Buckner MD ADM AUTHOR: Cesar Alexander Jr, MD * ALL edits or amendments must be made on the el [employer]/computer document * Subjective Chief complaint: chest pain sovb Comments: DISCUSSED AT [facility] [place] had been wor [...] 08/01 08/01 08/01 08/01 1557 [id number] Chemistry Sodium (137 - 145 MMOL/L) 140 [...] % (Auto) (14 - 44 %) 19.3 Henry % (Auto) (4 - 13 %) 10.7 Eos % (Auto) (0 - 6 %) 0.8 Baso % (Auto) (0 - 2 %) 0.7 Neut # (Auto) (2.0 - 7.6 K/mm3) 8.27 H Lymph # (Auto) (1.0 - 3.8 K/mm3) 2.35 Henry # (Auto) (0.1 - 0.8 K/mm3) 1.30 [...] am from cardiac standpoint resume dap. at 2042 RPT #:[id number] END OF REPORT 2021-08-01 12:07:00-00:00 [id number] [place] [address] PATIENT NAME: CLAUDIA CHA ADMIT DATE: 07/30/21 ACCOUNT NO: [id number] ROOM NO: Z.425 AGE: 81 REPORT TYPE: CONSULTATION REPORT SEX: F ADMITTING PHYSICIAN:Smitha Buckner MD ATTENDING PHYSICIAN:Smitha Buckner MD CONSULTATION DATE: 08/01/2021 CONSULTING PHYSICIAN: Susana Thacker MD INPATIENT INFECTIOUS DISEASE CONSULTATION CHIEF COMPLAINT: This is a 81-year-old woman wi th leukocytosis. HISTORY OF PRESENT ILLNESS: A 81-year-old woman with a past medical history significant for diabetes ángel litus type 2 and back pain, who recently had a pain pump exchange. She was seen at an [facility] for generalized feelings of unwellness, found [...] antibiotics. Dictated By: Susana Thacker MD WT: CON:YK/RK/RAFFY Conf#: [id number]#: [id number] Authenticated by Susana Thacker MD On 08/09/2021 0 9:32:58 AM Electronically Signed by Susana Thacker MD on at 0932 PATIENT NAME: CLAUDIA CHA 577 2021-08-01 09:29:00-00:00 [facility] Hospitalist Progress Note REPORT#:[id number] REPORT STATUS: Signed DATE:08/01/21 TIME: 928 PATIENT: CLAUDIA CHA UNIT #: [id number] [facility] AGE: 81 SEX: F ATTEND: Al Buckner MD ADM AUTHOR: Royce Ordonez MD R1 * ALL edits or amendments must be made on the [employer]/computer document * Royce Ordonez [facility] 08/01/21 0929: Subjective Chief complaint: NSTEMI, sepsis [...] Pulse Resp B/P B/P Pulse O2 O2 Flow FiO2 Mean Ox Delivery Rate 08/01 0756 [...] p ain 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 X 3, normal speech Skin: [...] % (Auto) (14 - 44 %) 19.3 Henry % (Auto) (4 - 13 %) 10.7 Eos % (Auto) (0 - 6 %) 0.8 Baso % (Auto) (0 - 2 %) 0.7 Neut # (Auto) (2.0 - 7.6 K/mm3) 8.27 H Lymph # (Auto) (1.0 - 3.8 K/mm3) 2.35 Henry # (Auto) (0.1 - 0.8 K/mm3) 1.30 H Eos # (Auto) (0.0 - 0.2 K/mm3) 0.10 Baso # (Auto) (0.0 - 0.2 K/mm3) 0.09 Immature Gran % (0.0 - 2.0 %) 0.3 Nucleated RBC % (0 - 1.0 %) 0.0 Nucleated RBCs # (Man) (0.0 - 0.1 K/mm3) 0.00 Laboratory Tests 07/31 122 Serology SARS-CoV-2 Ag (Rapid) (Negative) NEGATIVE Laboratory Tests 08/01 537 Toxicology Vancomycin Trough (10.0 - 20.0 UG/ML) [...] Smitha Buckner MD on at 1937 RPT #:[id number] END OF REPORT 2021-07-31 16:00:00-00:00 [id number] [place] [address] PATIENT NAME: CLAUDIA CHA ADMIT DATE: 07/30/21 ACCOUNT NO: [id number] ROOM NO: [facility] AGE: 81 REPORT TYPE: eCAROTID ULTRASOUND SEX: F ADMITTING PHYSICIAN:Smitha Buckner MD ATTENDING PHYSICIAN:Smitha uBckner MD *[facility]* [address] [place], [place] [id number] Carotid Duplex Study Patient: Claudia Cha Study Date: 07/31/2021 BP: 129 / 87 Location: [facility] URN: [id number] 577 : 1940 Age: 81 Height: 67 in / 170.2 cm Gender: F Weight: 179 .6 lb / 81.6 kg BMI/BSA: 28.2 kg/m 2 / 1.98 m 2 *Ordering Physician: * Cesar Alexander MD *Interpreting Physician: * Cesar Alexander MD *Archives Technician: Tia Nelson RDCS, RADHA Indications: Carotid bruit. Study data: Carotid duplex study. Bilateral eval uation with grayscale 2D imaging, color Doppler imaging, and spectral Doppler analysis. Location: Bedside. Patient status: Inpatient. Meredith bates room number: 425. Procedure: A vascular evaluation was perfor med. Images were obtained using a Sage[employer] vascular ultrasound machine. Image quality was adequate. [...] 0.91 1-19% L ICA, 34 11 0.68 1-19% prox R ICA, 54 21 0.99 -------- [...] PATIENT NAME: CLAUDIA CHA 577 2021-07-31 15:59:00-00:00 [id number] [place] [address] PATIENT NAME: CLAUDIA CHA ADMIT DATE: 07/30/21 ACCOUNT NO: [id number] ROOM NO: Z.425 AGE: 81 REPORT TYPE: ECHOCARDIOGRAM SEX: F ADMITTING PHYSICIAN:Smitha Buckner MD ATTENDING PHYSICIAN:Smitha Buckner MD *[facility]* [address] [place], [place] [id number] Transthoracic Echocardiogram Patient: Claudia Cha Study Date: 07/31/2021 BP: 129 / 87 Location: [facility] URN: [id number] 577 : 1940 Age: 81 Height: 67 in / 170.2 cm Gender: F Weight: 179 .6 lb / 81.6 kg BMI/BSA: 28.2 kg/m 2 / 1.98 m 2 *Ordering Physician: * Brian Jean *Interpreting Physician: * Cesar Alexander MD *Archives Technician: * Tia Kimbrough RDCS, RVT Indications: Nstemi. Study data: Transthoracic echocardiogram. Proced ure: Transthoracic echocardiography was performed. Images were obta ined using a Sagebin cardiac ultrasound machine. Image quality was suboptimal [...] possible interatrial s joseph. Doppler shows a tsuk-rv-datys shunt. Aortic valve: The valve is trileaflet. [...] 4.77 m/sec -------- Pulmonic valve Value Ref UT peak v 2.04 m/sec -------- UT peak grad 17 mm Hg -------- UT v, ED 0.9 m/sec -------- UT decel time 1415 ms -------- UT PHT 410 ms -------- Tricuspid valve Value [...] possible interatria l shunt. Doppler shows a ibnz-xg-jnlcw shunt. 6. Mitral valve: There is mild to moderate regur gitation. 7. Tricuspid valve: There is mild-moderate regur gitation. Prepared and electronically signed by Cesar Alexander MD 07/31/2021 15:59 Electronically Signed by Cesar Alexander Jr, MD o n 07/31/21 at 1559 PATIENT NAME: CLAUDIA CHA 577 2021-07-31 14:28:00-00:00 [facility] ([facility] Cardiology Progress Note REPORT#:[id number] REPORT STATUS: Signed DATE:07/31/21 TIME: 1428 PATIENT: CLAUDIA CHA UNIT #: [id number] ROOM/BED: [address] : 42 AGE: 81 SEX: F ATTEND: Al Buckner MD ADM AUTHOR: Cesar Alexander Jr, MD * ALL edits or amendments must be made on the [employer]/computer document * Subjective Chief complaint: chest pain [...] Cholesterol (40 - 59 MG/DL) 62 H 07/3108 07/30 07/30 0018 2157 1741 1520 Chemistry [...] - 44 %) 6.2 L 3.3 L Henry % (Auto) (4 - 13 %) 9.7 6.2 Eos % (Auto) (0 - 6 %) 0.0 0.0 Baso % (Auto) (0 - 2 %) 0.4 0.2 Neut # (Auto) (2.0 - 7.6 K/mm3) 19.68 H 23.01 H Lymph # (Auto) (1.0 - 3.8 K/mm3) 1.46 0.85 L Henry # (Auto) (0.1 - 0.8 K/mm3) 2.29 [...] pH (5.0 - 9.0) 5.0 Ur Specific [place] (1.003 - 1.030) 1.020 Urine Protein (NEGATIVE [...] from cardiac standpoint resume dap. at 1431 [facility] #:[id number] END OF REPORT 2021-07-31 14:25:00-00:00 [id number] [place] [address] PATIENT NAME: CLAUDIA CHA ADMIT DATE: 07/30/21 ACCOUNT NO: [id number] ROOM NO: [facility] AGE: 81 REPORT TYPE: OPERATIVE REPORT SEX: F ADMITTING PHYSICIAN:Smitha Buckner MD ATTENDING PHYSICIAN:Smitha Buckner MD OPERATION DATE: CLINICAL SUMMARY: The patien t admitted with a non-Q-wave myocardial infarction. PREOPERATIVE DIAGNOSIS: POSTOPERATIVE DIAGNOSIS: PROCEDURE: SURGEON: Cesar Alexander Jr., MD JET WIPER: ANESTHESIA: Consists of Versed 1 mg total in 2 s eparate boluses and local anesthesia. ESTIMATED BLOOD LOSS: 5 mL. CLOSURE DEVICE ATTEMPTED: Angio-Seal. DESCRIPTION OF PROCEDURE: Under aseptic conditio ns with the help of fluoroscopy, we inserted a 6 -Japanese sheath in the right femoral artery and then a 7-Japanese venous sheath in the right femoral ve in. We cannulated the left coronary system. Multiple views of this artery a re obtained with hand injection. The right coronary catheter w as used to cannulate the RCA. Multiple views of this artery were obtained with hand inj ection. LV angiogram was done with pigtail catheter using power injector in RA O and GUATEMALAN projections. 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 2. LV angiogram shows a [...] 55% on average, looking much better in GUATEMALAN , looking lower in the HARKINS position. 2. Pulmonary hypertension with a PA pressure of about 50 to 51. No clear cut shunt was detected on her saturations. Dictated By: Cesar Alexander Jr, MD WT: OP:KY/LEANN/RAFFY Conf#: [id number]/DID#: [id number] Authenticated by Cesar Alexander MD On 08/05/2021 01 :31:13 PM Electronically Signed by Cesar Alexander Jr, MD o n 08/05/21 at 0131 PATIENT NAME: CLAUDIA CHA 577 2021-07-31 14:21:00-00:00 [id number] [place] [address] PATIENT NAME: CLAUDIA CHA ADMIT DATE: 07/30/21 ACCOUNT NO: [id number] ROOM NO: Z.425 AGE: 81 REPORT TYPE: PROGRESS NOTE SEX: F ADMITTING PHYSICIAN:Smitha Buckner MD ATTENDING PHYSICIAN:Smitha Buckner MD DATE: 07/31/2021 SUBJECTIVE: I attempted to see Ms. Cha today in consultation. 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 I will try again later. Dictated By: Susana Thacker MD WT: PN:JaydenSERENE/RK/RAFFY Conf#: [id number]/DID#: [id number] Authenticated by Susana Thacker MD On 08/09/2021 0 9:32:56 AM Electronically Signed by Susana Thacker MD on at 0932 PATIENT NAME: CLAUDIA CHA 577 2021-07-31 10:18:00-00:00 [facility] ([facility] Hospitalist Progress Note REPORT#:[id number] REPORT STATUS: Signed DATE:07/31/21 TIME: 1018 PATIENT: CLAUDIA CHA UNIT #: [id number] ROOM/BED: [address] : 42 AGE: 81 SEX: F ATTEND: Chelsi Buckner MD ADM AUTHOR: Royce Ordonez MD R1 * ALL edits or amendments must be made on the [employer]/computer document * Royce Ordonez 07/31/21 1018: Subjective [...] p ain 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 X 3, normal speech Skin: dry, intact, normal color Results Findings/Data: Laboratory Tests 07/31 07/31 07/31 07/31 07/30 0827 0747 0720 0018 2157 Chemistry Sodium (137 - 145 MMOL/L) 144 [...] Cholesterol (40 - 59 MG/DL) 62 H 07/30 07/30 07/30 1741 1520 1520 Chemistry Sodium [...] I (0.012 - 0.033 NG/ML) 18.600 *H 15.4 00 *H Total Protein (6.3 - 8.2 G/DL) [...] - 44 %) 6.2 L 3.3 L Henry % (Auto) (4 - 13 %) 9.7 6.2 Eos % (Auto) (0 - 6 %) 0.0 0.0 Baso % (Auto) (0 - 2 %) 0.4 0.2 Neut # (Auto) (2.0 - 7.6 K/mm3) 19.68 H 23.01 H Lymph # (Auto) (1.0 - 3.8 K/mm3) 1.46 0.85 L Henry # (Auto) (0.1 - 0.8 K/mm3) 2.29 [...] pH (5.0 - 9.0) 5.0 Ur Specific Scotia (1.003 - 1.030) 1.020 Urine Protein (NEGATIVE [...] Report Impression - Status: SIGNED Entered: 07/30/2021 6272 IMPRESSION: 1. Suboptimal positioning and low lung volumes l imits evaluation. 2. Mild bilateral perihilar opacities, favored t o represent a combination of vascular crowding and atelectatic change, given low lung volumes. Impression By: [email or web address] - Phil Faulkner MD RADIOLOGY - XR CHEST 1V 07/31 0810 Report Impression - Status: SIGNED Entered: 07/31/2021 [...] Buckner MD on 03/15 at 0517 RPT #:[id number] END OF REPORT 2021-07-30 21:05:00-00:00 [facility] ([facility]) Clinical Note REPORT#:[id number] REPORT STATUS: Signed DATE:07/30/21 TIME: 2104 PATIENT: CLAUDIA CHA UNIT #: [id number] ROOM/BED: [place] [address] : 42 AGE: 81 SEX: F ATTEND: Al Buckner MD ADM AUTHOR: Cesar Alexander Jr, MD * ALL edits or amendments must be made on the el [employer]/computer document * Clinical Note Note: [id number] at 2106 RPT #:[id number] END OF REPORT 2021-07-30 21:05:00-00:00 [id number] [place] [address] PATIENT NAME: CLAUDIA CHA ADMIT DATE: 07/30/21 ACCOUNT NO: [id number] ROOM NO: [facility] AGE: 81 REPORT TYPE: CONSULTATION REPORT SEX: F ADMITTING PHYSICIAN:Smitha Buckner MD ATTENDING PHYSICIAN:Smitha Buckner MD CONSULTATION DATE: CONSULTING PHYSICIAN: Cesar Alexander Jr, MD CARDIOLOGY NOTE HISTORY OF PRESENT ILLNESS: A 81-year-old female admitted for some dizziness and weakness and was admitted and seen in [facility] in the setting of a non-STEMI. On review of systems, she was transferre d from 2 other hospitals including [facility]. Apparently, they were not sure what to [...] risks and benefits were discussed with the d alize and the patient, they are inclined to [...] Cesar Alexander Jr, MD WT: CON:KY/LEANN/RAFFY Conf#: [id number]/DID#: [id number] Authenticated by Cesar Alexander MD On 08/05/2021 01 :31:12 PM Electronically Signed by Cesar Alexander Jr, MD o n 08/05/21 at 0131 PATIENT NAME: CLAUDIA CHA 2577 2021-07-30 16:59:00-00:00 [facility] ([facility]) Hospitalist History Physical REPORT#:[id number] REPORT STATUS: Signed DATE:07/30/21 TIME: 1658 PATIENT: CLAUDIA CHA UNIT #: [id number] ROOM/BED: [address] : 42 AGE: 81 SEX: F ATTEND: Al Buckner MD ADM AUTHOR: Brian Jean MD R3 * ALL edits or amendments must be made on the [employer]/computer document * Brian Jean 07/30/211658: History of Present Illness HPI HPI: 81 y/o F with hx of [place] s/p P CI (8 years ago), borderline [...] Resp B/P B/P Mean Pulse Ox FiO2 07/30 98.6 107 18 182/117 138 99 Last Documented: Result Date Time Pulse Ox 99 07/30 1439 B/P 182/117 / 1439 B/P Mean 138 / 1439 O2 Delivery Room air 07/30 1438 [...] p ain 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 X 3, normal speech Skin: [...] (Auto) (14 - 44 %) 3.3 L Henry % (Auto) (4 - 13 %) 6.2 Eos % (Auto) (0 - 6 %) 0.0 Baso % (Auto) (0 - 2 %) 0.2 Neut # (Auto) (2.0 - 7.6 K/mm3) 23.01 H Lymph # (Auto) (1.0 - 3.8 K/mm3) 0.85 L Henry # (Auto) (0.1 - 0.8 K/mm3) 1.58 [...] change, given low lung volumes. Impression By: [email or web address] - Phil Faulkner MD Diagnosis, Assessment Plan [...] Surgical Hx Additional medical history: Hx of [place] s/p PCI (8 years ago), chronic back [...] 0316 Temp 97.2 08/01 0316 Pulse 93 08/01 0316 Resp 18 08/01 0316 O2 Delivery [...] Smitha Buckner MD on 03/15 at 0515 [facility] #:[id number] END OF REPORT 2021-07-30 15:00:00-00:00 [facility] EMERGENCY PROVIDER REPORT REPORT#:[id number] REPORT STATUS: Signed DATE:07/30/21 TIME: 1500 PATIENT: CLAUDIA CHA UNIT #: [id number] ROOM/BED: [facility] AGE: 81 SEX: F PCP PHYS: No Primary or Family Ph ysician SERVICE AUTHOR: Jeffry Zamarripa MD LOCATION: [facility] * ALL edits or amendments must be made on the el [employer]/computer document * HPI-Dizziness/Weakness General Confirmed Patient Yes [...] status for patients 13 years old or ol isiah: Never Smoker Physical Exam Vital Signs Vital Signs First Documented: Result Date Time Pulse Ox 99 07/30 1439 B/P 182/117 07/30 1439 B/P Mean 138 07/30 1439 O2 Delivery Room air 07/30 1439 Temp 98.6 07/30 1439 Pulse 107 07/30 1439 Resp 18 07/30 1439 Last Documented: Result Date Time Pulse Ox 99 07/30 1439 B/P 182/117 07/30 1438 B/P Mean 138 07/30 143 O2 Delivery Room air 07/30 1438 Temp 98.6 07/30 1438 Pulse 107 07/30 1438 Resp 18 07/30 1438 Review of Vital Signs Reviewed Focused PE General/Const General/Const Awake, Alert MS Head Head Atraumatic, Normocephalic Eyes Eyes PERRL, EOMI, No nystagmus Ears/Nose/Throat Ears/Nose/Throat Airway patent, Mucous membran es moist, Pharynx NL MS Neck Neck No [...] Case discussed admitting team and with yasmin cota. Patient does not have chest pain on [...] X1ED STA 07/30 1450 DC 03/08 IV 03/08 1451 1510 Central Nervous System Agents Sig/Lise Start time Last Medication Dose Route Stop Time Status Admin Aspirin 325 MG ONCE ONE 07/30 1605 DC PO 03/08 1606 Fentanyl Citrate 50 MCG X1ED STA 07/30 1452 DC 03/08 IV 03/08 1453 1510 Acetaminophen 1,000 MG X1ED STA 07/30 1450 DC 0 /08 PO 03/08 1451 1511 Electrolytic, Caloric, And Haider Sig/Lise Start time Last Medication Dose Route Stop Time Status Admin Sodium Chloride 1,000 ML X1ED STA 07/30 1450 DC 03/08 IV 03/08 1549 1511 Patient Discharge Departure Vital Signs/Condition [...] with fam/surrogate Separately billable procedures excluded from irvin mccall. Quality Measures Smoking Cessation Screened, non user Electronically Signed by Jeffry Zamarripa MD on 0 07/30/21 at 1626 RPT #:[id number] END OF REPORT
[2022-12-18 21:53] VITALS: BMI 30.4
[2022-12-18] MEDS ORDERED: Levofloxacin500mg IV 500 MG/100 ML BAG IV SCH (22:00)
[2022-12-18 22:03] LABS: Hematocrit 36.7 % (36.0-45.0); Lymphocytes % 23.9 % (15.3-44.8); MCV 96.3 fL (80-100); MPV 9.5 fL (7.6-11.3); RBC Red Blood Cell Count 3.81 M/uL (3.86-4.86)
[2022-12-18 22:25] LABS: Albumin 3.5 g/dL (3.4-5.0); Bilirubin Total 0.4 mg/dL (0.2-1.0); Magnesium 1.8 mg/dL (1.6-2.4); Potassium 3.9 mEq/L (3.5-5.1); Protein, Total 6.7 g/dL (6.4-8.2)
[2022-12-19] MEDS: METRONIDAZOLE 500mg IVPB 500 MG/100 ML BAG IV SCH ×2 (00:04→09:29)
[2022-12-19] MEDS ORDERED: MAGNESIUM SULFATE 1 gm IVPB 1 GM/100 ML BAG IV ONE (01:06)
[2022-12-19] MEDS ORDERED: POTASSIUM 25 MEQ EFFERV TAB PO ONE (02:16)
[2022-12-19 07:11] LABS: Potassium 4.5 mEq/L (3.5-5.1)
[2022-12-19 08:37] VITALS: BP 138/68; TEMP 99.1
[2022-12-19] MEDS ORDERED: CELECOXIB 100 MG CAPSULE PO ONE (11:30)
--- NOTE | 2022-12-19 14:21 | RAD REPORT ---
EXAM DESCRIPTION: CT - Abdomen Pelvis Wo Contrast - 12/19/2022 6:19 am CLINICAL HISTORY: Acute diverticulitis TECHNIQUE: Axial computed tomography images of the abdomen and pelvis without intravenous contrast. Sagittal and coronal reformatted images were created and reviewed. This CT exam was performed usi ng one or more of the following dose reduction techniques: automated exposure control, adjustment o f the mA and/or kV according to patient size, and/or use of iterative reconstruction technique. COMPARISON: CT Abdomen Pelvis dated 05/29/2022 FINDINGS: Lung bases: Unremarkable. No mass. No consolidation. Heart: Coronary artery calcification. Mediastinum: Small hiatal hernia. ABDOMEN: Liver: Unremarkable. Gallbladder and bile ducts: Interval cholecystectomy. No ductal dilation. Pancreas: Unremarkable. No ductal dilation. Spleen: Unremarkable. No splenomegaly. Adrenals: Unremarkable. No mass. Kidneys and ureters: Unremarkable. No obstructing stones. No hydronephrosis. Stomach and bowel: Duodenal diverticulum. Moderate stool in the mid to distal large bowel. No o bstruction. No appreciable mucosal thickening. PELVIS: Appendix: Normal caliber appendix. No findings to suggest acute appendicitis. Bladder: Unremarkable. No stones. Reproductive: There has been a hysterectomy. No adnexal cysts or masses are identified. ABDOMEN and PELVIS: Intraperitoneal space: Unremarkable. No free air. No significant fluid collection. Bones/joints: Multilevel spondylosis. No acute fracture. Osseous structures are osteopenic. M ultilevel spondylosis. Prior posterior fusion at the mid to lower lumbar spine. Left iliac graft donor site. No dislocation. Soft tissues: Left abdominal pulse generator. Vasculature: Mild atherosclerotic disease. No abdominal aortic aneurysm. Lymph nodes: Unremarkable. No enlarged lymph nodes. IMPRESSION: 1. No acute inflammatory process identified within the abdomen and pelvis. 2. Other findings as above. Electronically signed by: Nani Godinez MD 12/19/2022 3:41 AM CDT Due to temporary technical issues with the PACS/Fluency reporting system, reports are being signed by the in house radiologists without review as a courtesy to insure prompt reporting. The interpreting radiologist is fully responsible for the content of the report.
[2022-12-19] MEDS ORDERED: METRONIDAZOLE 500mg IVPB 500 MG/100 ML BAG IV SCH (23:00)
--- NOTE | 2022-12-21 18:45 | HP ---
Date of Admission: 12/18/2022 Chief Complaint: Abdominal pain and rectal bleeding. History Of Present Illness: This is an 82-year-old very pleasant female patient, came into office to day with 2 days' history of rectal bleeding as well as lower abdominal pain. Denies any nausea, vomi ting. No fever. No chills. After patient was evaluated at office, decision was made to admit her t o the hospital for this problem with possibility of acute diverticulitis. Allergies: SHE IS LISTED ALLERGIC TO METFORMIN CAUSING LACTIC ACIDOSIS AND ZOLPIDEM CAUSING SLEEP WALKING. Medications: List reviewed. Review of Systems: GI: As mentioned above. Musculoskeletal: Chronic lower back pain. All other systems reviewed and negative. Past Medical History: Significant for type 2 diabetes mellitus which is diet controlled, hypertensio n, mixed hyperlipidemia, coronary artery disease, non-STEMI in September 2016, paroxysmal atrial fibrillati on and the patient has remained in sinus rhythm for long time, chronic kidney disease, stage 3A, oste oarthritis at multiple sites with lower chronic back pain. Past Surgical History: Significant for coronary artery angioplasty with stent placement in September 2016, hysterectomy, back surgery, cervical spine surgery, pain pump placement in the past which was subseq uently removed. Family History: Father , had lymphoma. Mother , details unknown. Brother , had Ariana on disease. Social History: Negative for smoking and alcohol use. Physical Examination: Vital Signs: When she came into the hospital when she was admitted; height 5 feet 7 inches, weight 1 94 pounds, temperature 98.3, pulse 70, respiratory rate 16, blood pressure 117/63, oxygen saturation 94%. General: Awake, alert, oriented, not in distress. HEENT: Head atraumatic, normocephalic. Conjunctivae nonerythematous. Sclerae white. Mouth, no thr ush or edema noted. Ears/Nose, no mass, lesion, discharge noted. Neck: Supple. No JVD, lymph nodes, bruit, thyromegaly noted. Lungs: Bilateral good equal air entry. Clear to auscultation. No rhonchi. No rales. Heart: Normal heart sounds, no murmur or gallop. Abdomen: Soft. Bowel sounds normal. No guarding, rigidity, distention. No rebound tenderness. [place] el sounds normoactive. No hepatosplenomegaly. The patient does have mild tenderness in left lower q uadrant, but no rebound tenderness. Extremities: No leg edema. No calf tenderness. Skin: No rash, ulcer, cellulitis. Lymphatics: No lymph node enlargement in neck, supraclavicular, infraclavicular region. Neuro: No focal neurological deficit. Chest: Unremarkable. External Genitalia: Deferred. Rectal: Exam done at office today shows presence of pink colored blood on the examining finger. No active bleeding. Laboratory Data: White count 8.4, hemoglobin 12, platelets 171. Sodium 140, potassium 3.9, chloride 107, bicarb 28, BUN 20, creatinine 1.04, glucose 107. Liver function tests unremarkable. CAT scan of the abdomen and pelvis, no acute intraabdominal findings. Impression: 1.Probable acute diverticulitis. 2.Rectal bleeding, likely due to hemorrhoid. 3.Coronary artery disease. 4.Chronic kidney disease, stage 3A. 5.Hypertension. 6.Mixed hyperlipidemia. 7.Type 2 diabetes mellitus, diet controlled. 8.Osteoarthritis, multiple sites. 9.Chronic lower back pain. Plan: We will admit the patient to hospital for further evaluation and management of this problem. The patient is appropriate for inpatient and is expected to spend 2 midnights in hospital. We will g o ahead and start empiric IV antibiotic which is Levaquin and Flagyl. Home medications will be sandy nued per order. I will examine her tomorrow morning. Depending on her condition we will decide furt her plan of treatment. Diet will be ordered and home medications will be continued per order. Ebenezer barker and plan of treatment discussed with the patient and her daughter on the phone. DAVY/MODL Voice ID: [id number]
--- NOTE | 2022-12-21 18:57 | DS ---
Date of Discharge: 12/19/2022 Disposition: Discharged to go home. Physical Examination: HEENT: Unremarkable. Lungs: Clear to auscultation. Heart: Sounds normal. Abdomen: Soft. Bowel sounds normal. No guarding, rigidity, tenderness, distention. Extremities: No leg edema. Discharge Medications And Instructions: 1.Continue all prior home medication. 2.Take following new medications and prescription was sent to pharmacy;. a.Anusol HC rectal suppository insert 1 suppository rectally daily for 1 week. b.Levaquin 500 mg, take 1 tablet by mouth daily for 1 week. c.Metronidazole 500 mg, take 1 tablet by mouth 3 times a day for 1 week. d.Follow up at my office next week on Thursday or . Laboratory Data: Upon admission; white count 8.4, hemoglobin 12, platelets 171. Sodium 140, potassi um 3.9, chloride 107, bicarb 28, BUN 20, creatinine 1.04, glucose 107. Liver function tests unremark able. This morning; sodium 142, potassium 4.5, chloride 109, bicarb 29, BUN 19, creatinine 0.98, and glucose 129. CAT scan of the abdomen and pelvis was unremarkable for any acute changes. Hospital Course: This is an 82-year-old very pleasant female patient, admitted to the hospital after she came into office with complaints of rectal bleeding and lower abdominal pain. Please see dictat ed H and P for more information. After the patient was evaluated in the office, decision was made to admit her to the hospital with possibility of acute diverticulitis. The patient was started on empi toshia antibiotic and overall her condition improved, but she has not had any more bleeding problem over night. Upon admission, she had some left lower quadrant abdominal tenderness, but today when I exami ranjith her, there was no evidence of any abdominal tenderness. Considering her CAT scan has not shown a ny problems related to any acute finding and medically she is stable, I am going to discharge her in stable condition. I did call the patient's daughter today and talked to her on the phone while I was visiting the patient and explained her that likely etiology for her abdominal pain and rectal bleedi ng is diverticulitis with possibility of hemorrhoid and I would like for the patient to go home with 1 week of antibiotic and suppository for hemorrhoid and if she has any more problem with any bleeding or pain, then we will definitely need to consider colonoscopy. The patient's overall health and con dition are not great, so during colonoscopy obviously creates challenges and difficulties for somebod y like her who is not in good health, so we do not want to send her to colonoscopy unless we have mor e convincing evidence for need of such testing. All these details were discussed with the patient an d patient's daughter. Final Diagnoses: 1.Probable acute diverticulitis. 2.Rectal bleeding, likely due to hemorrhoid. 3.Coronary artery disease. 4.Osteoarthritis, multiple sites. 5.Type 2 diabetes mellitus. 6.Hypertension. 7.Hyperlipidemia. 8.Chronic kidney disease, stage 3A. 9.Chronic lower back pain. DAVY/MODL Voice ID: [id number] Report ID: [id number]
== END 2022-12-19 11:54 | disposition home or self-care (01) ==
LOC: 2ND 20:37 → INTOOBSV 20:37
PROVIDERS: ADMIT Internal Medicine; ATTEND Internal Medicine
DX: R10.9 Unspecified abdominal pain (principal); K62.5 Hemorrhage of anus and rectum; I25.10 Atherosclerotic heart disease of native coronary artery without angina pectoris; I48.0 Paroxysmal atrial fibrillation; I10 Essential (primary) hypertension; E11.9 Type 2 diabetes mellitus without complications; E78.2 Mixed hyperlipidemia; N18.31 Chronic kidney disease, stage 3a; M19.90 Unspecified osteoarthritis, unspecified site; M54.50 Low back pain, unspecified
CPT/HCPCS: 85025; 80048; 36415; 83735; 80053; 74176; J3475

== ENCOUNTER 2023-01-19 12:17 | Inpatient (IN) | payer OTHER, MEDICARE ==
--- OUTSIDE RECORDS SUMMARY | 2023-01-19 12:43 | XMS REPORT | Continuity of Care Document ---
:1940 Author Organization [facility] t Address [address] [facility] [address] [place] [address] Care Team Providers Name Role Phone Josh GILMAN, Kai Asher Primary Care Physician Serjio Foreman Attending Clinician Miguel Angel GILMAN, Sendil K.H. Attending Clinician Doctor Unassigned, [place] Attending Clinician Unavailable Smitha Buckner Attending Clinician Unavailable LARRY MICHELLE K.H. Attending Clinician Unavailable Diego GILMAN, Bronwyn Attending [...] Added automatic ally from request for surgery [id number] Bowel Bowel Disease Active 2017-05 Overview: [facility] s habit habit 0-18 Formattin ity of changes changes 00:00: g of this 00 note Medical might be Branch different from the original. Added automatic ally from request for surgery [id number] PAF PAF Disease Active Univers (paroxysma (paroxysma 10-25 it y of l atrial l atrial 00:00: [place] fibrillati fibrillati 00 Me dical on) on) Branch Dyslipidem Dyslipidem Disease Active U nivers ia ia 6- ity of 00:00: [place] [facility] Essential Essential Disease Active Uni vers hypertensi hypertensi 6-03 it y of on on 00:00: [place] [facility] Obesity Obesity Disease Active Univers (BMI (BMI 5-05 ity of 30-39.9) 30-39.9) 00:00: Medical Branch Sinus Sinus Disease Active Univers bradycardi bradycardi 5-04 it y of a a 00:00: [place] 00 Medical Branch Amnesia Amnesia Problem Active 2023-01-02 Me moria (finding) (finding) 00:07:28 l Active [place] Problem 01/02/2023 [facility] [place] Device in Device in Problem Active 2023-01-02 Memoria situ situ 00:07:28 l (finding) (finding) Herm rosana Active Problem 01/02/2023 [facility] [place] Dizziness Dizziness Problem Active 2023-01-02 Memoria (finding) (finding) 00:07:28 l Active [place] Problem 01/02/2023 [facility] [place] Hyperlipid Hyperlipi Problem Active 2023-01-02 Memoria emia demia 00:07:28 l (disorder) (disorder) He rmann Active Problem 01/02/2023 [facility] [place] Myocardial Problem Active 2023-01-02 M emoria infarction Myocardial 00:07:28 l (disorder) infarction He rmann (disorder) Active Problem 01/02/2023 [facility] [place] Impaired Impaired Problem Active 2023-01-02 Memoria cognition cognition 00:07:28 l (finding) (finding) Radha rosana Active Problem 01/02/2023 [facility] [place] No known No known Disease Metho di active active st problems problems Hospit a l Allergies, Adverse Reactions, Alerts Allergy Allergy Status Severity Reaction(s) Onset Inactive Treating Comm ents Source Name Type Date Date Clinician No Known DA Active U [facility] Allergie 3-08 [place] 00:[place]: [place] 00 [facility] Latex Propensi Active Rash Univers ty to 09-29 ity of adverse 00:00: [place] reaction 00 Medical s Branch LATEX DRUG Active Rash Univers INGREDI 09-29 ity of 00:00: [place] [facility] [place] Latex Propensi Active Rash Methodi ty to 09-29 st adverse 00:00: Hospita reaction 00 l s to drug Metformi Propensi Active Rash Univer s n ty to 09-25 ity of adverse 00:00: [place] reaction 00 Medical s Branch METFORMI DRUG Active Rash Univers N INGREDI 09-25 ity of 00:00: [place] 00 Medical Branch Metformi Propensi Active Rash Method i n ty to 09-25 st adverse 00:00: Hospita reaction 00 l s to drug Adhesive Propensi Active Rash Univer s ty to ity of adverse [place] reaction [facility] ADHESIVE Drug Active Rash Univers Class ity of [facility] Adhesive Propensi Active Method i [place] ty to st icones adverse Hospita reaction l s to drug Tape Tape Active Memoria l [place] metFORMI metFORMI Active Memori a N N l [place] Social History Social Habit Start Date Stop Date Quantity Comments Source Exposure to Not sure Satin of SARS-CoV-2 (event) [facility] Sexual orientation Method ist [facility] Gender identity [facility] Alcohol intake 2020-11-12 2020-11-12 Current University of 00:00:00 00:00:00 non-drinker of [facility] alcohol Branch (finding) History of Social 2019-01-11 2019-01-[address] function 00:00:00 00:00:00 Hospital Tobacco use and 2016-09-25 2016-09-25 Never used Universit y of exposure 00:00:00 00:00:00 [facility] Sex Ass[birth year] At [birth year] [facility] 00:[facility] Smoking Status Start Date Stop Date Source Tobacco smoking status [facility] [place] [facility] Medications Ordered Filled Start Stop Current Ordering Indication Dosage Frequency Signature Comments Components Source Medication Medication Date Date Medication? Clinician (SIG) Name Name vickiepipe Yes TAKE 1 Fabian marcela n 10 mg 2-15 TABLET BY l oral tablet 14:58: MOUTH [place] nn 00 DAILY AT BEDTIME aspirin 81 [...] 2-15 CAPSULE BY l delayed 14:58: MOUTH [place] release 00 DAILY WITH capsule BREAKFAST trazodone [...] 2-15 CAPSULE BY l capsule 14:58: MOUTH [place] 00 DAILY WITH FOOD DULoxetine Yes TAKE 1 Memor ia 30 mg oral 2-15 CAPSULE BY l delayed 14:58: MOUTH [place] release 00 DAILY WITH capsule BREAKFAST trazodone [...] 2-15 CAPSULE BY l capsule 14:58: MOUTH [place] 00 DAILY WITH FOOD DULoxetine Yes TAKE 1 Memor ia 30 mg oral 2-15 CAPSULE BY l delayed 14:58: MOUTH [place] release 00 DAILY WITH capsule BREAKFAST trazodone Yes TAKE 1 Memori a 100 mg oral 2-15 TABLET BY l tablet 14:58: MOUTH [place] 00 DAILY AT BEDTIME apixaban 2020-0 Yes 1358 5mg Take 1 [...] by ity of mg tablet 00:00: mouth (two) Medical times Branch daily. Indication s: atrial fibrillati on apixaban 2020-0 Yes 1358 5mg Take 1 Univers (ELIQUIS) 5 8-05 tablet by ity of mg tablet 00:00: mouth (two) Medical times Branch daily. Indication s: atrial fibrillati on apixaban 2020-0 Yes 1358 5mg Take 1 Univers (ELIQUIS) 5 8-05 tablet by ity of mg tablet 00:00: mouth (two) Medical times Branch daily. Indication s: atrial fibrillati on apixaban 2020-0 Yes 1358 5mg Take 1 Univers (ELIQUIS) 5 8-05 tablet by ity of mg tablet 00:00: mouth (two) Medical times Branch daily. Indication s: [...] 6-21 by mouth ity of 15:46: daily. [address] amLODIPine 2020-0 Yes 5mg Take 5 mg Un alfredo 5 mg tablet 6-21 by mouth ity of 15:46: daily. [address] amLODIPine 2020-0 Yes 5mg Take 5 mg Un alfredo 5 mg tablet 6-21 by mouth ity of 15:46: daily. [address] amLODIPine 2020-0 Yes 5mg Take 5 mg Un alfredo 5 mg tablet 6-21 by mouth ity of 15:46: daily. [address] amLODIPine 2020-0 Yes 5mg Take 5 mg Un alfredo 5 mg tablet 6-21 by mouth ity of 15:46: daily. [address] amLODIPine 2020-0 Yes 5mg Take 5 mg Un alfredo 5 mg tablet 6-21 by mouth ity of 15:46: daily. [address] amLODIPine 2020-0 Yes 5mg Take 5 mg Un alfredo 5 mg tablet 6-21 by mouth ity of 15:46: daily. [address] amLODIPine 2020-0 Yes 5mg Take 5 mg Un alfredo 5 mg tablet 6-21 by mouth ity of 15:46: daily. [address] ZICONOTIDE 2020-0 Yes by Univers ACETATE 6-21 Intratheca ity of (PRIALT 15:18: l route [place] INTRATHECAL 12 daily. Medica l ) Indication Branch s: in pump tiZANidine 2020-0 Yes [id number] 4mg Take 4 mg Univers 4 mg tablet 6-21 by mouth ity of 15:18: every 6 [place] 12 (six) Medical hours as Branch needed. ZICONOTIDE 2020-0 Yes by Univers ACETATE 6-21 Intratheca ity of (PRIALT 15:18: l route [place] INTRATHECAL 12 daily. Medica l ) Indication Branch s: in pump tiZANidine 2020-0 Yes [id number] 4mg Take 4 mg Univers 4 mg tablet 6-21 by mouth ity of 15:18: every 6 [place] 12 (six) Medical hours as Branch needed. ZICONOTIDE 2020-0 Yes by Univers ACETATE 6-21 Intratheca ity of (PRIALT 15:18: l route [place] INTRATHECAL 12 daily. Medica l ) Indication Branch s: in pump tiZANidine 2021-0 Yes [id number] 4mg Take 4 mg Univers 4 mg tablet 6-21 by mouth ity of 15:18: every 6 [place] 12 (six) Medical hours as Branch needed. ZICONOTIDE 2020-0 Yes by Univers ACETATE 6-21 Intratheca ity of (PRIALT 15:18: l route [place] INTRATHECAL 12 daily. Medica l ) Indication Branch s: in pump tiZANidine 2020-0 Yes [id number] 4mg Take 4 mg Univers 4 mg tablet 6-21 by mouth ity of 15:18: every 6 [place] 12 (six) Medical hours as Branch needed. ZICONOTIDE 2020-0 Yes by Univers ACETATE 6-21 Intratheca ity of (PRIALT 15:18: l route [place] INTRATHECAL 12 daily. Medica l ) Indication Branch s: in pump tiZANidine 2020-0 Yes [id number] 4mg Take 4 mg Univers 4 mg tablet 6-21 by mouth ity of 15:18: every 6 [place] 12 (six) Medical hours as Branch needed. ZICONOTIDE 2020-0 Yes by Univers ACETATE 6-21 Intratheca ity of (PRIALT 15:18: l route [place] INTRATHECAL 12 daily. Medica l ) Indication Branch s: in pump tiZANidine 2020-0 Yes [id number] 4mg Take 4 mg Univers 4 mg tablet 6-21 by mouth ity of 15:18: every 6 [place] 12 (six) Medical hours as Branch needed. ZICONOTIDE 2020-0 Yes by Univers ACETATE 6-21 Intratheca ity of (PRIALT 15:18: l route [place] INTRATHECAL 12 daily. Medica l ) Indication Branch s: in pump tiZANidine 1-0 Yes [id number] 4mg Take 4 mg Univers 4 mg tablet 6-21 by mouth ity of 15:18: every 6 [place] 12 (six) Medical hours as Branch needed. ZICONOTIDE 1-0 Yes by Univers ACETATE 6-21 Intratheca ity of (PRIALT 15:18: l route [place] INTRATHECAL 12 daily. Medica l ) Indication Branch s: in pump tiZANidine 2021-0 Yes [id number] 4mg Take 4 mg Univers 4 mg tablet 6-21 by mouth ity of 15:18: every 6 [place] 12 (six) Medical hours as Branch needed. ZICONOTIDE 1-0 Yes by Univers ACETATE 6-21 Intratheca ity of (PRIALT 15:18: l route [place] INTRATHECAL 12 daily. Medica l ) Indication Branch s: in pump tiZANidine Yes [id number] 4mg Take 4 mg Univers 4 mg tablet 6-21 by mouth ity of 15:18: every 6 [place] 12 (six) Medical hours as Branch needed. aspirin 81 0 Yes 81mg Take 81 mg U nivers mg EC 6-21 by mouth ity of tablet 14:55: daily. [address] Branch aspirin 81 0 Yes 81mg Take 81 mg U nivers mg EC 6-21 by mouth ity of tablet 14:55: daily. [address] aspirin 81 0 Yes 81mg Take 81 mg U nivers mg EC 6-21 by mouth ity of tablet 14:55: daily. [address] Branch aspirin 81 0 Yes 81mg Take 81 mg U nivers mg EC 6-21 by mouth ity of tablet 14:55: daily. [address] Branch aspirin 81 0 Yes 81mg Take 81 mg U nivers mg EC 6-21 by mouth ity of tablet 14:55: daily. [address] aspirin 81 0 Yes 81mg Take 81 mg U nivers mg EC 6-21 by mouth ity of tablet 14:55: daily. [address] Branch aspirin 81 2020-0 Yes 81mg Take 81 mg U nivers mg EC 6-21 by mouth ity of tablet 14:55: daily. [address] aspirin 81 0 Yes 81mg Take 81 mg U nivers mg EC 6-21 by mouth ity of tablet 14:55: daily. [address] aspirin 81 2020-0 Yes 81mg Take 81 mg U nivers mg EC 6-21 by mouth ity of tablet 14:55: daily. [place] [address] Medical Branch olmesartan- Yes 1{tbl} Take 1 [...] by ity of tablet 00:00: mouth at [place] 00 bedtime. Medical Branch atorvastati 2020-0 Yes 80mg Take 1 Univ ers n 80 mg 3-05 tablet by ity of tablet 00:00: mouth at [place] 00 bedtime. Medical Branch atorvastati 2020-0 Yes 80mg Take 1 Univ ers n 80 mg 3-05 tablet by ity of tablet 00:00: mouth at [place] 00 bedtime. Medical Branch atorvastati 0 Yes 80mg Take 1 Univ ers n 80 mg 3-05 tablet by ity of tablet 00:00: mouth at [place] 00 bedtime. Medical Branch atorvastati 0 Yes 80mg Take 1 Univ ers n 80 mg 3-05 tablet by ity of tablet 00:00: mouth at [place] 00 bedtime. Medical Branch atorvastati 2020-0 Yes 80mg Take 1 Univ ers n 80 mg 3-05 tablet by ity of tablet 00:00: mouth at [place] 00 bedtime. Medical Branch atorvastati 2020-0 Yes 80mg Take 1 Univ ers n 80 mg 3-05 tablet by ity of tablet 00:00: mouth at [place] 00 bedtime. Medical Branch atorvastati 2020-0 Yes 80mg Take 1 Univ ers n 80 mg 3-05 tablet by ity of tablet 00:00: mouth at [place] 00 bedtime. Medical Branch enalapril 2019-0 2020- No [id number] Take by Univers 10 mg 09-28 mouth 2 ity of tablet 09:47: 00:00 (two) [place] 55 :00 times Medical daily. Branch amLODIPine 2019-0 2020- No [id number] 5mg Take 5 mg Univers 5 mg tablet 09-28 by mouth. it y of 09:47: 00:00 [place] 14 :00 Medical Branch metoprolol 2019-0 2020- No [id number] 50mg Take 50 mg Univers tartrate 50 09-28 by mouth 2 i ty of mg tablet 09:46: 00:00 (two) [place] 59 :00 times Medical daily. Branch nitroglycer 2020-[id number] 1 Univers in 0.4 mg 5-07 tablet ity of sublingual 00:00: under the [place] tablet 00 tongue Medical every 5 Branch (five) minutes as needed for Chest pain. nitroglycer 2020-[id number] 1 Univers in 0.4 mg 5-07 tablet ity of sublingual 00:00: under the [place] tablet 00 tongue Medical every 5 Branch (five) minutes as needed for Chest pain. nitroglycer 2020-[id number] 1 Univers in 0.4 mg 5-07 tablet ity of sublingual 00:00: under the [place] tablet 00 tongue Medical every 5 Branch (five) minutes as needed for Chest pain. nitroglycer 2020-[id number] 1 Univers in 0.4 mg 5-07 tablet ity of sublingual 00:00: under the [place] tablet 00 tongue Medical every 5 Branch (five) minutes as needed for Chest pain. nitroglycer 2020-[id number] 1 Univers in 0.4 mg 5-07 tablet ity of sublingual 00:00: under the [place] tablet 00 tongue Medical every 5 Branch (five) minutes as needed for Chest pain. nitroglycer 2020-[id number] 1 Univers in 0.4 mg 5-07 tablet ity of sublingual 00:00: under the [place] tablet 00 tongue Medical every 5 Branch (five) minutes as needed for Chest pain. nitroglycer 2020-[id number] 1 Univers in 0.4 mg 5-07 tablet ity of sublingual 00:00: under the [place] tablet 00 tongue Medical every 5 Branch (five) minutes as needed for Chest pain. nitroglycer 2020-[id number] 1 Univers in 0.4 mg [...] TAKEN WITH OR WITHOUT FOOD TRULANCE 3 2018-05 Yes TAKE 1 Metho di mg tablet 2-[address] 00:00: MOUTH Hospita 00 EVERY DAY. l CAN BE TAKEN WITH OR WITHOUT FOOD enalapril-h 2019-0 Yes Q24H daily. Meth sharif ydrochlorot -16 st hiazide 08:42: Hospita (VASERETIC) 32 l 10-25 mg per tablet atorvastati 2019-0 Yes Q24H daily. Meth sharif n (LIPITOR) -16 st 80 MG 08:42: Hospita tablet 32 l aspirin 2019-0 Yes 81mg Take 81 mg Meth sharif (ECOTRIN) 7-[address] 81 MG 08:42: Hospita enteric 32 l coated tablet amLODIPine 2019-0 Yes 5mg Take 5 mg Me thodi (NORVASC) [address] mg tablet 08:42: Hospita 32 l tiZANidine 2019-0 Yes tizanidine M ethodi (ZANAFLEX) - [address] 4 MG tablet 08:42: [...] 2019-0 Yes Q24H daily. Meth sharif ydrochlorot -16 st hiazide 08:42: Hospita (VASERETIC) 32 l 10-25 mg per tablet atorvastati 2019-0 Yes Q24H daily. Meth sharif n (LIPITOR) 7-16 st 80 MG 08:42: Hospita tablet 32 l aspirin 2019-0 Yes 81mg Take 81 mg Meth sharif (ECOTRIN) 7-[address] 81 MG 08:42: Hospita enteric 32 l coated tablet amLODIPine 2019-0 Yes 5mg Take 5 mg Me thodi (NORVASC) 5 -[address] mg tablet 08:42: Hospita [...] MG 08:42: Hospita tablet 32 l aspirin Yes 81mg Take 81 mg Meth sharif (ECOTRIN) 7-[address] 81 MG 08:42: Hospita enteric 32 l coated tablet amLODIPine Yes 5mg Take 5 mg Me thodi (NORVASC) [address] mg tablet 08:42: Hospita 32 l tiZANidine Yes tizanidine M ethodi (ZANAFLEX) 16 4 [...] 2-03 TID PRN ity of tablet 00:00: [address] morpHINE 2017-05 Yes TK 1 T PO Univ ers I.R. 15 mg 2-03 TID PRN ity of tablet 00:00: [address] morpHINE 2017-05 Yes TK 1 T PO Univ ers I.R. 15 mg 2-03 TID PRN ity of tablet 00:00: [address] morpHINE 2017-05 Yes TK 1 T PO Univ ers I.R. 15 mg 2-03 TID PRN ity of tablet 00:00: [place] [facility] morpHINE 2018- Yes TK 1 T PO Univ ers I.R. 15 mg 2-03 TID PRN ity of tablet 00:00: [place] [facility] morpHINE 2018- Yes TK 1 T PO Univ ers I.R. 15 mg 2-03 TID PRN ity of tablet 00:00: [place] [facility] morpHINE 2018- Yes TK 1 T PO Univ ers I.R. 15 mg 2-03 TID PRN ity of tablet 00:00: [place] [facility] morpHINE 2018- Yes TK 1 T PO Univ ers I.R. 15 mg 2-03 TID PRN ity of tablet 00:00: [place] [facility] RESTASIS 2018-0 Yes INSTILL 1 Univ ers MULTIDOSE 8-16 DROP INTO ity o f 0.05 % Drop 00:00: OU BID [place] RESTASIS 2018-0 Yes INSTILL 1 Univ ers MULTIDOSE 8-16 DROP INTO ity o f 0.05 % Drop 00:00: OU BID [place] RESTASIS 2018-0 Yes INSTILL 1 Univ ers MULTIDOSE 8-16 DROP INTO ity o f 0.05 % Drop 00:00: OU BID [place] 00 [place] RESTASIS 2018-0 Yes INSTILL 1 Univ ers MULTIDOSE 8-16 DROP INTO ity o f 0.05 % Drop 00:00: OU BID [place] RESTASIS 2018-0 Yes INSTILL 1 [...] % Drop 00:00: OU BID [place] RESTASIS 2018-0 Yes INSTILL 1 Univ ers MULTIDOSE 8-16 DROP INTO ity o f 0.05 % Drop 00:00: OU BID [place] atorvastati 2018-0 2019- No 80mg Take 1 Uni vers n (LIPITOR) 10-0215 tablet by it y of 80 mg 00:00: 00:00 mouth at [place] tablet 00 :00 bedtime Medical for 90 Branch days. apixaban 5 2017- No 5mg Take 1 Univ ers mg tablet 10-02 tablet by ity of 00:00: 00:00 mouth 2 [place] 00 :00 (two) Medical times Branch daily. ticagrelor 2017- No 90mg Take 1 Univ ers 90 mg 09-17 tablet by ity of tablet 00:00: 00:00 mouth 2 [place] 00 :00 (two) Medical times Branch daily. apixaban 5 2017- No 5mg Take 1 [...] MRNA 2020-07-26 Completed Meth odist VACCINATION 00:00:00 [facility] PFIZER COVID-19 MRNA 2020-07-26 Completed Meth odist VACCINATION 00:00:00 [facility] PFIZER COVID-19 MRNA 2020-07-26 Completed Meth odist VACCINATION 00:00:00 [facility] PFIZER COVID-19 MRNA 2020-07-26 Completed Meth odist VACCINATION 00:00:00 [facility] PFIZER COVID-19 MRNA 2020-07-05 Completed Meth odist VACCINATION 00:00:00 [facility] PFIZER COVID-19 MRNA 2020-07-05 Completed Meth odist VACCINATION 00:00:00 [facility] PFIZER COVID-19 MRNA 2020-07-05 Completed Meth odist VACCINATION 00:00:00 [facility] PFIZER COVID-19 MRNA 2020-07-05 Completed Meth odist VACCINATION 00:00:00 Hospital Vital Signs Vital Name Observation Time Observation Value Comments Source Systolic blood 2017-10-02 19:30:00 126 mm[Hg] Univer sity of pressure [facility] Diastolic blood 2017-10-02 19:30:00 66 mm[Hg] Unive rsity of pressure [facility] Heart rate 2017-10-02 19:30:00 62 /min [facility] Respiratory rate 2017-10-02 19:30:00 16 /[facility] Body height 2017-10-02 19:30:00 170.2 cm [facility] Body weight 2017-10-02 19:30:00 94.121 kg [facility] BMI 2017-10-02 19:30:00 32.50 kg/m2 [facility] Oxygen saturation in 2017-10-02 19:30:00 93 /min [facility] Arterial blood by [facility] Pulse oximetry Branch Systolic (mm Hg) 2022-09-17 16:51:00 Fabian rial [place] Diastolic (mm Hg) 2022-09-17 16:51:00 Mem orial [place] Heart Rate 2022-09-17 16:51:00 [facility] [place] Height 2022-09-17 16:51:00 5 [ft_i] [facility] [place] Weight 2022-09-17 16:51:00 [facility] [place] BMI Calculated 2022-09-17 16:51:00 Memori al [place] Systolic (mm Hg) 2022-07-09 14:55:00 Fabian rial [place] Diastolic (mm Hg) 2022-07-09 14:55:00 Mem orial [place] Heart Rate 2022-07-09 14:55:00 [facility] [place] Height 2022-07-09 14:55:00 5 [ft_i] [facility] [place] Weight 2022-07-09 14:55:00 [facility] Cal[facility] 2022-07-09 14:55:00 Memori al [place] Procedures Procedure Date / Time Performed Performing Clinician [facility] e EXTERNAL PROVIDER - 2021-08-13 05:01:00 Doctor Unassigned, No Un [facility] REFERRAL Name Medical Branch [id number] 2021-07-31 00:00:00 TYRAM [facility] [id number] 2021-07-31 00:00:00 TYRAM [facility] [id number] 2021-07-30 00:00:00 [email or web address] [facility] EXTERNAL PROVIDER - 2021-04-03 06:01:00 [facility] Branch Stent placement [facility] [place] [facility] Cholecystectomy<sup>1< [facility] /sup> Plan of Care Planned Activity Planned Date Details Comments Source Future Scheduled 2023-01-17 SHINGLES VACCINES (1 [facility] Hospital Test 04:20:38 of 2) [code = SHINGLES VACCINES (1 of 2)] Future Scheduled 2023-01-17 65+ PNEUMOCOCCAL Methodi Hospital Test 04:20:38 VACCINE (2 - PCV) [code = 65+ PNEUMOCOCCAL VACCINE (2 - PCV)] Future Scheduled 2023-01-17 COVID-19 VACCINE (3 - [facility] Test 04:20:38 Pfizer series) [code = COVID-19 VACCINE (3 - Pfizer series)] Future Scheduled 2023-01-17 [facility] 04:20:38 [code = INFLUENZA VACCINE (#1)] Future Scheduled 2022-11-12 SHINGLES VACCINES (1 [facility] Hospital Test 03:14:15 of 2) [code = SHINGLES VACCINES (1 of 2)] Future Scheduled 2022-11-12 65+ PNEUMOCOCCAL Methodi Hospital Test 03:14:15 VACCINE (2 - PCV) [code = 65+ PNEUMOCOCCAL VACCINE (2 - PCV)] Future Scheduled 2022-11-12 COVID-19 VACCINE (3 - [facility] Test 03:14:15 Pfizer series) [code = COVID-19 VACCINE (3 - Pfizer series)] Future Scheduled 2022-11-12 INFLUENZA VACCINE Method ist Hospital Test 03:14:15 [code = INFLUENZA VACCINE] Future Scheduled 2022-08-27 SHINGLES VACCINES (1 [facility] Hospital Test 03:18:50 of 2) [code = SHINGLES VACCINES (1 of 2)] Future Scheduled 2022-08-27 65+ PNEUMOCOCCAL [facility]i [facility] Hospital Test 03:18:50 VACCINE (2 - PCV) [code = 65+ PNEUMOCOCCAL VACCINE (2 - PCV)] Future Scheduled 2022-08-27 COVID-19 VACCINE (3 - [facility] Test 03:18:50 Booster for Pfizer series) [code = COVID-19 VACCINE (3 - Booster for Pfizer series)] Future Scheduled 2022-08-27 INFLUENZA VACCINE Method ist Hospital Test 03:18:50 [code = INFLUENZA VACCINE] Future Scheduled 2022-05-07 SHINGLES VACCINES (1 [facility] Test 03:11:57 of 2) [code = SHINGLES VACCINES (1 of 2)] Future Scheduled 2022-05-07 65+ PNEUMOCOCCAL Methodi Hospital Test 03:11:57 VACCINE (2 - PCV) [code = 65+ PNEUMOCOCCAL VACCINE (2 - PCV)] Future Scheduled 2022-05-07 COVID-19 VACCINE (3 - Me [facility] Hospital Test 03:11:57 Booster for Pfizer series) [code = COVID-19 VACCINE (3 - Booster for Pfizer series)] Future Scheduled 2022-05-07 INFLUENZA VACCINE Method ist Hospital Test 03:11:57 [code = INFLUENZA VACCINE] Encounters Start End Encounter Admission Attending Care Care Encounter Source Date/Time Date/Time Type Type Clinicians Facility Department ID 2022-12-30 2022-12-30 Ambulatory [facility] TASHA [id number] [facility] 16:45:00 16:45:00 Pre-Reg Neurology 03 Roldan Zelaya 2022-12-30 2022-12-30 Outpatient MHIE MHIE [id number] Memoria 11:45:00 11:45:00 03 korey [place] 2022-12-30 2022-12-30 Outpatient MHIE ALLENIE [id number] Memoria 11:45:00 11:45:00 03 korey Zelaya 2022-12-30 2022-12-30 [id number] 11:45:00 11:45:00 Serjio 03 Randy 2022-09-17 2022-09-18 Outpatient MHIE MNA [id number] Memoria 16:45:00 04:59:59 Neurology 02 korey Roldan Zelaya 2022-09-17 2022-09-18 Outpatient MHIE MNA [id number] Memoria 16:45:00 04:59:59 Neurology 02 korey Zelaya 2022-09-17 2022-09-17 Outpatient SKYLER Foreman [facility] [id number] 11:45:00 23:59:59 Serjio 02 Randy 2022-09-17 2022-09-17 Outpatient MHIE ALLENIE [id number] Memoria 11:45:00 11:45:00 02 korey Zelaya 2022-07-09 2022-07-10 Outpatient MHIE MNA [id number] Memoria 15:30:00 05:59:59 Neurology 01 korey Zelaya 2022-07-09 2022-07-10 Outpatient MHIE MNA [id number] Memoria 15:30:00 05:59:59 Neurology 01 korey Zelaya 2022-07-09 2022-07-09 Outpatient [facility] [id number] 09:30:00 23:59:59 Serjio 01 Randy 2022-07-09 2022-07-09 Outpatient MHIE MHIE [id number] Memoria 09:30:00 09:30:00 01 korey Zelaya 2021-08-13 2021-08-13 Telephone Miguel Angel [facility] [id number] 00:00:00 00:00:00 Larry FINLEY 350.1.13.10 [place] [phone] Nh dicnv NAL [address] [place] [address] 2021-08-13 2021-08-13 Telephone [facility] 1.2.103.531 [id number] Univers 00:00:00 00:00:00 Larry FINLEY 350.1.13.10 it[place] [phone] Nh dicnv NAL [address] [place] [address] 2021-08-13 2021-08-13 Orders Doctor JEAN PAUL 1.2.840.114 [id number] Univers 00:00:00 00:00:00 Only Unassigned, ASHA 350.1.13.10 ity of [place] [facility] 4.2.7.2.686 Neil as [phone] [address] 2021-07-30 2021-08-02 Inpatient JOSÉ MIGUEL [facility] [id number] 25 [facility] 16:04:00 15:38:[address] [place] [address] [place] [address] 2021-07-30 2021-07-30 Telephone [facility] 1.2.166.646 [id number] Univers 00:00:00 00:00:00 Sendil Aicha FINLEY 350.1.13.10 ity of [facility] [place] [phone] Nh dicnv NAL 9 [facility] 2021-04-03 2021-04-03 Orders Doctor JEAN PAUL 1.2.840.114 [id number] Univers 00:00:00 00:00:00 Only Unassigned, ASHA 350.1.13.10 ity of [place] [facility] 4.2.7.2.686 Neil as [phone] [address] 2021-03-08 2021-03-08 [facility] 1.2.840.114 [id number] Univers 10:01:31 23:59:00 Encounter Sendambar Finley 350.1.13.10 it[place] of [place] [phone] Nh dic[address] 2021-03-08 2021-03-08 Outpatient R [facility] [id number] Univers 16:30:00 16:30:00 SENDIL ity of [facility] 2021-03-07 2021-03-07 [facility] 1.2.840.114 [id number] Univers 08:00:00 23:59:00 Encounter Larry Finley 350.1.13.10 [place] [phone] Nh dical nal [address] [place] [address] 2021-03-07 2021-03-07 Outpatient R [facility] [id number] Univers 08:00:00 08:00:00 SENDIL ity of [facility] 2021-03-07 2021-03-07 Telephone [facility] 1.2.783.849 [id number] Univers 00:00:00 00:00:00 Sendil Aicha Finley 350.1.13.10 [place] [phone] Nh dicnv nal 9 [facility] 2021-02-26 2021-02-26 Telephone [facility] 1.2.643.396 [id number] Univers 00:00:00 00:00:00 Sendil Aicha Finley 350.1.13.10 [place] [phone] Nh dical nal 9 [facility] 2020-12-31 2020-12-31 Telephone [facility] 1.2.217.817 [id number] 2092 Univers 00:00:00 00:00:00 Sendil Aicha Finley 350.1.13.10 [place] [phone] Nh dic[address] 2020-12-27 2020-12-27 Refill [facility] 1.2.840.114 [id number] Univers 00:00:00 00:00:00 Larry Finley 350.1.13.10 [place] [phone] Nh dic[address] 2020-11-21 2020-11-21 Outpatient [facility] [id number] 697 [facility] 16:00:00 16:00:00 SENDIL ity [facility] 2020-11-12 2020-11-12 Office [facility] 1.2.840.114 [id number] 75 [facility] 14:36:56 15:39:38 Visit Larry Finley 350.1.13.10 it[place] of [place] [phone] Nh dicnv nal [address] [place] [address] 2020-11-12 2020-11-12 Office [facility] 1.2.840.114 [id number] 14:36:56 15:39:38 Visit Larry Finley 350.1.13.10 [place] 4.2.7.2.686 Professio [phone] [address] 2020-11-12 2020-11-12 Outpatient R MIGUEL ANGEL [facility] [id number] Univers 14:30:00 14:30:00 SENDIL ity of [facility] 2020-11-12 2020-11-12 Orders Doctor JEAN PAUL 1.2.840.114 [id number] Univers 00:00:00 00:00:00 Only Unassigned, ASHA 350.1.13.10 ity of [place] [facility] 4.2.7.2.686 Neil as [phone] [address] 2020-11-02 2020-11-02 [facility] 1.2.840.114 [id number] Univers 00:00:00 00:00:00 Bronwyn Finley 350.1.13.10 it[place] of [place] [phone] [address] 2020-10-19 2020-10-19 Orders Doctor JEAN PAUL 1.2.840.114 [id number] Univers 00:00:00 00:00:00 Only Unassigned, ASHA 350.1.13.10 ity of [place] [facility] 4.2.7.2.686 Neil as [phone] [address] 2020-10-15 2020-10-15 Telephone [facility] 1.2.102.922 [id number] Univers 00:00:00 00:00:00 Larry Finley 350.1.13.10 it[place] of [place] [phone] [address] 2020-07-30 2020-07-30 Refill [facility] 1.2.840.114 [id number] 26 Univers 00:00:00 00:00:00 Sendambar Finley 350.1.13.10 [place] of [place] [phone] [address] 2020-07-27 2020-07-27 Refill [facility] 1.2.840.114 [id number] Univers 00:00:00 00:00:00 Sendil Aicha Ghoshton 350.1.13.10 [place] of [place] [phone] Nh dical nal 059 [facility] 2020-07-26 2020-07-26 Outpatient RONRachna, [facility] [id number] [address] [place] 00:00:00 00:00:00 CHRISTYARITZA [address] 2020-07-05 2020-07-05 Outpatient [facility] [id number] [address] [place] 00:00:00 00:00:[address] 2020-06-16 2020-06-16 Patient Chao [facility] 1.2.840.114 [id number] Univers 00:00:00 00:00:00 Outreach Bk PRIMARY 350.1.13.[address] [facility] [place]2.7.2.[place] [phone] Nh dical [address] 2020-04-18 2020-04-18 Refill Miguel Angel NCE[facility] 1.2.840.114 [id number] Univers 00:00:00 00:00:00 Larry Finley 350.1.13.10 [place] [phone] Nh dicnv nal 059 [facility] 2020-03-31 2020-03-31 Orders Doctor JEAN PAUL 1.2.840.114 [id number] Univers 00:00:00 00:00:00 Only Unassigned, ASHA 350.1.13.10 ity of [place] [facility] 4.2.7.2.686 Neil as [phone] [facility] [address] 2020-01-16 2020-01-16 Refill Miguel Angel [place] 1.2.840.114 [id number] Univers 00:00:00 00:00:00 Larry Finley 350.1.13.10 [place] of [place] [phone] Nh dical nal 059 [facility] 2019-10-13 2019-11-21 Telemedici Miguel Angel [place] 1.2.840.114 [id number] Univers 08:07:24 00:30:53 ne Visit Larry Finley 350.1.13.10 it[place] of [place] [phone] [address] 2019-09-30 2019-11-20 Office [facility] 1.2.840.114 [id number] Univers 12:25:10 19:23:11 Visit Larry Finley 350.1.13.10 it[place] [phone] [address] 2019-11-20 2019-11-20 Telephone [facility] 1.2.875.850 [id number] Univers 00:00:00 00:00:00 Larry Finley 350.1.13.10 [place] [phone] [address] 2019-11-07 2019-11-07 Telephone [facility] 1.2.190.671 [id number] Univers 00:00:00 00:00:00 Larry Finley 350.1.13.10 it[place] [phone] [address] 2019-11-07 2019-11-07 Orders Doctor JEAN PAUL 1.2.840.114 [id number] Univers 00:00:00 00:00:00 Only Unassigned, ASHA 350.1.13.10 ity of [place] [facility] 4.2.7.2.686 Neil as [phone] [address] 2019-10-13 2019-10-13 Outpatient [facility] [id number] Univers 11:30:00 11:30:00 SENDIL ity [facility] 2019-10-13 2019-10-13 Orders Doctor JEAN PAUL 1.2.840.114 [id number] Univers 00:00:00 00:00:00 Only Unassigned, ASHA 350.1.13.10 ity of [place] [facility] 4.2.7.2.686 Neil as [phone] [address] 2019-09-30 2019-09-30 Outpatient [facility] [id number] Univers 14:00:00 14:00:00 SENDIL ity [facility] 2019-09-30 2019-09-30 Orders Doctor JEAN PAUL 1.2.840.114 [id number] Univers 00:00:00 00:00:00 Only Unassigned, ASHA 350.1.13.10 ity of [facility] 4.2.7.2.686 Neil as [phone] [address] 2019-09-30 2019-09-30 Telephone [facility] 1.2.772.585 [id number] Univers 00:00:00 00:00:00 Sendil Aicha Finley 350.1.13.10 it[place] [phone] [address] 2019-09-29 2019-09-29 Telemedici [facility] 1.2.840.114 [id number] Univers 07:50:34 15:46:34 ne Visit Larry Finley 350.1.13.10 it[place] of [place]2.[place] [phone] [address] 2019-09-29 2019-09-29 Outpatient [facility] [id number] Univers 10:00:00 10:00:00 SENDIL ity [facility] 2019-02-06 2019-02-06 Refill [facility] 1.2.840.114 [id number] Univers 00:00:00 00:00:00 Sendambar Finley 350.1.13.10 it[place] [phone] [address] 2019-02-04 2019-02-04 Orders Doctor REAVES 1.2.840.114 [id number] Univers 00:00:00 00:00:00 Only Unassigned, ASHA 350.1.13.10 ity of [place] [facility] 4.2.7.2.686 Neil as [phone] [place] [address] [address] 2017-10-02 2017-10-02 Outpatient R MIGUEL ANGEL [facility] [id number] Univers 14:30:00 15:05:57 SENDIL ity [facility] 2017-10-02 2017-10-02 Office Miguel Angel [facility] 1.2.840.114 [id number] Univers 14:30:00 15:05:57 Visit Larry FINLEY 350.1.13.10 [facility] 4.2.7.2.686 [place] CAREYIO [phone] Nh dical NAL [address] BUILDING Results Test Description Test Time Test Comments Results Result Comments Source GLUCOSE BEDSIDE TESTING 2021-08-02 11:57:00 Test Item Value Reference Range Interpretation Comme nts GLUCOSE BEDSIDE TESTING (test code = GLUBED) 116 MG/DL 60-99 H BASIC METABOLIC [id number] 08:08:00 Test Item Value Reference Range Interpretation [...] 8.6 MG/DL 8.4-10.2 N CA) GLUCOSE BEDSIDE [id number] 21:25:00 Test Item Value Reference Range Interpretation Comments GLUCOSE BEDSIDE TESTING (test code = 93 MG/DL 60-99 N GLUBED) GLUCOSE BEDSIDE [id number] 15:59:00 Test Item Value Reference Range Interpretation Comments GLUCOSE BEDSIDE TESTING (test code 103 MG/DL 60-99 H = GLUBED) - CT HEAD/BRAIN W/O [id number] 13:53:00 [facility] 1940 Sex: F Patient Name: CLAUDIA CHA Unit No: [id number] EXAMS: CPT CODE: [id number] CT HEAD/BRAIN W/O CONT 17331 CLINICAL HISTORY: Dizziness, sepsis. CT brain, unenhanced. [...] of ventricular shift. The posterior fossa structures appear to be intact. Mild cerebellar atrophy. A [...] Lidia Goodson (RT) CTDI: DLP: Trnscrpt: 08/01/2021 (5873) [email or web address] [facility]athy NAME: CLAUDIA CHA PHYS: [id number] - José Luis,[place] [address] : 1940 AGE: 81 SEX:F LOC: Z.425 A PHONE #: [phone] EXAM DATE: 08/01/2021 STATUS: ADM IN FAX #: [phone] RAD #: D/C DT PAGE 1 Signed Report Patient Name: CLAUDIA CHA Unit No: [id number] EXAMS: CPT CODE: [id number] CT HEAD/BRAIN W/O CONT 70799 (Continued) Orig Print D/T: S: 08/01/2021 (1357) [facility] Josemanuel NAME: CLAUDIA CHA PHYS: [id number] - José Luis,[place], [place] [address]ZOE: 1940 AGE: 81 SEX: F LOC: Z.425 A PHONE #: [phone] EXAM DATE: 08/01/2021 STATUS: ADM IN FAX #: [phone] RAD #: D/C DT PAGE 2 Signed ReportGLUCOSE BEDSIDE [id number] 10:17:00 Test Item Value Reference Range Interpretation Comments GLUCOSE BEDSIDE TESTING (test code = 94 MG/DL 60-99 N GLUBED) GLUCOSE BEDSIDE [id number] 07:18:00 Test Item Value Reference Range Interpretation Comments GLUCOSE BEDSIDE TESTING (test code = 92 MG/DL 60-99 N GLUBED) BASIC METABOLIC [id number] 07:00:00 Test Item Value Reference Range Interpretation [...] = 8.8 MG/DL 8.4-10.2 N CA) VANCOMYCIN [id number] 06:46:00 Test Item Value Reference Range Interpretation Comments VANCOMYCIN TROUGH (test code = 13.6 UG/ML 10.0-20.0 N VANCT) CBC W/AUTO [id number] 06:09:00 Test Item Value Reference Range Interpretation [...] 0.00 K/mm3 0.0-0.1 N NRBC#) GLUCOSE BEDSIDE [id number] 18:49:00 Test Item Value Reference Range Interpretation Comments GLUCOSE BEDSIDE TESTING 161 MG/DL 60-99 H Noti fied Nurse~ (test code = GLUBED) GLUCOSE BEDSIDE [id number] 16:06:00 Test Item Value Reference Range Interpretation Comments GLUCOSE BEDSIDE TESTING (test code 129 MG/DL 60-99 H = GLUBED) POC VENOUS BLOOD [id number] 14:23:00 Test Item Value Reference Range Interpretation Comments POC VENOUS BLOOD GAS PH (test 7.412 7.35-7.45 N code = POCPHV) POC VENOUS BLOOD GAS PCO2 40.2 mmHg 35.0-45.0 N (test code = ZVOFXH6T) POC VENOUS BLOOD GAS PO2 36.2 mmHG 0-40 N (test code = XUGZI9Q) POC HCO3 VENOUS (test code = 25.6 MMOL/L 20-26 N KGIUXU0R) POC BASE EXCESS VENOUS (test 0.9 MMOL/L -3.0-3.0 N code = POCBEV) POC O2 SATURATION VENOUS 70.0 % 72-77 L (test code = XGBD9JE) POC SAMPLE SOURCE (test code Venous Descript Specimen = POCSAMPLE) POC VENOUS BLOOD [id number] 14:20:00 Test Item Value Reference Range Interpretation Comments POC VENOUS BLOOD GAS PH (test 7.410 7.35-7.45 N code = POCPHV) POC VENOUS BLOOD GAS PCO2 39.4 mmHg 35.0-45.0 N (test code = UQWYZF3Y) POC VENOUS BLOOD GAS PO2 37.1 mmHG 0-40 N (test code = ZPMLX7O) POC HCO3 VENOUS (test code = 25.0 MMOL/L 20-26 N YHDOSB7H) POC BASE EXCESS VENOUS (test 0.3 MMOL/L -3.0-3.0 N code = POCBEV) POC O2 SATURATION VENOUS 71.4 % 72-77 L (test code = PCSW7LR) POC SAMPLE SOURCE (test code Venous Descript Specimen = POCSAMPLE) POC VENOUS BLOOD [id number] 14:16:00 Test Item Value Reference Range Interpretation Comments POC VENOUS BLOOD GAS PH (test 7.414 7.35-7.45 N code = POCPHV) POC VENOUS BLOOD GAS PCO2 39.1 mmHg 35.0-45.0 N (test code = GLRGBF6D) POC VENOUS BLOOD GAS PO2 34.2 mmHG 0-40 N (test code = HPKHY9B) POC HCO3 VENOUS (test code = 25.1 MMOL/L 20-26 N YVYZNH0D) POC BASE EXCESS VENOUS (test 0.5 MMOL/L -3.0-3.0 N code = POCBEV) POC O2 SATURATION VENOUS 66.8 % 72-77 L (test code = HFPX3CQ) POC SAMPLE SOURCE (test code Venous Descript Specimen = POCSAMPLE) POC VENOUS BLOOD [id number] 14:09:00 Test Item Value Reference Range Interpretation Comments POC VENOUS BLOOD GAS PH (test 7.407 7.35-7.45 N code = POCPHV) POC VENOUS BLOOD GAS PCO2 41.3 mmHg 35.0-45.0 N (test code = JEXRNG1Z) POC VENOUS BLOOD GAS PO2 38.0 mmHG 0-40 N (test code = FYKPE6S) POC HCO3 VENOUS (test code = 26.0 MMOL/L 20-26 N YLGDNY1E) POC BASE EXCESS VENOUS (test 1.1 MMOL/L -3.0-3.0 N code = POCBEV) POC O2 SATURATION VENOUS 72.4 % 72-77 N (test code = RNBL8QY) POC SAMPLE SOURCE (test code Venous Descript Specimen = POCSAMPLE) POC ARTERIAL BLOOD [id number] 14:03:00 Test Item Value Reference Range Interpretation Comments POC ARTERIAL BLOOD GAS PH 7.422 7.35-7.45 N (test code = POCPHA) POC ARTERIAL BLOOD GAS PCO2 35.9 mmHg 35.0-45.0 N (test code = HBCPQD3T) POC ARTERIAL BLOOD GAS PO2 76.5 75.0-100.0 N (test code = GYWXZ8E) POC HCO3 ARTERIAL (test 23.4 MMOL/L 20.0-26.0 N code = UTYKTF9O) POC BASE EXCESS (test code -0.7 MMOL/L -3.0-3.0 N = POCBEA) POC O2 SATURATION (test 95.5 % 92.0-98.5 N code = POCO2S) POC SAMPLE SOURCE (test Arterial Descript Specimen code = POCSAMPLE) COVID 19 Asymptomatic IH [id number] 13:05:00 Test Item Value Reference Range Interpretation [...] Phleb: PLS RUN TEST STAT. THANKSGLUCOSE BEDSIDE [id number] 11:28:00 Test Item Value Reference Range Interpretation Comments GLUCOSE BEDSIDE TESTING (test code 131 MG/DL 60-99 H = GLUBED) GLYCOSYLATED HEMOGLOBIN [id number] 11:17:00 Test Item Value Reference Range Interpretation [...] H (test code = MBG) BASIC METABOLIC [id number] 09:52:00 Test Item Value Reference Range Interpretation [...] LIPOPROTEIN LDL (test 38 MG/DL 0-99 N OPTI MAL.........<100 code = LDL) mg/dLNEAR OPTIMAL/ABOVE OPTIMAL........ .100-12 9 mg/dL BORDERL INE HIGH.........13 0-159 mg/dL HIGH.........16 0-189 mg/dL VERY HIGH.........>/ = 190 mg/dL CBC W/AUTO [id number] 09:39:00 Test Item Value Reference Range Interpretation [...] K/mm3 0.0-0.1 N NRBC#) - XR CHEST [id number] 09:30:00 [facility] 1940 Sex: F Patient Name: CLAUDIA CHA Unit No: [id number] EXAMS: CPT CODE: [id number] XR CHEST 1V 56826 EXAMINATION: - XR CHEST 1V. LOCATION: B2. HISTORY: hypoxia. COMPARISON: Radiograph [...] Tennille Maria (RT)(R) Transcrpt Date/Tm/Trnsp: 07/31/2021 (929) LisaPR7 Orig Print D/T: S: 07/31/2021 (932) [facility] NAME: CLAUDIA CHA [address] [address] PHYS: [place] [address] : 1940 AGE: 81 SEX: F LOC: Mary A PHONE #: [phone] EXAM DATE: 07/31/2021 STATUS: ADM IN FAX #: [phone] RADIOLOGY NO: PAGE 1 Signed ReportGLUCOSE BEDSIDE [id number] 07:47:00 Test Item Value Reference Range Interpretation Comments GLUCOSE BEDSIDE TESTING 132 MG/DL 60-99 H Noti fied Nurse~ (test code = GLUBED) GLUCOSE BEDSIDE [id number] 07:22:00 Test Item Value Reference Range Interpretation Comments GLUCOSE BEDSIDE TESTING (test code 125 MG/DL 60-99 H = GLUBED) GLUCOSE BEDSIDE [id number] 00:20:00 Test Item Value Reference Range Interpretation Comments GLUCOSE BEDSIDE TESTING (test code 128 MG/DL 60-99 H = GLUBED) [id number] 23:43:00 Test Item Value Reference Range Interpretation Comments TROPONIN-I (test 18.400 NG/ML 0.012-0.033 HH CALLED TO Adi Cih& code = TROPI) READBACK ON AT 2343 BY Hugo Carrillo [id number] 19:26:00 Test Item Value Reference Range Interpretation Comments TROPONIN-I (test 18.600 NG/ML 0.012-0.033 HH CALLED TO Raven Segura& code = TROPI) READBACK ON AT 1926 BY Hugo Carrillo UA RFLX MICR CULT IF [id number] 18:10:00 Test Item Value Reference Range Interpretation [...] Criteria Indication for culture: RiskForSepsis-no oth srcUA [id number] 18:10:00 Test Item Value Reference Range Interpretation Comments UA RBC (test code = RBCU) 3-5 RBC/HPF 0-3 A UA WBC (test code = XWBCU) 0-3 WBC/HPF 0-5 UA EPITHELIAL CELLS (test code = FEW EPI/HPF FEW EPIU) UA BACTERIA (test code = XBACU) FEW NONE Indication for culture: RiskForSepsis-no oth srcLIPOPROTEIN LDL [id number] 16:28:00 Test Item Value Reference Range Interpretation Comments LIPOPROTEIN LDL DIRECT 40 mg/dL 100-129 L ===== (test code = LDLDIR) ======= ==Refe rence Interval: mg/dL mmol/L--------- ------ ------ ------ --Optimal <100 <2.6Near/above optimal 100-129 2.6-3.3Borderli ne High 130-159 3.4-4.1High 160 -189 4.1-4.9Very Hig h >=190 >=4.9==== ===== This LDL result is a direct measurement.=== ====== BASIC METABOLIC [id number] 16:28:00 Test Item Value Reference Range Interpretation [...] 9.8 MG/DL 8.4-10.2 N CA) HEPATIC FUNCTION [id number] 16:28:00 Test Item Value Reference Range Interpretation Comments TOTAL PROTEIN 8.1 G/DL 6.3-8.2 N Ortho Clinical Diagnostic (test code = has made us david re of PROT) newinformation regarding the potential i nterference ofEltrombopag ( a bone marrow stimulan t used to treatthrombocyt onmenia and aplastic anemia ) with specific assays on the Vitros 5600 of which Total Protein is one [...] TBil/ 1. 2mg/dl +0.23mg.dl +0.2 0mg/dlBuBc 3.5mg/dl Bu/0. 8mg/dl +0.25mg/dl +0.2 4mg/dlBuBc 7 mg/dl Bu/14.2mg /dl +0.38mg/dl +0.2 5mg/dlBuBc 5mg/dl Bc/0mg/d l +0.25mg/dl +0.15mg/dlBuBc 3.5mg/dl Bc/2.8mg/dl +0 .25mg/dl +0.23mg/dl BILIRUBIN DIRECT 0.0 MG/DL 0.0-0.3 N [...] 38-126 N PHOSPHATASE (test code = ALKP) [id number] 16:28:00 Test Item Value Reference Range Interpretation Comments LIPASE (test code = LIP) 88 UNITS/L 23-300 N [id number] 16:28:00 Test Item Value Reference Range Interpretation Comments TROPONIN-I (test 15.400 NG/ML 0.012-0.033 HH CALLED TO A NNA,B & code = TROPI) READBACK ON AT 1600 BY Jane Crews CBC W/AUTO [id number] 16:26:00 Test Item Value Reference Range Interpretation [...] BY KENISHATTREASON: CLOTTEDNOTIFIED PATIENT CARE STAFF: KATHIE.RLACTIC [id number] 15:49:00 Test Item Value Reference Range Interpretation Comments LACTIC ACID (test code = LACT) 2.0 MMOL/L 0.7-2.1 N - XR CHEST [id number] 15:40:00 [facility] : 1940 Sex: F Patient Name: CLAUDIA CHA Unit No: [id number] EXAMS: CPT CODE: [id number] XR CHEST 1V 55559 Location: H59 EXAM: XR CHEST 1 VIEW INDICATION: CODE SEPSIS COMPARISON: None FINDINGS: Single view of the chest. Left PICC tip overlies the expected location of the superior SVC. No appreciable pneumothorax. There are low lung volumes. There are mild bilateral perihilar opacities. Otherwise, no focal consolidation. The bilateral costophrenic sulci are sharp. Heart size is within normal limits for technique. Atherosclerotic calcifications overlie the aortic knob. No acute osseous findings are present. IMPRESSION: 1. Suboptimal positioning and low lung volumes limits evaluation. 2. Mild bilateral perihilar opacities, favored to represent a combination of vascular crowding and atelectatic change, given low lung volumes. at 1540 Reported and signed by: Phil Faulkner MD CC: Jeffry Zamarripa MD Technologist: Vidhya Pak RT(R) Transcrpt Date/Tm/Trnsp: 07/30/2021 (1545) [email or web address] Orig Print D/T: S: 07/30/2021 (3869) [facility] NAME: CLAUDIA CHA [id number] [address] PHYS: Jeffry Soria MD [place] [id number] : 1940 AGE: 81 SEX: F LOC: [facility] PHONE #: [phone] EXAM DATE: 07/30/2021 STATUS: REG ER FAX #: [phone] RADIOLOGY NO: PAGE 1 Signed Report Notes Date/Time Note Provider Source 2021-08-02 15:52:00-00:00 [id number] [place] [address] PATIENT NAME: CLAUDIA CHA ADMIT DATE: 07/30/21 ACCOUNT NO: [id number] ROOM NO: Z425 AGE: 81 REPORT TYPE: [...] Cesar Alexander Jr, MD WT: PN:KY/LEANN/RAFFY Conf#: [id number]/DID#: [id number] Authenticated by Cesar Alexander MD On 08/05/2021 01 :31:15 PM Electronically Signed by Cesar Alexander Jr, MD o n 08/05/21 at 0131 PATIENT NAME: CLAUDIA CHA 577 2021-08-02 13:59:00-00:00 [facility] ([facility]) Hospitalist Discharge Summary REPORT#:[id number] REPORT STATUS: Signed DATE:08/02/21 TIME: 1359 PATIENT: CLAUDIA CHA UNIT #: [id number] ROOM/BED: [address] : [address] AGE: 81 SEX: F ATTEND: Al Buckner MD ADM AUTHOR: Royce Ordonez MD R1 * ALL edits or amendments must be made on the Match/computer document * Royce Ordonez 08/02/21 1359: General Information Discharge date: 08/02/21 Admission diagnosis: Leukocytosis Discharge diagnosis: Leukocytosis Hospital course: 81 y/o F with hx of [place] s/p P CI (8 years ago), borderline [...] 08/02 1118 O2 Delivery Room air 08/02 111 Temp 98.8 08/02 1118 Pulse 63 08/02 [...] and intact. Extremities: moves all, no edema Neuro/SHIP MANAGER: alert, oriented X 3, normal speech Skin: [...] Ayaan Gonzalez MD on at 1645 RPT #:[id number] END OF REPORT 2021-08-01 20:40:00-00:00 [facility] ([facility]) Cardiology Progress Note REPORT#:[id number] REPORT STATUS: Signed DATE:08/01/21 TIME: 2039 PATIENT: CLAUDIA CHA UNIT #: [id number] ROOM/BED: [address] : 42 AGE: 81 SEX: F ATTEND: Al Buckner MD ADM AUTHOR: Cesar Alexander Jr, MD * ALL edits or amendments must be made on the el [employer]/computer document * Subjective Chief complaint: chest pain sovb Comments[facility] [place] had been wor [...] Flow FiO2 Mean Ox Delivery Rate 08/01 1951 [...] % (Auto) (14 - 44 %) 19.3 Miner % (Auto) (4 - 13 %) 10.7 Eos % (Auto) (0 - 6 %) 0.8 Baso % (Auto) (0 - 2 %) 0.7 Neut # (Auto) (2.0 - 7.6 K/mm3) 8.27 H Lymph # (Auto) (1.0 - 3.8 K/mm3) 2.35 Miner # (Auto) (0.1 - 0.8 K/mm3) 1.30 [...] cardiac standpoint resume dap. at 2042 RPT #:[id number] END OF REPORT 2021-08-01 12:07:00-00:00 [id number] [id number] [place] [address] PATIENT NAME: CLAUDIA CHA ADMIT DATE: 07/30/21 ACCOUNT NO: [id number] ROOM NO: Z.[facility] AGE: 81 REPORT TYPE: CONSULTATION REPORT [...] at an [facility] for generalized feelings of unwellness, found to [...] By: Susana Thacker MD WT: CON:KY/RK/RAFFY Conf#: [id number]/DID#: [id number] Authenticated by Susana Thacker MD On 08/09/2021 0 9:32:58 AM Electronically Signed by Susana Thacker MD on at 0932 PATIENT NAME: CLAUDIA CHA 2577 2021-08-01 09:29:00-00:00 [facility] ([facility] Hospitalist Progress Note REPORT#:[id number] REPORT STATUS: Signed DATE:08/01/21 TIME: 928 PATIENT: CLAUDIA CHA UNIT #: [id number] ROOM/BED: [address] : 42 AGE: 81 SEX: F ATTEND: Al Buckner MD ADM AUTHOR: Royce Ordonez MD R1 * ALL edits or amendments must be made on the el F[employer]onic/computer document * Royce Ordonez 08/01/21 0929: Subjective [...] p ain Extremities: moves all, no edema Neuro/SHIP MANAGER: alert, oriented X 3, normal speech Skin: [...] % (Auto) (14 - 44 %) 19.3 Miner % (Auto) (4 - 13 %) 10.7 Eos % (Auto) (0 - 6 %) 0.8 Baso % (Auto) (0 - 2 %) 0.7 Neut # (Auto) (2.0 - 7.6 K/mm3) 8.27 H Lymph # (Auto) (1.0 - 3.8 K/mm3) 2.35 Miner # (Auto) (0.1 - 0.8 K/mm3) 1.30 [...] VS. CTH ==ALISSA- continue to monitor at 0924 Electronically Signed by Smitha Buckner MD on at 2443 RPT #:[id number] END OF REPORT 2021-07-31 16:00:00-00:00 [id number] [place] [address] PATIENT NAME: CLAUDIA CHA ADMIT DATE: 07/30/21 ACCOUNT NO: [id number] ROOM NO: Z.425 AGE: 81 REPORT TYPE: eCAROTID ULTRASOUND SEX: F ADMITTING PHYSICIAN:Smitha Buckner MD ATTENDING PHYSICIAN:Smitha Buckner MD *[facility]* [address] [place] [address] Carotid Duplex Study Patient: Claudia Cha Study Date: 07/31/2021 BP: 129 / 87 Location: [facility] URN: [id number] 577 : 1940 Age: 81 Height: 67 in / 170.2 cm Gender: F Weight: 179 .6 lb / 81.6 kg BMI/BSA: 28.2 kg/m 2 / 1.98 m 2 *Ordering Physician: * Cesar Alexander MD *Interpreting Physician: Cesar Salcedo MD *Hydrostatic Tubing Tester: Tia Nelson RD, Sarkis Indications: Carotid bruit. Study data: Carotid duplex study. Bilateral connie luation with grayscale 2D imaging, color Doppler imaging, and spectral Doppler analysis. Location: Bedside. Patient status: Inpatient. Meredith bates room number: 425. Procedure: A vascular evaluation was perfor med. Images were obtained using a Superfocus vascular ultrasound machine. Image quality was adequate. [...] ----- 20-39% L ECA 69 8 ----- ------ -- R vertebral 33 11 ----- -------- L [...] PATIENT NAME: CLAUDIA CHA 577 2021-07-31 15:59:00-00:00 [id number] [place] [address] PATIENT NAME: CLAUDIA CHA ADMIT DATE: 07/30/21 ACCOUNT NO: [id number] ROOM NO: [facility] AGE: 81 REPORT TYPE: ECHOCARDIOGRAM SEX: F ADMITTING PHYSICIAN:Smitha Buckner MD ATTENDING PHYSICIAN:Smitha Buckner MD *[facility]* [address] [place] [address] Transthoracic Echocardiogram Patient: Claudia Cha Study Date: 07/31/2021 BP: 129 / 87 Location: [facility] URN: [id number] 577 : 1940 Age: 81 Height: 67 in / 170.2 cm Gender: F Weight: 17 9.6 lb / 81.6 kg BMI/BSA: 28.2 kg/m 2 / 1.98 m 2 *Ordering Physician: * Brian Jean R3 *Interpreting Physician: * Cesar Alexander MD *Hydrostatic Tubing Tester: * Tia Kimbrough RDCS, T Indications: Nstemi. Study data: Transthoracic echocardiogram. Proced ure: Transthoracic echocardiography was performed. Images were obta ined using a Superfocus cardiac ultrasound machine. Image quality was suboptimal [...] possible interatrial s joseph. Doppler shows a itku-jb-tgoau shunt. Aortic valve: The valve is trileaflet. [...] 4.77 m/sec -------- Pulmonic valve Value Ref FL peak v 2.04 m/sec -------- FL peak grad 17 mm Hg -------- FL v, ED 0.9 m/sec -------- FL decel time 1415 ms -------- FL PHT 410 ms -------- Tricuspid valve Value [...] possible interatria l shunt. Doppler shows a ytzn-dw-cxxfz shunt. 6. Mitral valve: There is mild to moderate regur gitation. 7. Tricuspid valve: There is mild-moderate regur gitation. Prepared and electronically signed by Cesar Alexander MD 07/31/2021 15:59 Electronically Signed by Cesar Alexander Jr, MD o n 07/31/21 at 1559 PATIENT NAME: CLAUDIA CHA 577 2021-07-31 14:28:00-00:00 [facility] Progress Note REPORT#:[id number] REPORT STATUS: Signed DATE:07/31/21 TIME: 1428 PATIENT: CLAUDIA CHA UNIT #: [id number] [facility] AGE: 81 SEX: F ATTEND: Al Buckner MD ADM AUTHOR: Cesar Alexander Jr, MD * ALL edits or amendments must be made on the Match/computer document * Subjective Chief complaint: chest pain [...] Excess (-3.0 - 3.0 MMOL/L) 0.9 0.3 0. 5 1.1 Instrument (Specimen Descript) Venous Venous Ve [...] - 44 %) 6.2 L 3.3 L Miner % (Auto) (4 - 13 %) 9.7 6.2 Eos % (Auto) (0 - 6 %) 0.0 0.0 Baso % (Auto) (0 - 2 %) 0.4 0.2 Neut # (Auto) (2.0 - 7.6 K/mm3) 19.68 H 23.01 H Lymph # (Auto) (1.0 - 3.8 K/mm3) 1.46 0.85 L Miner # (Auto) (0.1 - 0.8 K/mm3) 2.29 [...] pH (5.0 - 9.0) 5.0 Ur Specific Kent (1.003 - 1.030) 1.020 Urine Protein (NEGATIVE [...] from cardiac standpoint resume dap. at 1431 [facility] #:[id number] END OF REPORT 2021-07-31 14:25:00-00:00 [id number] [place] [address] PATIENT NAME: CLAUDIA CHA ADMIT DATE: 07/30/21 ACCOUNT NO: [id number] ROOM NO: Z.425 AGE: 81 REPORT TYPE: OPERATIVE REPORT SEX: F ADMITTING PHYSICIAN:Smitha Buckner MD ATTENDING PHYSICIAN:Smitha Buckner MD OPERATION DATE: CLINICAL SUMMARY: The patien t admitted with a non-Q-wave myocardial infarction. PREOPERATIVE DIAGNOSIS: POSTOPERATIVE DIAGNOSIS: PROCEDURE: SURGEON: Cesar Alexander Jr., MD HORSE STUD MANAGER: ANESTHESIA: Consists of Versed 1 mg total in 2 s eparate boluses and local anesthesia. ESTIMATED BLOOD LOSS: 5 mL. CLOSURE DEVICE ATTEMPTED: Angio-Seal. DESCRIPTION OF PROCEDURE: Under aseptic conditio ns with the help of fluoroscopy, we inserted a 6 -Citizen Of [place] sheath in the right femoral artery and then a 7-Citizen [place] venous sheath in the right femoral ve in. We cannulated the left coronary system. Multiple views of this artery a re obtained with hand injection. The right coronary catheter w as used to cannulate the RCA. Multiple views of this artery were obtained with hand inj ection. LV angiogram was done with pigtail catheter using power injector in RA O and [place] projections. Later on, a Ringgold-Vicky catheter was used for cardiac output after [...] a right coronary catheter and could not escrow officer ss over. 2. LV angiogram shows a [...] 55% on average, looking much better in [place] , looking lower in the HARKINS position. 2. Pulmonary hypertension with a PA pressure of about 50 to 51. No clear cut shunt was detected on her saturations. Dictated By: Cesar Alexander Jr, MD WT: OP:KY/AD Conf#: [id number]/DID#: [id number] Authenticated by Cesar Alexander MD On 08/05/2021 01 :31:13 PM Electronically Signed by Cesar Alexander Jr, MD o n 08/05/21 at 0131 PATIENT NAME: CLAUDIA CHA 577 2021-07-31 14:21:00-00:00 [id number] [place] [address] PATIENT NAME: CLAUDIA CHA ADMIT DATE: 07/30/21 ACCOUNT NO: [id number] ROOM NO: [facility] AGE: 81 REPORT TYPE: PROGRESS NOTE SEX: F ADMITTING PHYSICIAN:Smitha Buckner MD ATTENDING PHYSICIAN:Smitha Buckner MD DATE: 07/31/2021 SUBJECTIVE: I attempted to see Ms. Cha today in consultation. 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 I will try again later. Dictated By: Susana Thacker MD WT: PN:KY/RK/RAFFY Conf#: [id number]/DID#: [id number] Authenticated by Susana Thacker MD On 08/09/2021 0 9:32:56 AM Electronically Signed by Susana Thacker MD on at 0932 PATIENT NAME: CLAUDIA CHA 577 2021-07-31 10:18:00-00:00 HCAWU [facility] ([facility]) Hospitalist Progress Note REPORT#:[id number] REPORT STATUS: Signed DATE:07/31/21 TIME: 1018 PATIENT: CLAUDIA CHA UNIT #: [id number] ROOM/BED: [address] : 42 AGE: 81 SEX: F ATTEND: Al Buckner MD ADM AUTHOR: Royce Ordonez MD R1 * ALL edits or amendments must be made on the Match/computer document * Royce Ordonez 07/31/21 1018: Subjective [...] p ain Extremities: moves all, no edema Neuro/SHIP MANAGER: alert, oriented X 3, normal speech Skin: [...] - 44 %) 6.2 L 3.3 L Miner % (Auto) (4 - 13 %) 9.7 6.2 Eos % (Auto) (0 - 6 %) 0.0 0.0 Baso % (Auto) (0 - 2 %) 0.4 0.2 Neut # (Auto) (2.0 - 7.6 K/mm3) 19.68 H 23.01 H Lymph # (Auto) (1.0 - 3.8 K/mm3) 1.46 0.85 L Miner # (Auto) (0.1 - 0.8 K/mm3) 2.29 [...] pH (5.0 - 9.0) 5.0 Ur Specific Kent (1.003 - 1.030) 1.020 Urine Protein (NEGATIVE [...] Buckner MD on 03/15 at 0517 RPT #:[id number] END OF REPORT 2021-07-30 21:05:00-00:00 [facility] ([facility]) Clinical Note REPORT#:[id number] REPORT STATUS: Signed DATE:07/30/21 TIME: 2104 PATIENT: CLAUDIA CHA UNIT #: [id number] ROOM/BED: [address] [place] [address] : 42 AGE: 81 SEX: F ATTEND: Al Buckner MD ADM AUTHOR: Cesar Alexander Jr, MD * ALL edits or amendments must be made on the el Green[employer]izard/computer document * Clinical Note Note: [id number] at 2106 RPT #:[id number] END OF REPORT 2021-07-30 21:05:00-00:00 [id number] [id number] PATIENT NAME: CLAUDIA CHA ADMIT DATE: 07/30/21 ACCOUNT NO: [id number] ROOM NO: [facility] AGE: 81 REPORT TYPE: CONSULTATION REPORT SEX: F ADMITTING PHYSICIAN:Smitha Buckner MD ATTENDING PHYSICIAN:Smitha Buckner MD CONSULTATION DATE: CONSULTING PHYSICIAN: Cesar Alexander Jr, MD CARDIOLOGY NOTE HISTORY OF PRESENT ILLNESS: A 81-year-old female admitted for some dizziness and weakness and was admitted and seen in [facility] in the setting of a non-STEMI. On review of systems, she was transferre d from 2 other hospitals including [facility]. Apparently, they were not sure [...] and benefits were discussed with the d miladyser and the patient, they are inclined to [...] soon as possible. PATIENT NAME: CLAUDIA CHA 2577 Dictated By: Cesar Alexander Jr, MD WT: CON:KY/LEANN/RAFFY Conf#: [id number]/DID#: [id number] Authenticated by Cesar Alexander MD On 08/05/2021 01 :31:12 PM Electronically Signed by Csear Alexander Jr, MD o n 08/05/21 at 0131 PATIENT NAME: CLAUDIA CHA 577 2021-07-30 16:59:00-00:00 HCAU [facility] ([facility]) Hospitalist History Physical REPORT#:[id number] REPORT STATUS: Signed DATE:07/30/21 TIME: 1658 PATIENT: CLAUDIA CHA UNIT #: [id number] ROOM/BED: [address] : 42 AGE: 81 SEX: F ATTEND: Al Buckner MD ADM AUTHOR: Brian Jean MD R3 * ALL edits or amendments must be made on the el F[employer]yeronic/computer document * Brian Jean 07/30/21 1654: History of Present Illness HPI HPI: 81 y/o F with hx of NH s/p P CI (8 years ago), borderline [...] Documented: Result Date Time Pulse Ox 99 / 1439 B/P 182/117 / 1439 B/P Mean 138 / 1439 O2 Delivery Room air 07/30 143 Temp 98.6 07/30 1439 Pulse 107 / 1439 Resp 18 07/30 1439 Patient Weight [...] p ain Extremities: moves all, no edema Neuro/SHIP MANAGER: alert, oriented X 3, normal speech Skin: [...] (Auto) (14 - 44 %) 3.3 L Miner % (Auto) (4 - 13 %) 6.2 Eos % (Auto) (0 - 6 %) 0.0 Baso % (Auto) (0 - 2 %) 0.2 Neut # (Auto) (2.0 - 7.6 K/mm3) 23.01 H Lymph # (Auto) (1.0 - 3.8 K/mm3) 0.85 L Miner # (Auto) (0.1 - 0.8 K/mm3) 1.58 [...] Surgical Hx Additional medical history: Hx of NH s/p PCI (8 years ago), chronic back gómez n with hx of multiple back surgeries on intrathecal pump Family History Family history: Reports: Heart disease. Physical Exam VS/I O: Vital Signs Date Temp Pulse Resp B/P B/P Mean Pulse Ox FiO2 07/31-08/01 97.2-99.0 83-93 17-19 103-145/64-89 77.2-107.6 87-97 Last Documented: Result Date Time Pulse Ox 97 08/01 031 B/P 106/68 08/01 031 B/P Mean 80.4 08/01 0316 Temp 97.2 [...] Buckner MD on 03/15 at 0515 RPT #:[id number] END OF REPORT 2021-07-30 15:00:00-00:00 [facility] ([facility]) EMERGENCY PROVIDER REPORT REPORT#:[id number] REPORT STATUS: Signed DATE:07/30/21 TIME: 1500 PATIENT: CLAUDIA CHA UNIT #: [id number] ROOM/BED: [place] [address] AGE: 81 SEX: F PCP PHYS: No Primary or Family Ph ysician SERVICE AUTHOR: Jeffry Zamarripa MD LOCATION: [facility] * ALL edits or amendments must be made on the el GreenWizard/computer document * HPI-Dizziness/Weakness General Confirmed Patient Yes [...] Documented: Result Date Time Pulse Ox 99 /08 1439 B/P 182/117 03/08 1439 B/P Mean 138 03/08 1439 O2 Delivery Room air / 1439 Temp 98.6 03/08 1439 Pulse 107 03/ 1439 Resp 18 07/30 1439 Last Documented: Result Date Time Pulse Ox 99 03/08 1439 B/P 182/117 03/08 1439 B/P Mean 138 03/08 1439 O2 Delivery Room air 03/ 1439 Temp 98.6 03/08 1439 Pulse 107 03/08 1439 Resp 18 /08 1439 Review of Vital Signs Reviewed Focused [...] 1514 Blood Culture - RECD BLOOD 07/30 1514 Blood Culture - RECD BLOOD 07/31 1511 Blood Culture - RECD BLOOD 07/31 1511 Blood Culture - RECD BLOOD Recent Impressions: [...] here. Case discussed admitting team and with [facility]. Patient does not have chest pain [...] 2 GM X1ED STA 07/30 1450 DC / IV 07/30 1451 1510 Central Nervous System Agents Sig/Lise Start time Last Medication Dose Route Stop Time Status Admin Aspirin 325 MG ONCE ONE 07/30 1605 DC PO 07/30 1606 Fentanyl Citrate 50 MCG X1ED STA 07/30 1452 DC 03/08 IV 07/30 1453 1510 Acetaminophen 1,000 MG X1ED STA 07/30 1450 DC 0 /08 PO 07/30 1451 1511 Electrolytic, Caloric, And Haider Sig/Lise Start time Last Medication Dose Route Stop Time Status Admin Sodium Chloride 1,000 ML X1ED STA 07/30 1450 DC 03/08 IV 07/30 1549 1511 Patient Discharge Departure Vital Signs/Condition Vital Signs First Documented: Result Date Time Pulse Ox 99 / 1439 B/P 182/117 03/08 1439 B/P Mean 138 03/08 1439 O2 Delivery Room air / 1439 Temp 98.6 03/08 1439 Pulse 107 /08 1439 Resp 18 08 1439 Last Documented: Result Date Time Pulse Ox 99 03/08 1439 B/P 182/117 03/08 1439 B/P Mean 138 03/08 1439 O2 Delivery Room air / 1439 Temp 98.6 /08 1439 Pulse 107 /08 1439 Resp 18 07/30 1439 All vital signs available at the [...] fam/surrogate Separately billable procedures excluded from irvin e. Quality Measures Smoking Cessation Screened, non user Electronically Signed by Jeffry Zamarripa MD on 0 07/30/21 at 1626 RPT #:[id number] END OF REPORT
--- NOTE | 2023-01-19 13:58 | RAD REPORT ---
EXAM DESCRIPTION: CT - Head Brain Wo Cont - 01/19/2023 1:50 pm CLINICAL HISTORY: confusion,dizzy Headache, drowsiness COMPARISON: Facial Bones W/ Mpr dated 10/08/2022; Head Brain Wo Cont dated 09/08/2022 TECHNIQUE: All CT scans are performed using dose optimization technique as appropriate and may inclu de automated exposure control or mA/KV adjustment according to patient size. FINDINGS: No intracranial hemorrhage, hydrocephalus or extra-axial fluid collection.Mild generalized brain atrophy is present with mild periventricular and deep white matter chronic microvascular ische anita changes.No areas of brain edema or evidence of midline shift. The paranasal sinuses and mastoids are clear. The calvarium is intact. IMPRESSION: No acute intracranial abnormality.
[2023-01-19 15:32] LABS: Absolute Lymphocytes (CBC) 2.3 K/uL (0.7-4.9); Hematocrit 51.5 % (36.0-45.0); MCV 97.3 fL (80-100); MPV 9.2 fL (7.6-11.3); Platelets 223 thou/uL (152-406); RBC Red Blood Cell Count 5.29 M/uL (3.86-4.86)
[2023-01-19] MEDS ORDERED: NA CHLORIDE 0.9% 1,000 ML ONE (16:46)
[2023-01-19 18:54] LABS: Specific Gravity 1.019 (1.005-1.030); Urine Bacteria <20 /HPF (<20); Urine Bilirubin NEGATIVE (Negative); Urine Blood Negative (Negative); Urine Clarity Extremely Turbid (Clear); Urine Color Light-Yellow (Yellow); Urine Glucose NEGATIVE (Negative); Urine Mucus Slight /HPF (None Seen); Urine Protein TRACE (Negative); Urine Urobilinogen Normal (Normal)
[2023-01-19] MEDS ORDERED: CEFTRIAXONE 1000 MG/VIAL ONE (20:19)
[2023-01-19 20:24] LABS: Potassium 4.1 mEq/L (3.5-5.1); Troponin High Sensitivity 12.9 pg/mL (<58.9)
--- NOTE | 2023-01-19 21:15 | RAD REPORT ---
EXAM DESCRIPTION: RAD - Chest Single View - 01/19/2023 8:56 pm CLINICAL HISTORY: COUGH Chest pain. COMPARISON: Chest Single View dated 02/18/2021; Chest Pa And Lat (2 Views) dated 11/14/2020; Chest Sin gle View dated 11/17/2019; Chest Pa And Lat (2 Views) dated 07/13/2017 FINDINGS: Portable technique limits examination quality. The lungs are grossly clear. The heart is mildly enlarged. No displaced fractures.Cervical hardware p late. IMPRESSION: No acute intrathoracic process suspected.
--- NOTE | 2023-01-19 23:25 | ER ---
Nurse's Notes [facility] Name: Claudia Cha Age: 82 yrs Sex: Female : 1940 Arrival Date: 01/19/2023 Time: 12:17 Bed 2 Private MD: Diagnosis: UTI/ Urinary tract infection, site not specified;Encephalopathy, unspecified;Acute kidney failure, unspecified Presentation: 01/19 13:07 Chief complaint: Patient states: "I feel confused. It's been off and on. I've been mb9 dizzy on and off for a couple of years and my back has been hurting for years as well" Pt states, "I live at [facility] and they dropped me off here". Coronavirus screen: Vaccine status: Patient reports receiving the 2nd dose of the covid vaccine. Ebola Screen: No symptoms or risks identified at this time. Initial Sepsis Screen: Does the patient meet any 2 criteria? No. Patient's initial sepsis screen is negative. Does the patient have a suspected source of infection? No. Patient's initial sepsis screen is negative. Risk Assessment: Do you want to hurt yourself or someone else? Patient reports no desire to harm self or others. Onset of symptoms was January 19, 2023. 13:07 Acuity: EASTON 3 mb9 13:07 Method Of Arrival: Wheelchair mb9 Triage Assessment: 13:11 General: Appears in no apparent distress. Behavior is cooperative. Pain: Denies pain. mb9 Neuro: Level of Consciousness is awake, obeys commands, confused, Oriented to person, place, time. Cardiovascular: Patient's skin is warm and dry. Respiratory: Airway is patent Respiratory effort is even, unlabored, Respiratory pattern is regular, symmetrical. : Reports burning with urination. Musculoskeletal: Range of motion: intact in all extremities. Historical: - Allergies: 13:11 Latex, Natural Rubber; mb9 13:11 metformin; mb9 13:11 Tape; mb9 - Home Meds: 13:11 duloxetine 30 mg Oral CDRS 1 cap once daily [Active]; mb9 - PMHx: 13:11 chronic back pain; Hypertension; Myocardial infarction; Pre Diabetes; mb9 - PSHx: 13:11 back surgery; heart stent; pain pump; mb9 - Immunization history:: Adult Immunizations up to date. - Social history:: Smoking status: Patient denies any tobacco usage or history of. Screenin:13 [facility] ED Fall Risk Assessment (Adult) History of falling in the last 3 months, ph including since admission No falls in past 3 months (0 pts) Confusion or Disorientation Yes (5 pts) Intoxicated or Sedated No (0 pts) Impaired Gait No (0 pts) Mobility Assist Device Used Yes (1 pt) Altered Elimination No (0 pt) Score/Fall Risk Level 0 - 2 = Low Risk Oriented to surroundings, Maintained a safe environment, Provided non-skid footwear, Hourly rounding (assess needs \\T\\ fall precautionary measures) done. Abuse screen: Denies threats or abuse. Denies injuries from another. Nutritional screening: No deficits noted. Tuberculosis screening: No symptoms or risk factors identified. Assessment: 17:13 General: Appears in no apparent distress. comfortable, Behavior is calm, cooperative, ph appropriate for age. Pain: Complains of pain in back. Neuro: Level of Consciousness is awake, alert, obeys commands, Oriented to person, place, Reports dizziness. Cardiovascular: Capillary refill < 3 seconds in bilateral fingers Patient's skin is warm and dry. Respiratory: Airway is patent Respiratory effort is even, unlabored. GI: No signs and/or symptoms were reported involving the gastrointestinal system. : Reports burning with urination. Derm: Skin is pink, warm \\T\\ dry. 22:05 Reassessment: Report given to juanita CROWDER sg5 23:24 Reassessment: No changes from previously documented assessment. Patient and/or family vc1 updated on plan of care and expected duration. Pain level reassessed. Patient is alert, oriented x 3, equal unlabored respirations, skin warm/dry/pink. Vital Signs: 13:07 BP 124 / 72; Pulse 73; Resp 18; Temp 97.9; Pulse Ox 100% on R/A; Weight 83.91 kg; mb9 Height 5 ft. 8 in. ; Pain 0/10; 17:13 BP 136 / 80; Pulse 71; Resp 18; Pulse Ox 97% on R/A; ph 18:30 BP 142 / 78; Pulse 72; Resp 18; Pulse Ox 98% on R/A; ph 20:18 BP 129 / 70; Pulse 71; Resp 18; Pulse Ox 97% on R/A; sg5 22:30 BP 112 / 82; Pulse 64; Resp 18; Pulse Ox 95% ; vc1 13:07 Body Mass Index 28.13 (83.91 kg, 172.72 cm) mb9 13:07 Pain Scale: Adult mb9 ED Course: 12:27 Patient arrived in ED. mg5 13:09 Flip Downing is Attending Physician. ci 13:11 Triage completed. mb9 13:11 Arm band placed on. mb9 13:52 Head Brain Wo Cont In Process Unspecified. EDMS 15:26 BMP Sent. cm10 15:26 CBC with Diff Sent. cm10 15:26 Troponin HS Sent. cm10 15:26 Initial lab(s) drawn, by ks, sent to lab. Inserted saline lock: 22 gauge in left hand, cm10 using aseptic technique. Blood collected. 17:12 Pina Rodarte RN is Primary Nurse. ph 17:12 Patient has correct armband on for positive identification. Bed in low position. Call ph light in reach. Side rails up X2. Pulse ox on. NIBP on. 17:12 BMP Sent. ph 17:12 Troponin HS Sent. ph 17:12 Urinalysis w/ reflexes Sent. ph 17:14 No provider procedures requiring assistance completed. ph 20:58 CXR XRAY In Process Unspecified. EDMS 20:59 Primary Nurse role handed off by Pina Rodarte RN wm 21:01 He Moreno MD is Hospitalizing Provider. ci 21:31 Attending Physician role handed off by Flip Downing sami 21:31 Dao Cortez MD is Attending Physician. sami 22:03 Inserted saline lock:. sg5 23:25 Patient admitted, IV remains in place. vc1 Administered Medications: 17:12 Drug: NS 0.9% IV 1000 ml Route: IV; Rate: 1000 ml; Site: left hand; ph 20:17 Drug: Rocephin IV 1 grams Route: IV; Rate: per protocol; Site: left hand; sg5 Medication: 13:18 VIS not applicable for this client. mb9 Outcome: 21:02 Decision to Hospitalize by Provider. ci 23:24 Admitted to Tele accompanied by tech, via wheelchair, room 406. vc1 23:24 Condition: good 23:24 Instructed on the need for admit. 23:25 Patient left the ED. vc1 Signatures: Dispatcher [employer] EDDao Dey MD MD cha Hall, Patricia, RN RN Maryan Ramos Lashay Zaragoza RN RN vc1 Katherine, Marsha Kenney, RN RN mb9 Sydnee Tamayo RN RN sg5 Gloria Zaidi RN RN cm10 Malathi Mack [facility] Flip Downing Corrections: (The following items were deleted from the chart) 17:12 17:12 NS 0.9% IV 1000 ml IV at 1000 ml in left antecubital ph ph
--- NOTE | 2023-01-19 23:25 | EDPHYS ---
Physician Documentation [facility] Name: Claudia Cha Age: 82 yrs Sex: Female : 1940 Arrival Date: 01/19/2023 Time: 12:17 Bed 2 Private MD: MAICOL Physician Dao Cortez HPI: 01/19 20:18 Patient is an 82 year old female with PMH NV, HTN, chronic back pain who presents from [facility] assisted living facility for generalized weakness, confusion and dizziness. Patient is AOX3 but intermittently confused. Denies headache, fever, chills. . Historical: - Allergies: 13:11 Latex, Natural Rubber; mb9 13:11 metformin; mb9 13:11 Tape; mb9 - Home Meds: 13:11 duloxetine 30 mg Oral CDRS 1 cap once daily [Active]; mb9 - PMHx: 13:11 chronic back pain; Hypertension; Myocardial infarction; Pre Diabetes; mb9 - PSHx: 13:11 back surgery; heart stent; pain pump; mb9 - Immunization history:: Adult Immunizations up to date. - Social history:: Smoking status: Patient denies any tobacco usage or history of. ROS: 20:25 Constitutional: Negative for fever, chills, and weight loss, Eyes: Negative for injury, ci pain, redness, and discharge, Cardiovascular: Negative for chest pain, palpitations, and edema, Respiratory: Negative for shortness of breath, cough, wheezing, and pleuritic chest pain, Abdomen/GI: Negative for abdominal pain, nausea, vomiting, diarrhea, and constipation, Back: Endorses chronic back pain that is unchanged Neuro: +confusion, dizziness Exam: 20:25 Constitutional: This is a well developed, well nourished patient who is awake, alert, ci and in no acute distress. Head/Face: Normocephalic, atraumatic. Eyes: Pupils equal round and reactive to light, extra-ocular motions intact. Lids and lashes normal. Conjunctiva and sclera are non-icteric and not injected. Cornea within normal limits. Periorbital areas with no swelling, redness, or edema. ENT: Nares patent. No nasal discharge, no septal abnormalities noted. Tympanic membranes are normal and external auditory canals are clear. Oropharynx with no redness, swelling, or masses, exudates, or evidence of obstruction, uvula midline. Mucous membranes moist. Neck: Trachea midline, no thyromegaly or masses palpated, and no cervical lymphadenopathy. Supple, full range of motion without nuchal rigidity, or vertebral point tenderness. No Meningismus. Chest/axilla: Normal chest wall appearance and motion. Nontender with no deformity. No lesions are appreciated. Cardiovascular: Regular rate and rhythm with a normal S1 and S2. No gallops, murmurs, or rubs. No JVD. No pulse deficits. Respiratory: Lungs have equal breath sounds bilaterally, clear to auscultation and percussion. No rales, rhonchi or wheezes noted. No increased work of breathing, no retractions or nasal flaring. Abdomen/GI: Soft, non-tender, with normal bowel sounds. No distension or tympany. No guarding or rebound. No evidence of tenderness throughout. Back: Back atraumatic. No spinal tenderness. No costovertebral tenderness. Full range of motion. Skin: Warm, dry with normal turgor. Normal color with no rashes, no lesions, and no evidence of cellulitis. MS/ Extremity: Pulses equal, no cyanosis. Neurovascular intact. Full, normal range of motion. Neuro: Awake and alert, GCS 15, oriented to person, place, time, and situation. Cranial nerves II-XII grossly intact. Motor strength 5/5 in all extremities. Sensory grossly intact. Cerebellar exam normal. Psych: Awake, alert, with orientation to person, place and time. Behavior, mood, and affect are within normal limits. Vital Signs: 13:07 BP 124 / 72; Pulse 73; Resp 18; Temp 97.9; Pulse Ox 100% on R/A; Weight 83.91 kg; mb9 Height 5 ft. 8 in. ; Pain 0/10; 17:13 BP 136 / 80; Pulse 71; Resp 18; Pulse Ox 97% on R/A; ph 18:30 BP 142 / 78; Pulse 72; Resp 18; Pulse Ox 98% on R/A; ph 20:18 BP 129 / 70; Pulse 71; Resp 18; Pulse Ox 97% on R/A; sg5 22:30 BP 112 / 82; Pulse 64; Resp 18; Pulse Ox 95% ; vc1 13:07 Body Mass Index 28.13 (83.91 kg, 172.72 cm) mb9 13:07 Pain Scale: Adult mb9 MDM: 13:09 Patient medically screened. ci 20:25 Differential Diagnosis altered mental status, sepsis, UTI, CVA, TIA, hypoglcyemia, ACS, ci dehydration. 20:25 Differential diagnosis: generalized weakness. Data reviewed: vital signs, nurses notes, ci EKG. Consideration of Admission/Observation Patient was admitted/placed on observation. Management of patient was discussed with the following: Hospitalist: Discussed with PCP who is the admitting hospitalist. I considered the following discharge prescriptions or medication management in the emergency department Medications were administered in the Emergency Department. See MAR. Independent interpretation of the following test(s) in the Emergency Department EKG: See my EKG interpretation above CT Scan: My interpretation is . Care significantly affected by the following chronic conditions: Diabetes, Hypertension. 21:03 ED course: Discused with Dr. Moreno who accepted her for admission, Recs for Rocephin 1g ci q12hrs and fall precautions. 01/19 15:04 Order name: Urinalysis w/ reflexes; Complete Time: 19:44 cm10 01/19 19:53 Interpretation: Abnormal: UESTR 250; UKET 1+; +UTI. ci 01/19 15:04 Order name: Troponin HS; Complete Time: 20:54 cm10 01/19 15:04 Order name: CBC with Diff; Complete Time: 18:21 cm10 01/19 15:04 Order name: BMP; Complete Time: 20:54 cm10 01/19 20:55 Interpretation: CRE 1.24; Mild ALISSA. ci 01/19 18:58 Order name: Urine Culture EDMS 01/19 13:41 Order name: Head Brain Wo Cont; Complete Time: 15:14 EDMS 01/19 15:14 Interpretation: No ICH, no midline shift. ci 01/19 19:55 Order name: CXR XRAY iw 01/19 13:27 Order name: Cardiac monitoring; Complete Time: 16:32 ci 01/19 13:27 Order name: EKG - Nurse/Tech; Complete Time: 16:50 ci 01/19 20:24 Interpretation: Within normal limits: EKG shows NSR with no acute ischemic changes. HR ci 67, QTC 424. 01/19 13:27 Order name: IV Saline Lock; Complete Time: 16:31 ci 01/19 13:27 Order name: Labs collected and sent; Complete Time: 16:31 ci 01/19 13:27 Order name: O2 Per Protocol; Complete Time: 16:31 ci 01/19 13:27 Order name: O2 Sat Monitoring; Complete Time: 16:31 ci 01/19 15:36 Order name: Labs - recollect needed: green top; Complete Time: 17:12 iw 01/19 17:44 Order name: Labs - recollect needed: recollect green top; Complete Time: 19:02 bd 01/19 18:36 Order name: Labs - recollect needed: recollect green again; Complete Time: 20:19 bd Administered Medications: 17:12 Drug: NS 0.9% IV 1000 ml Route: IV; Rate: 1000 ml; Site: left hand; ph 20:17 Drug: Rocephin IV 1 grams Route: IV; Rate: per protocol; Site: left hand; sg5 Disposition Summary: 01/19/23 21:02 Hospitalization Ordered Hospitalization Status: Inpatient Admission ci Provider: He Moreno Location: Telemetry/[facility] (observation) ci Condition: Stable ci Problem: new ci Symptoms: are unchanged ci Bed/Room Type: Standard ci Room Assignment: 406(01/19/23 21:37) Diagnosis - UTI/ Urinary tract infection, site not specified ci - Encephalopathy, unspecified ci - Acute kidney failure, unspecified ci Forms: - Medication Reconciliation Form ci - SBAR form ci - Leadership Thank You Letter ci Signatures: Dispatcher [employer] EDMS Cookie Sood Martha, RN RN mw Williams, Irene RN Pina Winslow RN AMIE Marsha Murphy RN RN Sydnee Sheth RN RN sg5 Flip Downing ci Corrections: (The following items were deleted from the chart) 20:25 20:24 EKG shows NSR with no acute ischemic changes. HR 67, QTC 424. ci ci 21:37 21:02 ci mw
[2023-01-19] MEDS ORDERED: ACETAMINOPHEN 325 MG TABLET PO PRN (23:49)
[2023-01-19] MEDS ORDERED: ONDANSETRON 4 MG/2 ML VIAL IV PRN (23:49)
[2023-01-20 00:07] VITALS: BMI 29.0
[2023-01-20] MEDS: NA CHLORIDE 0.9% 1,000 ML IV SCH ×3 (00:13→19:49)
[2023-01-20] MEDS ORDERED: LORazepam 2 MG/ML VIAL IV PRN (03:20)
[2023-01-20] MEDS: ENOXAPARIN 40 MG/0.4 ML SQ SCH (08:49)
[2023-01-20] MEDS: CEFTRIAXONE 1,000 MG in NA CHLORIDE 0.9% 50 ML IVPB SCH ×2 (08:50→21:06)
[2023-01-20 10:50] LABS: Absolute Lymphocytes (CBC) 1.4 K/uL (0.7-4.9); Hematocrit 43.5 % (36.0-45.0); Lymphocytes % 25.3 % (15.3-44.8); MCV 96.7 fL (80-100); Platelets 174 thou/uL (152-406); RBC Red Blood Cell Count 4.49 M/uL (3.86-4.86)
[2023-01-20 11:13] LABS: Potassium 3.6 mEq/L (3.5-5.1)
--- NOTE | 2023-01-20 16:29 | EKG ---
Test Date: 2023-01-19 Test Time: 16:48:06 Lube Worker: PH MEASUREMENT RESULTS: Intervals: Rate: 67 OH: 164 QRSD: 74 QT: 402 QTc: 424 [place]: P: 77 OH: 164 QRS: 30 T: 24 INTERPRETIVE STATEMENTS: Normal sinus rhythm Normal ECG Compared to ECG 05/29/2022 18:45:17 Sinus bradycardia no longer present Sinus arrhythmia no longer present First degree AV block no longer present Electronically Signed On 01-20-23 16:26:37 CDT by Javier Gruber
[2023-01-20] MEDS: QUETIAPINE 25 MG TAB PO SCH (22:50)
--- NOTE | 2023-01-21 03:37 | HP ---
Date of Admission: 01/20/2023 Chief Complaint: Confusion, weakness. History Of Present Illness: Ms. Cha is a pleasant 82-year-old female patient living at [facility], was brought into emergency room because of above-mentioned problem. After she was evaluated in the ER, she was admitted to the hospital with urinary tract infection and encephalopathy. She had lo t of anxiety and restlessness, agitation last night, and when nurse contacted me, Ativan was ordered for her. This morning when I saw her, she was sleeping, not in any distress, and she did not wake up during my visit, but after I visited her, she did wake up, had discussion with the nursing staff. Physical Examination: Vital Signs: Upon arrival to emergency room, temperature 97.9, pulse 73, respiratory rate 18, blood pressure 124/72, oxygen saturation 100%. General: Awake, alert, oriented, not in distress. HEENT: Head atraumatic, normocephalic. Conjunctivae nonerythematous. Sclerae white. Mouth, no thr ush or edema noted. Ears/Nose, no mass, lesion, discharge noted. Neck: Supple. No JVD, lymph nodes, bruit, thyromegaly noted. Lungs: Bilateral good equal air entry. Clear to auscultation. No rhonchi. No rales. Heart: Normal heart sounds, no murmur or gallop. Abdomen: Soft, bowel sounds normal. No guarding, rigidity, tenderness, mass, hepatosplenomegaly, dis tention, or bruit noted. Extremities: No leg edema. No calf tenderness. Skin: No rash, ulcer, cellulitis. Lymphatics: No lymph node enlargement in neck, supraclavicular, infraclavicular region. Neuro: No focal neurological deficit. Chest: Unremarkable. External Genitalia: Deferred. Rectal: Deferred. Laboratory Data: Yesterday, white count 8.1, hemoglobin 16.7, platelets 223. Sodium 140, potassium 4.1, chloride 109, bicarb 25, BUN 23, creatinine 1.24, glucose 201. Troponin 12.9. Urinalysis: Zahra kocyte esterase 250, wbc's 10 to 20. Repeat blood work this morning; white count 5.4, hemoglobin 14. 4, platelets 174. Chemistry: Sodium 143, potassium 3.6, chloride 113, bicarb 25, BUN 21, creatinine 1.12, glucose 207. Impression: 1.Toxic encephalopathy. 2.Urinary tract infection. 3.Type 2 diabetes mellitus. 4.Coronary artery disease. 5.Generalized weakness. 6.Debility. 7.Hypertension. 8.Mixed hyperlipidemia. 9.Osteoarthritis, multiple sites. Plan: We will go ahead and admit patient to hospital for further evaluation and management of this p yuri. The patient is appropriate for inpatient and is expected to spend 2 midnights in hospital. Empiric antibiotic ceftriaxone will be given, which was started in the emergency room. We will follo w up on culture results and then depending on the culture results, we will decide about culture-speci fic antibiotic. DVT prophylaxis will be given per order. We will place patient on fall precautions. Consult Physical Therapy to help ambulate the patient. Home medications will be continued per sonja manning and I will see her tomorrow for followup. DAVY/JANAK Voice ID: [id number]
[2023-01-21] MEDS: NA CHLORIDE 0.9% 1,000 ML IV SCH (05:49)
[2023-01-21] MEDS: ENOXAPARIN 40 MG/0.4 ML SQ SCH (08:09)
[2023-01-21] MEDS: AMLODIPINE 5 MG TAB PO SCH (08:09)
[2023-01-21] MEDS: CEFTRIAXONE 1,000 MG in NA CHLORIDE 0.9% 50 ML IVPB SCH ×2 (08:09→21:06)
[2023-01-21] MEDS: QUETIAPINE 25 MG TAB PO SCH (21:06)
--- NOTE | 2023-01-21 21:28 | PN ---
Date of Progress Note: 01/21/2023 Subjective: Patient was seen this morning for followup. No new complaints or problems reported by elmo sarmiento. She was lying in bed, sleeping, easily arousable, not in distress. Denies any new complaint s this morning. Physical Examination: Vital Signs: Reviewed. This morning, temperature 96.9, pulse 77, respiratory rate 17, blood pressur e 155/81, oxygen saturation 97% on room air. HEENT: Unremarkable. Lungs: Clear to auscultation. Heart: Sounds normal. Abdomen: Soft. Bowel sounds normal. No guarding, rigidity, tenderness, distention. Extremities: No leg edema. Impression: 1.Toxic encephalopathy. 2.Urinary tract infection. 3.Generalized weakness. 4.Debility. 5.Hypertension. 6.Coronary artery disease. Plan: We will go ahead and start the patient on amlodipine 2.5 mg daily. Physical Therapy to contin ue to work with the patient. Social Service consultation was requested and the patient walked more t goodson 250 feet with physical therapy yesterday so she will not qualify to go to jail facilit y as I was told by Social Service and the patient will be able to get back to her [facility] ty. Urine culture is growing gram-negative rods. Definite identification and sensitivity result is pending. Once we get that information, we should be able to discharge her to go to facility with appropriate antibiotic therapy. DAVY/MODL Voice ID: [id number] Report ID: [id number]
[2023-01-22 06:34] LABS: Absolute Lymphocytes (CBC) 2.5 K/uL (0.7-4.9); Hematocrit 45.7 % (36.0-45.0); Lymphocytes % 43.4 % (15.3-44.8); MCV 96.9 fL (80-100); MPV 9.4 fL (7.6-11.3); Platelets 167 thou/uL (152-406); RBC Red Blood Cell Count 4.71 M/uL (3.86-4.86)
[2023-01-22 06:54] LABS: Albumin 3.8 g/dL (3.4-5.0); Bilirubin Total 0.4 mg/dL (0.2-1.0); Potassium 3.8 mEq/L (3.5-5.1); Protein, Total 7.4 g/dL (6.4-8.2)
[2023-01-22] MEDS: CEFTRIAXONE 1,000 MG in NA CHLORIDE 0.9% 50 ML IVPB SCH ×2 (08:43→20:08)
[2023-01-22] MEDS: ENOXAPARIN 40 MG/0.4 ML SQ SCH (08:44)
[2023-01-22] MEDS: AMLODIPINE 5 MG TAB PO SCH (08:44)
--- NOTE | 2023-01-22 09:15 | PN ---
Date of Progress Note: 01/22/2023 Subjective: The patient was seen this morning for followup. No new complaints or problems reported by the patient. She was looking much better than last couple of days. Awake, alert, back to her nor mal self. Objective: Vital Signs: Reviewed. HEENT: Unremarkable. Lungs: Clear to auscultation. Heart: Sounds normal. Abdomen: Soft. Bowel sounds normal. No guarding, rigidity, tenderness, distention. Extremities: No leg edema. Laboratory Data: White count 5.7, hemoglobin 15.1, platelets 167. Sodium 140, potassium 3.8, chlori de 108, bicarb 27, BUN 17, creatinine 1.12, glucose 109. Liver function tests unremarkable. Urine c ulture is growing some bacteria. Definite identification and sensitivity results pending. Liver fun ction tests unremarkable today. Impression: 1.Urinary tract infection. 2.Toxic encephalopathy. 3.Hypertension. Plan: We will go ahead and continue current medications, continue current empiric antibiotics. Hope fully, we will have a final report on the urine culture back today and then we will decide if we can discharge her to go back to [facility] today with culture specific oral antibiotics or not. If the patient needs any IV antibiotics to go home with, then we will need to make arrangements for PICC li ne for IV antibiotics. The patient will not be able to administer on her home and in that case if cal is not able to return back to [facility], if there is no one else to provide her administration o f IV antibiotics, then she may have to go to half-way facility for short-term. All these details were discussed with the patient as well as son who was on the phone. DAVY/MODL Voice ID: [id number] Report ID: [id number]
[2023-01-22] MEDS: QUETIAPINE 25 MG TAB PO SCH (20:08)
[2023-01-23 04:41] VITALS: TEMP 97.4
[2023-01-23] MEDS ORDERED: levoFLOXacin 500 MG TAB PO ONE (09:08)
[2023-01-23] MEDS: ENOXAPARIN 40 MG/0.4 ML SQ SCH (09:48)
[2023-01-23] MEDS: AMLODIPINE 5 MG TAB PO SCH (09:54)
[2023-01-23] MEDS: CEFTRIAXONE 1,000 MG in NA CHLORIDE 0.9% 50 ML IVPB SCH (09:58)
[2023-01-23 09:59] VITALS: BP 135/75
[2023-01-23 12:51] VITALS: O2SAT 99
--- NOTE | 2023-01-23 22:10 | DS ---
Date of Discharge: 01/23/2023 Disposition: Discharged to go home. Physical Examination: HEENT: Unremarkable. Lungs: Clear to auscultation. Heart: Sounds normal. Abdomen: Soft. Bowel sounds normal. No guarding, rigidity, tenderness, or distention. Extremities: No leg edema. Discharge Medications And Instructions: 1.Continue all prior home medications. 2.Start Levaquin 500 mg, take 1 tablet by mouth daily for 1 week. 3.Follow up at my office as per scheduled appointment. Laboratory Data: Urine culture grew Enterococcus faecalis and it is sensitive to Cipro, Levaquin, am picillin, etc. CBC upon admission; white count 8.1, hemoglobin 16.7, platelets 223. Last CBC from y day; white count 5.7, hemoglobin 15.1, platelets 167. Chemistry upon admission; sodium 140, pot assium 4.1, chloride 109, bicarb 25, BUN 23, creatinine 1.24, glucose 201 and last chemistry yesterda y; sodium 140, potassium 3.8, chloride 108, bicarb 27, BUN 17, creatinine 1.12, glucose 109. Liver f unction tests unremarkable. Hospital Course: This is an 82-year-old very pleasant female patient, who lives at [facility] emergency room with problem of confusion and weakness. Please see dictated H and P for more i nformation. After the patient was evaluated in the ER, she was admitted to the hospital with toxic e ncephalopathy and urinary tract infection. Her blood work was unremarkable. Urinalysis was abnormal with urinary tract infection problem and the patient was admitted to the hospital with this problem. She was started on IV ceftriaxone and overall, her condition has improved significantly. Her toxic encephalopathy problem has resolved. Mental status is back to her normal-self. She is ambulating v joanna well without any difficulties and urine culture report now is available growing Enterococcus faec poncho and she will be able to go home with oral antibiotics. Details were discussed with the patient' s son, who was present at bedside today and yesterday on the phone. Final Diagnoses: 1.Toxic encephalopathy. 2.Urinary tract infection. 3.Type 2 diabetes mellitus. 4.Coronary artery disease. 5.Generalized weakness. 6.Debility. 7.Hypertension. 8.Mixed hyperlipidemia. 9.Osteoarthritis, multiple sites. DAVY/MODL Voice ID: [id number] Report ID: [id number]
[2023-01-24] MEDS ORDERED: CELECOXIB 100 MG CAPSULE PO ONE (09:08)
== END 2023-01-23 11:30 | disposition home or self-care (01) | DRG 689 ==
LOC: ER 12:17 → 4TH 21:33 → OBSVTOIN 01-20 18:52
PROVIDERS: ADMIT Internal Medicine; ATTEND Internal Medicine
DX: N39.0 Urinary tract infection, site not specified (principal); G92.9 Unspecified toxic encephalopathy; N17.9 Acute kidney failure, unspecified; I10 Essential (primary) hypertension; G89.29 Other chronic pain; M54.9 Dorsalgia, unspecified; F41.9 Anxiety disorder, unspecified; E11.9 Type 2 diabetes mellitus without complications; E78.2 Mixed hyperlipidemia; M19.09 Primary osteoarthritis, other specified site; I25.10 Atherosclerotic heart disease of native coronary artery without angina pectoris; B95.2 Enterococcus as the cause of diseases classified elsewhere; I25.2 Old myocardial infarction; Z88.8 Allergy status to other drugs, medicaments and biological substances; Z95.5 Presence of coronary angioplasty implant and graft; Z91.040 Latex allergy status; Z91.048 Other nonmedicinal substance allergy status; Z79.899 Other long term (current) drug therapy
CPT/HCPCS: 36415; 70450; 71045; 80048; 80053; 81001; 84484; 85025; 87077; 87086; 87088; 87186; 93005; 96374; 97110; 97116; 97161; 97530; 99285; G0378; J0696; J1650; J7030

== ENCOUNTER → 2023-06-14 | Emergency (ER) | payer OTHER, MEDICARE ==
[~2023-06-14] MED LIST: CEFTRIAXONE 1000 MG/VIAL ONE; LIDOCAINE 1% MPF 2 ML AMPULE ONE
[2023-06-14 04:25] LABS: Albumin 3.5 g/dL (3.4-5.0); Bilirubin Total 0.4 mg/dL (0.2-1.0); Magnesium 1.9 mg/dL (1.6-2.4); Potassium 3.9 mEq/L (3.5-5.1); Protein, Total 7.1 g/dL (6.4-8.2)
[2023-06-14 05:05] LABS: Absolute Lymphocytes (CBC) 1.3 K/uL (0.7-4.9); Hematocrit 40.3 % (36.0-45.0); MCV 95.9 fL (80-100); MPV 9.7 fL (7.6-11.3); Platelets 159 thou/uL (152-406); RBC Red Blood Cell Count 4.21 M/uL (3.86-4.86)
[2023-06-14 05:10] LABS: Specific Gravity 1.022 (1.005-1.030); Urine Bacteria >50 /HPF (<20); Urine Bilirubin NEGATIVE (Negative); Urine Blood Negative (Negative); Urine Clarity Extremely Turbid (Clear); Urine Color Yellow (Yellow); Urine Glucose NEGATIVE (Negative); Urine Mucus 3+ /HPF (None Seen); Urine Protein 1+ (Negative); Urine RBC <5 /HPF (None Seen); Urine Urobilinogen Normal (Normal); Urine pH 5.5 (5.0-7.0)
--- NOTE | 2023-06-14 05:23 | ER ---
Nurse's Notes [facility] Name: Claudia Cha Age: 83 yrs Sex: Female : 1940 Arrival Date: 06/14/2023 Time: 02:20 Bed 15 Private MD: Diagnosis: UTI/ Urinary tract infection, site not specified;Essential (primary) hypertension Presentation: 06/14 02:22 Chief complaint: EMS states: EMS stated [facility] called to report patient was pf1 AMS, was walking down the hallway talking about buildings. Patient C/O lower abdominal pain of 6, unknown time of onset, dizziness for 1-2 years, confusion for 1 year. 02:22 Coronavirus screen: Client denies travel out of the [place] in the last 14 days. At this pf1 time, the client does not indicate any symptoms associated with coronavirus-19. Ebola Screen: Patient negative for fever greater than or equal to 101.5 degrees Fahrenheit, and additional compatible Ebola Virus Disease symptoms. Initial Sepsis Screen: Does the patient meet any 2 criteria? No. Patient's initial sepsis screen is negative. Does the patient have a suspected source of infection? No. Patient's initial sepsis screen is negative. Risk Assessment: Do you want to hurt yourself or someone else? Patient reports no desire to harm self or others. 02:22 Method Of Arrival: EMS: [facility] pf1 02:22 Acuity: [facility] 3 pf1 Historical: - Allergies: 03:51 metformin; pf1 03:51 Tape; pf1 - PMHx: 03:51 Atrial fibrillation; chronic back pain; CVA (pain pump); Hypertension; Myocardial pf1 infarction; Pre Diabetes; - PSHx: 03:51 back surgery; heart stent; pain pump; pf1 - Immunization history:: Adult Immunizations up to date, 5 doses: combination of pfizer and moderna Last tetanus immunization: > 10 years ago Flu vaccine is up to date. - Social history:: Smoking status: Patient denies any tobacco usage or history of. Patient/guardian denies using alcohol, street drugs. Screenin:53 [facility] ED Fall Risk Assessment (Adult) History of falling in the last 3 months, pf1 including since admission Yes- single mechanical fall (1 pt) Confusion or Disorientation No (0 pts) Intoxicated or Sedated No (0 pts) Impaired Gait Yes (1 pt) Mobility Assist Device Used Yes (1 pt) Altered Elimination Yes (1 pt) Score/Fall Risk Level 3 or more points = High Risk Oriented to surroundings, Maintained a safe environment, Educated pt \T\ family on fall prevention, incl call for assistance when getting out of bed, Assessed \T\ reinforced patient's understanding of fall precautions, Provided non-skid footwear, Hourly rounding (assess needs \T\ fall precautionary measures) done, Used ambulatory aids as needed (educated on \T\ assisted with), Used gait belt as appropriate Implemented a Fall Risk Plan of Care, Apply high fall risk patient identification: yellow non skid footwear/ fall signage, Remained w/in arm's length of patient and in sight while toileting, Offered frequent toileting (1:1 observation), Remained with patient while ambulating, Utilized family, sitter, or virtual meat stocker as indicated. Abuse screen: Denies threats or abuse. Nutritional screening: No deficits noted. Tuberculosis screening: No symptoms or risk factors identified. Assessment: 02:25 General: Appears in no apparent distress. comfortable, well groomed, well developed, pf1 Behavior is calm, cooperative, appropriate for age, quiet. 02:25 Pain: Complains of pain in abdomen Pain currently is 6 out of 10 on a pain scale. Pain pf1 began unknown. Neuro: Level of Consciousness is awake, alert, obeys commands, Oriented to person, place, time, situation, Reports dizziness, with confusion. Cardiovascular: Reports dizziness with confusion Capillary refill < 3 seconds Patient's skin is warm and dry. Respiratory: No deficits noted. Airway is patent Respiratory effort is even, unlabored, Respiratory pattern is regular, symmetrical, Breath sounds are clear bilaterally. GI:. GI: Abdomen is round non-distended, Bowel sounds present X 4 quads. Abd is soft and non tender X 4 quads. Reports lower abdominal pain. :. EENT: No deficits noted. No signs and/or symptoms were reported regarding the EENT system. 03:20 Reassessment: Patient appears in no apparent distress at this time. Patient and/or pf1 family updated on plan of care and expected duration. Pain level reassessed. Patient is alert, oriented x 3, equal unlabored respirations, skin warm/dry/pink. 04:30 Reassessment: Patient appears in no apparent distress at this time. Patient and/or pf1 family updated on plan of care and expected duration. Pain level reassessed. Patient is alert, oriented x 3, equal unlabored respirations, skin warm/dry/pink. Patient states symptoms have improved. 05:07 Reassessment: Collins Caldwell (son) [phone] and Brenda Caldwell (daughter) [phone]. pf1 05:30 Reassessment: Patient appears in no apparent distress at this time. Patient and/or pf1 family updated on plan of care and expected duration. Pain level reassessed. Patient is alert, oriented x 3, equal unlabored respirations, skin warm/dry/pink. Patient states feeling better. Patient states symptoms have improved. 05:40 Reassessment: Spoke with Sadie at [facility]. Sadie stated will call family and will pf1 call us back with further plan for discharge transportation. 07:20 Reassessment: Spoke with Sadie at [facility], Sadie stated is going to call back once pf1 other staff members arrive at 0800 to arrange for transport. Vital Signs: 02:22 BP 138 / 64; Pulse 63; Resp 18; Temp 98; Pulse Ox 97% on R/A; Weight 75.75 kg; Height 5 pf1 ft. 7 in. ; Pain 6/10; 03:30 BP 154 / 71; Pulse 59; Resp 16; Pulse Ox 100% on R/A; Pain 6/10; pf1 04:30 BP 158 / 64; Pulse 74; Resp 19; Pulse Ox 97% on R/A; pf1 05:30 BP 138 / 64; Pulse 62; Resp 16; Temp 97.9; Pulse Ox 97% on R/A; Pain 0/10; pf1 02:22 Body Mass Index 26.16 (75.75 kg, 170.18 cm) pf1 02:22 Pain Scale: Adult pf1 03:30 Pain Scale: Adult pf1 05:30 Pain Scale: Adult pf1 ED Course: 02:21 Patient arrived in ED. [email or web address] 02:22 Arm band placed on left wrist. pf1 02:22 Patient has correct armband on for positive identification. Placed in gown. Bed in low pf1 position. Call light in reach. Side rails up X2. 02:28 Munroe, Colin, DO is Attending Physician. ms3 02:40 Missed attempt(s): 22 gauge in right forearm. pf1 03:00 Missed attempt(s): 20 gauge in right antecubital area. pf1 03:20 Missed attempt(s): 20 gauge in left upper arm. performed by AMIE Metz. pf1 03:40 No provider procedures requiring assistance completed. Inserted saline lock: 24 gauge pf1 in left antecubital area, using aseptic technique. ,using aseptic technique. by AMIE Metz Blood collected. 03:50 XRAY Chest (1 view) In Process Unspecified. EDMS 03:50 Triage completed. pf1 03:54 Basic Metabolic Panel Sent. pf1 03:54 CMP Sent. pf1 03:54 CBC with Diff Sent. pf1 04:54 Urinalysis w/ reflexes Sent. pf1 05:20 Urine Culture Sent. pf1 05:44 IV discontinued, intact, bleeding controlled, No redness/swelling at site. Pressure pf1 dressing applied. 06:02 Thania Carcamo RN is Primary Nurse. pf1 06:02 Provided Education on: prescription. pf1 07:46 Clinical Resource Nurse Montes called to let us know to stop calling [facility] and eb berating her front services agent people about finding transport/ that it is not their responsibility on the weekends to find transport/ they only provide transport Thursday through Thursday. 07:52 attempted to call Daughter Brenda her cell phone went straight to voice mail. eb 07:56 called tanja Guadalupe, he was unaware that his mother was here. He does not live in the area. provided transportation information. he will make arrangements and call us back with eta. 08:25 son has made arrangements with [facility] to come package pick up patient in 45 min. eb Administered Medications: 05:36 CANCELLED (Duplicate Order): rocephin1 grams IV at calculated rate once; Given slow IV pf1 push per pharmacy instructions 05:40 Drug: Rocephin (cefTRIAXone) IM 1 grams IM once Route: IM; Site: right ventrogluteal; pf1 06:01 Follow up: Response: No adverse reaction pf1 Medication: 06:03 VIS not applicable for this client. pf1 Outcome: 05:23 Discharge ordered by . ms3 06:02 Condition: improved pf1 06:02 Discharge instructions given to patient, Instructed on discharge instructions, follow up and referral plans. Demonstrated understanding of instructions, follow-up care, medications, Prescriptions given X 1, 09:00 Discharged to [facility]. Report called to Sadie at 0600 this am ko1 09:04 Patient left the ED. ko1 Signatures: Dispatcher [employer] EDMS Shelly Miller Marcus, DO DO ms3 Linda Lorraine [email or web address] Renetta Camargo RN RN ko1 Thania Carcamo RN RN pf1 Corrections: (The following items were deleted from the chart) 04:03 03:40 Inserted saline lock: 24 gauge in left antecubital area, using aseptic technique. pf1 Blood collected. pf1 09:00 06:02 Discharged to [facility]p. Report called to Sadie pfSeda ko1 09:00 06:03 Patient left the ED. pf1 ko1
--- NOTE | 2023-06-14 05:24 | EDPHYS ---
Physician Documentation [facility] Name: Claudia Cha Age: 83 yrs Sex: Female : 1940 Arrival Date: 06/14/2023 Time: 02:20 Bed 15 Private MD: ED Physician Colin Munroe HPI: 06/14 03:35 This 83 yrs old Female presents to ER via Unassigned with complaints of altered mental ms3 status. 03:35 83-year-old female presents from [facility] for altered mental status that she states ms3 has been ongoing for 1 year. Patient was recently diagnosed with COVID 1 week ago. Patient denies any alleviating or inciting factors. Patient denies pain at this time. Historical: - Allergies: 03:51 metformin; pf1 03:51 Tape; pf1 - PMHx: 03:51 Atrial fibrillation; chronic back pain; CVA (pain pump); Hypertension; Myocardial pf1 infarction; Pre Diabetes; - PSHx: 03:51 back surgery; heart stent; pain pump; pf1 - Immunization history:: Adult Immunizations up to date, 5 doses: combination of pfizer and moderna Last tetanus immunization: > 10 years ago Flu vaccine is up to date. - Social history:: Smoking status: Patient denies any tobacco usage or history of. Patient/guardian denies using alcohol, street drugs. ROS: 03:35 Constitutional: Negative for fever, and chills. Neck: Negative for injury, pain, and ms3 swelling, Cardiovascular: Negative for chest pain, and palpitations. Respiratory: Negative for shortness of breath, cough, wheezing, and pleuritic chest pain, Abdomen/GI: Negative for abdominal pain, nausea, vomiting, diarrhea, and constipation, MS/Extremity: Negative for injury and deformity, Skin: Negative for injury, rash, and discoloration, 03:35 Neuro: Positive for altered mental status, 03:35 All other systems are negative, Exam: 03:35 Constitutional: This is a well developed, well nourished patient who is awake, alert, ms3 and in no acute distress. Head/Face: Normocephalic, atraumatic. Neck: Trachea midline, no cervical lymphadenopathy. Supple, full range of motion without nuchal rigidity, or vertebral point tenderness. No Meningismus. Chest/axilla: Normal chest wall appearance and motion. Nontender with no deformity. Cardiovascular: Regular rate and rhythm with a normal S1 and S2. No gallops, murmurs, or rubs. Normal PMI, no JVD. No pulse deficits. Respiratory: Lungs have equal breath sounds bilaterally, clear to auscultation and percussion. No rales, rhonchi or wheezes noted. No increased work of breathing, no retractions or nasal flaring. Abdomen/GI: Soft, non-tender, with normal bowel sounds. No distension or tympany. No guarding or rebound. No evidence of tenderness throughout. Skin: Warm, dry with normal turgor. Normal color with no rashes, no lesions, and no evidence of cellulitis. MS/ Extremity: Pulses equal, no cyanosis. Neurovascular intact. Full, normal range of motion. 03:48 ECG was reviewed by the Attending Physician. ms3 Vital Signs: 02:22 BP 138 / 64; Pulse 63; Resp 18; Temp 98; Pulse Ox 97% on R/A; Weight 75.75 kg; Height 5 pf1 ft. 7 in. ; Pain 6/10; 03:30 BP 154 / 71; Pulse 59; Resp 16; Pulse Ox 100% on R/A; Pain 6/10; pf1 04:30 BP 158 / 64; Pulse 74; Resp 19; Pulse Ox 97% on R/A; pf1 05:30 BP 138 / 64; Pulse 62; Resp 16; Temp 97.9; Pulse Ox 97% on R/A; Pain 0/10; pf1 02:22 Body Mass Index 26.16 (75.75 kg, 170.18 cm) pf1 02:22 Pain Scale: Adult pf1 03:30 Pain Scale: Adult pf1 05:30 Pain Scale: Adult pf1 MDM: 02:55 Patient medically screened. ms3 03:35 Differential Diagnosis: electrolyte abnormality, pneumonia, UTI. ms3 05:24 Data reviewed: vital signs, nurses notes, lab test result(s), radiologic studies, and ms3 as a result, I will discharge patient. I considered the following discharge prescriptions or medication management in the emergency department Medications were administered in the Emergency Department. See MAR. ED course: Patient remains alert and oriented x 4, in no apparent distress, nontoxic-appearing, speaking full sentences. Patient to follow-up with primary care physician in 2 to 3 days. Patient understands agrees with plan. All questions were answered. Return precautions discussed include worsening symptoms, or any other concerns. 06/14 02:55 Order name: CBC with Diff; Complete Time: 05:19 ms3 06/14 02:55 Order name: CMP; Complete Time: 04:58 ms3 06/14 02:55 Order name: Basic Metabolic Panel ms3 06/14 02:55 Order name: Magnesium; Complete Time: 04:58 ms3 06/14 02:55 Order name: Urinalysis w/ reflexes; Complete Time: 05:19 ms3 06/14 05:13 Order name: Urine Culture EDMS 06/14 02:55 Order name: XRAY Chest (1 view) ms3 06/14 02:55 Order name: EKG; Complete Time: 02:56 ms3 06/14 02:55 Order name: Cardiac monitoring; Complete Time: 03:54 ms3 06/14 02:55 Order name: EKG - Nurse/Tech; Complete Time: 03:35 ms3 06/14 02:55 Order name: IV Saline Lock; Complete Time: 03:54 ms3 06/14 02:55 Order name: Labs collected and sent; Complete Time: 03:54 ms3 06/14 02:55 Order name: O2 Per Protocol; Complete Time: 03:36 ms3 06/14 02:55 Order name: O2 Sat Monitoring; Complete Time: 03:36 ms3 EC:48 Rate is 64 beats/min. Rhythm is regular. QRS [place] is Normal. [place] interval is normal. QRS ms3 interval is normal. Clinical impression: NSR w/ Non-specific ST/T Changes. Interpreted by me. Reviewed by me. Administered Medications: 05:36 CANCELLED (Duplicate Order): rocephin1 grams IV at calculated rate once; Given slow IV pf1 push per pharmacy instructions 05:40 Drug: Rocephin (cefTRIAXone) IM 1 grams IM once Route: IM; Site: right ventrogluteal; pf1 06:01 Follow up: Response: No adverse reaction pf1 Disposition Summary: 06/14/23 05:23 Discharge Ordered Notes: Location: Home ms3 Condition: Stable ms3 Diagnosis - UTI/ Urinary tract infection, site not specified ms3 - Essential (primary) hypertension ms3 Followup: ms3 - With: Private Physician - When: 2 - 3 days - Reason: Recheck today's complaints Discharge Instructions: - Discharge Summary Sheet ms3 - Hypertension, Adult ms3 - Urinary Tract Infection, Adult ms3 Forms: - Medication Reconciliation Form ms3 - Thank You Letter ms3 - Antibiotic Education ms3 - Prescription Opioid Use ms3 - Patient Portal Instructions ms3 - Leadership Thank You Letter ms3 - SBAR form pf1 Prescriptions: - cefpodoxime 200 mg Oral tablet - take 1 tablet ORAL route every 12 hours with food; 14 tablet; Refills: 0, ms3 Product Selection Permitted Signatures: Dispatcher [employer] EDMS Colin Munroe DO DO ms3 Thania Carcamo RN RN pf1 Corrections: (The following items were deleted from the chart) 03:40 03:35 This 83 yrs old Female presents to ER via Unassigned with complaints of altered ms3 mental status. ms3 04:34 04:14 Miscellaneous Lab Test+[id number].LAB.BRZ ordered. EDMS EDMS 05:36 05:20 Rocephin IV 1 grams IV at calculated rate once; Given slow IV push per pharmacy pf1 instructions ordered. ms3 05:36 05:36 Rocephin IV 1 grams IV at calculated rate once; Given slow IV push per pharmacy pf1 instructions ordered. pf1
[2023-06-14 06:16] VITALS: BP 138/64; O2SAT 97
[2023-06-14 06:37] VITALS: TEMP 97.9
--- NOTE | 2023-06-14 20:39 | RAD REPORT ---
EXAM DESCRIPTION: RAD - Chest Single View - 06/14/2023 3:48 am CLINICAL HISTORY: COUGH COMPARISON: None. FINDINGS: Single frontal radiograph view of the chest. Cardiomediastinal silhouette: Atherosclerotic calcification of thoracic aorta. Heart is not enlarged. Lungs: No consolidation, pneumothorax, or pleural effusion. Leads overlie the chest. Bones: No acute osseous abnormality. Degenerative change of the spine and shoulders. Partial visualiz ation of anterior cervical fixation. Upper abdomen: No abnormality identified. IMPRESSION: 1. No acute pulmonary process identified. Electronically signed by: David Johnson DO 06/14/2023 04:27 AM DRESSMAKER HELPER M Due to temporary technical issues with the PACS/Fluency reporting system, reports are being signed by the in house radiologists without review as a courtesy to insure prompt reporting. The interpreting radiologist is fully responsible for the content of the report.
--- NOTE | 2023-06-15 16:55 | EKG ---
Test Date: 2023-06-14 Test Time: 02:41:10 Construction Field Engineer: NOAH MEASUREMENT RESULTS: Intervals: Rate: 64 IA: 178 QRSD: 94 QT: 474 QTc: 489 [place]: P: 84 IA: 178 QRS: 82 T: 59 INTERPRETIVE STATEMENTS: Sinus rhythm with premature atrial complexes Nonspecific T wave abnormality Prolonged QT Abnormal ECG Compared to ECG 04/23/2023 17:53:35 Atrial premature complex(es) now present T-wave abnormality now present Prolonged QT interval now present Sinus bradycardia no longer present Electronically Signed On 06-15-23 16:51:53 CLIENT CARE MANAGER by Javier Gruber
== END ==
LOC: ER 02:20
DX: N39.0 Urinary tract infection, site not specified (principal); I10 Essential (primary) hypertension; Z95.818 Presence of other cardiac implants and grafts; Z88.8 Allergy status to other drugs, medicaments and biological substances; Z91.048 Other nonmedicinal substance allergy status
CPT/HCPCS: 93005; 87088; 85025; 81001; 87086; 36415; 83735; 87077; 87186; 80053; 71045; 96372; 99284; J0696

== ENCOUNTER 2023-09-18 05:55 | Emergency (ER) | payer OTHER, MEDICARE ==
[2023-09-18 06:36] LABS: Absolute Basophils 0.2 K/uL (0-0.5); Absolute Eosinophils 0.4 K/uL (0-0.5); Absolute Lymphocytes (CBC) 1.3 K/uL (0.7-4.9); Absolute Monocytes 0.9 K/uL (0.1-1.3); Absolute Neutrophil 5.8 K/uL (1.8-8.0); Basophils % 2.1 % (0-1.3); Eosinophils % 5.1 % (0-4.4); Hematocrit 35.5 % (36.0-45.0); Hemoglobin 11.9 g/dL (12.0-15.0); Lymphocytes % 15.4 % (15.3-44.8); MCH 32.1 pg (27.0-35.0); MCHC 33.6 g/dL (32.0-36.0); MCV 95.5 fL (80-100); Neutrophils % 67.4 % (41.7-73.7); Nucleated Red Blood Cells % 0.1 % (0-0); Platelets 214 thou/uL (152-406); RBC Red Blood Cell Count 3.72 M/uL (3.86-4.86); Red Cell Distribution Width 13.6 % (12.1-15.2)
[2023-09-18] MEDS ORDERED: NA CHLORIDE 0.9% 1,000 ML ONE (06:51)
[2023-09-18 06:52] LABS: Albumin 3.1 g/dL (3.4-5.0); Anion Gap 7.5 mEq/L (5.0-15.0); Bilirubin Total 0.6 mg/dL (0.2-1.0); Globulin 3.2 g/dL (2.3-3.5); Potassium 3.5 mEq/L (3.5-5.1); Protein, Total 6.3 g/dL (6.4-8.2)
[2023-09-18 07:17] LABS: Specific Gravity 1.007 (1.005-1.030); Sqamous Epithelial <5 /HPF (None Seen); Urine Bacteria 20-50 /HPF (<20); Urine Bilirubin NEGATIVE (Negative); Urine Blood Negative (Negative); Urine Clarity Extremely Turbid (Clear); Urine Color Light-Yellow (Yellow); Urine Culture Reflex Order REFLEXED; Urine Glucose NEGATIVE (Negative); Urine Ketones NEGATIVE (Negative); Urine Microscopic Reflex YN ORDER UMIC; Urine Nitrite NEGATIVE (Negative); Urine Protein NEGATIVE (Negative); Urine Urobilinogen Normal (Normal); Urine WBC >50 /HPF (<5); Urine WBC Clump Occasional /HPF (None Seen)
--- NOTE | 2023-09-18 08:22 | RAD REPORT ---
EXAM DESCRIPTION: CT - Abdomen Pelvis Wo Contrast - 09/18/2023 8:12 am CLINICAL HISTORY: Abdominal pain. ABD PAIN COMPARISON: Abdomen Pelvis Wo Contrast dated 12/19/2022 TECHNIQUE: CT imaging of the abdomen and pelvis was performed without contrast. Solid organ and vasc ular assessment is limited due to lack of IV contrast. All CT scans are performed using dose optimization technique as appropriate and may include automated exposure control or mA/KV adjustment according to patient size. FINDINGS: The lower lung nolan are clear.Cholecystectomy clips. The liver, spleen, pancreas, adrenal glands and kidneys are within normal limits for a limited non-co ntrast examination. No bowel obstruction, free air, free fluid or abscess. The appendix is normal. There is significant fecal retention. There is moderate rectal thickening of the circumferential fashion. Multilevel degenerative changes present throughout the spine. IMPRESSION: There is circumferential wall thickening involving the rectum present with proximal upst ream fecal retention identified. Followup colonoscopy would be suggested if not recently performed. A limited non-contrast examination was performed as detailed.
--- NOTE | 2023-09-18 08:40 | ER ---
Nurse's Notes [facility] Name: Claudia Cha Age: 83 yrs Sex: Female : 1940 Arrival Date: 09/18/2023 Time: 05:55 Bed 17 Private MD: Diagnosis: Rectal prolapse Presentation: 09/17 06:13 Chief complaint: EMS states: patient reports bleeding from her rectum x3 weeks. tm6 Coronavirus screen: Vaccine status: Patient reports receiving the 2nd dose of the covid vaccine. Ebola Screen: Patient negative for fever greater than or equal to 101.5 degrees Fahrenheit, and additional compatible Ebola Virus Disease symptoms Patient denies exposure to infectious person. Patient denies travel to an Ebola-affected area in the 21 days before illness onset. No symptoms or risks identified at this time. Initial Sepsis Screen: Does the patient meet any 2 criteria? No. Patient's initial sepsis screen is negative. Does the patient have a suspected source of infection? No. Patient's initial sepsis screen is negative. Risk Assessment: Do you want to hurt yourself or someone else? Patient reports no desire to harm self or others. Onset of symptoms was August 28, 2023. 06:13 Method Of Arrival: EMS: [facility] tm6 06:13 Acuity: [place] 3 tm6 Triage Assessment: 06:15 General: Appears in no apparent distress. Behavior is calm, cooperative. Pain: tm6 Complains of pain in gluteal cleft Pain does not radiate. Pain currently is 2 out of 10 on a pain scale. EENT: No signs and/or symptoms were reported regarding the EENT system. Neuro: Level of Consciousness is awake, alert, obeys commands, Oriented to person, place, time, situation. Cardiovascular: No deficits noted. Patient's skin is warm and dry. Respiratory: No deficits noted. Airway is patent Respiratory effort is even, unlabored, Respiratory pattern is regular, symmetrical. GI:. GI: Abdomen is flat, non-distended, Rectal exam: prolapse noted Reports rectal bleeding. : No signs and/or symptoms were reported regarding the genitourinary system. Derm: No signs and/or symptoms reported regarding the dermatologic system. Musculoskeletal: No signs and/or symptoms reported regarding the musculoskeletal system. Historical: - Allergies: 06:15 metformin; tm6 06:15 Tape; tm6 06:15 Zolpidem; tm6 - Home Meds: 14:48 amlodipine 5 mg tablet 1 tab daily [Active]; aspirin 81 mg Oral capsule 1 cap daily cp4 [Active]; celecoxib 200 mg Oral capsule 1 cap daily [Active]; duloxetine 30 mg oral Capsule, Delayed Release Sprinkle 1 cap daily [Active]; nystatin 100,000 unit/gram Topical cream 1 application 2 times per day [Active]; rosuvastatin 10 mg oral tablet 1 tab daily [Active]; Senexon-S 8.6-50 mg oral tablet daily [Active]; trazodone 100 mg Oral tablet 1 tab daily [Active]; - PMHx: 06:15 Atrial fibrillation; chronic back pain; CVA (pain pump); Hypertension; Myocardial tm6 infarction; Pre Diabetes; Kidney disease; Anxiety; Depressive disorder; Hypercholesterolemia; - PSHx: 06:15 back surgery; heart stent; pain pump; tm6 - Immunization history:: Adult Immunizations up to date, Client reports receiving the 2nd dose of the Covid vaccine, Flu vaccine is up to date. - Infectious Disease History:: Denies. - Family history:: not pertinent. - Social history:: Smoking status: Patient denies any tobacco usage or history of. Patient/guardian denies using alcohol. Screenin:20 [facility] ED Fall Risk Assessment (Adult) History of falling in the last 3 months, tm6 including since admission No falls in past 3 months (0 pts) Confusion or Disorientation No (0 pts) Intoxicated or Sedated No (0 pts) Impaired Gait No (0 pts) Mobility Assist Device Used No (0 pt) Altered Elimination No (0 pt) Score/Fall Risk Level 0 - 2 = Low Risk Oriented to surroundings, Maintained a safe environment. Abuse screen: Denies threats or abuse. Denies injuries from another. Nutritional screening: No deficits noted. Tuberculosis screening: No symptoms or risk factors identified. Assessment: 06:20 Reassessment: see triage assessment. tm6 07:18 General: Appears in no apparent distress. comfortable, Behavior is calm, cooperative, ld1 appropriate for age. Pain: Denies pain. Neuro: Level of Consciousness is awake, alert, obeys commands, Oriented to person, place, time, situation. Cardiovascular: Capillary refill < 3 seconds Patient's skin is warm and dry. Rhythm is sinus bradycardia. Respiratory: Airway is patent Respiratory effort is even, unlabored. GI: Abdomen is flat, non-distended. : No signs and/or symptoms were reported regarding the genitourinary system. EENT: No signs and/or symptoms were reported regarding the EENT system. Derm: No signs and/or symptoms reported regarding the dermatologic system. Musculoskeletal: No signs and/or symptoms reported regarding the musculoskeletal system. 09:06 Reassessment: Patient appears in no apparent distress at this time. No changes from ld1 previously documented assessment. Patient and/or family updated on plan of care and expected duration. Pain level reassessed. Patient denies pain at this time. 09:43 Reassessment: Patient appears in no apparent distress at this time. No changes from ld1 previously documented assessment. Patient and/or family updated on plan of care and expected duration. Pain level reassessed. GI: Stools are reported to be loose, Last BM was September 18, 2023. 10:07 Reassessment: pt went to bathroom prior to leaving with [facility], pt reports rectum ld1 prolapse. Notified ERP. ERP at bedside. Pt placed back in bed for physician exam. 12:30 Reassessment: Patient appears in no apparent distress at this time. Pt transferred to 1 room 17. Report given to AMIE Ross.. Vital Signs: 06:13 BP 128 / 74; Pulse 56; Resp 19; Temp 97.7(TE); Pulse Ox 96% on R/A; Weight 78.5 kg; tm6 Height 5 ft. 7 in. ; Pain 0/10; 07:18 BP 154 / 62; Pulse 53; Resp 18; Pulse Ox 93% on R/A; ld1 09:06 BP 134 / 61; Pulse 62; Resp 18; Pulse Ox 95% on R/A; ld1 11:00 BP 139 / 59; Pulse 71; Pulse Ox 100% on R/A; ld1 12:00 BP 152 / 77; Pulse 78; Resp 18; Pulse Ox 99% ; cp4 13:00 BP 140 / 66; Pulse 56; Resp 18; Pulse Ox 100% ; cp4 14:00 BP 149 / 64; Pulse 64; Resp 18; Pulse Ox 100% ; cp4 06:13 Body Mass Index 27.11 (78.50 kg, 170.18 cm) tm6 06:13 Pain Scale: Adult tm6 ED Course: 05:57 Patient arrived in ED. rv1 06:02 Dao Cortez MD is Attending Physician. sami 06:10 Johnson Morris, AMIE is Primary Nurse. rv 06:15 Triage completed. tm6 06:15 Arm band placed on right wrist. tm6 06:17 CBC with Diff Sent. rv 06:17 CMP Sent. rv 06:17 Lipase Sent. rv 06:18 Initial lab(s) drawn, by me, sent to lab. Inserted saline lock: 20 gauge in left rv antecubital area, using aseptic technique. Blood collected. 06:20 Patient has correct armband on for positive identification. Placed in gown. Bed in low tm6 position. Call light in reach. Side rails up X2. Provided Education on: plan of care. Client placed on continuous cardiac and pulse oximetry monitoring. NIBP monitoring applied. Pulse ox on. NIBP on. Door closed. Noise minimized. Warm blanket given. Pillow given. 07:05 Urinalysis w/ reflexes Sent. rv 08:13 Abdomen In Process Unspecified. EDMS 08:39 Ace Kay MD is Referral Physician. bo1 09:06 No provider procedures requiring assistance completed. IV discontinued, intact, ld1 bleeding controlled, No redness/swelling at site. 10:14 Assisted to bathroom. Cleaned of incontinence. Linen changed. jg11 12:22 initiated a transfer with Jose Maria Gomez from the [facility] transfer center. eb 13:[address] Abhishek Osborn the colorectal surgeon labor contract analyst for [facility] with Dr. Rickey sanchez for patient transfer consultation. 14:26 Warm blanket given. Assisted to bedside commode. Cleaned of incontinence. cp4 14:28 connected the hospitalist labor contract analyst for [facility] with Dr. Lang for patient transfer eb consultation. 14:58 administrative approval given by Jose Maria Gomez/ patient has been accepted to [facility] room 942/ Dr. Marcela Trejo has accepted the patient in transfer/ report to be called to [phone]. Administered Medications: 09:06 Not Given (Other Intervention Used): piperacillin-tazobactam3.375 grams IVPB once over ld1 60 mins; (mix in NS 100 mL) 09:10 Drug: NS 0.9% IV 1000 ml IV at 1 bolus Per protocol; 1000 mL bolus Route: IV; Rate: 1 ld1 bolus; Site: left antecubital; Medication: 06:20 VIS not applicable for this client. tm6 Outcome: 08:39 Discharge ordered by bo1 12:30 ER care complete, transfer ordered by . bo1 15:44 Patient left the ED. Addendum: 09/21/2023 09:58 Addendum: Other faxed culture report to [facility], 9th floor room 942. fx b d [phone]. Signatures: Dispatcher [employer] EDMS Cookie Sood Corey, MD MD cha Baxter, Heather, RN RN Shelly Miller Ronaldo RN RN rv Munroe, AMIE Boykin RN ld1 Molly Estrada rv1 Vandana Coppola cp4 Leida Tierney RN RN tm6 Gaetano Jesus jg11 Rashi Lang MD MD bo1 Corrections: (The following items were deleted from the chart) 09/17 10:08 09:06 Condition: stable ld1 ld1 10:08 09:06 Discharged to home ambulatory, ld1 ld1 10:08 09:06 Discharge instructions given to patient, Instructed on discharge instructions, ld1 follow up and referral plans. Demonstrated understanding of instructions, follow-up care, medications, Prescriptions given X 3, ld1
--- NOTE | 2023-09-18 08:40 | EDPHYS ---
Physician Documentation [facility] Name: Claudia Cha Age: 83 yrs Sex: Female : 1940 Arrival Date: 09/18/2023 Time: 05:55 Bed 17 Private MD: MAICOL Physician Dao Cortez HPI: 09/17 06:13 This 83 yrs old Female presents to ER via Unassigned with complaints of sami rectal prolapse, bleeding. 06:13 The patient presents to the emergency department with bleeding from the rectum/anus. sami Onset: The symptoms/episode began/occurred just prior to arrival. Context: the patient constipation. Modifying factors: The symptoms are alleviated by remaining still, The symptoms are aggravated by bowel movement, movement, sitting position. Associate signs and symptoms: The patient has no apparent associated signs or symptoms. The patient has experienced similar episodes in the past, several times. Historical: - Allergies: 06:15 metformin; tm6 06:15 Tape; tm6 06:15 Zolpidem; tm6 - Home Meds: 14:48 amlodipine 5 mg tablet 1 tab daily [Active]; aspirin 81 mg Oral capsule 1 cap daily cp4 [Active]; celecoxib 200 mg Oral capsule 1 cap daily [Active]; duloxetine 30 mg oral Capsule, Delayed Release Sprinkle 1 cap daily [Active]; nystatin 100,000 unit/gram Topical cream 1 application 2 times per day [Active]; rosuvastatin 10 mg oral tablet 1 tab daily [Active]; Senexon-S 8.6-50 mg oral tablet daily [Active]; trazodone 100 mg Oral tablet 1 tab daily [Active]; - PMHx: 06:15 Atrial fibrillation; chronic back pain; CVA (pain pump); Hypertension; Myocardial tm6 infarction; Pre Diabetes; Kidney disease; Anxiety; Depressive disorder; Hypercholesterolemia; - PSHx: 06:15 back surgery; heart stent; pain pump; tm6 - Immunization history:: Adult Immunizations up to date, Client reports receiving the 2nd dose of the Covid vaccine, Flu vaccine is up to date. - Infectious Disease History:: Denies. - Family history:: not pertinent. - Social history:: Smoking status: Patient denies any tobacco usage or history of. Patient/guardian denies using alcohol. ROS: 06:17 Constitutional: Negative for fever, chills, and weight loss, Eyes: Negative for injury, sami pain, redness, and discharge, ENT: Negative for injury, pain, and discharge, Neck: Negative for injury, pain, and swelling, Cardiovascular: Negative for chest pain, palpitations, and edema, Respiratory: Negative for shortness of breath, cough, wheezing, and pleuritic chest pain, Back: Negative for injury and pain, : Negative for injury, bleeding, discharge, and swelling, MS/Extremity: Negative for injury and deformity, Skin: Negative for injury, rash, and discoloration, Neuro: Negative for headache, weakness, numbness, tingling, and seizure, Psych: Negative for depression, anxiety, suicide ideation, homicidal ideation, and hallucinations, Allergy/Immunology: Negative for hives, rash, and allergies, Endocrine: Negative for neck swelling, polydipsia, polyuria, polyphagia, and marked weight changes, Hematologic/Lymphatic: Negative for swollen nodes, abnormal bleeding, and unusual bruising, 06:17 Abdomen/GI: Positive for rectal pain, rectal bleeding, of the , Exam: 06:17 Constitutional: This is a well developed, well nourished patient who is awake, alert, sami and in no acute distress. Head/Face: Normocephalic, atraumatic. Eyes: Pupils equal round and reactive to light, extra-ocular motions intact. Lids and lashes normal. Conjunctiva and sclera are non-icteric and not injected. Cornea within normal limits. Periorbital areas with no swelling, redness, or edema. ENT: Nares patent. No nasal discharge, no septal abnormalities noted. Tympanic membranes are normal and external auditory canals are clear. Oropharynx with no redness, swelling, or masses, exudates, or evidence of obstruction, uvula midline. Mucous membranes moist. Neck: Trachea midline, no thyromegaly or masses palpated, and no cervical lymphadenopathy. Supple, full range of motion without nuchal rigidity, or vertebral point tenderness. No Meningismus. Chest/axilla: Normal chest wall appearance and motion. Nontender with no deformity. No lesions are appreciated. Cardiovascular: Regular rate and rhythm with a normal S1 and S2. No gallops, murmurs, or rubs. Normal PMI, no JVD. No pulse deficits. Respiratory: Lungs have equal breath sounds bilaterally, clear to auscultation and percussion. No rales, rhonchi or wheezes noted. No increased work of breathing, no retractions or nasal flaring. Back: No spinal tenderness. No costovertebral tenderness. Full range of motion. Female : Normal external genitalia. Skin: Warm, dry with normal turgor. Normal color with no rashes, no lesions, and no evidence of cellulitis. MS/ Extremity: Pulses equal, no cyanosis. Neurovascular intact. Full, normal range of motion. Neuro: Awake and alert, GCS 15, oriented to person, place, time, and situation. Cranial nerves II-XII grossly intact. Motor strength 5/5 in all extremities. Sensory grossly intact. Cerebellar exam normal. Normal gait. Psych: Awake, alert, with orientation to person, place and time. Behavior, mood, and affect are within normal limits. 06:17 Abdomen/GI: Inspection: abdomen appears normal, Bowel sounds: normal, Palpation: abdomen is soft and non-tender, Rectal exam: swelling, tenderness, rectal prolapse, Vital Signs: 06:13 BP 128 / 74; Pulse 56; Resp 19; Temp 97.7(TE); Pulse Ox 96% on R/A; Weight 78.5 kg; tm6 Height 5 ft. 7 in. ; Pain 0/10; 07:18 BP 154 / 62; Pulse 53; Resp 18; Pulse Ox 93% on R/A; ld1 09:06 BP 134 / 61; Pulse 62; Resp 18; Pulse Ox 95% on R/A; ld1 11:00 BP 139 / 59; Pulse 71; Pulse Ox 100% on R/A; ld1 12:00 BP 152 / 77; Pulse 78; Resp 18; Pulse Ox 99% ; cp4 13:00 BP 140 / 66; Pulse 56; Resp 18; Pulse Ox 100% ; cp4 14:00 BP 149 / 64; Pulse 64; Resp 18; Pulse Ox 100% ; cp4 06:13 Body Mass Index 27.11 (78.50 kg, 170.18 cm) 6 06:13 Pain Scale: Adult 6 MDM: 06:02 Patient medically screened. [facility] 06:18 Differential diagnosis: hemorrhoids, fissure, abscess. Data reviewed: vital signs, [facility] nurses notes, lab test result(s), radiologic studies, CT scan. Consideration of Admission/Observation Escalation of care including admission/observation considered. I considered the following discharge prescriptions or medication management in the emergency department Medications were administered in the Emergency Department. See MAR. Test considered but Not performed: Ultrasound no abd usg. Care significantly affected by the following chronic conditions: Diabetes, Hypertension, Chronic Kidney Disease, a fib. 07:22 ED course: Informed pt of the urine analysis result. Reflex culture is anticipated.. bo1 14:04 ED course: Attempted reduction - not successful. bo1 14:04 Special discussion: Based on the history and exam findings, there is no indication for bo1 further emergent testing or inpatient evaluation. [facility] 09/17 06:09 Order name: CBC with Diff; Complete Time: 06:50 [facility] 09/17 06:09 Order name: CMP; Complete Time: 07:01 [facility] 09/17 06:09 Order name: Lipase; Complete Time: 07:01 [facility] 09/17 06:09 Order name: Urinalysis w/ reflexes; Complete Time: 07:19 [facility] 09/17 07:21 Order name: Urine Culture [facility] 09/17 07:03 Order name: Abdomen ; Complete Time: 08:34 [facility] 09/17 06:09 Order name: IV Saline Lock; Complete Time: 06:17 [facility] 09/17 06:09 Order name: Labs collected and sent; Complete Time: 06:17 [facility] Administered Medications: 09:06 Not Given (Other Intervention Used): piperacillin-tazobactam3.375 grams IVPB once over ld1 60 mins; (mix in NS 100 mL) 09:10 Drug: NS 0.9% IV 1000 ml IV at 1 bolus Per protocol; 1000 mL bolus Route: IV; Rate: 1 ld1 bolus; Site: left antecubital; Disposition Summary: 09/18/23 12:30 Transfer Ordered Notes: Transfer Location: [facility] bo1 Reason: Higher level of care bo1 Condition: Fair(09/18/23 12:30) bo1 Problem: chronic(09/18/23 12:30) bo1 Symptoms: are unchanged(09/18/23 12:30) bo1 Accepting Physician: Lindsay-Rectal Surgery at [facility] - Dr Peterson(09/18/23 15:44) hb Diagnosis - Rectal prolapse(09/18/23 12:30) bo1 Forms: - Medication Reconciliation Form bo1 - SBAR form bo1 Signatures: Dispatcher [employer] EDDao Dey MD MD cha Baxter, Heather, RN RN Arslan Crain MD MD rn3 Lucretia Munroe RN RN ld1 Vandana Coppola cp4 Leida Tierney RN RN tm6 Rashi Lang MD MD bo1 Corrections: (The following items were deleted from the chart) 07:02 06:10 Abdomen Pelvis W Con+CT.RAD.BRZ ordered. EDMS EDMS 12:28 08:39 Home bo1 bo1 12:28 08:39 new bo1 bo1 12:28 08:39 have improved bo1 bo1 12:28 08:39 Stable bo1 bo1 12:28 08:39 GI Bleed/ Gastrointestinal hemorrhage, unspecified bo1 bo1 12:28 08:39 Rectal prolapse - reduced bo1 bo1 12:28 08:39 UTI/ Urinary tract infection, site not specified bo1 bo1 14:04 12:30 [facility]Rectal [facility] at [facility] bo1 bo1 14:30 14:04 [facility]-Rectal Surgery at [facility] Dr Weiss bo1 bo1 15:44 14:30 [facility]-Rectal Surgery at [facility] Dr Weiss and Maya bo1 hb
[2023-09-18 16:23] VITALS: BP 149/64; TEMP 97.7; O2SAT 100
== END 2023-09-18 15:44 | disposition short-term general hospital (02) ==
LOC: ER 05:55
DX: K62.3 Rectal prolapse (principal); Z95.818 Presence of other cardiac implants and grafts; Z79.82 Long term (current) use of aspirin; Z88.8 Allergy status to other drugs, medicaments and biological substances; Z91.048 Other nonmedicinal substance allergy status
CPT/HCPCS: 87088; 85025; 81001; 87086; 36415; 87077; 87186; 83690; 80053; 74176; J7030

== ENCOUNTER 2024-01-30 16:12 | Observation (INO) | payer OTHER, MEDICARE ==
[2024-01-30] MEDS ORDERED: NA CHLORIDE 0.9% 500 ML ONE (16:40)
[2024-01-30] MEDS ORDERED: CEFTRIAXONE 1000 MG/VIAL ONE (16:40)
[2024-01-30 16:49] LABS: Absolute Basophils 0.1 K/uL (0-0.5); Absolute Eosinophils 0.2 K/uL (0-0.5); Absolute Lymphocytes (CBC) 1.4 K/uL (0.7-4.9); Absolute Monocytes 0.5 K/uL (0.1-1.3); Absolute Neutrophil 3.7 K/uL (1.8-8.0); Hematocrit 39.6 % (36.0-45.0); Hemoglobin 13.3 g/dL (12.0-15.0); Lymphocytes % 23.9 % (15.3-44.8); MCH 31.6 pg (27.0-35.0); MCHC 33.5 g/dL (32.0-36.0); MCV 94.2 fL (80-100); Monocytes % 8.3 % (3.3-12.3); Neutrophils % 63.8 % (41.7-73.7); Platelets 142 thou/uL (152-406); RBC Red Blood Cell Count 4.21 M/uL (3.86-4.86); Red Cell Distribution Width 14.6 % (12.1-15.2)
[2024-01-30 17:02] LABS: ALT/SGPT 24 U/L (13-56); AST/SGOT 17 U/L (15-37); Albumin 3.7 g/dL (3.4-5.0); Albumin/Globulin Ratio 1.1 (1.1-1.8); Alkaline Phosphatase 69 U/L (45-117); Anion Gap 7.6 mEq/L (5.0-15.0); BUN Blood Urea Nitrogen 22 mg/dL (7-18); Bicarbonate 27 mEq/L (21-32); Bilirubin Direct < 0.2 mg/dL (0-0.2); Bilirubin Indirect, Calculated 0.1 mg/dL (0.2-0.8); Bilirubin Total 0.3 mg/dL (0.2-1.0); Globulin 3.3 g/dL (2.3-3.5); Glomerular Filtration Rate 53 ml/min (=/>90); Glucose Level 169 mg/dL (74-106); Magnesium 2.1 mg/dL (1.6-2.4); NT PRO-BNP 393 pg/mL (<450); Potassium 3.6 mEq/L (3.5-5.1); Sodium Level 142 mEq/L (136-145); Troponin High Sensitivity 8.6 pg/mL (<58.9)
[2024-01-30] MEDS ORDERED: ASPIRIN 81 MG CHEWABLE TABLET ONE (17:57)
[2024-01-30] MEDS ORDERED: FOLIC ACID 5 MG/ML VIAL ONE (17:58)
--- NOTE | 2024-01-30 18:02 | RAD REPORT ---
EXAM DESCRIPTION: CT - Head Brain Wo Cont - 01/30/2024 5:14 pm CLINICAL HISTORY: DIZZINESS COMPARISON: Head Brain Wo Cont dated 04/23/2023; Head Brain Wo Cont dated 01/19/2023 TECHNIQUE: Noncontrast head CT images were obtained without IV contrast. Multiplanar reformats were generated and reviewed. All CT scans are performed using dose optimization technique as appropriate and may include automated exposure control or mA/KV adjustment according to patient size. FINDINGS: No intracranial hemorrhage, mass, or edema. Midline structures are unremarkable. Stable ventricular caliber. Mild diffuse parenchymal volume loss. Sanchez-white matter differentiation is preserved, without evidence of acute infarct. No abnormal extra- axial fluid collections. Mastoid air cells and visualized portions of the paranasal sinuses are clear. No acute bony findings. IMPRESSION: No evidence of an acute intracranial process.
--- NOTE | 2024-01-30 18:10 | RAD REPORT ---
EXAM DESCRIPTION: CT - Stone Protocol - 01/30/2024 5:15 pm CLINICAL HISTORY: FLANK PAIN COMPARISON: Abdomen Pelvis W Contrast dated 12/15/2023; Abdomen Pelvis Wo Contrast dated ; Abdomen Pelvis Wo Contrast dated 12/19/2022; Abdomen Pelvis W Contrast dated 05/29/2022 TECHNIQUE: Thin cut axial CT imaging of the abdomen and pelvis was performed without IV contrast. Mu ltiplanar reformats were generated and reviewed. All CT scans are performed using dose optimization technique as appropriate and may include automated exposure control or mA/KV adjustment according to patient size. FINDINGS: No suspicious findings in the lung bases. The liver, spleen, adrenal glands, and pancreas show no suspicious findings. 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 Gallbladder was surgically removed. Symmetric renal contour, without suspicious parenchymal findings within limits of noncontrast techniq ue. No evidence of radiopaque calculi or hydroureteronephrosis. No dilated bowel loops or bowel wall thickening. No free air, free fluid or inflammatory stranding. N o hernia, mass or bulky lymphadenopathy. The urinary bladder is without significant finding. No suspicious bony findings. IMPRESSION: No acute intra-abdominal process.
--- NOTE | 2024-01-30 18:20 | EDPHYS ---
Physician Documentation [facility] Name: Claudia Cha Age: 83 yrs Sex: Female : 1940 Arrival Date: 01/30/2024 Time: 16:12 Bed 5 Private MD: ED Physician Dao Cortez HPI: 01/29 17:41 This 83 yrs old Female presents to ER via EMS with complaints of Pain With sami Urination. 17:41 The patient presents with urinary symptoms, dysuria, frequency, urgency. Onset: The sami symptoms/episode began/occurred 3 day(s) ago. Modifying factors: The symptoms are alleviated by nothing, the symptoms are aggravated by nothing. Associated signs and symptoms: Pertinent positives: nausea, syncope. Severity of symptoms: At their worst the symptoms were moderate, in the emergency department the symptoms are unchanged. The patient has experienced near-syncope, almost passed out, felt dizzy, felt faint, felt like heart was pounding. Onset: The symptoms/episode began/occurred today. The patient is not sexually active. Historical: - Allergies: 16:18 metformin; ph 16:18 Tape; ph 16:18 zolpidem; ph - PMHx: 16:18 Anxiety; Atrial fibrillation; chronic back pain; CVA (pain pump); depressive disorder; ph Hypercholesterolemia; Hypertension; kidney disease; Myocardial infarction; Pre Diabetes; - PSHx: 16:18 back surgery; heart stent; pain pump; ph - Immunization history:: Adult Immunizations unknown. - Infectious Disease History:: Denies. - Family history:: not pertinent. - Social history:: Smoking status: Patient denies any tobacco usage or history of. ROS: 17:41 Constitutional: Negative for fever, chills, and weight loss, Eyes: Negative for injury, sami pain, redness, and discharge, ENT: Negative for injury, pain, and discharge, Neck: Negative for injury, pain, and swelling, Cardiovascular: Negative for chest pain, palpitations, and edema, Respiratory: Negative for shortness of breath, cough, wheezing, and pleuritic chest pain, Abdomen/GI: Negative for abdominal pain, nausea, vomiting, diarrhea, and constipation, Back: Negative for injury and pain, : Negative for injury, bleeding, discharge, and swelling, MS/Extremity: Negative for injury and deformity, Skin: Negative for injury, rash, and discoloration, Psych: Negative for depression, anxiety, suicide ideation, homicidal ideation, and hallucinations, Allergy/Immunology: Negative for hives, rash, and allergies, Endocrine: Negative for neck swelling, polydipsia, polyuria, polyphagia, and marked weight changes, Hematologic/Lymphatic: Negative for swollen nodes, abnormal bleeding, and unusual bruising, 17:41 Neuro: Positive for weakness, of the right leg and left leg, Exam: 17:41 Constitutional: This is a well developed, well nourished patient who is awake, alert, sami and in no acute distress. Head/Face: Normocephalic, atraumatic. Eyes: Pupils equal round and reactive to light, extra-ocular motions intact. Lids and lashes normal. Conjunctiva and sclera are non-icteric and not injected. Cornea within normal limits. Periorbital areas with no swelling, redness, or edema. ENT: Nares patent. No nasal discharge, no septal abnormalities noted. Tympanic membranes are normal and external auditory canals are clear. Oropharynx with no redness, swelling, or masses, exudates, or evidence of obstruction, uvula midline. Mucous membranes moist. Neck: Trachea midline, no thyromegaly or masses palpated, and no cervical lymphadenopathy. Supple, full range of motion without nuchal rigidity, or vertebral point tenderness. No Meningismus. Chest/axilla: Normal chest wall appearance and motion. Nontender with no deformity. No lesions are appreciated. Cardiovascular: Regular rate and rhythm with a normal S1 and S2. No gallops, murmurs, or rubs. Normal PMI, no JVD. No pulse deficits. Respiratory: Lungs have equal breath sounds bilaterally, clear to auscultation and percussion. No rales, rhonchi or wheezes noted. No increased work of breathing, no retractions or nasal flaring. Abdomen/GI: Soft, non-tender, with normal bowel sounds. No distension or tympany. No guarding or rebound. No evidence of tenderness throughout. Back: No spinal tenderness. No costovertebral tenderness. Full range of motion. Skin: Warm, dry with normal turgor. Normal color with no rashes, no lesions, and no evidence of cellulitis. MS/ Extremity: Pulses equal, no cyanosis. Neurovascular intact. Full, normal range of motion. Psych: Awake, alert, with orientation to person, place and time. Behavior, mood, and affect are within normal limits. 17:41 ECG was reviewed by the Attending Physician. Vital Signs: 16:20 BP 133 / 65; Pulse 55; Resp 18; Temp 98.3; Pulse Ox 95% on R/A; ph 17:52 BP 114 / 76; Pulse 89; Resp 16; Temp 98.2; Pulse Ox 97% on R/A; ar6 19:22 BP 132 / 78; Pulse 71; Resp 17; Pulse Ox 100% ; jj7 20:27 BP 165 / 110; Pulse 77; Resp 19; Pulse Ox 99% ; jj7 NIH Stroke Scale Scores: 17:46 NIHSS Score: 0 sami MDM: 16:18 Patient medically screened. sami 17:43 Differential diagnosis: kidney stone, urinary tract infection. Differential Diagnosis: sami cardiac arrhythmia, cerebrovascular accident, GI bleed, idiopathic syncope, pseudo seizure, seizure, sepsis, vasovagal episode. Data reviewed: vital signs, nurses notes, EMS record, lab test result(s), EKG, radiologic studies, CT scan, plain films. Consideration of Admission/Observation Patient was admitted/placed on observation. Escalation of care including admission/observation considered. I considered the following discharge prescriptions or medication management in the emergency department Medications were administered in the Emergency Department. See MAR. Independent interpretation of the following test(s) in the Emergency Department EKG: See my EKG interpretation above. Test considered but Not performed: MRI: no mri brain. Historians other than the Patient: EMS: ems well informed. Care significantly affected by the following chronic conditions: Hypertension, Obesity, a fib, anxiety, cva, depression. Counseling: I had a detailed discussion with the patient and/or guardian regarding the historical points, exam findings, and any diagnostic results supporting the discharge/admit diagnosis, lab results, radiology results, the need for further work-up and treatment in the hospital. 01/29 16:24 Order name: Basic Metabolic Panel; Complete Time: 17:38 [facility] 01/29 16:24 Order name: CBC with Diff; Complete Time: 17:38 [facility] 01/29 16:24 Order name: LFT's; Complete Time: 17:38 [facility] 01/29 16:24 Order name: Magnesium; Complete Time: 17:38 [facility] 01/29 16:24 Order name: NT PRO-BNP; Complete Time: 17:38 [facility] 01/29 16:24 Order name: PT-INR [facility] 01/29 16:24 Order name: Troponin HS; Complete Time: 17:38 [facility] 01/29 16:24 Order name: Blood Culture Adult (2) [facility] 01/29 16:24 Order name: Lactate w/ 2H reflex if indic. [facility] 01/29 16:24 Order name: Urinalysis w/ reflexes [facility] 01/29 19:51 Order name: Magnesium EDMS 01/29 19:51 Order name: Urinalysis W/Microscopic EDMS 01/29 19:51 Order name: CBC with Automated Diff EDMS 01/29 19:51 Order name: CBC with Automated Diff EDMS 01/29 19:51 Order name: Comprehensive Metabolic Panel EDMS 01/29 19:51 Order name: Comprehensive Metabolic Panel EDMS 01/29 19:51 Order name: Troponin High Sensitivity EDMS 01/29 19:51 Order name: Troponin High Sensitivity EDMS 01/29 19:51 Order name: Troponin High Sensitivity EDMS 01/29 16:24 Order name: XRAY Chest (1 view) [facility] 01/29 16:24 Order name: CT Head Brain wo Cont; Complete Time: 18:18 [facility] 01/29 16:24 Order name: CT Stone Protocol; Complete Time: 18:18 [facility] 01/29 19:51 Order name: Carotid Artery Bilateral EDAL 01/29 16:24 Order name: Cardiac monitoring; Complete Time: 16:26 [facility] 01/29 16:24 Order name: EKG - Nurse/Tech; Complete Time: 16:47 [facility] 01/29 16:24 Order name: IV Saline Lock; Complete Time: 16:26 [facility] 01/29 16:24 Order name: Labs collected and sent; Complete Time: 16:47 [facility] 01/29 16:24 Order name: O2 Per Protocol; Complete Time: 16:47 [facility] 01/29 16:24 Order name: O2 Sat Monitoring; Complete Time: 16:47 [facility] 01/29 17:40 Order name: Anderson: now please; Complete Time: 20:25 [facility] EC:41 Rate is 56 beats/min. Rhythm is regular. QRS [place] is Normal. MD interval is normal. QRS sami interval is normal. QT interval is normal. No Q waves. T waves are Normal. No ST changes noted. Clinical impression: Sinus bradycardia and No evidence of ischemia. Interpreted by me. Reviewed by me. Administered Medications: 16:46 Drug: NS 0.9% IV 500 ml IV at bolus once Route: IV; Rate: bolus; Site: left antecubital;ar6 18:32 Follow up: Response: No adverse reaction; IV Status: Completed infusion; IV Intake: ar6 500ml 16:46 Drug: Rocephin IV 1 grams IV at per protocol once; Given slow IV push per pharmacy ar6 instructions Route: IV; Rate: per protocol; Site: left antecubital; 18:13 Drug: foLIC Acid IVPB 1 mg IVPB once Route: IVPB; Site: Other; ar6 18:32 Follow up: Response: No adverse reaction ar6 18:13 Drug: Aspirin PO 162 mg PO once Route: PO; ar6 18:31 Follow up: Response: No adverse reaction ar6 Disposition Summary: 01/30/24 18:20 Hospitalization Ordered Notes: Hospitalization Status: Observation sami Provider: Lorraine Michaud cha Location: Telemetry/[facility]Sur (observation) sami Condition: Stable sami Problem: new sami Symptoms: have improved sami Bed/Room Type: Standard sami Room Assignment: 415(01/30/24 20:10) sp Diagnosis - Weakness sami - Syncope Near sami - Dysuria sami - Altered mental status, unspecified sami - Dementia in other diseases classified elsewhere without behavioral disturbance sami Forms: - Medication Reconciliation Form sami - SBAR form sami - Leadership Thank You Letter sami NIH Stroke Scale - NIH Stroke Score Date: 01/30/2024 Time: 17:46 Total Score = 0 10. Dysarthria (speech clarity - read or repeat words) - 0(Normal) 11. Extinction and Inattention (visual/tactile/auditory/spatial/personal) - 0(No abnormality) 1a. Level of Consciousness (LOC) - 0(Alert) 1b. Level of Consciousness (LOC) (Month \T\ Age) - 0(Both) 1c. LOC Commands (Open \T\ Closes Eyes/[employer]) - 0(Both) 2. Best Gaze (Lateral Gaze Paresis) - 0(Normal) 3. Visual Field Loss - 0(No visual loss) 4. Facial Palsy - 0(Normal) 5a. Left Arm: Motor (10-second hold) - 0(No drift) 5b. Right Arm: Motor (10-second hold) - 0(No drift) 6a. Left Leg: Motor (5-second hold - always test supine) - 0(No drift) 6b. Right Leg: Motor (5-second hold - always test supine) - 0(No drift) 7. Limb Ataxia (finger/nose \T\ heel/amaral - test with eyes open) - 0(Absent) 8. Sensory Loss (pinprick arms/legs/face) - 0(Normal) 9. Best Language: Aphasia (description/naming/reading) - 0(No aphasia) Initials: sami Signatures: Dispatcher [employer] EDMS Dao Cortez MD MD cha Pinkerton, Shawna sp Hall, Patricia, AMIE RN Christy Schilling, RN RN ar6 Corrections: (The following items were deleted from the chart) 16:24 16:24 BASIC METABOLIC PANEL+C.LAB.BRZ ordered. EDMS EDMS 16:24 16:24 CBC+H.LAB.BRZ ordered. EDMS EDMS 16:24 16:24 HEPATIC FUNCTION+C.LAB.BRZ ordered. EDMS EDMS 16:24 16:24 MAGNESIUM+C.LAB.BRZ ordered. EDMS EDMS 16:24 16:24 PROBNP+C.LAB.BRZ ordered. EDMS EDMS 16:24 16:24 PROTIME (+INR)+COAG.LAB.BRZ ordered. EDMS EDMS 16:24 16:24 Troponin High Sensitivity+C.LAB.BRZ ordered. EDMS EDMS 16:24 16:24 BLOOD CULTURE*+BA.LAB.BRZ ordered. EDMS EDMS 16:24 16:24 LACTATE+C.LAB.BRZ ordered. EDMS EDMS 16:24 16:24 Urinalysis+U.LAB.BRZ ordered. EDMS EDMS 16:24 16:24 Chest Single View+RAD.RAD.BRZ ordered. EDMS EDMS 20:10 18:20 sami carvalho
--- NOTE | 2024-01-30 18:20 | ER ---
Nurse's Notes [facility] Name: Claudia Cha Age: 83 yrs Sex: Female : 1940 Arrival Date: 01/30/2024 Time: 16:12 Bed 5 Private MD: Diagnosis: Weakness;Syncope Near;Dysuria;Altered mental status, unspecified;Dementia in other diseases classified elsewhere without behavioral disturbance Presentation: 01/29 16:18 Chief complaint: EMS states: Pt from [facility], c/o pain with urination and flank ph pain. Coronavirus screen: Vaccine status: Patient reports receiving the 2nd dose of the covid vaccine. Ebola Screen: No symptoms or risks identified at this time. Initial Sepsis Screen: Does the patient meet any 2 criteria? No. Patient's initial sepsis screen is negative. Does the patient have a suspected source of infection? No. Patient's initial sepsis screen is negative. Risk Assessment: Do you want to hurt yourself or someone else? Patient reports no desire to harm self or others. Onset of symptoms was January 30, 2024. 16:18 Method Of Arrival: EMS: [facility] ph 16:18 Acuity: [place] 3 ph Historical: - Allergies: 16:18 metformin; ph 16:18 Tape; ph 16:18 zolpidem; ph - PMHx: 16:18 Anxiety; Atrial fibrillation; chronic back pain; CVA (pain pump); depressive disorder; ph Hypercholesterolemia; Hypertension; kidney disease; Myocardial infarction; Pre Diabetes; - PSHx: 16:18 back surgery; heart stent; pain pump; ph - Immunization history:: Adult Immunizations unknown. - Infectious Disease History:: Denies. - Family history:: not pertinent. - Social history:: Smoking status: Patient denies any tobacco usage or history of. Screenin:38 [facility] ED Fall Risk Assessment (Adult) History of falling in the last 3 months, ph including since admission No falls in past 3 months (0 pts) Confusion or Disorientation No (0 pts) Intoxicated or Sedated No (0 pts) Impaired Gait No (0 pts) Mobility Assist Device Used Yes (1 pt) Altered Elimination No (0 pt) Score/Fall Risk Level 0 - 2 = Low Risk Oriented to surroundings, Maintained a safe environment, Hourly rounding (assess needs \T\ fall precautionary measures) done. Abuse screen: Denies threats or abuse. Denies injuries from another. Nutritional screening: No deficits noted. Tuberculosis screening: No symptoms or risk factors identified. Assessment: 17:35 General: Appears in no apparent distress. Behavior is calm, cooperative. Pain: ph Complains of pain in pelvis. Neuro: Level of Consciousness is awake, alert, obeys commands, Oriented to person, place, time, situation. Cardiovascular: Capillary refill < 3 seconds in bilateral fingers Patient's skin is warm and dry. Respiratory: Airway is patent Respiratory effort is even, unlabored, Respiratory pattern is regular, symmetrical. GI: No signs and/or symptoms were reported involving the gastrointestinal system. : Reports pain with urination. Derm: Skin is pink, warm \T\ dry. 19:00 General: Appears in no apparent distress. comfortable, Behavior is calm, cooperative, jj7 restless. Pain: Denies pain. Neuro: Level of Consciousness is awake, alert, obeys commands, Oriented to person, place, time, situation, JUST SLOW TO RESPOND. Vital Signs: 16:20 BP 133 / 65; Pulse 55; Resp 18; Temp 98.3; Pulse Ox 95% on R/A; ph 17:52 BP 114 / 76; Pulse 89; Resp 16; Temp 98.2; Pulse Ox 97% on R/A; ar6 19:22 BP 132 / 78; Pulse 71; Resp 17; Pulse Ox 100% ; jj7 20:27 BP 165 / 110; Pulse 77; Resp 19; Pulse Ox 99% ; jj7 NIH Stroke Scale Scores: 17:46 NIHSS Score: 0 [facility] ED Course: 16:17 Patient arrived in ED. ph 16:18 Dao Cortez MD is Attending Physician. [facility] 16:19 Triage completed. ph 16:19 Arm band placed on Patient placed in an exam room. ph 17:07 XRAY Chest (1 view) In Process Unspecified. EDMS 17:16 CT Head Brain wo Cont In Process Unspecified. EDMS 17:17 CT Stone Protocol In Process Unspecified. EDMS 17:35 Pina Rodarte, AMIE is Primary Nurse. ph 17:38 Patient has correct armband on for positive identification. Placed in gown. Bed in low ph position. Call light in reach. Pulse ox on. NIBP on. Door closed. Noise minimized. Warm blanket given. 17:50 Initial lab(s) drawn, by me, sent to lab. First set of blood cultures drawn. Missed ll1 attempt(s): 22 gauge in left upper shoulder. Bleeding controlled, band aid applied, catheter tip intact. 18:14 Provided Education on: plan of care. ar6 18:14 No provider procedures requiring assistance completed. Inserted saline lock: 24 gauge ar6 in right upper arm, using aseptic technique. Blood collected. Flushed with 10 mL NS site labeled with time/date/initials. 18:19 Lorraine Michaud MD is Hospitalizing Provider. sami 18:31 Anderson cath inserted, using sterile technique, 16 Fr., by [employer], balloon inflated, to ar6 gravity drainage, urine specimen collected. 18:39 Urinalysis w/ reflexes Sent. ar6 20:25 Urinalysis W/Microscopic Sent. jj7 Administered Medications: 16:46 Drug: NS 0.9% IV 500 ml IV at bolus once Route: IV; Rate: bolus; Site: left antecubital;ar6 18:32 Follow up: Response: No adverse reaction; IV Status: Completed infusion; IV Intake: ar6 500ml 16:46 Drug: Rocephin IV 1 grams IV at per protocol once; Given slow IV push per pharmacy ar6 instructions Route: IV; Rate: per protocol; Site: left antecubital; 18:13 Drug: foLIC Acid IVPB 1 mg IVPB once Route: IVPB; Site: Other; ar6 18:32 Follow up: Response: No adverse reaction ar6 18:13 Drug: Aspirin PO 162 mg PO once Route: PO; ar6 18:31 Follow up: Response: No adverse reaction ar6 Medication: 17:40 VIS not applicable for this client. ph Intake: 18:32 IV: 500ml; Total: 500ml. ar6 Outcome: 18:20 Decision to Hospitalize by Provider. sami 21:38 Patient left the ED. iw NIH Stroke Scale - NIH Stroke Score Date: 01/30/2024 Time: 17:46 Total Score = 0 10. Dysarthria (speech clarity - read or repeat words) - 0(Normal) 11. Extinction and Inattention (visual/tactile/auditory/spatial/personal) - 0(No abnormality) 1a. Level of Consciousness (LOC) - 0(Alert) 1b. Level of Consciousness (LOC) (Month \T\ Age) - 0(Both) 1c. LOC Commands (Open \T\ Closes Eyes/Office Aide) - 0(Both) 2. Best Gaze (Lateral Gaze Paresis) - 0(Normal) 3. Visual Field Loss - 0(No visual loss) 4. Facial Palsy - 0(Normal) 5a. Left Arm: Motor (10-second hold) - 0(No drift) 5b. Right Arm: Motor (10-second hold) - 0(No drift) 6a. Left Leg: Motor (5-second hold - always test supine) - 0(No drift) 6b. Right Leg: Motor (5-second hold - always test supine) - 0(No drift) 7. Limb Ataxia (finger/nose \T\ heel/amaral - test with eyes open) - 0(Absent) 8. Sensory Loss (pinprick arms/legs/face) - 0(Normal) 9. Best Language: Aphasia (description/naming/reading) - 0(No aphasia) Initials: sami Signatures: Dispatcher [employer] EDIA Dao Cortez MD MD cha Williams, Irene, RN Pina Winslow RN RN Anthony Luong RN RN ll1 Lonnie Connolly RN AMIE jjChristy Coats RN RN ar6 Corrections: (The following items were deleted from the chart) 18:17 18:14 Inserted saline lock: 24 gauge in right upper arm, using aseptic ll1 technique. Blood collected. Flushed with 10 mL NS ar6
--- NOTE | 2024-01-30 18:26 | RAD REPORT ---
EXAM DESCRIPTION: RADChest Single View01/30/2024 5:05 pm CLINICAL HISTORY: ABDOMINAL DISTENTION COMPARISON: Chest Single View dated 06/14/2023; Chest Single View dated 04/23/2023; Chest Single View dated 01/19/2023; Chest Single View dated 02/18/2021 TECHNIQUE: Portable AP view of the chest. FINDINGS: The lungs are clear. Decreased inspiratory effort somewhat limits evaluation. No pneumoth orax or effusion. The cardiomediastinal contours are unremarkable. IMPRESSION: No acute cardiopulmonary process.
[2024-01-30 18:31] LABS: PT Prothrombin Time 10.4 SECONDS (9.4-12.5); Protime INR 0.93
[2024-01-30 18:48] LABS: Specific Gravity 1.022 (1.005-1.030); Sqamous Epithelial <5 /HPF (None Seen); Urine Bacteria None Seen /HPF (<20); Urine Bilirubin NEGATIVE (Negative); Urine Blood Negative (Negative); Urine Clarity Clear (Clear); Urine Color Light-Yellow (Yellow); Urine Culture Reflex Order NOT NEEDED; Urine Glucose NEGATIVE (Negative); Urine Ketones NEGATIVE (Negative); Urine Microscopic Reflex YN ORDER UMIC; Urine Nitrite NEGATIVE (Negative); Urine Protein NEGATIVE (Negative); Urine RBC <5 /HPF (None Seen); Urine Urobilinogen Normal (Normal); Urine WBC <5 /HPF (<5)
[2024-01-30] MEDS ORDERED: ACETAMINOPHEN 500 MG TAB PO PRN (19:45)
[2024-01-30] MEDS ORDERED: ALBUTEROL 2.5 MG/3 ML NEB SOL NEB PRN (19:45)
[2024-01-30] MEDS ORDERED: ONDANSETRON 4 MG/2 ML VIAL IV PRN (19:45)
--- NOTE | 2024-01-30 19:45 | P.HP ---
Certification for Inpatient Patient admitted to: Observation With expected LOS: <2 Midnights Patient will require the following post-hospital care: None Practitioner: I am a practitioner with admitting privileges, knowledge of patient current condition, hospital course, and medical plan of care. Services: Services provided to patient in accordance with Admission requirements found in Title 42 Section 412.3 of the Code of Federal Regulations Patient History Date of Service: 01/30/24 Reason for admission: Weakness History of Present Illness: 83-year-old female with past medical history of HTN/DM, now diet controlled, A- fib not on chronic anticoagulation, CVA, chronic back pain, CAD status post PCI in the past, [facility], history of recurrent UTI with recurrent encephalopathy; no previous diagnosis of dementia Presented because of was reportedly weak [facility] the [facility] and was laid down to the ground because of her weakness. No reported fever. [facility] reports on presentation was that patient has been complaining of dysuria and burning with urination. No fever reported. On arrival in the ED vital signs were stable nontachycardic, afebrile. Patient head CT shows no acute intracranial pathology, chest x-ray was negative. Abdominal CT shows no acute abdominal finding. Laboratory workup with CBC as well as BMP was unremarkable. EKG shows normal sinus rhythm with no ST segment changes. Troponin was negative. Urinalysis was reportedly negative. Patient is very confused, only able to be oriented to time and person but not to place. She is complaining of back pain. She is unsure why she came to the emergency room. She has been admitted for presumed toxic encephalopathy. ER team felt UA was mixed up and awaiting repeat UA Allergies metformin Allergy (Unknown, Verified 12/18/22 21:20) Itching/Hives/Rash Latex, Natural Rubber Allergy (Verified 12/18/22 21:20) Hives/Rash morphine Adverse Reaction (Verified 12/18/22 21:20) hallucinations Home Medications: Trazodone [Desyrel] 50 mg PO BEDTIME 11/14/20 Duloxetine HCl 30 mg PO DAILY 02/19/21 Rosuvastatin [Crestor] 10 mg PO BEDTIME 02/19/21 Fludrocortisone [Florinef *] 1 tab PO DAILY 12/18/22 Celecoxib [Celebrex*] 200 mg PO DAILY 12/19/22 - Past Medical/Surgical History Diabetic: No -: htn over 10 years, -: diabetic -: chronic back pain -: uti -: pyelonephritis -: back fusions x 2 -: morphine pump -: back surgery, fusion L3-L6 -: morphine pump -: patial hysterectomy -: back surgery 02/08/14 -: stent placement -: appendectomy - Family History Father -: Cancer - Social History Smoking Status: Never smoker Counseled patient to stop smoking for: less than 10 minutes Smoking therapy provided: No Patient receptive to therapy: No Alcohol use: No CD- Drugs: No Caffeine use: No Place of Residence: Retirement Review of Systems General: Weakness Genitourinary: Dysuria Musculoskeletal: Back Pain Neurological: Weakness, Confusion Physical Examination - Physical Exam General: Alert, In no apparent distress, Oriented x2, Cooperative HEENT: Atraumatic, Normocephalic, PERRLA Neck: Supple, 2+ carotid pulse no bruit, JVD not distended Respiratory: Clear to auscultation bilaterally, Normal air movement Cardiovascular: Normal pulses, Regular rate/rhythm, Normal S1 S2 Gastrointestinal: Normal bowel sounds, Soft and benign, Non-distended, No ascites, No tenderness Musculoskeletal: No clubbing, No swelling Integumentary: No rashes, No breakdown Neurological: Normal strength at 5/5 x4 extr, Cranial nerves 3-12 intact, Normal reflexes 2+, Abnormal speech - Studies Laboratory Data (last 24 hrs) 01/30/24 01/30/24 01/30/24 18:10 16:36 16:36 WBC 5.80 Hgb 13.3 Hct 39.6 Plt Count 142 L PT 10.4 INR 0.93 Sodium 142 Potassium 3.6 BUN 22 H Creatinine 1.06 H Glucose 169 H Magnesium 2.1 Total Bilirubin 0.3 AST 17 ALT 24 Alkaline Phosphatase 69 Assessment and Plan - Problems (Diagnosis) (1) Altered mental status Onset Date: 03/03/14 Current Visit: No Status: Acute (2) CKD (chronic kidney disease), stage III Current Visit: No Status: Acute - Plan Impression Acute toxic encephalopathy Weakness with near syncope Presumed UTI Hypertension History of chronic back History of DM History of CAD History of A-fibcurrently in sinus rhythm Plan AMS - Will admit to observation Given possible clinical UTI, will obtain repeat UA Monitor mental status-neurochecks every 6 geodon prn DM - Insulin sliding scale with Accu-Cheks Not on any DM medication, will follow for now Near syncope -Follow serial set of cardiac enzymes Obtain carotid Doppler in a.m. Resume amlodipine, BP control gentle IVF Advance directivediscussed with patient, she is confused, unable to give name of POA. [facility] unable to be reached Pain control DVT prophylaxis - subcutaneous Lovenox Total time spent in evaluation greater than 70-minute - Advance Directives Does patient have a Living Will: No Does patient have a Durable POA for Healthcare: No Physician Review: Patient Assessed, Agree with Above Assessment and Plan
--- NOTE | 2024-01-30 21:11 | RAD REPORT ---
EXAM DESCRIPTION: US - CP - 01/30/2024 8:19 pm CLINICAL HISTORY: cva COMPARISON: Head C Spine Mpr Wo Con dated 10/08/2022 TECHNIQUE: Real-time sonographic grayscale, color duplex, and spectral wave Doppler evaluation of terrie th carotid systems was performed. FINDINGS: Normal high resistance waveforms are noted in both external carotid arteries. The common c arotid arteries and internal carotid arteries show normal low resistance waveforms. Mild smooth calcified atherosclerotic plaque formation at the carotid bulbs bilaterally. Peak systoli c velocity less than 125 cm/ sec bilaterally. ICA/CCA peak systolic ratios less than 2.0 bilaterally . Antegrade flow seen in both vertebral arteries. IMPRESSION: Mild bilateral atherosclerotic changes noted at the carotid bulbs. Less than 50% stenosis of the ICA origins bilaterally. Evaluation of carotid artery stenosis, if any, is reported based on consensus recommendations of the Society of Radiologists in Ultrasound (Raymond et al., Radiology, 2003)
[2024-01-30 21:57] VITALS: O2SAT 99
[2024-01-30] MEDS: NA CHLORIDE 0.9% 1,000 ML IV SCH (22:02)
[2024-01-30 23:10] LABS: Magnesium 1.5 mg/dL (1.6-2.4); Troponin High Sensitivity 8.5 pg/mL (<58.9)
[2024-01-30 23:32] VITALS: BMI 28.8
[2024-01-31] MEDS: INSULIN REGULAR (HUMAN) 100 UNIT/ML SQ SCH
[2024-01-31] MEDS: HYDRALAZINE HCL 20 MG/ML VIAL IV PRN (00:58)
[2024-01-31] MEDS: MORPHINE 2 MG/ML SYR IV PRN (01:50)
[2024-01-31] MEDS: ZIPRASIDONE MESYLA 20 MG/VIAL IM PRN (02:24)
[2024-01-31] MEDS: WATER FOR INJ,STERILE 10 ML IM PRN (02:24)
[2024-01-31 05:51] LABS: Absolute Basophils 0.1 K/uL (0-0.5); Absolute Eosinophils 0.1 K/uL (0-0.5); Absolute Lymphocytes (CBC) 1.5 K/uL (0.7-4.9); Absolute Monocytes 0.7 K/uL (0.1-1.3); Absolute Neutrophil 4.7 K/uL (1.8-8.0); Eosinophils % 2.1 % (0-4.4); Hematocrit 41.5 % (36.0-45.0); Hemoglobin 13.4 g/dL (12.0-15.0); Lymphocytes % 20.7 % (15.3-44.8); MCH 30.9 pg (27.0-35.0); MCHC 32.4 g/dL (32.0-36.0); MCV 95.6 fL (80-100); MPV 9.4 fL (7.6-11.3); Monocytes % 10.3 % (3.3-12.3); Neutrophils % 65.9 % (41.7-73.7); Platelets 135 thou/uL (152-406); RBC Red Blood Cell Count 4.34 M/uL (3.86-4.86); Red Cell Distribution Width 14.3 % (12.1-15.2)
[2024-01-31 06:25] LABS: Albumin 3.5 g/dL (3.4-5.0); Albumin/Globulin Ratio 1.1 (1.1-1.8); Bilirubin Total 0.5 mg/dL (0.2-1.0); Globulin 3.3 g/dL (2.3-3.5); Protein, Total 6.8 g/dL (6.4-8.2)
[2024-01-31] MEDS: Magnesium Sulfate 2gm IVPB 2 G/50 ML BAG IV ONE (09:39)
[2024-01-31] MEDS: POTASSIUM CL SA 10 MEQ TAB PO ONE (09:39)
[2024-01-31] MEDS: ENOXAPARIN 40 MG/0.4 ML SQ SCH (09:40)
[2024-01-31] MEDS: CEFTRIAXONE 1,000 MG in NA CHLORIDE 0.9% 50 ML IVPB ONE (13:29)
[2024-01-31 16:50] VITALS: BP 157/70; TEMP 97.7
[2024-01-31] MEDS: FLUDROCORTISONE 0.1 MG TAB PO SCH (16:59)
[2024-01-31] MEDS: DULOXETINE 30 MG CAP PO SCH (16:59)
--- NOTE | 2024-01-31 17:14 | P.PN ---
Subjective Date of Service: 01/31/24 Chief Complaint: Weakness Patient is awake and alert. She denies any complaint. She denies dysuria. Physical Examination - Vital Signs Temperature: 97.7 F Blood Pressure: 157/70 Pulse: 65 Respirations: 14 Pulse Ox (%): 95 - Studies Laboratory Data (last 24 hrs) 01/30/24 01/30/24 18:10 16:36 PT 10.4 INR 0.93 Sodium 142 Potassium 3.6 BUN 22 H Creatinine 1.06 H Glucose 169 H Magnesium 2.1 Total Bilirubin 0.3 AST 17 ALT 24 Alkaline Phosphatase 69 Assessment And Plan - Plan Physical examination General: Alert and oriented x3, NAD, HEENT: Conjunctiva not pale, anicteric sclera Neck: Supple, no elevated JVD Heart: Heart sounds 1 and 2 normal, regular rhythm, normal rate, no pedal edema Lungs: Clear to auscultation bilaterally, adequate breath sounds bilaterally, no rhonchi or crackles. Abdomen: Soft, nondistended, nontender, normal bowel sounds. Extremities: No tenderness, no deformity Skin: Normal skin turgor, no rash, no nodules or ulcers. Neuro: No focal motor deficit. Normal speech. Psychiatry: Normal mood, no agitation. Diagnosis Acute toxic encephalopathy Generalized weakness Hypertension History of chronic back History of DM History of CAD History of A-fibcurrently in sinus rhythm Plan: Acute Metabolic encephalopathy Initial UA does not suggest UTI. Repeat UA is pending. AMS could be related to syncope or opioid-induced toxicity. Cardiac monitoring Check orthostatic vitals. DM - Insulin sliding scale with Accu-Cheks Near syncope Troponins negative. Carotid duplex unremarkable Resume amlodipine. Advance directiveFull code DVT prophylaxis - subcutaneous Lovenox
--- NOTE | 2024-01-31 17:34 | P.DS ---
Admission Date: 01/30/24 Discharge Date: 01/31/24 Disposition: ROUTINE DISCHARGE Discharge Condition: FAIR Reason for Admission: Weakness Brief History of Present Illness: 83-year-old female with past medical history of HTN/DM, now diet controlled, A- fib not on chronic anticoagulation, CVA, chronic back pain, CAD status post PCI in the past, assisted living resident, history of recurrent UTI with recurrent encephalopathy presented because of a full report of weakness and dysuria. No reported fever. Vitals were stable in the ED. Patient head CT shows no acute intracranial pathology, chest x-ray was negative. Abdominal CT shows no acute abdominal finding. Laboratory workup with CBC as well as BMP was unremarkable. EKG shows normal sinus rhythm with no ST segment changes. Troponin was negative. Urinalysis was reportedly negative but patient was noted to be confused. Patient was hospitalized for further management. Hospital Course: Patient was hospitalized on the medical floor and the following medical problems addressed: Diagnosis Acute toxic encephalopathy Generalized weakness Hypertension History of chronic back History of DM History of CAD History of A-fibcurrently in sinus rhythm Plan: Acute Metabolic encephalopathy Initial UA does not suggest UTI. Repeat UA obtained and the result is pending. Patient received 2 doses of IV Rocephin which should be enough to treat uncomplicated UTI if present and sensitive to the antibiotics. Patient family informed to follow-up with Dr. Moreno regarding the final results of the repeat urine test. AMS resolved Noted patient is on a pain pump which could contribute to patient's altered mental status. Family has been made aware. satellite project site monitor showed bradycardia with heart rate in the 30s overnight. Family requested for discharge today. Patient is discharged per family request. No changes made in her home medications. DM - Insulin sliding scale with Accu-Cheks Near syncope Troponins negative. Carotid duplex did not show any significant carotid artery occlusion to explain patient's symptoms. Blood pressure was moderately elevated. Vital Signs/Physical Exam: Temp Pulse Resp BP Pulse Ox 97.7 F 65 14 157/70 H 95 01/31/24 17:16 01/31/24 17:16 01/31/24 17:16 01/31/24 17:16 01/31/24 17:16 General: Alert, In no apparent distress, Oriented x3 HEENT: Mucous membr. moist/pink, Sclerae nonicteric Neck: Supple, JVD not distended Respiratory: Clear to auscultation bilaterally, Normal air movement Cardiovascular: No edema, Regular rate/rhythm, Normal S1 S2 Gastrointestinal: Normal bowel sounds, Soft and benign, Non-distended, No tenderness Musculoskeletal: No swelling Integumentary: No rashes, No cyanosis Neurological: Normal strength at 5/5 x4 extr Laboratory Data at Discharge: WBC 7.10 thou/uL (4.3-10.9) 01/31/24 05:12 Hgb 13.4 g/dL (12.0-15.0) 01/31/24 05:12 Hct 41.5 % (36.0-45.0) 01/31/24 05:12 Plt Count 135 thou/uL (152-406) L 01/31/24 05:12 PT 10.4 SECONDS (9.4-12.5) 01/30/24 18:10 INR 0.93 01/30/24 18:10 Sodium 144 mEq/L (136-145) 01/31/24 05:12 Potassium 3.0 mEq/L (3.5-5.1) L D 01/31/24 05:12 BUN 14 mg/dL (7-18) 01/31/24 05:12 Creatinine 0.74 mg/dL (0.55-1.02) 01/31/24 05:12 Glucose 112 mg/dL (74-106) H 01/31/24 05:12 Magnesium 1.5 mg/dL (1.6-2.4) L 01/30/24 22:30 Total Bilirubin 0.5 mg/dL (0.2-1.0) 01/31/24 05:12 AST 104 U/L (15-37) H 01/31/24 05:12 ALT 57 U/L (13-56) H 01/31/24 05:12 Alkaline Phosphatase 63 U/L (45-117) 01/31/24 05:12 Home Medications: Trazodone [Desyrel*] 100 mg PO BEDTIME 11/14/20 Duloxetine HCl 30 mg PO DAILY 02/19/21 Rosuvastatin [Crestor*] 10 mg PO BEDTIME 02/19/21 Fludrocortisone [Florinef *] 1 tab PO DAILY 12/18/22 Celecoxib [Celebrex*] 200 mg PO DAILY 12/19/22 Amlodipine [Norvasc*] 5 mg PO DAILY 01/30/24 Aspirin 81 mg PO DAILY 01/30/24 Cranberry Conc/Ascorbic Acid [Cranberry 12,600 mg Softgel] 2 each PO DAILY 01/30/24 Nitroglycerin [Nitrostat*] 0.4 mg SL UD PRN 01/30/24 Sennosides/Docusate Sodium [Senna-S 8.6-50 mg Tablet] 2 each PO BID 01/30/24 Diet: ADA Activity: Fall precautions Followup: Kai Moreno MD [Primary Care Provider] - 1-2 Weeks Time spent managing pt's care (in minutes): 26
[2024-01-31] MEDS ORDERED: DOCUSATE NA/SENNA CONC 1 TAB PO SCH (21:00)
[2024-01-31] MEDS ORDERED: TRAZODONE 50 MG TABLET PO SCH (21:00)
[2024-01-31] MEDS ORDERED: ROSUVASTATIN 10 MG TAB PO SCH (21:00)
[2024-02-01] MEDS ORDERED: CRANBERRY PO SCH ×3 (09:00)
[2024-02-01] MEDS ORDERED: AMLODIPINE 5 MG TAB PO SCH (09:00)
[2024-02-01] MEDS ORDERED: CELECOXIB 100 MG CAPSULE PO SCH (09:00)
[2024-02-01] MEDS ORDERED: ASPIRIN 81 MG CHEWABLE TABLET PO SCH (09:00)
[2024-02-01] MEDS ORDERED: ASCORBIC ACID PO SCH ×3 (09:00)
--- NOTE | 2024-02-01 17:03 | EKG ---
Test Date: 2024-01-30 Test Time: 16:40:17 Treadle Cut Off Saw Operator: EVANS MEASUREMENT RESULTS: Intervals: Rate: 56 IA: 198 QRSD: 90 QT: 438 QTc: 422 [place]: P: 63 IA: 198 QRS: 69 T: 53 INTERPRETIVE STATEMENTS: Sinus bradycardia Otherwise normal ECG Compared to ECG 06/14/2023 02:41:10 Sinus rhythm no longer present Atrial premature complex(es) no longer present T-wave abnormality no longer present Prolonged QT interval no longer present Electronically Signed On 02-01-24 16:59:56 CDT by Javier Gruber
== END 2024-01-31 18:35 | disposition home or self-care (01) ==
LOC: ER 16:12 → ERHOLD 19:45 → 4TH 21:14
PROVIDERS: ADMIT Internal Medicine; ATTEND Internal Medicine
DX: G92.9 Unspecified toxic encephalopathy (principal); R41.82 Altered mental status, unspecified; R53.1 Weakness; I48.11 Longstanding persistent atrial fibrillation; I25.10 Atherosclerotic heart disease of native coronary artery without angina pectoris; I10 Essential (primary) hypertension; R55 Syncope and collapse; E11.9 Type 2 diabetes mellitus without complications; M54.9 Dorsalgia, unspecified; N18.30 Chronic kidney disease, stage 3 unspecified; Z87.440 Personal history of urinary (tract) infections; Z86.73 Personal history of transient ischemic attack (TIA), and cerebral infarction without residual deficits; Z87.898 Personal history of other specified conditions; Z88.5 Allergy status to narcotic agent; Z91.040 Latex allergy status; Z88.8 Allergy status to other drugs, medicaments and biological substances
CPT/HCPCS: 87040 ×2; 85025 ×2; 81001; 80048; 36415; 83735 ×2; 85610; 82947 ×2; 80076; 83605; 84484 ×3; 80053; 83880; 70450; 76377; 74176; 71045; 93880; 51702; 99285; J3475; J0360; J1650; J3486; J2270; J7040; J7030 ×2; J0696 ×2; 93005; G0378